=== PATIENT | female | born 2005 | race American Indian/Alaskan Native ===

== ENCOUNTER 2023-06-14 10:11 | Outpatient (OUT) | payer MEDICAID, SELFPAY ==
[2023-06-14 10:54] LABS: Basophils Absolute Auto 0.1 10^3/uL (0.0-0.1); Basophils Percent Auto 0.5 % (0.2-2.0); Eosinophils Absolute Auto 0.1 10^3/uL (0.0-0.7); Eosinophils Percent Auto 0.9 % (0.9-7.0); Hematocrit 36.4 % (36.0-48.0); Immature Granulocytes Abs Auto 0.06 10^3/uL (0.00-0.03); Immature Granulocytes Pct Auto 0.5 % (0.0-0.5); Lymphocytes Absolute Auto 1.8 10^3/uL (1.2-3.8); Lymphocytes Percent Auto 14.8 % (20.5-60.0); Mean Corpuscular Hemoglobin 29.5 pg (26.7-34.0); Mean Corpuscular Volume 89.4 fL (81.0-99.0); Mean Platelet Volume 9.8 fL (9.5-13.5); Monocytes Absolute Auto 0.8 10^3/uL (0.3-0.8); Monocytes Percent Auto 6.5 % (1.7-12.0); Neutrophils Absolute Auto 9.1 10^3/uL (1.4-6.5); Neutrophils Percent Auto 76.8 % (43.0-75.0); Platelet Count 265 10^3/uL (150-450); Red Blood Count 4.07 10^6/uL (4.20-5.40); Red Cell Distribution Width 13.2 % (11.0-15.0); White Blood Count 11.9 10^3/uL (4.0-11.0)
== END 2023-06-14 10:12 | disposition home or self-care (01) ==
PROVIDERS: PCP Family Medicine; Visit Provider Obstetrics & Gynecology
DX: Z13.1 Encounter for screening for diabetes mellitus (principal); Z31.430 Encounter of female for testing for genetic disease carrier status for procreative management; Z34.81 Encounter for supervision of other normal pregnancy, first trimester
CPT/HCPCS: 36415; 85025

== ENCOUNTER 2023-06-18 18:12 | Outpatient (OUT) | payer MEDICAID, SELFPAY ==
[2023-06-18 18:50] VITALS: BP 93/55; PULSE 73
[2023-06-18 19:13] LABS: Bilirubin Urine NEGATIVE (NEGATIVE); Blood Urine NEGATIVE (NEGATIVE); Clarity Urine CLEAR (CLEAR); Color Urine LT. YELLOW (YELLOW); Glucose Urine UA NEGATIVE (NEGATIVE); Ketones Urine TRACE mg/dL (NEGATIVE); Leukocyte Esterase Urine NEGATIVE (NEGATIVE); Nitrite Urine NEGATIVE (NEGATIVE); Protein Urine NEGATIVE (NEG/TRACE); Urobilinogen Urine 0.2 EU/dL (0.2-1.0)
[2023-06-18 19:14] LABS: Urine Microscopic Indicated NO
--- NOTE | 2023-06-18 19:53 | US_ITS ---
[address] [address] Patient Name: GIOVANY COURTNEY MRN: [facility]:[id number] date: 2005 Sex: F Assigned Patient Location: [facility] Current Patient Location: [facility] Accession/Order Number: [id number] Exam Date: 06/18/2023 19:58 Report Date: 06/18/2023 22:16 At the request of: SAY KWAN Procedure: US OB growth Ultrasound OB growth, OB placenta and OB cervical length HISTORY: Vaginal bleeding x2 days. COMPARISON: 04/20/2023, 02/21/2023 TECHNIQUE: Transabdominal obstetrical ultrasound was performed. INTERPRETATION: Number: There is a live single intrauterine fetus. Presentation: The fetus is in cephalic position. Heart Rate: 128 beats per minute with a normal rhythm. Amniotic Fluid: Normal. 16.3 cm anatomic survey: A anatomical survey was done previously. This was not repeated. Visualized anatomy appears normal. Gestational Age Assessment: Biparietal Diameter: 7.65 cm 30 w 5 d Head Circumference: 27.72 cm 30 w 2 d Abdominal Circumference: 22.91 cm 27 w 2 d Femur Length: 5.09 cm 27 w 2 d Average gestational age based on current ultrasound: 28 w 6 d corresponding to an DALTON of 09/04/2023. Estimated Weight: 1125 gm +/- 168 gm, 5.9 percentile based on clinical dating. HC/AC ratio is 1.21 and is upper limits of normal in size. FL/BPD is 66.59 and is below the lower limits of normal. FL/HC is 18.38 and is below the lower limits of normal. FL/AC is 22.24 and is within normal range. Findings ultrasound OB placental: Placenta: Normal posterior position with no placenta previa. The placenta is grade 0. Findings of the ultrasound OB cervical length: The cervical length is 4.7 cm and is within normal limits. The cervix is closed without funneling. US/US OB growth IMPRESSION: 1. Single live intrauterine gestation With spontaneous motion and cardiac activity. The gestational age based on today's exam is 28 weeks 6 days. 2. Estimated weight is 1125 g which is in the 5.9 percentile. Femur length is in the 3.3 percentile. 3. The placenta is posterior in location without placenta previa. 4. Cervical length is within normal limits measuring 4.7 cm. Electronically authenticated by: KERRI THOMAS Date: 06/18/2023 22:16
--- NOTE | 2023-06-18 19:53 | US_ITS ---
[address] [address] Patient Name: GIOVANY COURTNEY MRN: [facility]:[id number] date: 2005 Sex: F Assigned Patient Location: [facility] Current Patient Location: [facility] Accession/Order Number: [id number] Exam Date: 06/18/2023 19:58 Report Date: 06/18/2023 22:16 At the request of: SAY KWAN Procedure: US OB placenta Ultrasound OB growth, OB placenta and OB cervical length HISTORY: Vaginal bleeding x2 days. COMPARISON: 04/20/2023, 02/21/2023 TECHNIQUE: Transabdominal obstetrical ultrasound was performed. INTERPRETATION: Number: There is a live single intrauterine fetus. Presentation: The fetus is in cephalic position. Heart Rate: 128 beats per minute with a normal rhythm. Amniotic Fluid: Normal. 16.3 cm anatomic survey: A anatomical survey was done previously. This was not repeated. Visualized anatomy appears normal. Gestational Age Assessment: Biparietal Diameter: 7.65 cm 30 w 5 d Head Circumference: 27.72 cm 30 w 2 d Abdominal Circumference: 22.91 cm 27 w 2 d Femur Length: 5.09 cm 27 w 2 d Average gestational age based on current ultrasound: 28 w 6 d corresponding to an DALTON of 09/04/2023. Estimated Weight: 1125 gm +/- 168 gm, 5.9 percentile based on clinical dating. HC/AC ratio is 1.21 and is upper limits of normal in size. FL/BPD is 66.59 and is below the lower limits of normal. FL/HC is 18.38 and is below the lower limits of normal. FL/AC is 22.24 and is within normal range. Findings ultrasound OB placental: Placenta: Normal posterior position with no placenta previa. The placenta is grade 0. Findings of the ultrasound OB cervical length: The cervical length is 4.7 cm and is within normal limits. The cervix is closed without funneling. US/US OB placenta IMPRESSION: 1. Single live intrauterine gestation With spontaneous motion and cardiac activity. The gestational age based on today's exam is 28 weeks 6 days. 2. Estimated weight is 1125 g which is in the 5.9 percentile. Femur length is in the 3.3 percentile. 3. The placenta is posterior in location without placenta previa. 4. Cervical length is within normal limits measuring 4.7 cm. Electronically authenticated by: KERRI THOMAS Date: 06/18/2023 22:16
--- NOTE | 2023-06-18 19:53 | US_ITS ---
[address] [address] Patient Name: GIOVANY COURTNEY MRN: [facility]:[id number] date: 2005 Sex: F Assigned Patient Location: [facility] Current Patient Location: [facility] Accession/Order Number: [id number] Exam Date: 06/18/2023 19:58 Report Date: 06/18/2023 22:16 At the request of: SAY KWAN Procedure: US OB cervical length Ultrasound OB growth, OB placenta and OB cervical length HISTORY: Vaginal bleeding x2 days. COMPARISON: 04/20/2023, 02/21/2023 TECHNIQUE: Transabdominal obstetrical ultrasound was performed. INTERPRETATION: Number: There is a live single intrauterine fetus. Presentation: The fetus is in cephalic position. Heart Rate: 128 beats per minute with a normal rhythm. Amniotic Fluid: Normal. 16.3 cm anatomic survey: A anatomical survey was done previously. This was not repeated. Visualized anatomy appears normal. Gestational Age Assessment: Biparietal Diameter: 7.65 cm 30 w 5 d Head Circumference: 27.72 cm 30 w 2 d Abdominal Circumference: 22.91 cm 27 w 2 d Femur Length: 5.09 cm 27 w 2 d Average gestational age based on current ultrasound: 28 w 6 d corresponding to an DALTON of 09/04/2023. Estimated Weight: 1125 gm +/- 168 gm, 5.9 percentile based on clinical dating. HC/AC ratio is 1.21 and is upper limits of normal in size. FL/BPD is 66.59 and is below the lower limits of normal. FL/HC is 18.38 and is below the lower limits of normal. FL/AC is 22.24 and is within normal range. Findings ultrasound OB placental: Placenta: Normal posterior position with no placenta previa. The placenta is grade 0. Findings of the ultrasound OB cervical length: The cervical length is 4.7 cm and is within normal limits. The cervix is closed without funneling. US/US OB cervical length IMPRESSION: 1. Single live intrauterine gestation With spontaneous motion and cardiac activity. The gestational age based on today's exam is 28 weeks 6 days. 2. Estimated weight is 1125 g which is in the 5.9 percentile. Femur length is in the 3.3 percentile. 3. The placenta is posterior in location without placenta previa. 4. Cervical length is within normal limits measuring 4.7 cm. Electronically authenticated by: KERRI THOMAS Date: 06/18/2023 22:16
--- NOTE | 2023-06-18 20:01 | W.PC.ACHO ---
Registration Status: REG OUT Primary Language: Preferred Language:
== END 2023-06-18 22:10 | disposition home or self-care (01) ==
LOC: FBCO 18:13 → FBC 18:15
PROVIDERS: Midwife; PCP Family Medicine; Visit Provider Obstetrics & Gynecology
DX: O46.92 Antepartum hemorrhage, unspecified, second trimester (principal); Z3A.28 28 weeks gestation of pregnancy
CPT/HCPCS: 59025; 76815; 76816; 76817; 81003; 87086

== ENCOUNTER 2023-06-26 10:38 | Outpatient (OUT) | payer MEDICAID, SELFPAY ==
--- NOTE | 2023-06-26 10:44 | US_ITS ---
[address] [address] Patient Name: GIOVANY COURTNEY MRN: [id number] date: 2005 Sex: F Assigned Patient Location: US Current Patient Location: US Accession/Order Number: [id number] Exam Date: 06/26/2023 10:45 Report Date: 06/26/2023 11:37 At the request of: MARY JO CELAYA Procedure: US OB growth EXAMINATION: US OB growth HISTORY: SIZE INCONSISTENT WITH DATES COMPARISON: Ultrasound OB growth 06/18/2023 FINDINGS: Heart Rate: 130.0 bpm Number: 1.0 Position: CEPHALIC Amniotic Fluid Volume: 13.0 cm Maximum Vertical Pocket: 4.1 cm BIOMETRY: BPD: 7.4 cm cm; 29 weeks 6 days; 25% HC: 27.2 cmcm; 29 weeks 4 days; 6% AC: 24.1 cm cm; 28 weeks 3 days; 5% FL: 5.5 cm cm; 29 weeks 0 days; 9% EFW: 1291.1 grams; 6% FL/AC: 22.8 FL/BPD: 73.9 HC/AC: 1.1 GESTATIONAL AGE: Age by EDC: 30 weeks 2 days DALTON by EDC: 09/02/2023 Age by US: 29 weeks 2 days DALTON by US: 09/09/2023 US/US OB growth IMPRESSION: 1. Single live intrauterine with growth detailed above. 2. Estimated weight is at 6th percentile. Electronically authenticated by: TOYIN MCKEON Date: 06/26/2023 11:37
== END 2023-06-26 10:39 | disposition home or self-care (01) ==
LOC: US 10:38
PROVIDERS: PCP Family Medicine; Visit Provider Obstetrics & Gynecology
DX: O26.843 Uterine size-date discrepancy, third trimester (principal); Z3A.29 29 weeks gestation of pregnancy
CPT/HCPCS: 76816

== ENCOUNTER 2023-07-15 15:36 | Outpatient (OUT) | payer MEDICAID, SELFPAY ==
[2023-07-15 15:57] VITALS: BP 100/59; PULSE 69
--- NOTE | 2023-07-15 16:10 | US_ITS ---
[address] [address] Patient Name: GIOVANY COURTNEY MRN: [id number] date: 2005 Sex: F Assigned Patient Location: [facility] Current Patient Location: Accession/Order Number: [id number] Exam Date: 07/15/2023 16:11 Report Date: 07/15/2023 16:54 At the request of: MARY JO CELAYA Procedure: US OB BPP w non-stress EXAM: US OB BPP w non-stress HISTORY: IUGR COMPARISON: None. FINDINGS: There is evidence of an intrauterine in the vertex presentation with a heart rate of 128. Amniotic fluid index is 17.7 cm which is between the fifth and 95th percentile. movement 2, tone 2, breathing 2, and amniotic fluid volume 2 for a score of 8/8. US/US OB BPP w non-stress IMPRESSION: 1 intrauterine in the vertex presentation with heart rate 128. 2. Biophysical profile 8/8. Electronically authenticated by: ALEXIA HEWITT Date: 07/15/2023 16:54
== END 2023-07-15 16:45 | disposition home or self-care (01) ==
LOC: FBCO 15:38 → FBC 15:43
PROVIDERS: PCP Family Medicine; Visit Provider Obstetrics & Gynecology
DX: O26.843 Uterine size-date discrepancy, third trimester (principal); Z3A.00 Weeks of gestation of pregnancy not specified
CPT/HCPCS: 76818

== ENCOUNTER 2023-07-18 09:52 | Outpatient (OUT) | payer MEDICAID, SELFPAY ==
[2023-07-18 10:00] VITALS: BP 99/56; PULSE 75
== END 2023-07-18 10:33 | disposition home or self-care (01) ==
LOC: FBCO 09:52 → FBC 09:53
PROVIDERS: PCP Family Medicine; Visit Provider Obstetrics & Gynecology Gynecology
DX: O26.843 Uterine size-date discrepancy, third trimester (principal); Z3A.00 Weeks of gestation of pregnancy not specified
CPT/HCPCS: 59025

== ENCOUNTER 2023-07-22 10:00 | Outpatient (OUT) | payer MEDICAID, SELFPAY ==
--- NOTE | 2023-07-22 10:23 | US_ITS ---
[address] [address] Patient Name: GIOVANY COURTNEY MRN: [id number] date: 2005 Sex: F [place]igned [place] [facility] [place] [facility] [place]/Order Number: [id number] Exam Date: 07/22/2023 10:28 Report Date: 07/22/2023 17:02 At the request of: MARY JO CELAYA Procedure: US OB BPP w non-stress EXAMINATION: US OB BPP w non-stress HISTORY: size inconsistent with dates O26.849 COMPARISON: No relevant comparison available. TECHNIQUE: Ultrasound biophysical profile was performed in the radiology department. FINDINGS: BREATHING MOVEMENTS: 2.0 GROSS BODY MOVEMENTS: 2.0 TONE: 2.0 QUALITATIVE AMNIOTIC FLUID VOLUME: 2.0 PRESENTATION: CEPHALIC HEART RATE: 124.4 bpm H.B./min AMNIOTIC FLUID VOLUME: 12.1 cm cm GESTATIONAL AGE: 34 weeks 0 days 7.4 x 6.9 x 4.4 cm area of anechoic echogenicity in the left ovary CONCLUSION: Total biophysical profile score: 8.0 Electronically authenticated by: ALEXIA REEVES Date: 07/22/2023 17:02
== END 2023-07-22 10:48 | disposition home or self-care (01) ==
LOC: FBCO 10:21 → FBC 10:22
PROVIDERS: PCP Family Medicine; Visit Provider Obstetrics & Gynecology
DX: O26.843 Uterine size-date discrepancy, third trimester (principal); Z3A.34 34 weeks gestation of pregnancy
CPT/HCPCS: 76818

== ENCOUNTER 2023-07-24 11:09 | Outpatient (OUT) | payer MEDICAID, SELFPAY ==
--- NOTE | 2023-07-24 11:18 | US_ITS ---
[address] [address] Patient Name: GIOVANY COURTNEY MRN: [id number] date: 2005 Sex: F Assigned Patient Location: [facility] Current Patient Location: [facility] Accession/Order Number: [id number] Exam Date: 07/24/2023 11:20 Report Date: 07/24/2023 12:12 At the request of: MARY JO CELAYA Procedure: US OB BPP w non-stress EXAMINATION: US OB BPP w non-stress HISTORY: LGA COMPARISON: No relevant comparison available. TECHNIQUE: Ultrasound biophysical profile was performed in the radiology department. FINDINGS: BREATHING MOVEMENTS: 2.0 GROSS BODY MOVEMENTS: 2.0 TONE: 2.0 QUALITATIVE AMNIOTIC FLUID VOLUME: 2.0 PRESENTATION: CEPHALIC HEART RATE: 105.4 bpm H.B./min AMNIOTIC FLUID VOLUME: 17.4 cm cm GESTATIONAL AGE: 34 weeks 2 days CONCLUSION: Total biophysical profile score: 8.0 Electronically authenticated by: ALEXIA REEVES Date: 07/24/2023 12:12
--- NOTE | 2023-07-24 12:07 | PC.NURSE ---
monitor not connecting to [employer] and so tracing is being monitored on paper, fhr over first 10 minutes is tracing 100-120 with moderate variability and accels to 140s noted with movement, bpp done prior to nst and results 8 and hugo 17.4
--- NOTE | 2023-07-24 12:29 | PC.NURSE ---
dr chan in and assess patient and tracing
[2023-07-24 13:06] LABS: Alanine Aminotransferase 16 U/L (14-59); Albumin Globulin Ratio 0.7; Albumin Level 2.7 g/dL (3.4-5.0); Alkaline Phosphatase 84 U/L (46-116); Aspartate Amino Transferase 18 U/L (15-37); Bilirubin Direct <0.1 mg/dL (0.0-0.2); Bilirubin Total 0.2 mg/dL (0.2-1.0); Globulin 4.1 g/dL; Total Protein 6.8 g/dL (6.4-8.2)
--- NOTE | 2023-07-24 13:45 | PC.NURSE ---
1205 FHR 115 with mod variability. IT tech support working on getting [employer]ix and [employer] to respond for tracing. accels noted, no decels, see paper tracing
[2023-07-24] MEDS: BETAMETHASONE ACE/BETAMETHASONE SOD PHOS 30 MG/5 ML 12 MG IM (14:22)
[2023-07-25 17:09] LABS: Bile Acids 1.9 umol/L (0.0-10.0)
== END 2023-07-24 14:38 | disposition home or self-care (01) ==
LOC: US 11:10 → FBC 11:10
PROVIDERS: PCP Family Medicine; Visit Provider Obstetrics & Gynecology
DX: O26.843 Uterine size-date discrepancy, third trimester (principal); Z3A.34 34 weeks gestation of pregnancy; O36.63X0 Maternal care for excessive fetal growth, third trimester, not applicable or unspecified
CPT/HCPCS: 36415; 76818; 80076; 82239; 96372; J0702

== ENCOUNTER 2023-07-25 13:59 | Outpatient (OUT) | payer MEDICAID, SELFPAY ==
[2023-07-25] MEDS: BETAMETHASONE ACE/BETAMETHASONE SOD PHOS 30 MG/5 ML 12 MG IM (14:10)
== END 2023-07-25 14:48 ==
LOC: FBCO 13:59 → FBC 13:59
PROVIDERS: PCP Family Medicine; Visit Provider Obstetrics & Gynecology
DX: O26.849 Uterine size-date discrepancy, unspecified trimester (principal); Z3A.00 Weeks of gestation of pregnancy not specified
CPT/HCPCS: 59025; J0702

== ENCOUNTER 2023-07-30 09:55 | Outpatient (OUT) | payer MEDICAID, SELFPAY ==
--- NOTE | 2023-07-30 10:07 | US_ITS ---
[place] [id number] Patient Name: GIOVANY COURTNEY MRN: [id number] date: 2005 Sex: F Assigned Patient Location: [facility] Current Patient Location: Accession/Order Number: [id number] Exam Date: 07/30/2023 10:08 Report Date: 07/30/2023 17:34 At the request of: MARY JO CELAYA Procedure: US OB BPP w non-stress EXAMINATION: US OB BPP w non-stress HISTORY: Variable heart rate decelerations O36.8390 COMPARISON: No relevant comparison available. TECHNIQUE: Ultrasound biophysical profile was performed in the radiology department. FINDINGS: BREATHING MOVEMENTS: 2.0 GROSS BODY MOVEMENTS: 2.0 TONE: 2.0 QUALITATIVE AMNIOTIC FLUID VOLUME: 2.0 PRESENTATION: CEPHALIC HEART RATE: 125.0 bpm H.B./min AMNIOTIC FLUID VOLUME: 13.6 cm cm GESTATIONAL AGE: 39 weeks 3 days CONCLUSION: Total biophysical profile score: 8.0 Electronically authenticated by: ALEXIA REEVES Date: 07/30/2023 17:34
[2023-07-30 10:32] VITALS: BP 107/60; PULSE 83
== END 2023-07-30 11:11 | disposition home or self-care (01) ==
LOC: US 09:57 → FBC 09:58
PROVIDERS: PCP Family Medicine; Visit Provider Obstetrics & Gynecology
DX: O26.843 Uterine size-date discrepancy, third trimester (principal); Z3A.39 39 weeks gestation of pregnancy
CPT/HCPCS: 76818

== ENCOUNTER 2023-08-01 09:49 | Outpatient (OUT) | payer MEDICAID, SELFPAY ==
[2023-08-01 09:57] VITALS: BP 103/51; PULSE 67
== END 2023-08-01 10:45 | disposition home or self-care (01) ==
LOC: FBCO 09:50 → FBC 09:50
PROVIDERS: PCP Family Medicine; Visit Provider Obstetrics & Gynecology
DX: O36.8930 Maternal care for other specified fetal problems, third trimester, not applicable or unspecified (principal); O26.849 Uterine size-date discrepancy, unspecified trimester; Z3A.00 Weeks of gestation of pregnancy not specified
CPT/HCPCS: 59025

== ENCOUNTER 2023-08-05 09:55 | Outpatient (OUT) | payer MEDICAID, SELFPAY ==
--- NOTE | 2023-08-05 10:04 | US_ITS ---
[address] [address] Patient Name: GIOVANY COURTNEY MRN: [id number] date: 2005 Sex: F Assigned Patient Location: [facility] Current Patient Location: [facility] Accession/Order Number: [id number] Exam Date: 08/05/2023 10:50 Report Date: 08/05/2023 17:06 At the request of: MARY JO CELAYA Procedure: US OB BPP w non-stress EXAMINATION: US OB BPP w non-stress HISTORY: SIZE INCONSISTENT WITH DATES O26.649 COMPARISON: 07/30/2023 TECHNIQUE: Ultrasound biophysical profile was performed in the radiology department. non-reactive stress testing was performed by nursing staff in the birthing center. FINDINGS: BREATHING MOVEMENTS: 2.0 GROSS BODY MOVEMENTS: 2.0 TONE: 2.0 QUALITATIVE AMNIOTIC FLUID VOLUME: 2.0 PRESENTATION: CEPHALIC HEART RATE: 119.5 bpm H.B./min AMNIOTIC FLUID VOLUME: 11.8 cm GESTATIONAL AGE: 36 weeks 0 days CONCLUSION: Total biophysical profile score: 8.0 Electronically authenticated by: ALEXIA REEVES Date: 08/05/2023 17:06
[2023-08-05 10:06] VITALS: BP 109/57; PULSE 67
== END 2023-08-05 11:15 | disposition home or self-care (01) ==
LOC: US 10:02 → FBC 10:03
PROVIDERS: PCP Family Medicine; Visit Provider Obstetrics & Gynecology
DX: O26.843 Uterine size-date discrepancy, third trimester (principal); Z3A.36 36 weeks gestation of pregnancy; O36.8330 Maternal care for abnormalities of the fetal heart rate or rhythm, third trimester, not applicable or unspecified
CPT/HCPCS: 76818

== ENCOUNTER 2023-08-07 20:34 | Outpatient (REF) | payer MEDICAID, SELFPAY | END 2023-08-07 20:35 | disposition home or self-care (01) | LOC: LAB 20:34 | PROVIDERS: PCP Family Medicine; Visit Provider Obstetrics & Gynecology | DX: Z34.93 Encounter for supervision of normal pregnancy, unspecified, third trimester (principal) | CPT/HCPCS: 87081 ==

== ENCOUNTER 2023-08-08 10:00 | Outpatient (OUT) | payer MEDICAID, SELFPAY ==
[2023-08-08 10:17] VITALS: BP 102/60; PULSE 76
== END 2023-08-08 10:45 | disposition home or self-care (01) ==
LOC: FBCO 10:01 → FBC 10:01
PROVIDERS: PCP Family Medicine; Visit Provider Obstetrics & Gynecology
DX: O36.8390 Maternal care for abnormalities of the fetal heart rate or rhythm, unspecified trimester, not applicable or unspecified (principal); O26.849 Uterine size-date discrepancy, unspecified trimester; Z3A.00 Weeks of gestation of pregnancy not specified
CPT/HCPCS: 59025

== ENCOUNTER 2023-08-12 07:30 | Outpatient (OUT) | payer MEDICAID, SELFPAY ==
--- NOTE | 2023-08-12 09:47 | US_ITS ---
[address] [address] Patient Name: GIOVANY COURTNEY MRN: [id number] date: 2005 Sex: F Assigned Patient Location: US Current Patient Location: US Accession/Order Number: [id number] Exam Date: 08/12/2023 09:59 Report Date: 08/12/2023 16:56 At the request of: MARY JO CELAYA Procedure: US OB BPP w non-stress EXAMINATION: US OB BPP w non-stress HISTORY: SIZE INCONSISTENT WITH DATES O26.649 COMPARISON: No relevant comparison available. TECHNIQUE: Ultrasound biophysical profile was performed in the radiology department. FINDINGS: BREATHING MOVEMENTS: 2.0 GROSS BODY MOVEMENTS: 2.0 TONE: 2.0 QUALITATIVE AMNIOTIC FLUID VOLUME: 2.0 PRESENTATION: CEPHALIC HEART RATE: 134.3 bpm H.B./min AMNIOTIC FLUID VOLUME: 17.7 cm cm GESTATIONAL AGE: 37 weeks 0 days CONCLUSION: Total biophysical profile score: 8.0 Electronically authenticated by: ALEXIA REEVES Date: 08/12/2023 16:56
[2023-08-12 10:22] VITALS: BP 99/56; PULSE 100
== END 2023-08-12 10:46 | disposition home or self-care (01) ==
LOC: US 07:33 → FBC 10:04
PROVIDERS: PCP Family Medicine; Visit Provider Obstetrics & Gynecology
DX: O26.843 Uterine size-date discrepancy, third trimester (principal); Z3A.37 37 weeks gestation of pregnancy
CPT/HCPCS: 76818

== ENCOUNTER 2023-08-15 07:26 | Outpatient (OUT) | payer MEDICAID, SELFPAY ==
[2023-08-15 10:10] VITALS: BP 111/59; PULSE 80
== END 2023-08-15 10:55 | disposition home or self-care (01) ==
LOC: FBCO 07:27 → FBC 10:03
PROVIDERS: PCP Family Medicine; Visit Provider Obstetrics & Gynecology
DX: O36.8390 Maternal care for abnormalities of the fetal heart rate or rhythm, unspecified trimester, not applicable or unspecified (principal); O26.849 Uterine size-date discrepancy, unspecified trimester; Z3A.00 Weeks of gestation of pregnancy not specified
CPT/HCPCS: 59025

== ENCOUNTER 2023-08-19 07:08 | Outpatient (OUT) | payer MEDICAID, SELFPAY ==
--- NOTE | 2023-08-19 09:57 | US_ITS ---
[place] [id number] Patient Name: GIOVANY COURTNEY MRN: [id number] date: 2005 Sex: F Assigned Patient Location: [facility] Current Patient Location: Accession/Order Number: [id number] Exam Date: 08/19/2023 10:00 Report Date: 08/19/2023 15:32 At the request of: MARY JO CELAYA Procedure: US OB BPP w non-stress EXAMINATION: US OB BPP w non-stress HISTORY: size inconsistent with dates O26.649 COMPARISON: Ultrasound OB biophysical 08/12/2023 TECHNIQUE: Ultrasound biophysical profile was performed in the radiology department. BREATHING MOVEMENTS: 2.0 GROSS BODY MOVEMENTS: 2.0 TONE: 2.0 QUALITATIVE AMNIOTIC FLUID VOLUME: 2.0 PRESENTATION: CEPHALIC HEART RATE: 135.7 bpm bpm. AMNIOTIC FLUID VOLUME: 13.7 cm GESTATIONAL AGE: 38 weeks 0 days CONCLUSION: Total biophysical profile score 8.0. Electronically authenticated by: TOYIN MCKEON Date: 08/19/2023 15:32
[2023-08-19 10:24] VITALS: BP 111/76; PULSE 74
== END 2023-08-19 11:00 | disposition home or self-care (01) ==
LOC: US 07:14 → FBC 09:55
PROVIDERS: PCP Family Medicine; Visit Provider Obstetrics & Gynecology
DX: O26.843 Uterine size-date discrepancy, third trimester (principal); Z3A.38 38 weeks gestation of pregnancy
CPT/HCPCS: 76818

== ENCOUNTER 2023-08-22 08:24 | Outpatient (OUT) | payer MEDICAID, SELFPAY ==
[2023-08-22 10:04] VITALS: BP 113/51; PULSE 73
== END 2023-08-22 10:48 | disposition home or self-care (01) ==
LOC: FBCO 08:25 → FBC 09:58
PROVIDERS: PCP Family Medicine; Visit Provider Obstetrics & Gynecology
DX: O36.8390 Maternal care for abnormalities of the fetal heart rate or rhythm, unspecified trimester, not applicable or unspecified (principal); O26.849 Uterine size-date discrepancy, unspecified trimester; Z3A.00 Weeks of gestation of pregnancy not specified
CPT/HCPCS: 59025

== ENCOUNTER 2023-08-26 04:57 | Inpatient (IN) | payer MEDICAID, SELFPAY ==
[2023-08-26] VITALS (43 sets, daily range): BP systolic 82–135; BP diastolic 48–87; PULSE 50–93; RESP 16–18; TEMP 36.4–37.1
[2023-08-26] MEDS: 0.9 % SODIUM CHLORIDE 1,000 ML 125 ML IV ×2 (05:25→12:10)
[2023-08-26 05:36] LABS: Hematocrit 32.9 % (36.0-48.0); Hemoglobin 10.9 g/dL (12.0-16.0); Mean Corpuscular HGB Conc 33.1 g/dL (29.9-35.2); Mean Corpuscular Hemoglobin 28.3 pg (26.7-34.0); Mean Corpuscular Volume 85.5 fL (81.0-99.0); Mean Platelet Volume 10.2 fL (9.5-13.5); Platelet Count 286 10^3/uL (150-450); Red Blood Count 3.85 10^6/uL (4.20-5.40); Red Cell Distribution Width 13.2 % (11.0-15.0); White Blood Count 10.2 10^3/uL (4.0-11.0)
[2023-08-26 06:04] LABS: Amphetamine Screen Urine NEGATIVE (NEGATIVE); Barbiturates Screen Urine NEGATIVE (NEGATIVE); Benzodiazepines Screen Urine NEGATIVE (NEGATIVE); Buprenorphine Screen Urine NEGATIVE (NEGATIVE); Cannabinoid Screen Urine POSITIVE (NEGATIVE); Cocaine Screen Urine NEGATIVE (NEGATIVE); Methadone Screen Urine NEGATIVE (NEGATIVE); Methamphetamines Screen Urine NEGATIVE (NEGATIVE); Opiate Screen Urine NEGATIVE (NEGATIVE); Oxycodone Screen Urine NEGATIVE (NEGATIVE); Phencyclidine Screen Urine NEGATIVE (NEGATIVE); Tricyclic Antidepressant Urine NEGATIVE (NEGATIVE)
[2023-08-26] MEDS: OXYTOCIN/0.9 % SODIUM CHLORIDE 10 UNITS/500 ML PLAST..BAG 6 UNIT IV (07:14)
--- NOTE | 2023-08-26 07:27 | W.PC.ACHO ---
Registration Status: ADM IN Primary Language: Maldivian Preferred Language: Maldivian Active Medications Generic Name Dose Route Start Last Admin Trade Name Freq PRN Reason Stop Dose Admin Carboprost Tromethamine 250 mcg 08/26/23 04:59 Carboprost Tromethamine 250 Mcg/Ml 1 Ml Vial IM 08/28/23 04:59 Q15M PRN Bleeding Diphenhydramine HCl 25 mg 08/26/23 05:46 Diphenhydramine Hcl 50 Mg/Ml (1ml) Vial IV 08/27/23 05:47 Q6H PRN Itching Ephedrine Sulfate 5 mg 08/26/23 05:46 Ephedrine Sulfate 50 Mg/Ml Vial IV 08/27/23 05:47 Q5M PRN Blood Pressure - Low Fentanyl Citrate 100 mcg 08/26/23 05:46 Fentanyl Citrate/Pf 100 Mcg/2 Ml Vial EPIDURAL 08/27/23 05:46 Q4H PRN Pain Sodium Chloride 1,000 mls @ 125 mls/hr 08/26/23 05:00 08/26/23 05:25 Sodium Chloride 0.9% 1,000 Ml IV 125 mls/hr .Q8H BLUE Administration Oxytocin/Sodium Chloride 10 units in 500 mls @ 6 mls/hr 08/26/23 05:00 08/26/23 07:14 Pitocin 10 Unit/500 Ml-Ns IV 2 milliunit/min CONT BLUE 6 mls/hr Administration Protocol 2 MILLIUNIT/MIN Oxytocin/Sodium Chloride 20 units in 1,000 mls @ 125 mls/hr 08/26/23 05:00 Pitocin 20 Unit/1,000 Ml-Ns IV 08/26/23 12:59 Q8H PRN Delivery Sodium Chloride 1,000 mls @ 1,000 mls/hr 08/26/23 05:46 Sodium Chloride 0.9% 1,000 Ml IV .Q1H PRN Epidural Ropivacaine/Sodium Chloride 400 mg in 200 mls @ 6 mls/hr 08/26/23 06:00 Naropin 0.2% 400 Mg/200 Ml Bag EPIDURAL 08/27/23 05:46 Q24H BLUE Lidocaine 5 ml 08/26/23 04:59 Lidocaine Viscous 2% 15 Ml Solution TOPICAL ONCE PRN Pain Lidocaine 1 ml 08/26/23 04:59 Lidocaine Hcl 1% 200 Mg/20 Ml Mdv INJ ONCE PRN Pain Lidocaine 5 ml 08/26/23 05:46 Lidocaine Hcl 2% Pf 100 Mg/5 Ml Vial INJ 08/27/23 05:46 Q1H PRN Epidural Methylergonovine Maleate 0.2 mg 08/26/23 04:59 Methylergonovine Maleate 0.2 Mg/Ml Ampule IM 08/28/23 04:59 ONCE PRN Uterine Contractility/Contract Methylergonovine Maleate 0.2 mg 08/26/23 04:59 Methylergonovine Maleate 0.2 Mg Tablet PO 08/28/23 04:59 Q4H PRN Uterine Contractility/Contract Misoprostol 600 mcg 08/26/23 04:59 Misoprostol 100 Mcg Tablet PO 08/28/23 04:59 ONCE PRN Uterine Bleeding Misoprostol 800 mcg 08/26/23 04:59 Misoprostol 100 Mcg Tablet SL 08/28/23 04:59 ONCE PRN Uterine Bleeding Misoprostol 1,000 mcg 08/26/23 04:59 Misoprostol 100 Mcg Tablet MA 08/28/23 04:59 ONCE PRN Uterine Bleeding Naloxone HCl 0.4 mg 08/26/23 05:46 Naloxone Hcl 0.4 Mg/Ml Vial IV 08/27/23 05:47 ONCE PRN Epidural Ondansetron HCl 4 mg 08/26/23 04:59 Ondansetron Pf 4 Mg/2 Ml Vial IV Q6H PRN Nausea And Vomiting Ondansetron HCl 4 mg 08/26/23 04:59 Ondansetron 4 Mg Rapdis Tablet SL Q6H PRN Nausea And Vomiting Oxytocin 10 unit 08/26/23 04:59 Oxytocin 10 Unit/Ml Vial IM 08/28/23 04:59 ONCE PRN Hemorrhage Diet Category Date Time Status Regular Consistency Diet Diet 08/26/23 Breakfast Active Consults Category Date Time Status Consult to Horticultural Nursery Assistant Routine Cons 08/26/23 Ordered IV Insertion/Site Date of IV Line Insertion [20g 08/26/23 Forearm] IV Insertion Time [20g Forearm 05:15 ] Neurology Patient orientation (short person,place,time,situation list) Respiratory Oxygen Delivery Method Room Air
[2023-08-26] MEDS: 0.9 % SODIUM CHLORIDE 1,000 ML 1000 ML IV (09:00)
[2023-08-26] MEDS: ROPIVACAINE HCL/PF 400 MG/200 ML PREMIX 6 MG EPIDURAL (10:03)
[2023-08-26] MEDS: FENTANYL CITRATE/PF 100 MCG/2 ML VIAL EPIDURAL (10:03)
[2023-08-26] MEDS: ROPIVACAINE HCL 0.2% PF 40 MG/20 ML VIAL 20 MG EPIDURAL (10:05)
[2023-08-26] MEDS: OXYTOCIN/0.9 % SODIUM CHLORIDE 20 UNITS/1,000 ML PLAST..BAG 125 UNIT IV (14:06)
--- NOTE | 2023-08-26 14:10 | PM.OBPRCVD ---
Procedure Intrapartal events: None Induction method: per pitocin protocol Delivery augmentation: rupture of membranes and pitocin Delivery monitor: external FHT and external uterine Route of delivery: Laceration description: perineal - 1st degree Delivery repair: Vicryl Estimated blood loss (mL): 200 Anesthesia type: Epidural Disposition: floor Infant Delivery date: 08/26/23 Gender: female presentation: vertex Placental delivery description: Spontaneous cord description: 3 Vessels
[2023-08-26] MEDS: BENZOCAINE/MENTHOL 85 GRAM SPRAY BOTTLE 1 APPLIC TOPICAL (17:06)
--- NOTE | 2023-08-26 17:36 | PC.NURSE ---
1705 up to BR with assist, cristhian care reviewed and returns to bed independently
--- NOTE | 2023-08-26 19:25 | PC.NURSE ---
report given, up to shower
--- NOTE | 2023-08-26 21:11 | PC.NURSE ---
attempted to get pts inverted nipple to protrude with stimulation per pt prior to latching . No success noted. Attempted with 10 pumps of manual breast pump to get nipple to protrude with education on use of manual breast pump. pt verbalized understanding and used pump properly, minimal success noted. Attempted to latch after using hand breast pump and using hand expression. infant unable to sustain latch after multiple attempts and and over a half hour of trying infant becomes fussy and angry. Infant consoled and nipple shield used to latch . Successfully. positions and care of pump and nipple shield reviewed with pt and S.O. both verbalize understanding and deny any questions at this time.
[2023-08-27 06:36] LABS: Basophils Absolute Auto 0.1 10^3/uL (0.0-0.1); Basophils Percent Auto 0.4 % (0.2-2.0); Eosinophils Absolute Auto 0.2 10^3/uL (0.0-0.7); Eosinophils Percent Auto 1.3 % (0.9-7.0); Immature Granulocytes Pct Auto 0.7 % (0.0-0.5); Lymphocytes Absolute Auto 2.5 10^3/uL (1.2-3.8); Lymphocytes Percent Auto 17.8 % (20.5-60.0); Mean Corpuscular HGB Conc 32.3 g/dL (29.9-35.2); Mean Corpuscular Hemoglobin 27.8 pg (26.7-34.0); Mean Corpuscular Volume 86.1 fL (81.0-99.0); Mean Platelet Volume 10.3 fL (9.5-13.5); Monocytes Absolute Auto 1.3 10^3/uL (0.3-0.8); Monocytes Percent Auto 9.6 % (1.7-12.0); Neutrophils Absolute Auto 9.7 10^3/uL (1.4-6.5); Neutrophils Percent Auto 70.2 % (43.0-75.0); Platelet Count 227 10^3/uL (150-450); Red Cell Distribution Width 13.2 % (11.0-15.0); White Blood Count 13.8 10^3/uL (4.0-11.0)
[2023-08-27] MEDS: DOCUSATE SODIUM 100 MG CAPSULE PO ×2 (08:15→21:22)
[2023-08-27] MEDS: IBUPROFEN 600 MG TABLET PO (08:15)
[2023-08-27 08:16] VITALS: BP 118/55; PULSE 67
--- NOTE | 2023-08-27 08:57 | PC.NURSE ---
Carmelina open to discussion about . States started using nipple shield yesterday after delivery because baby couldn't go on Breast symmetrical in shape, and fullness. Areola enlarged and nipples intact, short in length but everted. Discussed using shield as a short term solution and encouraging offering breast without shield as baby matures should be able to latch without use of shield. Carmelina open to discussion and agrees. Handouts provided for support.
[2023-08-27 15:47] VITALS: BP 116/71; PULSE 69
[2023-08-28 00:37] VITALS: BP 118/79; PULSE 67; TEMP 36.6
--- NOTE | 2023-08-28 07:10 | W.PC.ACHO ---
Registration Status: ADM IN Primary Language: Monegasque Preferred Language: Monegasque Active Medications Generic Name Dose Route Start Last Admin Trade Name Freq PRN Reason Stop Dose Admin Acetaminophen 650 mg 08/26/23 14:08 Acetaminophen 325 Mg Tablet PO Q6H PRN Mild Pain Al Hydroxide/Mg Hydroxide 2,400 mg 08/26/23 14:08 Magnesium Hydroxide 2,400 Mg/10 Ml Oral.Susp PO Q6H PRN Dyspepsia Benzocaine/Menthol 1 applic 08/26/23 14:08 08/26/23 17:06 Benzocaine/Menthol 85 Gram [place]ell Bottle TOPICAL 1 applic Q2H PRN Administration Pain Diphtheria/Pertussis/Tetanus Vacc 0.5 ml 08/28/23 09:00 Adacel Diph,Pertuss(Acell),Tet Vac/Pf 0.5 Ml Adult Syringe IM 08/28/23 09:01 .ONCE ONE Docusate Sodium 100 mg 08/27/23 09:00 08/27/23 21:22 Docusate Sodium 100 Mg Capsule PO 100 mg BID BLUE Administration Sodium Chloride 1,000 mls @ 125 mls/hr 08/26/23 05:00 08/26/23 14:47 Sodium Chloride 0.9% 1,000 Ml IV Infused .Q8H BLUE Infusion Ibuprofen 600 mg 08/26/23 14:08 08/27/23 08:15 Ibuprofen 600 Mg Tablet PO 600 mg Q6H PRN Administration Moderate Pain Measles/Mumps/Rubella Vaccine Live 0.5 ml 08/28/23 09:00 Measles,Mumps,Rubella Vacc/Pf 0.5 Ml Vial SQ 08/28/23 09:01 .ONCE ONE Ondansetron HCl 4 mg 08/26/23 04:59 Ondansetron Pf 4 Mg/2 Ml Vial IV Q6H PRN Nausea And Vomiting Ondansetron HCl 4 mg 08/26/23 04:59 Ondansetron 4 Mg Rapdis Tablet SL Q6H PRN Nausea And Vomiting Senna 17.2 mg 08/26/23 20:00 Sennosides 8.6 Mg Tablet PO QHS PRN Constipation Simethicone 80 mg 08/26/23 14:08 Simethicone 80 Mg Tab.Chew PO QID PRN Abdominal Distention Temazepam 15 mg 08/26/23 20:00 Temazepam 15 Mg Capsule PO QHS PRN Sleep Witch Monica/Glycerin 1 pad 08/26/23 14:08 Glycerin/Witch Monica Pads TOPICAL Q2H PRN Pain
--- NOTE | 2023-08-28 07:33 | PM.OBPN ---
OB - PN: Subj Subjective Patient comments: no complaints and pain well controlled [place] status: doing well Exam Constitutional Vital Signs, click to edit/add: Last Vital Signs Temp 97.9 F 08/28/23 00:37 Pulse 67 08/28/23 00:37 Resp 16 08/26/23 23:17 BP 118/79 08/28/23 00:37 O2 Del Method Room Air 08/26/23 05:12 Documenting provider has reviewed patient's vital signs: yes Common normals: no apparent distress Respiratory Common normals: normal respiratory effort and clear to auscultation bilaterally Cardio Common normals: regular rate and regular rhythm GI Common normals: Normal to inspection, nondistended, normoactive bowel sounds present Extremity Common normals: no clubbing, cyanosis or edema and no calf tenderness OB - PN: A/P Plan - Vaginal Delivery day: 2 Plan: routine care, discharge home and follow up 6 weeks Time Spent with Patient Time: Total time spent is greater than 50% in coordination of care (as documented) at patient's floor/unit and/or counseling patient: Total time spent with greater than 50% in coordination of care (as documented) at patient's floor/unit and/or counseling patient: less than 15 minutes
[2023-08-28 08:45] VITALS: BP 112/69; PULSE 60; RESP 16; TEMP 36.9
[2023-08-28] MEDS: DOCUSATE SODIUM 100 MG CAPSULE PO (08:47)
--- NOTE | 2023-08-28 10:02 | SWNOTE1 ---
SW met with pt in room to discuss positive THC drug screen and previous mental health history. This is pt's first baby and everything went well for delivery. Father of baby is involved and they do live together. Father of baby is at job interview right now. Pt has good support between families and her mother in law is a big support for them. Pt has everything they need at home for baby. Pt is breast feeding and has a follow up scheduled with Faiza on Saturday. Pt does admit to THC use during . She was prescribed Zofran, but it did not help her. She voiced she only smoked marijuana as needed. She does not have a medical marijuana card. She does not plan on continuing use once home and only did it to help with nausea. SW and pt spoke about previous mental health history. Pt does admit she has anxiety and borderline personality disorder. She voiced she is in a good place right now. She had previously went to counseling and she is open to SW giving her a list of area counselors in case she feels she needs to get back in to counseling. SW provided to pt. 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 Pt voiced she has good support with her mother in law and she is able to go to significant other as well. SW did notify pt that SW has to report to CPS due to the marijuana use. She voiced understanding. JOSLYN called and made referral to [facility] CPS, HIPPA form filled out and sent to Aysha.
[2023-08-28] MEDS: IBUPROFEN 600 MG TABLET PO (11:08)
[2023-08-30 15:09] LABS: Cannabinoid Positive (.); Carboxy THC Conf, MS, UR >750 ng/mL (Cutoff=10)
== END 2023-08-28 10:20 | disposition home or self-care (01) | DRG 560 ==
PROVIDERS: Admitting Provider Obstetrics & Gynecology; PCP Family Medicine; Visit Provider Obstetrics & Gynecology
DX: O99.334 Smoking (tobacco) complicating childbirth (principal); O70.0 First degree perineal laceration during delivery; F17.210 Nicotine dependence, cigarettes, uncomplicated; Z3A.39 39 weeks gestation of pregnancy; Z37.0 Single live birth; Z82.49 Family history of ischemic heart disease and other diseases of the circulatory system
CPT/HCPCS: 36415; 59050; 59410; 80307; 80349; 85025; 85027; 86850; 86900; 86901; 96365; 96366; 96376

== ENCOUNTER 2023-08-30 08:25 | Outpatient (OUT) | payer MEDICAID, SELFPAY ==
--- NOTE | 2023-08-30 11:33 | PC.NURSE ---
Mom choses to pump and feed, states I didn't like trying to latch her and this way other people can feed her . States pumping every 3 hours using [employer] hand pump and obtains 6 oz. States has been giving baby Enfamil formula as well because I wasn't sure if she needed that as well as the breast milk LC encouraged a pumping schedule. Sample schedule given to pt and to feed baby pumped breast milk only, saving formula for when she may not have the breast milk. Parents verbalize understanding. Baby takes 1.5 oz of formula or breast milk every 3-4 hours. 4 wets in last 24 hours and 1 greenish seedy stool. Mom concerned not enough wets or stools. Reviewed expectations for first week of life. Baby has 2 voids and 1 large light green/yellow seedy stool with assessment. Parents doing well with adjustments of new baby. Asks appropriate questions and answers given. Verbalized understanding.
[2023-08-30 11:34] VITALS: BP 112/74; PULSE 54; RESP 16; TEMP 36.7; O2SAT 96
== END 2023-08-30 11:05 | disposition home or self-care (01) ==
LOC: FBCO 08:25
PROVIDERS: PCP Family Medicine; Visit Provider Obstetrics & Gynecology
DX: Z39.2 Encounter for routine postpartum follow-up (principal)

== ENCOUNTER 2023-09-02 08:50 | Outpatient (RCR) | payer MEDICAID, SELFPAY ==
--- NOTE | 2023-09-02 14:50 | PC.NURSE ---
Arrives for support and states made decision to stop /pumping for milk. Currently has green cabbage leaves in bra for relief. Given handout for drying up milk Verbalized understanding. Infant weight has not changed since follow up. Mom feeds every 4 hours 1.5-2 oz. Discussed importance of 8 feeds in 24 hours for first few months of life. Pt to feed baby every 3 hours 2 oz of Enfamil gentle ease formula as per her choice. Also discussed proper dressing of NB. She arrives with long sleeve onsie only and blanket. Mom and frien have sweatshirts and fleece pants on. Encouraged to dress baby for weather/like mom would dress herself. Given sweater set with hat and booties for baby. Baby in car seat, booties on, hat on and sweater placed on backwards to keep arms and trunk warmer. Mom verbalized understanding.
== END 2023-09-02 14:57 | disposition home or self-care (01) ==
LOC: FBCO 08:50
PROVIDERS: PCP Family Medicine; Visit Provider Obstetrics & Gynecology
DX: Z39.1 Encounter for care and examination of lactating mother (principal)

== ENCOUNTER 2024-05-14 13:54 | Outpatient (OUT) | payer MEDICAID, SELFPAY ==
--- NOTE | 2024-05-14 13:57 | US_ITS ---
[address] [address] Patient Name: GIOVANY COURTNEY MRN: [id number] date: 2005 Sex: F Assigned Patient Location: [facility] Current Patient Location: [facility] Accession/Order Number: [id number] Exam Date: 05/14/2024 13:57 Report Date: 05/14/2024 16:23 At the request of: MARY JO CELAYA Procedure: US OB >= 14 weeks Fetus EXAMINATION: US OB >= 14 weeks Fetus HISTORY: MISSED MENSES COMPARISON: No relevant comparison available. FINDINGS: Heart Rate: 143 bpm Amniotic Fluid Volume: Subjectively normal Number: 1 Position: Variable BIOMETRY: BPD: 5.50 cm 22 weeks 5 days HC: 20.63 cm 22 weeks 5 days AC: 17.47 cm 22 weeks 3 days FL: 3.87 cm 22 weeks 3 days EFW: 516.63 g FL/AC: 22.15 FL/BPD: 70.36 HC/AC: 1.18 GESTATIONAL AGE: Age by EDC: Unknown LMP DALTON by EDC: Age by US: 22 weeks 4 days DALTON by US: 2024-09-13 US/US OB >= 14 weeks Fetus IMPRESSION: 1. Single live intrauterine 22 weeks 4 days by today's ultrasound. 2. Anatomic evaluation was not performed. Electronically authenticated by: TOYIN MCKEON Date: 05/14/2024 16:23
== END 2024-05-14 13:55 | disposition home or self-care (01) ==
LOC: NOMS 13:54
PROVIDERS: PCP Family Medicine; Visit Provider Obstetrics & Gynecology
DX: Z34.92 Encounter for supervision of normal pregnancy, unspecified, second trimester (principal); Z3A.22 22 weeks gestation of pregnancy; N92.6 Irregular menstruation, unspecified
CPT/HCPCS: 76815

== ENCOUNTER 2024-05-26 09:59 | Outpatient (OUT) | payer MEDICAID, SELFPAY ==
--- NOTE | 2024-05-26 10:01 | US_ITS ---
[address] [address] Patient Name: GIOVANY COURTNEY MRN: [id number] date: 2005 Sex: F Assigned Patient Location: [facility] Current Patient Location: LAB Accession/Order Number: [id number] Exam Date: 05/26/2024 10:01 Report Date: 05/26/2024 11:56 At the request of: MARY JO CELAYA Procedure: US OB anatomy EXAMINATION: US OB anatomy, US OB cervical length HISTORY: ANATOMY COMPARISON: No relevant comparison available. TECHNIQUE: Transabdominal sonographic examination was performed for obstetrical and evaluation. FINDINGS: Number: One Heart Rate: 138 H.B. /min Amniotic Fluid Volume: Subjectively normal Placental Location: Posterior with lower margin 5.6 cm from os. Cervix Length: 2.9 cm in length; trace amount of fluid within cervical canal, 3.0 cm in diameter. ANATOMY: Normal Structures -cerebellum, choroid plexus, cisterna magna, lateral cerebral ventricles, orbits, midline falx, hard palate, four-chamber heart, RVOT, LVOT, stomach, kidneys, bladder, umbilical cord insertion into abdomen, three-vessel cord, cervical spine, thoracic spine, lumbar spine, sacral spine, right upper extremity, left upper extremity, right lower extremity, left lower extremity. SUBOPTIMALLY SEEN: None ABNORMALITIES: None BIOMETRY: BPD: 5.9 cm; 24 weeks 2 days; 40% HC: 22.2 cm; 24 weeks 2 days; 29% AC: 20.0 cm; 24 weeks 5 days; 53% FL: 4.3 cm; 24 weeks 0 days; 27% EFW:686 g; 43% FL/AC: 21.3 FL/BPD: 72.0 HC/AC: 1.1 GESTATIONAL AGE: Age by EDC: 24 weeks 2 days DALTON by EDC: 09/13/2024 Age by current US: 24 weeks 2 days DALTON by current US: 09/13/2024 US/US OB anatomy IMPRESSION: 1. Single live intrauterine with growth detailed above. 2. Short cervix 2.9 cm in length. Cervical canal is 3.0 cm in diameter. Electronically authenticated by: TOYIN MCKEON Date: 05/26/2024 11:56
--- NOTE | 2024-05-26 10:01 | US_ITS ---
[address] [address] Patient Name: GIOVANY COURTNEY MRN: [id number] date: 2005 Sex: F Assigned Patient Location: [facility] Current Patient Location: LAB Accession/Order Number: [id number] Exam Date: 05/26/2024 10:01 Report Date: 05/26/2024 11:56 At the request of: MARY JO CELAYA Procedure: US OB cervical length EXAMINATION: US OB anatomy, US OB cervical length HISTORY: ANATOMY COMPARISON: No relevant comparison available. TECHNIQUE: Transabdominal sonographic examination was performed for obstetrical and evaluation. FINDINGS: Number: One Heart Rate: 138 H.B. /min Amniotic Fluid Volume: Subjectively normal Placental Location: Posterior with lower margin 5.6 cm from os. Cervix Length: 2.9 cm in length; trace amount of fluid within cervical canal, 3.0 cm in diameter. ANATOMY: Normal Structures -cerebellum, choroid plexus, cisterna magna, lateral cerebral ventricles, orbits, midline falx, hard palate, four-chamber heart, RVOT, LVOT, stomach, kidneys, bladder, umbilical cord insertion into abdomen, three-vessel cord, cervical spine, thoracic spine, lumbar spine, sacral spine, right upper extremity, left upper extremity, right lower extremity, left lower extremity. SUBOPTIMALLY SEEN: None ABNORMALITIES: None BIOMETRY: BPD: 5.9 cm; 24 weeks 2 days; 40% HC: 22.2 cm; 24 weeks 2 days; 29% AC: 20.0 cm; 24 weeks 5 days; 53% FL: 4.3 cm; 24 weeks 0 days; 27% EFW:686 g; 43% FL/AC: 21.3 FL/BPD: 72.0 HC/AC: 1.1 GESTATIONAL AGE: Age by EDC: 24 weeks 2 days DALTON by EDC: 09/13/2024 Age by current US: 24 weeks 2 days DALTON by current US: 09/13/2024 US/US OB cervical length IMPRESSION: 1. Single live intrauterine with growth detailed above. 2. Short cervix 2.9 cm in length. Cervical canal is 3.0 cm in diameter. Electronically authenticated by: TOIYN MCKEON Date: 05/26/2024 11:56
--- OUTSIDE RECORDS SUMMARY | 2024-05-26 10:12 | XMS_ITS ---
Patient Summarization (C-CDA 2.1 CCD) Created on: May 26, 2024 CARMELINA COURTNEY~SHERWIN ADAIR : 2005 Sex: Female Author Organization Sample organization Care Team Providers Care Operations Management Trainee Name Role Phone Gina Stallworth Unavailable Lynn Bonilla Unavailable Francisco, Jose Elias Primary Care Unavailable Gina Stallworth Attending Unavailable Gina Stallworth Admitting Unavailable Bonilla, Lynn L Admitting Unavailable Bonilla, Lynn L Attending Unavailable Naderer, Jose Elias Primary Care Unavailable Bonilla, Lynn L Attending Unavailable Bonilla, Lynn L Admitting Unavailable Naderer, Jose Elias Primary Care Unavailable Wil, Bernardino Attending Unavailable Wil, Bernardino Admitting Unavailable Naderer, Jose Elias Primary Care Unavailable BELIA ., DR CAMARGO Admitting Unavailable LALA, DR ALEXIA Boyce Consulting Unavailable BELIA ., DR CAMARGO Attending Unavailable NADERER, DR JOSE ELIAS Hassan Primary Care Unavailable BELIA ., DR CAMARGO Consulting Unavailable BELIA ., DR CAMARGO Admitting Unavailable BELIA ., DR CAMARGO Attending Unavailable BELIA ., DR CAMARGO Consulting Unavailable NADERER, DR JOSE ELIAS Hassan Primary Care Unavailable BELIA ., DR CAMARGO Admitting Unavailable BELIA ., DR CAMARGO Attending Unavailable BELIA ., DR CAMARGO Consulting Unavailable NADERER, DR JOSE ELIAS Hassan Primary Care Unavailable BELIA ., DR CAMARGO Attending Unavailable BELIA ., DR CAMARGO Admitting Unavailable LALA, DR ALEXIA Boyce Consulting Unavailable NADJON, DR JOSE ELIAS Hassan Primary Care Unavailable BELIA ., DR CAMARGO Consulting Unavailable NADERER, DR JOSE ELIAS Hassan Primary Care Unavailable LETA ., KRISTI Admitting Unavailable LETA ., KRISTI Attending Unavailable BELIA ., DR CAMARGO Admitting Unavailable NADERER, DR JOSE ELIAS Hassan Primary Care Unavailable BELIA ., DR CAMARGO Attending Unavailable BELIA ., DR CAMARGO Consulting Unavailable Sujey Silverio Primary Care Provider DERRICK, SUJEY L Attending Unavailable DERRICK, SUJEY L Referring Unavailable DERRICK, SUJEY L Primary Care Unavailable DERRICK, SUJEY L Attending Unavailable DERRICK, SUJEY L Referring Unavailable DERRICK, SUJEY L Primary Care Unavailable DERRICK, SUJEY L Referring Unavailable DERRICK, SUJEY L Primary Care Unavailable DERRICK, SUJEY L Referring Unavailable DERRICK, SUJEY L Primary Care Unavailable MARISA HARVEY Attending Unavailable Encounters Encounter Date Encounter Type Care Provider Facility Start: 05-14-2024 End: 05-14-2024 ambulatory MARISA HARVEY Not Available Start: 12-15-2023 Orders Only Sujey Meza RETIREMENT CONSULTANT-CONTINUING EDUCATION INSTRUCTOR Work Phone: [facility] Start: 12-13-2023 End: 12-13-2023 ambulatory [facility] Start: 12-12-2023 End: 12-12-2023 ambulatory [facility] Start: 12-12-2023 End: 12-12-2023 Office outpatient visit 15 minutes Sujey Meza RETIREMENT CONSULTANT-CONTINUING EDUCATION INSTRUCTOR Work Phone: [facility] Comment on above: Anxiety (Primary Dx) ; Moderate episode of recurrent major depressive disorder ([facility]); Vaginal discharge Start: 11-29-2023 Orders Only Sujey Meza RETIREMENT CONSULTANT-CONTINUING EDUCATION INSTRUCTOR [facility] Start: 11-29-2023 End: 11-29-2023 ambulatory [facility] Start: 11-28-2023 End: 11-28-2023 ambulatory [facility] Start: 11-28-2023 End: 11-28-2023 Office outpatient visit 15 minutes Sujey Meza RETIREMENT CONSULTANT-CONTINUING EDUCATION INSTRUCTOR [facility] Comment on above: Vaginal discharge (P rimary Dx); High risk heterosexual behavior; Anxiety Start: 10-15-2023 End: 10-15-2023 ambulatory MARISA HARVEY Not Available Start: 04-20-2023 End: 04-21-[address] MARY JO CELAYA . Facility:[facility] Start: 04-16-2023 End: 04-16-[address] MARY JO CELAYA . Facility:[facility] Start: 04-06-2023 End: 04-07-[address] MARY JO CELAYA . Facility:[facility] Start: 03-15-2023 End: 03-16-[address] MARY JO CELAYA . Facility:[facility] Start: 02-21-2023 End: 02-22-[address] MARY JO CELAYA . Facility:[facility] Start: 07-17-2022 ambulatory [place] Start: 05-18-2022 Office outpatient vi sit 15 minutes Gina Stallworth [facility] Start: 05-18-2022 End: 05-18-2022 ambulatory Jose Elias [facility] Other Start: 02-27-2022 End: 02-27-2022 ambulatory Lynn Bonilla Other [facility] Other Start: 02-27-2022 Telephone encounter Lynn Bonilla [facility] [address] Start: 02-26-2022 End: 02-26-2022 ambulatory Lynn Bonilla Other [facility] Other Start: 02-26-2022 Telephone encounter Lynn Bonilla [facility] [address] Start: 02-22-2022 End: 02-22-2022 ambulatory Lynn Bonilla Facility:[facility] Start: 01-01-2022 End: 01-08-2022 Evaluation and management of inpatient Bernardino Wil Facility:[facility] Medications Current Medications Medication Drug Class(es) Dates Sig (Normalized) Sig (Original) azithromycin 500 mg oral tablet (3 sources) Macrolide Antimicrobial Start: 02-22-2022 take 2 tablets by mouth once Azithromycin 500 MG 2 tablet Orally once for 1 day Feb, Active busPIRone hydrochloride 10 mg oral tablet (5 sources) Start: 12-12-2023 take 1 tablet by mouth three times daily busPIRone (BUSPAR) 10 mg tablet Take 1 tablet (10 mg total) by mouth 3 (three) times a day. 90 tablet 1 12/12/2023 Active Start: 11-28-2023 End: 12-12-2023 take 1 tablet by mouth three times daily busPIRone (BUSPAR) 5 mg tablet Take 1 tablet (5 mg total) by mouth 3 (three) times a day. 90 tablet 1 11/28/2023 12/12/2023 Discontinued (Therapy completed) Ethinyl Estradiol / norgestimate (4 sources) Progestin, Estrogen Start: 11-28-2023 take 1 tablet by mouth once in the morning norgestimate-ethinyl estradioL (ORTHO TRI-CYCLEN,TRINESSA) 0.18/0.215/0.25 mg-35 mcg (28) per tablet Take 1 tablet by mouth in the morning. 28 tablet 11 11/28/2023 Active metroNIDAZOLE 0.0075 mg/mg vaginal gel (3 sources) Nitroimidazole Antimicrobial Start: 12-15-2023 End: 12-20-2023 metroNIDAZOLE (METROGEL) 0.75 % (37.5mg/5 gram) vaginal gel Insert 1 applicator into the vagina nightly for 5 days. 70 g 1 12/15/2023 12/20/2023 Active Start: 11-29-2023 End: 12-06-2023 take 1 tablet by mouth in the morning, then take 1 tablet by mouth at bedtime metroNIDAZOLE (FlagyL) 500 mg tablet Take 1 tablet (500 mg total) by mouth in the morning and 1 tablet (500 mg total) before bedtime. Do all this for 7 days. 14 tablet 0 11/29/2023 12/06/2023 Active Start: 02-27-2022 take 1 tablet by delmy th every twelve hours metroNIDAZOLE 500 MG 1 tablet Orally Twice a day for 7 day(s) Feb, Active nitrofurantoin, macrocrystals 25 mg / nitrofurantoin, monohydrate 75 mg oral capsule (2 sources) Nitrofuran Antibacterial Start: 02-26-2022 take 1 capsule by mouth every twelve hours Macrobid 100 MG 1 capsule with food Orally every 12 hrs for 5 days Feb, Active vortioxetine 5 mg oral tablet (2 sources) Start: 12-12-2023 take 1 tablet by mouth in the morning vortioxetine (TRINTELLIX) 5 mg tablet Take 1 tablet (5 mg total) by mouth in the morning. 30 tablet 1 12/12/2023 Active Completed/Discontinued Medications Medication Drug Class(es) Dates Sig (Normalized) Sig (Original) alpha-tocopherol acetate 30 unt / ascorbic acid 100 mg / beta carotene 1000 unt / calcium carbonate 200 mg / calcium pantothenate 7 mg / cholecalciferol 400 unt / docusate sodium 25 mg / ferrous fumarate 29 mg / folic acid 1 mg / niacinamide 15 mg / pyridoxine hydrochloride 20 mg / riboflavin 3 mg / thiamine 3 mg / vitamin b12 0.012 mg / zinc oxide 20 mg oral tablet (1 source) Vitamin B12, Vitamin D, Vitamin C End: 11-28-2023 take 1 tablet by mouth in the morning PNV 119-iron fum-folic acid 29 mg iron- 1 mg tablet Take 1 tablet by mouth in the morning. 0 11/28/2023 Discontinued (Therapy completed) Payers Date Payer Category Payer Medicaid [place] MED[place] [id number] 2022-Present [address] [place] [address] [id number] 2022 Unknown 2022 Unknown [id number] 2022 Self-pay 2003 Unknown [id number] 2003 Unknown [id number] [id number] 2003 Unknown [id number] [id number] 2003 Unknown [id number] 2.16.840.1.373125.3.579.2.593 2003 Unknown [id number] 2.16.840.1.269262.3.579.2.593 2003 Unknown [id number] 2.16.840.1.016899.3.579.2.593 2003 Unknown [id number] 2.16.840.1.661916.3.579.2.1286 2003 Unknown [id number] 2.16.840.1.677459.3.579.2.1286 2003 Unknown [id number] 2.16.840.1.910373.3.579.2.1286 2003 Unknown [id number] 2.16.840.1.591794.3.579.2.1286 2003 Unknown [id number] 2.16.840.1.801746.3.579.2.1259 2003 Unknown [id number] 2.16.840.1.491794.3.579.2.1259 1959 Unknown [id number] Unknown [id number] 2.16.840.1.099053.3.579.2.531 Unknown [id number] 2.16.840.1.691804.3.579.2.531 Unknown [id number] 2.16.840.1.933721.3.579.2.531 Unknown [id number] [id number] Plan of Treatment Date Care Activity Detail Author Start: 12-12-2024 Adult BMI Screening Adult BMI Screen ing [facility] Start: 12-12-2024 Depression Screening Depression Scre ening [facility] Start: 12-12-2024 Tobacco Screening Tobacco Screening [facility] Start: 11-28-2024 Adult BMI Screening Adult BMI Screen ing [facility] Start: 11-28-2024 Depression Screening Depression Scre ening [facility] Start: 11-28-2024 Screening for Chlamy katt trachomatis Chlamydia Screening [facility] Start: 11-28-2024 Tobacco Screening Tobacco Screening [facility] Start: 12-12-2023 End: 12-12-2023 Patient encounter procedure 12/12/2023 4:30 PM EST [facility] [address] [place] [id number] Sujey Meza, RETIREMENT CONSULTANT-CONTINUING EDUCATION INSTRUCTOR [address] [place] [address] [facility] Start: 07-26-2023 Influenza vaccination Influenza Vacc ine [facility] Start: 2022 DTaP,Tdap and Td Vaccines (1 - Tdap) DTaP,Tdap and Td Vaccines (1 - Tdap) [facility] Start: 2005 Screening for Chlamy katt trachomatis Chlamydia Screening [facility] End: 11-27-2024 Chlamydia/GC by PCR urine Chlamydia/GC by PCR urine Microbiology Routine Vaginal discharge 1 Occurrences starting 11/28/2023 until 11/27/2024 [facility] Comment on above: 1 Occurrences starti ng 11/28/2023 until 11/27/2024 Chlamydia/GC by PCR urine Chlamydia/GC by PCR urine Microbiology Routine Vaginal discharge 11/28/2023 10:11 PM EST [facility] End: 11-28-2024 Vaginitis Panel PCR Vaginitis Panel PCR Microbiology Routine Vaginal discharge 1 Occurrences starting 11/28/2023 until 11/28/2024 [facility] Work Phone: Comment on above: 1 Occurrences starti ng 11/28/2023 until 11/28/2024 Vaginitis Panel PCR Vaginitis Pa jerry PCR Microbiology Routine Vaginal discharge 11/28/2023 10:12 PM [facility] Problems Active Problems Problem Classification Problem Date Documented Date Episodic/Chronic Anxiety disorders (5 sources) Anxiety; Translations: [Anxiety disorder, unspecified] Onset: 11-28-2023 11-28-2023 Chronic Attention-deficit, conduct, and disruptive behavior disorders (1 source) Attention-deficit hyperactivity disorder, predominantly inattentive type; Translations: [F90.0 - Attention-deficit hyperactivity disorder, predominantly inattentive type] Onset: 01-01-2022 Chronic Menstrual disorders (4 sources) Irregular menstruation, unspecified; Translations: [IRREGULAR MENSTRUATION UNSPECIFIED] Onset: 03-15-2023 Chronic Mood disorders (4 sources) Major depressive disorder, recurrent severe without psychotic features; Translations: [Major depressive disorder, recurrent, moderate] Onset: 01-01-2022 12-12-2023 Chronic Other complications of (4 sources) Vomiting of , unspecified; Translations: [VOMITING OF UNSPECIFIED] Onset: 04-16-2023 Episodic Other female genital disorders (2 sources) Vaginal discharge; Translations: [Other specified noninflammatory disorders of vagina] 11-28-2023 Episodic Other female genital disorders (2 sources) Other specified noninflammatory disorders of vagina; Translations: [Other specified noninflammatory disorders of vagina] Onset: 11-28-2023 Episodic Other and delivery including normal (6 sources) Encounter for supervision of normal , unspecified, second trimester; Translations: [Encounter for supervision of other normal , first trimester] Onset: 03-01-2023 Episodic Residual codes; unclassified (1 source) 20 weeks gestation of ; Translations: [20 WEEKS GESTATION OF ] Onset: 04-24-2023 Episodic Residual codes; unclassified (1 source) Weeks of gestation of not specified; Translations: [WEEKS GESTATION NOT SPEC] Onset: 04-18-2023 Episodic Residual codes; unclassified (4 sources) Procedure and treatment not carried out for other reasons; Translations: [PROC AND TX NOT CARRIED OUT OTH REASONS] Onset: 04-16-2023 Episodic Residual codes; unclassified (1 source) High risk heterosexual behavior; Translations: [High risk heterosexual behavior] 11-28-2023 Episodic Residual codes; unclassified (1 source) High risk heterosexual behavior; Translations: [High risk heterosexual behavior] Onset: 11-28-2023 Episodic Unclassified (1 source) Z20.2 - Contact with and (suspected) exposure to infections with a predominantly sexual mode of transmission; Translations: [Z20.2 - Contact with and (suspected) exposure to infections with a predominantly sexual mode of transmission] Onset: 05-18-2022 Unclassified (1 source) Z72.51 - High risk heterosexual behavior; Translations: [Z72.51 - High risk heterosexual behavior] Onset: 02-22-2022 Unclassified (1 source) F43.10 - Post-traumatic stress disorder, unspecified; Translations: [F43.10 - Post-traumatic stress disorder, unspecified] Onset: 01-01-2022 Past or Other Problems Problem Classification Problem Date Documented Date Episodic/Chronic Immunizations and screening for infectious disease (2 sources) Contact with and (suspected) exposure to infections with a predominantly sexual mode of transmission Onset: 05-18-2022 Resolved: 05-18-2022 Episodic Mood disorders (4 sources) Mood disorders Onset: 11-28-2023 Resolved: 12-12-2023 11-28-2023 Other complications of (4 sources) Cyst of ovary in ; Translations: [Maternal care for other abnormalities of pelvic organs, third trimester] Onset: 08-14-2023 08-14-2023 Episodic Other screening for suspected conditions (not mental disorders or infectious disease) (7 sources) Encounter for observation for other suspected diseases and conditions ruled out; Translations: [Encounter for other screening for genetic and chromosomal anomalies] Onset: 07-17-2022 Episodic Procedures Date Procedure Procedure Detail Performing Clinician Start: 12-12-2023 Adult depression screening [facility] Work Phone: Start: 11-28-2023 Urine test visual color cmprsn meths Sujey Nicole [facility] Work Phone: Start: 11-28-2023 Adult depression screening assessment [facility] Work Phone: Results Test Name Value Interpretation Reference Range Facility Vaginitis Panel PCRon 2023 Bacterial vaginosis DNA panel JORDON+probe (Vag fld) Detected Abnormal Not Detected^Not Detected [facility] Comment on above: Qualitative results are reported based on detection and quantitation of targeted organism markers which include: Lactobacillus spp. (L. crispatus and L. jensenii), Gardnerella vaginalis, Atopobium vaginae, Bacterial Vaginosis Associated Bacteria-2 (BVAB-2) and Megasphaera-1 C. glabrata DNA JORDON+probe Ql (Vag fld) Not detected Not Detected^Not Detected [facility] Comment on above: No Mervat glabrata detected C. krusei DNA JORDON+probe Ql (Vag fld) Not detected Not Detected^Not Detected [facility] Comment on above: No Mervat krusei de tected Mervat sp 6 panel JORDON+probe (Vag fld) Not detected Not Detected^Not Detected [facility] Comment on above: Mervat species not detected include: C. albicans, C. tropicalis, C. parapsilosis or C. dubliniensis Interpretation and review of laboratory results Abnormal [facility] T. vaginalis DNA JORDON+probe Ql (Vag fld) Not detected Not Detected^Not Detected [facility] Comment on above: No Trichomonas vagin rosemary detected NOTE BD MAX Vaginal Panel has not been evaluated for patients under 18 years old. Results for these patients should be reviewed and assessed in accordance with clinical presentation to determine patient diagnosis. [facility] VAGINITIS PANEL PCRon 2023 VAGINITIS PANEL PCR BACT. VAGINOSIS DNA Detected (qualifier value) Qualitative results are reported based on detection and quantitation of targeted organism markers which include: Lactobacillus spp. (L. crispatus and L. jensenii), Gardnerella vaginalis, Atopobium vaginae, Bacterial Vaginosis Associated Bacteria-2 (BVAB-2) and Megasphaera-1 MERVAT SPECIES DNA Not detected (qualifier value) Mervat species not detected include: C. albicans, C. tropicalis, C. parapsilosis or C. dubliniensis MERVAT KRUSEI DNA Not detected (qualifier value) No Mervat krusei detected MERVAT GLABRATA DNA Not detected (qualifier value) No Mervat glabrata detected TRICHOMONAS VAG DNA Not detected (qualifier value) No Trichomonas vaginalis detected NOTE BD MAX Vaginal Panel has not been evaluated for patients under 18 years old. Results for these patients should be reviewed and assessed in accordance with clinical presentation to determine patient diagnosis. [facility] Comment on above: Performed By: #### V PPCR #### [facility] ([id number]) [address] [place] [address], [address] [place] [address] CHLAMYDIA/GC PCR, Uon 2023 CHLAMYDIA/GC PCR, U SPECIMEN SOURCE CLEAN CATCH MIDSTREAM URINE CHLAMYDIA DNA(PCR) Negative (qualifier value) Chlamydia trachomatis not detected by nucleic acid amplification. This does not exclude the possibility of infection because results are dependent on adequate specimen collection. GONORRHOEAE DNA(PCR) Negative (qualifier value) Neisseria gonorrhoeae not detected by nucleic acid amplification. This does not exclude the possibility of infection because results are dependent on adequate specimen collection. [facility] Comment on above: Performed By: #### C #### [facility] ([id number]) [facility], [address] [place] [address] POCT , urineon Beta HCG ( test) Ql (U) Negative [facility] VAGINITIS PANEL PCRon 2023 VAGINITIS PANEL PCR BACT. VAGINOSIS DNA Detected (qualifier value) Qualitative results are reported based on detection and quantitation of targeted organism markers which include: Lactobacillus spp. (L. crispatus and L. jensenii), Gardnerella vaginalis, Atopobium vaginae, Bacterial Vaginosis Associated Bacteria-2 (BVAB-2) and Megasphaera-1 MERVAT SPECIES DNA Not detected (qualifier value) Mervat species not detected include: C. albicans, C. tropicalis, C. parapsilosis or C. dubliniensis MERVAT KRUSEI DNA Not detected (qualifier value) No Mervat krusei detected MERVAT GLABRATA DNA Not detected (qualifier value) No Mervat glabrata detected TRICHOMONAS VAG DNA Not detected (qualifier value) No Trichomonas vaginalis detected NOTE BD MAX Vaginal Panel has not been evaluated for patients under 18 years old. Results for these patients should be reviewed and assessed in accordance with clinical presentation to determine patient diagnosis. [facility] Comment on above: Performed By: #### V PPCR #### [facility] ([id number]) [facility], [address] [place] [id number] US PREG CERVICAL LENGTHon US PREG CERVICAL LENGTH EXAMINATION: US PREG ANATOMY SINGLE, US PREG CERVICAL LENGTH HISTORY: Routine care COMPARISON: No relevant comparison available. TECHNIQUE: Transabdominal sonographic examination was performed for obstetrical and evaluation. FINDINGS: Number: 1 Heart Rate: 138.5 bpm H.B. /min Amniotic Fluid Volume: Subjectively normal position: Breech presentation, variable lie Placental Location: Posterior, grade 0. Placental edge 3 cm from the cervical os Cervix Length: 6.5 cm, closed Normal anatomy: Lateral ventricles, cerebellum, posterior fossa, nose, lips, orbits, four-chamber heart, RVOT, LVOT, diaphragm, stomach, kidneys, abdominal cord insertion, bladder, umbilical cord, three-vessel cord, spine, extremities BIOMETRY: BPD: 4.6 cm 19 weeks 6 days , 17% HC: 17.2 cm 19 weeks 5 days, 9% AC: 14.4 cm 19 weeks 5 days, 16% FL: 3.3 cm 20 weeks 1 days, 25% EFW:323.5 grams; 11 ounces, 13% FL/AC: 22.7 FL/BPD: 71.5 HC/AC: 1.2 GESTATIONAL AGE: Age by EDC: 20 weeks 5 days DALTON by EDC: 09/02/2023 Age by current US: 19 weeks 6 days DALTON by current US: 09/08/2020. IMPRESSION: Normal anatomy scan *Reference: [facility] Practice Guideline for the performance of Obstetric Ultrasound Examinations, August 25, 2007. Electronically authenticated by: ALEXIA REEVES Date: 2023-04-23 06:59 Normal [facility] INFLUENZA A AND B AGon 04-16 INFLUENZA A AG Negative Normal NEGATIVE SEE COMMENT [facility] Comment on above: Performed By: #### I NFLUAB #### [facility] [address] [place] [address] Dr. Ryan Martinez INFLUENZA B AG Negative Normal NEGATIVE SEE COMMENT [facility] Comment on above: Performed By: #### I NFLUAB #### [facility] [address] [place] [address] Dr. Ryan Martinez UA (CLEAN/CATCH) ACCREDITED LEGAL SECRETARY/MICRO I F IND.on 04-16-2023 Bilirubin Ql (U) Negative Normal NEGATIVE [facility] Comment on above: Performed By: #### U ACSIND #### [facility] [address] [place] [address] Dr. Ryan Martinez Clarity (U) CLEAR Normal CLEAR [facility] Comment on above: Performed By: #### U ACSIND #### [facility] [address] [place] [address] Dr. Ryan Martinez Color (U) LT. YELLOW Normal YELLOW [facility] Comment on above: Performed By: #### U ACSIND #### [facility] [address] [place] [address] Dr. Ryan Martinez Glucose Ql (U) Negative Normal NEGATIVE [facility] Comment on above: Performed By: #### U ACSIND #### [facility] [address] [address] [address] Ryan Martinez Hemoglobin Ql (U) Negative Normal NEGATIVE [facility] Comment on above: Performed By: #### U ACSIND #### [facility] [address] [address] [address] yRan Martinez Ketones Ql (U) >=80 Abnormal NEGATIVE [facility] Comment on above: Performed By: #### U ACSIND #### [facility] [address] [address] [address] Ryan Martinez LEUKOCYTES Negative Normal NEGATIVE [facility] Comment on above: Performed By: #### U ACSIND #### [facility] [address] [place] [address] Dr. Ryan Martinez Nitrite Ql (U) Negative Normal NEGATIVE [facility] Comment on above: Performed By: #### U ACSIND #### [facility] [address] [address] [address] Ryan Martinez pH (U) 6.5 [pH] Normal 5-[address] [facility] Comment on above: Performed By: #### U ACSIND #### [facility] [address] [place] [address] Dr. Ryan Martinez SPEC GRAVITY 1.010 Normal 1.005-<=1.[address] [facility] Comment on above: Performed By: #### U ACSIND #### [facility] [address] [address] [address] Ryan Martinez UA PROTEIN Negative Normal NEGATIVE/ TRACE [facility] Comment on above: Performed By: #### U ACSIND #### [facility] [address] [address] [address] Ryan Martinez UR MICRO IND NOT INDICATED Normal [facility] Comment on above: Performed By: #### U ACSIND #### [facility] [address] [address] [address] Ryan Martinez Urobilinogen Qn (U) 0.2 {Han'U}/dL Normal 0.2 - 1. [address] [facility] Comment on above: Performed By: #### U ACSIND #### [facility] [address] [place] [address] Dr. Ryan Martinez HEP B SURFACE ANTIGEN SCREEN on 03-16-2023 HBsAg Screen Negative Normal Negative [facility] Comment on above: Performed By: #### H BSANS #### [facility] [address] [place] [address] Dr. Ryan Martinez HEPATITIS C VIRUS AB W/ REFL EX QUANTon 03-16-2023 HCV AB Non-Reactive Normal Non Reactive [facility] Comment on above: Performed By: #### C BC #### [facility] [address] [place] [address] Dr. Ryan Martinez Interpretation: Comment Normal [facility] Comment on above: Result Comment: Not infected with HCV unless early or acute infection is suspected (which may be delayed in an immunocompromised individual), or other evidence exists to indicate HCV infection. Performed By: #### C BC #### [facility] [address] [place] [address] Dr. Ryan Martinez HIV 1 AND 2 WITH REFLEXon HIV Screen 4th Generation wRfx Non-Reactive Normal Non Reactive [facility] Comment on above: Result Comment: HIV Negative HIV-1/HIV-2 antibodies and HIV-1 p24 antigen were NOT detected. There is no laboratory evidence of HIV infection. Performed By: #### H IV12 #### [facility] [address] [place] [address] Dr. Ryan Martinez RPR QUANTon 03-16-2023 Rapid Plasma Reagin, Quant Non-Reactive Normal NonRea<1:[address] [facility] Comment on above: Result Comment: Plea se Note: This test does not meet current guidelines for screening and diagnosis of syphilis. This test is intended for following treatment response in patients being treated for syphilis infection. To screen for syphilis infection, a reflex cascade that includes both RPR and a treponema-specific assay should be utilized, such as Treponema pallidum (Syphilis) Screening Wilkinson (346574) or Rapid Plasma Reagin (RPR) Test With Reflex to Quantitative RPR and Confirmatory Treponema pallidum Antibodies (855210). Performed By: #### R PRQ #### [facility] [address] [place] [address] Dr. Ryan Martinez RUBELLA AB IGGon 03-16-2023 Rubella Antibodies, IgG 4.40 index Normal Immune >0.[address] [facility] Comment on above: Result Comment: Non- immune <0.90 Equivocal 0.90 - 0.99 Immune >0.99 Performed By: #### R UBIGG #### [facility] [address] [place] [address] Dr. Ryan Martinez BOX TEST SENT OUTon 03-15-20 23 SENT TO REF LAB 03/15/2023 Normal [facility] Comment on above: Performed By: #### C BC #### [facility] [address] [place] [address] Dr. Ryan Martinez CBC AUTO DIFFon 03-15-2023 BASO # 0.1 103/ul Normal 0.0-0.[address] [facility] Comment on above: Performed By: #### C BC #### [facility] [address] [place] [address] Dr. Ryan Martinez Basophils/100 WBC (Bld) 0.5 % Normal 0.2-2.[address] [facility] Comment on above: Performed By: #### C BC #### [facility] [address] [place] [address] Dr. Ryan Martinez EO # 0.2 103/ul Normal 0.0-0.7 [facility] Comment on above: Performed By: #### C BC #### [facility] [address] [place] [address] Dr. Ryan Martinez Eosinophils/100 WBC (Bld) 1.9 % Normal 0.9-7.[address] [facility] Comment on above: Performed By: #### C BC #### [facility] [address] [place] [address] Dr. Ryan Martinez Erythrocyte distribution width (RBC) [Ratio] 13.2 % Normal 11.0-15.[address] [facility] Comment on above: Performed By: #### C BC #### [facility] [address] [address] [address] Ryan Martinez Hematocrit (Bld) [Volume fraction] 35.7 % Critically low 36.0-48.[address] [facility] Comment on above: Performed By: #### C BC #### [facility] [address] [place] [address] Dr. Ryan Martinez Hemoglobin (Bld) [Mass/Vol] 12.2 g/dL Normal 12.0-16.[address] [facility] Comment on above: Performed By: #### C BC #### [facility] [address] [place] [address] Dr. Ryan Martinez IG # 0.05 10e3/ul Critically high 0.00-0.03 [facility] Comment on above: Performed By: #### C BC #### [facility] [address] [place] [address] Dr. Ryan Martinez IG % 0.5 % Normal 0.0-0.[address] [facility] Comment on above: Performed By: #### C BC #### [facility] [address] [place] [address] Dr. Ryan Martinez LYMPH # 1.9 103/ul Normal 1.2-3.[address] [facility] Comment on above: Performed By: #### C BC #### [facility] [address] [place] [address] Dr. Ryan Martinez Lymphocytes/100 WBC (Bld) 20.1 % Critically low 20.5-60.[address] [facility] Comment on above: Performed By: #### C BC #### [facility] [address] [place] [address] Dr. Ryan Martinez MANUAL DIFF REQ NO Normal [facility] Comment on above: Performed By: #### C BC #### [facility] [address] [place] [address] Dr. Ryan Martinez MCH (RBC) [Entitic mass] 30.9 pg Normal 26.7-34.[address] [facility] Comment on above: Performed By: #### C BC #### [facility] [address] [address] [address] Ryan Martinez MCHC (RBC) [Mass/Vol] 34.2 g/dL Normal 29.9-35.[address] [facility] Comment on above: Performed By: #### C BC #### [facility] [address] [address] [address] Ryan Martinez MCV (RBC) [Entitic vol] 90.4 fL Normal 81.0-99.[address] [facility] Comment on above: Performed By: #### C BC #### [facility] [address] [address] [address] Ryan Martinez MONO # 0.8 103/ul Normal 0.3-0.[address] [facility] Comment on above: Performed By: #### C BC #### [facility] [address] [place] [address] Dr. Ryan Martinez Monocytes/100 WBC (Bld) 8.0 % Normal 1.7-12.[address] [facility] Comment on above: Performed By: #### C BC #### [facility] [address] [place] [address] Dr. Ryan Martinez NEUT # 6.5 103/ul Normal 1.4-6.[address] [facility] Comment on above: Performed By: #### C BC #### [facility] [address] [place] [address] Dr. Ryan Martinez Neutrophils/100 WBC (Bld) 69.0 % Normal 43.0-75.0 [facility] Comment on above: Performed By: #### C BC #### [facility] [address] [address] [address] Ryan Martinez Platelet mean volume (Bld) [Entitic vol] 9.4 fL Critically low 9.5-13.5 [facility] Comment on above: Performed By: #### C BC #### [facility] [address] [address] [address] Ryan Martinez PLT 238 103/ul Normal 150-450 [facility] Comment on above: Performed By: #### C BC #### [facility] [address] [address] [address] Ryan Martinez RBC 3.95 106/ul Critically low 4.20-5.40 [facility] Comment on above: Performed By: #### C BC #### [facility] [address] [address] [address] Ryan Martinez WBC 9.5 103/ul Normal 4.0-11.[address] [facility] Comment on above: Performed By: #### C BC #### [facility] [address] [address] [address] Ryan Martinez CULTURE URINEon 03-15-2023 CULTURE URINE Culture Observations : NO GROWTH. Normal [facility] Comment on above: Performed By: #### C BC #### [facility] [address] [address] [address] Ryan Martinez GLYCOHEMOGLOBIN A1Con 2022 ADA RECOMMENDATION SEE BELOW Normal [facility] Comment on above: Result Comment: ADA RECOMMENDED LIMIT 4.0 - 6.0 ADA THERAPEUTIC TARGET < 7.0 ACTION SUGGESTED > 7.0 Performed By: #### A 1C #### [facility] [address] [address] [address] Ryan Martinez Glucose [Mass/Vol] 88 mg/dL Normal [facility] Comment on above: Performed By: #### A 1C #### [facility] [address] [address] [address] Ryan Martinez HbA1c (Bld) [Mass fraction] 4.7 % Normal 4.5-6.2 [facility] Comment on above: Performed By: #### A 1C #### [facility] [address] [address] [address] Ryan Martinez URon 03-15-2023 , QUAL Positive Abnormal NEGATIVE [facility] Comment on above: Performed By: #### C BC #### [facility] [address] [address] [address] Ryan Martinez TSHon 03-15-2023 TSH 1.649 uIU/mL Normal 0.516-4.130 [facility] Comment on above: Performed By: #### T SH #### [facility] [address] [place] [address] Dr. Ryan Martinez TYPE AND SCREENon 03-15-2023 TYPE AND SCREEN Negative Normal [facility] Comment on above: Performed By: #### C BC #### [facility] [address] [place] [address] Dr. Ryan Martinez UA RANDOMon 03-15-2023 Bilirubin Ql (U) Negative Normal NEGATIVE [facility] Comment on above: Performed By: #### U A, PREGU #### [facility] [address] [place] [address] Dr. Ryan Martinez Clarity (U) CLEAR Normal CLEAR [facility] Comment on above: Performed By: #### U A, PREGU #### [facility] [address] [place] [address] Dr. Ryan Martinez Color (U) LT. YELLOW Normal YELLOW [facility] Comment on above: Performed By: #### U A, PREGU #### [facility] [address] [place] [address] Dr. Ryan Martinez Glucose Ql (U) Negative Normal NEGATIVE [facility] Comment on above: Performed By: #### U A, PREGU #### [facility] [address] [place] [address] Dr. Ryan Martinez Hemoglobin Ql (U) Negative Normal NEGATIVE [facility] Comment on above: Performed By: #### U A, PREGU #### [facility] [address] [place] [address] Dr. Ryan Martinez Ketones Ql (U) Negative Normal NEGATIVE [facility] Comment on above: Performed By: #### U A, PREGU #### [facility] [address] [place] [address] Dr. Ryan Martinez LEUKOCYTES Negative Normal NEGATIVE [facility] Comment on above: Performed By: #### U A, PREGU #### [facility] [address] [place] [address] Dr. Ryan Martinez Nitrite Ql (U) Negative Normal NEGATIVE [facility] Comment on above: Performed By: #### U A, PREGU #### [facility] [address] [address] [address] Ryan Martinez pH (U) 7.0 [pH] Normal 5-9 [facility] Comment on above: Performed By: #### U A, PREGU #### [facility] [address] [address] [address] Ryan Martinez SPEC GRAVITY 1.010 Normal 1.005-<=1.[address] [facility] Comment on above: Performed By: #### U A, PREGU #### [facility] [address] [address] [address] Ryan Martinez UA PROTEIN Negative Normal NEGATIVE/ TRACE [facility] Comment on above: Performed By: #### U A, PREGU #### [facility] [address] [place] [address] Dr. Ryan Martinez Urobilinogen Qn (U) 0.2 {Han'U}/dL Normal 0.2 - 1. [address] [facility] Comment on above: Performed By: #### U A, PREGU #### [facility] [address] [place] [address] Dr. Ryan Martinez US PREG TVon 02-21-2023 US PREG TV EXAMINATION: US PREG TV HISTORY: Missed period COMPARISON: No relevant comparison available. FINDINGS: Transvaginal images [place] intrauterine gestation Gestational sac: 7.0 cm CRL: 5.97 cm, 12 weeks 3 days Yolk sac: 4.8 mm Heart rate: 155 bpm The uterus is normal. Anteverted, anteflexed The ovaries are not visualized Cervix: Closed, 3.6 cm Clinical age: 12 weeks 3 days Clinical DALTON: 09/02/2023 Ultrasound age: 12 weeks 3 days Ultrasound DALTON: 09/02/2023 IMPRESSION: Viable holland intrauterine gestation measuring 12 weeks 3 days Electronically authenticated by: ALEXIA REEVES Date: 2023-02-21 15:[address] [facility] Chlamydia/GC/Trich NAAon Chlamydia Trachomotis, JORDON Negative Normal Negative [facility] Comment on above: Order Comment: Reaso n for Exam Sexually transmitted disease exposure Performed By: #### G CCHLAMTRI #### [facility] , Neisseria Gonorrhoeae, JORDON Positive Critically abnormal Negative [facility] Comment on above: Order Comment: Reaso n for Exam Sexually transmitted disease exposure Performed By: #### G JGLAMTRI #### [facility] , Trichomonas JORDON Negative Normal Negative [facility] Comment on above: Order Comment: Reaso n for Exam Sexually transmitted disease exposure Result Comment: Perf ormed at: =G - [facility] [address] [id number] Contracts Specialist: Norma Manuel MD, Phone: [phone] PERFORMED BY: [facility] [address] [place] [address] PATHOLOGIST PLATEMAKER STEPHANE MILES M.D. Performed By: #### G DAMON #### [facility] , Chlamydia/GC/Trich JORDON Negative Negative [facility] Other Chlamydia/GC/Trich JORDON Positive Critically abnormal Negative [facility] Other Urine Cultureon 02-22-2022 Bacteria identified Cx Nom (U) ORGANISM: Escherichia coli (O:ESCCOL) [place] Count >100,000 Aerobic STEVEN Charge (NUC86) ---- SUSCEPTIBILITY --- ORGANISM: O:ESCCOL ANTIBIOTIC INTERPRETATION STEVEN Amikacin S <16 Ampicillin R >16 Ampicillin/Sulbactam R >16/8 Aztreonam S <4 Cefazolin S 8 Cefepime S <2 Ceftazidime S <1 Ceftazidime/Avibactam S <8 Ceftriaxone S <1 Ciprofloxacin S <1 Ertapenem S <0.5 Gentamicin S <4 Levofloxacin S <2 Meropenem S <1 Nitrofurantoin S <32 Piperacillin/Tazobact am S <16 Tetracycline S <4 Tigecycline S <2 Tobramycin S <4 Trimethoprim/Sulfamet hoxazole S <2/38 S = SUSCEPTIBLE I = INTERMEDIATE R = RESISTANT BLANK = DATA NOT AVAILABLE, OR DRUG NOT ADVISABLE OR TESTED R* = RESISTANCE DUE TO EXTENDED SPECTRUM BETA-LACTAMASES ESBL = EXTENDED SPECTRUM BETA-LACTAMASE TFG = THYMIDINE-DEPENDENT STRAIN FRAN = BETA-LACTAMASE POSITIVE IB = INDUCIBLE BETA-LACTAMASE. APPEARS IN PLACE OF 'S' WITH SPECIES KNOWN TO POSSESS INDUCIBLE BETA-LACTAMASES. POTENTIALLY THEY MAY BECOME RESISTANT TO ALL B-LACTAM DRUGS. PERFORMED BY: [place] [address] PATHOLOGIST PLATEMAKER STEPHANE MILES M.D. Normal [facility] Comment on above: Performed By: #### C UU #### [place] [address] [place] Vaginitis Plus (VG+)on 02-22 Atopobium Vaginae Moderate - 1 Normal . [facility] Comment on above: Performed By: #### V AGINITIS+ #### [facility] , BVAB2 High - 2 Critically abnormal . [facility] Comment on above: Performed By: #### V AGINITIS+ #### [facility] , Mervat Albicans, JORDON Negative Normal Negative [facility] Comment on above: Result Comment: This test was developed and its performance characteristics determined by [employer]. It has not been cleared or approved by the Food and Drug Administration. Performed By: #### V AGINITIS+ #### [facility] , Mervat Glabrata, JORDON Negative Normal Negative [facility] Comment on above: Result Comment: This test was developed and its performance characteristics determined by [facility]. It has not been cleared or approved by the Food and Drug Administration. PERFORMED BY: [place] [address] PATHOLOGIST PLATEMAKER STEPHANE MILES M.D. Performed By: #### V AGINITIS+ #### [facility] , Chlamydia Trachomotis, JORDON Positive Critically abnormal Negative [facility] Comment on above: Performed By: #### V AGINITIS+ #### [facility] , Megasphaera High - 2 Critically abnormal . [facility] Comment on above: Result Comment: Calc ulate total score by adding the 3 individual bacterial vaginosis (BV) marker scores together. Total score is interpreted as follows: Total score 0-1: Indicates the absence of BV. Total score 2: Indeterminate for BV. Additional clinical data should be evaluated to establish a diagnosis. Total score 3-6: Indicates the presence of BV. This test was developed and its performance characteristics determined by [facility]. It has not been cleared or approved by the Food and Drug Administration. Performed By: #### V AGINITIS+ #### [facility] , Neisseria Gonorrhoeae, JORDON Negative Normal Negative [facility] Comment on above: Result Comment: Perf ormed at: =G - [facility] [address] [id number] Contracts Specialist: Norma Manuel MD, Phone: [phone] Performed By: #### V AGINITIS+ #### [facility] , Tric Vag JORDON Negative Normal Negative [facility] Comment on above: Performed By: #### V AGINITIS+ #### [facility] , ECG 12 lead ECGon 01-02-2022 ECG 12 lead ECG [facility] [address] Electrocardiograph Report Signed Patient: Carmelina Courtney LM MR#: [id number] 15 : 2005 Acct:[id number] Age/Sex: 16 / F ADM Date: 01/01/22 Loc: Room: [address] [place] [address] Type: DIS IN Attending Dr: Bernardino De La Torre MD Ordering Provider: Bernardino De La Torre MD Date of Service: 01/02/2207/16/500 ECG/ECG 12 lead ECG: routine Copies to: Test Reason : Blood Pressure : / mmHG Vent. Rate : 058 BPM Atrial Rate : 058 BPM P-R Int : 142 ms QRS Dur : 086 ms QT Int : 410 ms P-R-T Axes : 044 073 061 degrees QTc Int : 402 ms Sinus bradycardia with marked sinus arrhythmia Otherwise normal ECG No previous ECGs available Confirmed by ROSEANN SOUSA [facility], CELIO ([id number]) on 01/02/2022 12:21:02 PM Referred By: Electronically Signed By:CELIO CIFUENTES MD [facility] Transcribed By: MUS Signed By Celio Cifuentes MD, [facility] 01/02/[address] [facility] Lipid Panelon 01-02-2022 Cholesterol [Mass/Vol] 138 mg/dL Low 140-[address] [facility] Comment on above: Result Comment: Chol less than 200 mg/dl low risk Chol 201-239 mg/dl borderline risk Chol 240 mg/dl and greater high risk Performed By: #### L IPID, TSH3 wRFLX, [id number] #### [facility] [address] Cholesterol in HDL [Mass/Vol] 45 mg/dL Normal 35-[address] [facility] Comment on above: Result Comment: HDL CHOL ATP-III CLASSIFICATION Cardiovascular Risk HDL > or equal to 60 mg/dL LOW HDL < 40 mg/dL HIGH Performed By: #### L IPID, TSH3 wRFLX, [id number] #### [facility] [address] [place] [address] [place] Cholesterol.total/C holesterol in HDL [Mass ratio] 3.1 {ratio} Normal <5.[address] [facility] Comment on above: Performed By: #### L IPID, TSH3 wRFLX, [id number] #### [facility] [address] [place] [address] [place] LDL Cholesterol,Calcula jade 82 mg/dL Normal 0-[address] [facility] Comment on above: Result Comment: LDL ATP III CLASSIFICATION LDL less than 100 mg/dL Optimal LDL 100-129 mg/dL Near or above optimal LDL 130-159 mg/dL Borderline high LDL 160-189 mg/dL High LDL greater than 189 mg/dL Very high Performed By: #### L IPID, TSH3 wRFLX, [id number] #### [facility] [address] [place] [address] [place] Triglyceride w/Reflex 54 mg/dL Normal 35-[address] [facility] Comment on above: Result Comment: TRIG ATP III CLASSIFICATION TRIG less than 150 mg/dL Normal TRIG 150-199 mg/dL Borderline high TRIG 200-500 mg/dL High TRIG greater than 500 mg/dL Very high Standard traceable to the Center for Disease Conrtrol and Prevention (CDC) test method. Performed By: #### L IPID, TSH3 wRFLX, [id number] #### [facility] [address] [place] [address] VLDL CHOLESTEROL 10 mg/dL Normal [facility] Comment on above: Performed By: #### L IPID, TSH3 wRFLX, [id number] #### [facility] [address] [place] [address] Thyroid Stim Hormone w/Rflxo n 01-02-2022 Thyroid Stim Hormone w/Rflx 1.38 u[iU]/mL Normal 0.45-5.[address] [facility] Comment on above: Performed By: #### L IPID, TSH3 wRFLX, [id number] #### [address] Vitamin D 25 Hydroxy Totalon 01-02-2022 Vitamin D 25 Hydroxy Total 27.6 ng/mL Low 30-[address] [facility] Comment on above: Result Comment: JENN MIN D STATUS 25(OH)VITAMIN D RANGE (ng/mL) Deficient <20 Insufficient 20 to <30 Sufficient 30 to 100 Reference: Hector MF,Marques NC, Brittny VILLALTA, et al. Evaluation,treatment, and prevention of vitamin D deficiency; an Endocrine Society clinical practice guideline. JCEM. 2010; 96(7):1911-30. PERFORMED BY: [place] [address] PATHOLOGIST PLATEMAKER STEPHANE MILES M.D. Performed By: #### L IPID, TSH3 wRFLX, [id number] #### [place] [id number] [facility] Social History Date Type Detail Facility Start: 11-28-2023 End: 12-12-2023 Sex Assigned At [facility] [employer] Other Start: 11-28-2023 End: 12-12-2023 [facility] Start: 11-28-2023 End: 12-12-2023 [facility] Start: 08-14-2023 Tobacco smoking stat [facility] Start: 08-14-2023 Tobacco use and exposure Smokeless tobacco non-user [facility] Start: 2005 Sex Assigned At Not on file P [employer] [facility] History of tobacco use Current smoker [facility] History of tobacco use Cigarette Smoker P [employer] [facility] Adolescent depressio n screening assessment 1 [facility] Vital Signs Date Time Vital Sign Value Performing Clinician Facility 12-12-2023 16:29-0500 Body height 162.6 cm Sujeyedward Meza APRNPenana Work Phone: [facility] 12-12-2023 16:29-0500 Body mass index (BMI) [Ratio] 22.76 kg/m2 Sujey Meza APRNPenana Work Phone: [facility] 12-12-2023 16:29-0500 Body temperature 99 [degF] [employer] Work Phone: [facility] 12-12-2023 16:29-0500 Body weight 60.15 kg Sujey Derrick [employer] [facility] 12-12-2023 16:29-0500 Diastolic blood pressure 60 mm[Hg] Sujey Meza [employer] Work Phone: [facility] 12-12-2023 16:29-0500 Heart rate 76 /min Sujey Derrick [employer] Work Phone: [facility] 12-12-2023 16:29-0500 SaO2% (BldA) [Mass fraction] 96 % Sujey Derrick [employer] CONS[employer] Work Phone: [facility] 12-12-2023 16:29-0500 Systolic blood pressure 98 mm[Hg] Sujey Meza APRNPenana Work Phone: [employer] 11-28-2023 15:17-0500 Body mass index (BMI) [Ratio] 23.1 kg/m2 Sujey Meza APRN-CONTINUING EDUCATION INSTRUCTOR Work Phone: [employer] 11-28-2023 15:17-0500 Body temperature 99.39 [degF] Sujey Meza RETIREMENT CONSULTANT-CONTINUING EDUCATION INSTRUCTOR Work Phone: [employer] 11-28-2023 15:17-0500 Body weight 61.05 kg Sujey Meza RETIREMENT CONSULTANT-CONTINUING EDUCATION INSTRUCTOR Work Phone: [employer] 11-28-2023 15:17-0500 Diastolic blood pressure 50 mm[Hg] Sujey Meza APRN-CONTINUING EDUCATION INSTRUCTOR Work Phone: [employer] 11-28-2023 15:17-0500 Heart rate 61 /min Sujey Meza APRN-CONTINUING EDUCATION INSTRUCTOR Work Phone: [employer] 11-28-2023 15:17-0500 SaO2% (BldA) [Mass fraction] 92 % Sujey Meza APRN-CONTINUING EDUCATION INSTRUCTOR Work Phone: [employer] 11-28-2023 15:17-0500 Systolic blood pressure 90 mm[Hg] Sujey Meza APRN-CONTINUING EDUCATION INSTRUCTOR Work Phone: [employer] 05-18-2022 11:50-0400 Body height 161.29 cm Gina Stallworth Other [facility] Other 05-18-2022 11:50-0400 Body mass index (BMI) [Ratio] 27.55 kg/m2 Gina Stallworth Other [employer] Other 05-18-2022 11:50-0400 Body temperature 97.8 [degF] Gina Stallworth Other [facility] Other 05-18-2022 11:50-0400 Body weight 71.67 kg Gina Stallworth Other [facility] Other 05-18-2022 11:50-0400 Diastolic blood pressure 67 mm[Hg] Gina Stallworth Other [facility] Other 05-18-2022 11:50-0400 Respiratory rate 16 /min Gina Stallworth Other [facility] Other 05-18-2022 11:50-0400 SaO2% (BldA) [Mass fraction] 100 % Gina Stallworth Other [facility] Other 05-18-2022 11:50-0400 Systolic blood pressure 113 mm[Hg] Gina Stallworth Other [facility] Other Clinical Notes 12-26-2021 to 12-12-2023 Sujey Meza APRN-CONTINUING EDUCATION INSTRUCTOR - 12/12/2023 4:30 PM ESTSujey Meza APRN-MOIRA - 11/28/2023 3:00 PM ESTAddendum Note - Sujey Meza APRN-MOIRA - 11/28/2023 3:00 PM EST Note Date & Type Note Facility 12-12-2023 History of Presen t illness Narrative [address] [facility] [id number] Patient: Carmelina Courtney Date of : 2005 Encounter Date: 12/12/2023 History of Present Illness: The patient is a 18 y.o. female, an established patient, and is here for Chief Complaint Patient presents with Anxiety . HPI Patient feels anxiety is better and moods have improved. She has noticed about 60% improvement in her symptoms since starting the BuSpar. She has increase the medication to 10 mg 3 times a day and feels this is working better for. She has no adverse side effects to the medication and she notices her moods are worse when she forgets a dose. She does still have some breakthrough times where she is agitated or angry with family members around her. Patient finish the Flagyl for her bacterial vaginosis a couple days ago and she is still experiencing some white discharge. She would like to self collect another vaginal sample of the discharge for vaginitis panel. Problem List Items Addressed This Visit None Visit Diagnoses Anxiety - Primary Moderate episode of recurrent major depressive disorder ([facility]) Relevant Medications busPIRone (BUSPAR) 10 mg tablet vortioxetine (TRINTELLIX) 5 mg tablet Vaginal discharge Relevant Orders Vaginitis Panel PCR Past Medical, Family, and Social History Update: The following portions of the patient's history were reviewed and updated as appropriate: allergies, current medications, past family history, past medical history, past social history, past surgical history and problem list. Past Medical History: Diagnosis Date Anxiety History reviewed. No pertinent surgical history. Current Outpatient Medications Medication Sig Dispense Refill norgestimate-ethinyl estradioL (ORTHO TRI-CYCLEN,TRINESSA) 0.18/0.215/0.25 mg-35 mcg (28) per tablet Take 1 tablet by mouth in the morning. 28 tablet 11 busPIRone (BUSPAR) 10 mg tablet Take 1 tablet (10 mg total) by mouth 3 (three) times a day. 90 tablet 1 vortioxetine (TRINTELLIX) 5 mg tablet Take 1 tablet (5 mg total) by mouth in the morning. 30 tablet 1 No current facility-administered medications for this visit. (All medications reviewed and updated by provider since last office visit or hospitalization) Allergies: Patient has no known allergies. Tobacco History: Social History Tobacco Use Smoking Status Former Types: Cigarettes Smokeless Tobacco Never (If patient a smoker, smoking cessation counseling offered) Social History: Social History Substance and Sexual Activity Alcohol Use Not Currently Review of Systems: Review of Systems Respiratory: Negative. Cardiovascular: Negative. Genitourinary: Positive for vaginal discharge (stil ongoing after a few days of finishing flagyl). Negative for dyspareunia, frequency, menstrual problem, pelvic pain and urgency. Psychiatric/Behavioral: Positive for agitation, dysphoric mood and sleep disturbance. Negative for decreased concentration, self-injury and suicidal ideas. The patient is nervous/anxious. Physical Exam: BP 98/60 (BP Site: Left Arm, BP Postition: Sitting) Pulse 76 Temp 37.2 C (99 F) (Tympanic) Ht 162.6 cm (5' 4 ) Wt 60.1 kg (132 lb 9.6 oz) SpO2 96% BMI 22.76 kg/m Physical Exam Vitals reviewed. Dust Puller present: Patient declined pelvic exam. Constitutional: Appearance: Normal appearance. HENT: Head: Normocephalic and atraumatic. Neurological: General: No focal deficit present. Mental Status: She is alert and oriented to person, place, and time. Psychiatric: Mood and Affect: Mood is anxious. Behavior: Behavior normal. Thought Content: Thought content normal. Judgment: Judgment normal. Assessment and Plan: Carmelina was seen today for anxiety. Diagnoses and all orders for this visit: Anxiety Moderate episode of recurrent major depressive disorder (CMS-HCC) Vaginal discharge - Vaginitis Panel PCR; Future Other orders - busPIRone (BUSPAR) 10 mg tablet; Take 1 tablet (10 mg total) by mouth 3 (three) times a day. - vortioxetine (TRINTELLIX) 5 mg tablet; Take 1 tablet (5 mg total) by mouth in the morning. Follow-up: Continue BuSpar and increase to 10 mg 3 times a day. Patient would like something added today to help with her breakthrough symptoms, discussed Trintellix use and mechanism of action and side effects. Will start at the lowest dose as patient is worried about the nausea side effect. Patient has been on more than 5 different antidepressant medications in the past, see last note. Insurance would approve this as she has failed on at least 2. Will complete prior authorization. Unfortunately no samples were available in the office today. Recent vaginitis panel for continued discharge. Patient states she finished all of her Flagyl. Recheck symptoms in the office in 1 month after starting the Trintellix. SHASHI VU APRN-CNP 12/15/232120 documented in this encounter [facility] 11-28-2023 History of Presen t illness Narrative [address] [place] [address] Patient: Carmelina Courtney Date of : 2005 Encounter Date: 11/28/2023 History of Present Illness: The patient is a 18 y.o. female, an established patient, and is here for Chief Complaint Patient presents with Anxiety . HPI Patient has been having more anxiety, agitation, sleep problems and guilt lately. She had these problems before having her child 3 months ago but they have gotten much worse in the 3 months . She is sleeping more and isolating herself from friends and family. She feels overwhelmed because she has to run her mother and little sister places because they can not drive and she is working from 4:00 a.m. to 2:00 p.m. so she feels this is also affecting her sleep. She has been hospitalized for anxiety before and has tried citalopram, Prozac, Zoloft, Lexapro, Strattera, trazodone, Cymbalta, gabapentin, Abilify. The Strattera was too expensive and the other medications either had adverse side effects or she tried them for a few days and they did not work. Patient denies any thoughts of suicide. She has not spoken with her OBGYN about these symptoms. Last menstrual period was 1 week ago and her last sexual activity was 2 days ago and unprotected. She does not want another but is not protecting against at this time. She has new vaginal discharge that is thin and white and non odorous. She feels like she had similar symptoms when she was diagnosed with BV in the past. She has not taken a recent test. One sexual partner in the last 12 months she feels she is in a monogamous relationship. Problem List Items Addressed This Visit None Visit Diagnoses Vaginal discharge - Primary Relevant Orders Vaginitis Panel PCR Chlamydia/GC by PCR urine High risk heterosexual behavior Relevant Orders POCT , urine (Completed) Past Medical, Family, and Social History Update: The following portions of the patient's history were reviewed and updated as appropriate: allergies, current medications, past family history, past medical history, past social history, past surgical history and problem list. History reviewed. No pertinent past medical history. No past surgical history on file. Current Outpatient Medications Medication Sig Dispense Refill busPIRone (BUSPAR) 5 mg tablet Take 1 tablet (5 mg total) by mouth 3 (three) times a day. 90 tablet 1 No current facility-administered medications for this visit. (All medications reviewed and updated by provider since last office visit or hospitalization) Allergies: Patient has no known allergies. Tobacco History: Social History Tobacco Use Smoking Status Former Types: Cigarettes Smokeless Tobacco Never (If patient a smoker, smoking cessation counseling offered) Social History: Social History Substance and Sexual Activity Alcohol Use Not Currently Review of Systems: Review of Systems Respiratory: Negative. Cardiovascular: Negative. Genitourinary: Positive for vaginal discharge. Negative for dyspareunia, frequency, menstrual problem, pelvic pain and urgency. Psychiatric/Behavioral: Positive for agitation, decreased concentration, dysphoric mood and sleep disturbance. Negative for self-injury and suicidal ideas. The patient is nervous/anxious. Physical Exam: BP 90/50 (BP Site: Left Arm, BP Postition: Sitting) Pulse 61 Temp 37.4 C (99.4 F) (Tympanic) Wt 61.1 kg (134 lb 9.6 oz) SpO2 92% BMI 23.10 kg/m Physical Exam Dust Puller present: Patient declined pelvic exam. Psychiatric: Mood and Affect: Mood is anxious. Behavior: Behavior normal. Thought Content: Thought content normal. Judgment: Judgment normal. Assessment and Plan: Carmelina was seen today for anxiety. Diagnoses and all orders for this visit: Vaginal discharge - Vaginitis Panel PCR; Future - Chlamydia/GC by PCR urine; Future High risk heterosexual behavior - POCT , urine Other orders - busPIRone (BUSPAR) 5 mg tablet; Take 1 tablet (5 mg total) by mouth 3 (three) times a day. Follow-up: Will check gonorrhea and chlamydia and vaginitis panel as above. Patient self collected the vaginitis sample. Check urine but it was recommended that patient start plan B [id number] as she does not wish to have a . It was discussed how plan B works and that it will not abort a fertilized egg. She should start plan be within the 1st 72 hours after unprotected sex. Discussed several control options and patient opts for control pills. She understands mechanism of action and side effects. She understands that she needs to take these once a day in order for them to be effective and she may start the pill on her 1st day of bleeding on her next menstrual. And should abstain from sexual activity until that time. She should use backup method for the 1st pill pack such as condoms. Start BuSpar 3 times a day for her anxiety symptoms. She was offered genetic testing as she has been on many different antidepressant drugs in the past but she does not want her blood drawn. Side effects and mechanism of action of BuSpar discussed and patient education sheet printed. If this does not work consider Vraylar. Since she has tried and failed on many different antidepressants will also get a psychiatric consult and start counseling today. Patient will call her past counselor to set this up. Return to office in 2-3 weeks to check her anxiety symptoms. SHASHI VU APRN-CNP 11/28/23 174 documented in this encounter [facility] 11-28-2023 Miscellaneous Notes Addended by: SUJEY MEZA on: 11/28/2023 05:46 PM Modules accepted: Orders documented in this encounter [facility] 11-28-2023 Note Addended by: SUJEY MEZA on: 11/28/2023 05:46 PM Modules accepted: Orders [facility] 05-18-2022 Evaluation note Encounter Date Diagnosis Assessment Notes Apr, Sexually transmitted disease exposure (ICD-10 - Z20.2) Drink plenty fluids, get plenty of rest. No intercourse until you receive your results of your STD testing. If the of the tests are positive, you must be treated and you will be contacted by this clinic for treatment. If you are treated you must refrain from having intercourse for 2 weeks. Otherwise if your tests are negative, you may resume sexual activities however always use a condom unless you want to become . Follow-up with your family physician for any further concerns [facility] Other 02-01-2022 History general Narrative - Reported* Type Description Date Medical History anxiety Hospitalization History mental health 12/2021 [facility] Other [facility]* Diagnosis Vaginal discharge- Primary Leukorrhea, not specified as infective High risk heterosexual behavior Anxiety Anxiety state, unspecified documented [facility]* Diagnosis Anxiety- Primary Anxiety state, unspecified Moderate episode of recurrent major depressive disorder ([facility]) Vaginal discharge Leukorrhea, not specified as infective documented [facility]* Attachments The following attachments cannot be sent through Care Everywhere. * Buspirone, ADULT (Citizen Of [place]) documented in [facility] SystemInstructionsNot on file documented in [facility] encounterC[facility] SystemInstructionsNot on file documented in [facility] encounterC[facility] SystemInstructions* Attachments The following attachments cannot be sent through Care Everywhere. * Vortioxetine, ADULT (Citizen Of [place]) documented in [facility] SystemReason for referral (narrative)* Consultation (Routine) - Pending Review Specialty Diagnoses / Procedures Referred By Dorothea felix Referred To Contact Psychiatry Diagnoses Anxiety Sujey Meza APRN-CONTINUING EDUCATION INSTRUCTOR [address] [place] [address] Aparna Arias MD [address] [place] [address] Referral ID Status Reason Start Date Expiration Date Visits Requested Visits Authorized [id number] Pending Review Specialty Services Required 11/28/2023 11/27/2024 1 1 [facility] Summary Purpose Family History No Family History Records FoundNo Family History Records FoundNo Family History Records FoundNo Family History Records FoundNo Family History Records FoundNo Family History Records Found Advance Directives No Advanced Directives Records FoundNo Advanced Directives Records FoundNo Advanced Directives Records FoundNo Advanced Directives Records FoundNo Advanced Directives Records FoundNo Advanced Directives Records Found Reason for Referral Specialty Diagnoses / Procedures Referred By Dorothea felix Referred To Contact Sujey Meza APRN-CONTINUING EDUCATION INSTRUCTOR [address] [place] [address] Referral ID Status Reason Start Date Expiration Date V isits Requested Visits Authorized [id number] Pending Review 1 1 Additional Source Comments REASON FOR VISIT (unrecogniz ed section and content) Reason Comments Anxiety INFORMATION SOURCE (unrecogn ized section and content) DATE CREATED AUTHOR 08/28/2022 [place] DATE CREATED AUTHOR AUTHOR'S ORGANIZ ATION 12/29/2022 [facility] DATE CREATED AUTHOR AUTHOR'S ORGANIZ ATION 05/03/2023 [facility] DATE CREATED AUTHOR AUTHOR'S ORGANIZ ATION [facility] DATE CREATED AUTHOR AUTHOR'S ORGANIZ ATION 12/15/2023 [facility] DATE CREATED AUTHOR AUTHOR'S ORGANIZ ATION 05/16/2024 [facility] EPIC Care Teams (unrecognized sec tion and content) Operations Management Trainee Relationship Specialty Start Date End Date Sujey Meza APRN-CNP [address] [place] [address] PCP - General Internal Medicine 05/17/23 Operations Management Trainee Relationship Specialty Start Date End Date Sujey Meza APRN-CNP [address] [place] [address] PCP - General Internal Medicine 05/17/23 Operations Management Trainee Relationship Specialty Start Date End Date Sujey Meza APRN-CNP [address] [place] [address] PCP - General Internal Medicine 05/17/23 FOR RECORDS PERTAINING TO PATIENTS WHO ARE OR HAVE BEEN ENROLLED IN A CHEMICAL DEPENDENCY/SUBSTANCEABUSE PROGRAM, SOME INFORMATION MAY BE OMITTED. This clinical summary was aggregated from multiple sources. Caution should be exercised in using it in the provision of clinical care. This summary normalizes information from multiple sources, and as a consequence, information in this document may materially change the coding, format and clinical context of patient data. In addition, data may be omitted in some cases. CLINICAL DECISIONS SHOULD BE BASED ON THE PRIMARY CLINICAL RECORDS. [facility]. provides no warranty or guarantee of the accuracy or completeness of information in this document.
== END 2024-05-26 10:00 | disposition home or self-care (01) ==
LOC: NOMS 09:59
PROVIDERS: PCP Family Medicine; Visit Provider Obstetrics & Gynecology
DX: Z36.89 Encounter for other specified antenatal screening (principal); O26.873 Cervical shortening, third trimester; Z3A.24 24 weeks gestation of pregnancy
CPT/HCPCS: 76805; 76817

== ENCOUNTER 2024-05-26 11:49 | Outpatient (OUT) | payer MEDICAID, SELFPAY ==
--- OUTSIDE RECORDS SUMMARY | 2024-05-26 12:00 | XMS_ITS | CCD ---
Author Organization [facility] Care Team Providers Care Claims Director Name Role Phone Gina Stallworth Unavailable Lynn Bonilla Unavailable Jose Elias Singh Primary Care Unavailable Gina Stallworth Attending Unavailable Gina Stallworth Admitting Unavailable Bonilla, Lynn L Admitting Unavailable Bonilla, Lynn L Attending Unavailable Jose Elias Singh Primary Care Unavailable Chad Lynn L Attending Unavailable Chad, Lynn L Admitting Unavailable NadolivarJose Elias Primary Care Unavailable Wil, Bernardino Attending Unavailable WilKinjalBernardino Admitting Unavailable NadJose Elias sharma Primary Care Unavailable BELIA ., DR CAMARGO [...] Unavailable BELIA ., DR CAMARGO Consulting Unavailable Derrickaaliyah T[employer]ER, Sujey Nicole Primary Care Provider DERRICK SUJEY L Attending Unavailable DERRICK, SUJEY L Referring Unavailable DERRICK, SUJEY L Primary Care Unavailable DERRICK, SUJEY L Attending Unavailable DERRICK, SUJEY L Referring Unavailable DERRICK, SUJEY L Primary Care Unavailable DERRICK, SUJEY L Referring Unavailable DERRICK, SUJEY L Primary Care Unavailable DERRICK, SUJEY L Referring Unavailable DERRICK, SUJEY L Primary Care Unavailable MARISA HARVEY Attending Unavailable Medications Current Medications Medication Drug Class(es) Dates [...] the morning. 0 11/28/2023 Discontinued (Therapy completed) Problems Active Problems Problem Classification Problem Date [...] genetic and chromosomal anomalies] Onset: 07-17-2022 Episodic Results Test Name Value Interpretation Reference Range Facility Vaginitis Panel PCRon 2023 Bacterial vaginosis DNA panel JORDON+probe (Vag fld) Detected Abnormal Not Detected^Not Detected [facility] Comment on above: Qualitative results are reported based on detection and quantitation of targeted organism markers which include: Lactobacillus spp. (L. crispatus and L. jensenii), Gardnerella vaginalis, Atopobium vaginae, Bacterial Vaginosis Associated Bacteria-2 (BVAB-2) and Megasphaera-1 C. glabrata DNA JORDON+probe Ql (Vag fld) Not detected Not Detected^Not Detected [facility] Comment on above: No Mervat glabrata detected C. krusei DNA JORDON+probe Ql (Vag fld) Not detected Not Detected^Not Detected [facility] Comment on above: No Mervat krusei de tected Mervat sp 6 panel JORDON+probe (Vag fld) Not detected Not Detected^Not Detected [facility] Comment on above: Mervat species not detected include: C. albicans, C. tropicalis, C. parapsilosis or C. dubliniensis Interpretation and review of laboratory results Abnormal [facility] T. vaginalis DNA JORDON+probe Ql (Vag fld) Not detected Not Detected^Not Detected [facility] Comment on above: No Trichomonas vagin rosemary detected NOTE BD MAX Vaginal Panel has not been evaluated for patients under 18 years old. Results for these patients should be reviewed and assessed in accordance with clinical presentation to determine patient diagnosis. [facility] VAGINITIS PANEL PCRon 2023 VAGINITIS PANEL [...] clinical presentation to determine patient diagnosis. Normal [facility] Comment on above: Performed By: #### V PPCR #### [facility] ([id number]) [facility], [address] [place] [address] CHLAMYDIA/GC PCR, Uon 2023 CHLAMYDIA/GC PCR, U [...] are dependent on adequate specimen collection. Normal [facility] Comment on above: Performed By: #### C #### [facility] ([id number]) [address] [place] [address], [address] [place] [address] POCT , urineon Beta HCG ( test) Ql (U) Negative [facility] VAGINITIS PANEL PCRon 2023 VAGINITIS PANEL PCR [...] C. tropicalis, C. parapsilosis or C. dubliniensis MREVAT KRUSEI DNA Not detected (qualifier value) No [...] clinical presentation to determine patient diagnosis. Normal [facility] Comment on above: Performed By: #### V PPCR #### [facility] ([id number]) [address] [place] [address], [address] [place] [address] US PREG CERVICAL LENGTHon US PREG CERVICAL [...] ALEXIA REEVES Date: 2023-04-23 06:59 Normal [facility] INFLUENZA A AND B AGon 04-16 INFLUENZA A AG Negative Normal NEGATIVE SEE COMMENT [facility] Comment on above: Performed By: #### I NFLUAB #### [facility] [address] [place] [address] Dr. Ryan Martinez INFLUENZA B AG Negative Normal NEGATIVE SEE COMMENT [facility] Comment on above: Performed By: #### I NFLUAB #### [facility] [address] [place] [address] Dr. Ryan Martinez UA (CLEAN/CATCH) MAIL ROOM CLERK/MICRO I F IND.on 04-16-2023 Bilirubin Ql (U) Negative Normal NEGATIVE [facility] Comment on above: Performed By: #### U ACSIND #### [facility] [address] [place] [address] Dr. Ryan Martinez Clarity (U) CLEAR Normal CLEAR [facility] Comment on above: Performed By: #### U ACSIND #### [facility] [address] [place] [address] Dr. Ryan Martinez Color (U) LT. YELLOW Normal YELLOW [facility] Comment on above: Performed By: #### U ACSIND #### [facility] [address] [place] [address] Dr. Ryan Martinez Glucose Ql (U) Negative Normal NEGATIVE [facility] Comment on above: Performed By: #### U ACSIND #### [facility] [address] [address] [address] Ryan Martinez Hemoglobin Ql (U) Negative Normal NEGATIVE [facility] Comment on above: Performed By: #### U ACSIND #### [facility] [address] [address] [address] Ryan Martinez Ketones Ql (U) >=80 Abnormal NEGATIVE [facility] Comment on above: Performed By: #### U ACSIND #### [facility] [address] [address] [address] Ryan Martinez LEUKOCYTES Negative Normal NEGATIVE [facility] Comment on above: Performed By: #### U ACSIND #### [facility] [address] [address] [address] Ryan Martinez Nitrite Ql (U) Negative Normal NEGATIVE [facility] Comment on above: Performed By: #### U ACSIND #### [facility] [address] [place] [address] Dr. Ryan Martinez pH (U) 6.5 [pH] Normal 5-9 [facility] Comment on above: Performed By: #### U ACSIND #### [facility] [address] [place] [address] Dr. Ryan Martinez SPEC GRAVITY 1.010 Normal 1.005-<=1.02 5 [facility] Comment on above: Performed By: #### U ACSIND #### [facility] [address] [place] [address] Dr. Ryan Martinez UA PROTEIN Negative Normal NEGATIVE/ TRACE [facility] Comment on above: Performed By: #### U ACSIND #### [facility] [address] [place] [address] Dr. Ryan Martinez UR MICRO IND NOT INDICATED Normal [facility] Comment on above: Performed By: #### U ACSIND #### [facility] [address] [place] [address] Dr. Ryan Martinez Urobilinogen Qn (U) 0.2 {Han'U}/dL Normal 0.2 - 1. 0 [facility] Comment on above: Performed By: #### U ACSIND #### [facility] [address] [place] [address] Dr. Ryan Martinez HEP B SURFACE ANTIGEN SCREEN on 03-16-2023 HBsAg Screen Negative Normal Negative [facility] Comment on above: Performed By: #### H BSANS #### [facility] [address] [place] [address] Dr. Ryan Martinez HEPATITIS C VIRUS AB W/ REFL EX QUANTon 03-16-2023 HCV AB Non-Reactive Normal Non Reactive [facility] Comment on above: Performed By: #### C BC #### [facility] [address] [place] [address] Dr. Ryan Martinez Interpretation: Comment Normal [facility] Comment on above: Result Comment: Not infected with HCV unless early or acute infection is suspected (which may be delayed in an immunocompromised individual), or other evidence exists to indicate HCV infection. Performed By: #### C BC #### [facility] [address] [place] [address] Dr. Ryan Martinez HIV 1 AND 2 WITH REFLEXon HIV Screen 4th Generation wRfx Non-Reactive Normal Non Reactive [facility] Comment on above: Result Comment: HIV Negative HIV-1/HIV-2 antibodies and HIV-1 p24 antigen were NOT detected. There is no laboratory evidence of HIV infection. Performed By: #### H IV12 #### [facility] [address] [place] [address] Dr. Ryan Martinez RPR QUANTon 03-16-2023 Rapid Plasma Reagin, Quant Non-Reactive Normal NonRea<1:1 [facility] Comment on above: Result Comment: Plea se Note: This test does not meet current guidelines for screening and diagnosis of syphilis. This test is intended for following treatment response in patients being treated for syphilis infection. To screen for syphilis infection, a reflex cascade that includes both RPR and a treponema-specific assay should be utilized, such as Treponema pallidum (Syphilis) Screening [place] (421560) or Rapid Plasma Reagin (RPR) Test With Reflex to Quantitative RPR and Confirmatory Treponema pallidum Antibodies (807517). Performed By: #### R PRQ #### [facility] [address] [place] [address] Dr. Ryan Martinez RUBELLA AB IGGon 03-16-2023 Rubella Antibodies, IgG 4.40 index Normal Immune >0.99 [facility] Comment on above: Result Comment: Non- immune <0.90 Equivocal 0.90 - 0.99 Immune >0.99 Performed By: #### R UBIGG #### [facility] [address] [place] [address] Dr. Ryan Martinez BOX TEST SENT OUTon 03-15-20 23 SENT TO REF LAB 03/15/2023 Normal [facility] Comment on above: Performed By: #### C BC #### [facility] [address] [place] [address] Dr. Ryan Martinez CBC AUTO DIFFon 03-15-2023 BASO # 0.1 103/ul Normal 0.0-0.1 [facility] Comment on above: Performed By: #### C BC #### [facility] [address] [place] [address] Dr. Ryan Martinez Basophils/100 WBC (Bld) 0.5 % Normal 0.2-2.0 [facility] Comment on above: Performed By: #### C BC #### [facility] [address] [place] [address] Dr. Ryan Martinez EO # 0.2 103/ul Normal 0.0-0.7 [facility] Comment on above: Performed By: #### C BC #### [facility] [address] [place] [address] Dr. Ryan Martinez Eosinophils/100 WBC (Bld) 1.9 % Normal 0.9-7.0 [facility] Comment on above: Performed By: #### C BC #### [facility] [address] [place] [address] Dr. Ryan Martinez Erythrocyte distribution width (RBC) [Ratio] 13.2 % Normal 11.0-15.0 [facility] Comment on above: Performed By: #### C BC #### [facility] [address] [place] [address] Dr. Ryan Martinez Hematocrit (Bld) [Volume fraction] 35.7 % Critically low 36.0-48.0 [facility] Comment on above: Performed By: #### C BC #### [facility] [address] [place] [address] Dr. Ryan Martinez Hemoglobin (Bld) [Mass/Vol] 12.2 g/dL Normal 12.0-16.0 [facility] Comment on above: Performed By: #### C BC #### [facility] [address] [place] [address] Dr. Ryan Martinez IG # 0.05 10e3/ul Critically high 0.00-0.03 [facility] Comment on above: Performed By: #### C BC #### [facility] [address] [place] [address] Dr. Ryan Martinez IG % 0.5 % Normal 0.0-0.5 [facility] Comment on above: Performed By: #### C BC #### [facility] [address] [place] [address] Dr. Ryan Martinez LYMPH # 1.9 103/ul Normal 1.2-3.8 [facility] Comment on above: Performed By: #### C BC #### [facility] [address] [place] [address] Dr. Ryan Martinez Lymphocytes/100 WBC (Bld) 20.1 % Critically low 20.5-60.0 [facility] Comment on above: Performed By: #### C BC #### [facility] [address] [place] [address] Dr. Ryan Martinez MANUAL DIFF REQ NO Normal [facility] Comment on above: Performed By: #### C BC #### [facility] [address] [place] [address] Dr. Ryan Martinez MCH (RBC) [Entitic mass] 30.9 pg Normal 26.7-34.0 [facility] Comment on above: Performed By: #### C BC #### [facility] [address] [place] [address] Dr. Ryan Martinez MCHC (RBC) [Mass/Vol] 34.2 g/dL Normal 29.9-35.2 [facility] Comment on above: Performed By: #### C BC #### [facility] [id number] Ryan Martinez MCV (RBC) [Entitic vol] 90.4 fL Normal 81.0-99.0 [facility] Comment on above: Performed By: #### C BC #### [facility] [address] [address] [address] Ryan Martinez MONO # 0.8 103/ul Normal 0.3-0.8 [facility] Comment on above: Performed By: #### C BC #### [facility] [address] [address] [address] Ryan Martinez Monocytes/100 WBC (Bld) 8.0 % Normal 1.7-12.0 [facility] Comment on above: Performed By: #### C BC #### [facility] [address] [address] [address] Ryan Martinez NEUT # 6.5 103/ul Normal 1.4-6.5 [facility] Comment on above: Performed By: #### C BC #### [facility] [id number] Ryan Martinez Neutrophils/100 WBC (Bld) 69.0 % Normal 43.0-75.0 [facility] Comment on above: Performed By: #### C BC #### [facility] [address] [address] [address] Ryan Martinez Platelet mean volume (Bld) [Entitic vol] 9.4 fL Critically low 9.5-13.5 [facility] Comment on above: Performed By: #### C BC #### [facility] [id number] Ryan Martinez PLT 238 103/ul Normal 150-450 [facility] Comment on above: Performed By: #### C BC #### [facility] [address] [place], [place] [address] Dr. Ryan Martinez RBC 3.95 106/ul Critically low 4.20-5.40 [facility] Comment on above: Performed By: #### C BC #### [facility] [address] [address] [address] Ryan Martinez WBC 9.5 103/ul Normal 4.0-11.0 [facility] Comment on above: Performed By: #### C BC #### [facility] [address] [address] [address] Ryan Martinez CULTURE URINEon 03-15-2023 CULTURE URINE Culture Observations : NO GROWTH. Normal [facility] Comment on above: Performed By: #### C BC #### [facility] [address] [address] [address] Ryan Martinez GLYCOHEMOGLOBIN A1Con 2022 ADA RECOMMENDATION SEE BELOW Normal [facility] Comment on above: Result Comment: ADA RECOMMENDED LIMIT 4.0 - 6.0 ADA THERAPEUTIC TARGET < 7.0 ACTION SUGGESTED > 7.0 Performed By: #### A 1C #### [facility] [address] [place] [address] Dr. Ryan Martinez Glucose [Mass/Vol] 88 mg/dL Normal [facility] Comment on above: Performed By: #### A 1C #### [facility] [address] [address] [address] Ryan Martinez HbA1c (Bld) [Mass fraction] 4.7 % Normal 4.5-6.2 [facility] Comment on above: Performed By: #### A 1C #### [facility] [address] [place] [address] Dr. Ryan Martinez URon 03-15-2023 , QUAL Positive Abnormal NEGATIVE [facility] Comment on above: Performed By: #### C BC #### [facility] [address] [place] [address] Dr. Ryan Martinez TSHon 03-15-2023 TSH 1.649 uIU/mL Normal 0.516-4.130 [facility] Comment on above: Performed By: #### T SH #### [facility] [address] [place] [address] Dr. Ryan Martinez TYPE AND SCREENon 03-15-2023 TYPE AND SCREEN Negative Normal [facility] Comment on above: Performed By: #### C BC #### [facility] [address] [address] [address] Ryan Martinez UA RANDOMon 03-15-2023 Bilirubin Ql (U) Negative Normal NEGATIVE [facility] Comment on above: Performed By: #### U A, PREGU #### [facility] [address] [address] [address] Ryan Martinez Clarity (U) CLEAR Normal CLEAR [facility] Comment on above: Performed By: #### U A, PREGU #### [facility] [address] [address] [address] Ryan Martinez Color (U) LT. YELLOW Normal YELLOW [facility] Comment on above: Performed By: #### U A, PREGU #### [facility] [address] [place] [address] Dr. Ryan Martinez Glucose Ql (U) Negative Normal NEGATIVE [facility] Comment on above: Performed By: #### U A, PREGU #### [facility] [address] [address] [address] Ryan Martinez Hemoglobin Ql (U) Negative Normal NEGATIVE [facility] Comment on above: Performed By: #### U A, PREGU #### [facility] [address] [address] [address] Ryan Martinez Ketones Ql (U) Negative Normal NEGATIVE [facility] Comment on above: Performed By: #### U A, PREGU #### [facility] [address] [address] [address] Ryan Martinez LEUKOCYTES Negative Normal NEGATIVE [facility] Comment on above: Performed By: #### U A, PREGU #### [facility] [address] [address] [address] Ryan Martinez Nitrite Ql (U) Negative Normal NEGATIVE [facility] Comment on above: Performed By: #### U A, PREGU #### [facility] [address] [address] [address] Ryan Martinez pH (U) 7.0 [pH] Normal 5-9 [facility] Comment on above: Performed By: #### U A, PREGU #### [facility] [address] [address] [address] Ryan Martinez SPEC GRAVITY 1.010 Normal 1.005-<=1.02 5 [facility] Comment on above: Performed By: #### U A, PREGU #### [facility] [address] [address] [address] Ryan Martinez UA PROTEIN Negative Normal NEGATIVE/ TRACE [facility] Comment on above: Performed By: #### U A, PREGU #### [facility] [address] [address] [address] Ryan Martinez Urobilinogen Qn (U) 0.2 {Han'U}/dL Normal 0.2 - 1. 0 [facility] Comment on above: Performed By: #### U A, PREGU #### [facility] [address] [address] [address] Ryan Martinez US PREG TVon 02-21-2023 [...] by: ALEXIA REEVES Date: 2023-02-21 15:09 Normal [facility] Chlamydia/GC/Trich NAAon Chlamydia/GC/Trich JORDON Negative Negative [employer] Other Chlamydia/GC/Trich JORDON Positive Critically abnormal Negative [employer] Other Chlamydia Trachomotis, JORDON Negative Normal Negative [facility] Comment on above: Order Comment: Reaso n for Exam Sexually transmitted disease exposure Performed By: #### G CCHLAMTRI #### [facility] , Neisseria Gonorrhoeae, JORDON Positive Critically abnormal Negative [facility] Comment on above: Order Comment: Reaso n for Exam Sexually transmitted disease exposure Performed By: #### G GJLAMTRI #### [facility] , Trichomonas JORDON Negative Normal Negative [facility] Comment on above: Order Comment: Reaso n for Exam Sexually transmitted disease exposure Result Comment: Perf ormed at: =G - [facility] [address] [id number] Plant Sprayer: Norma Manuel MD, Phone: [phone] PERFORMED BY: [facility] [address] [place] [address] PATHOLOGIST BEEF GRADER STEPHANE MILES M.D. Performed By: #### G DAMON #### [facility] , Urine Cultureon 02-22-2022 Bacteria identified Cx Nom (U) ORGANISM: Escherichia coli (O:ESCCOL) Billings Count >100,000 Aerobic STEVEN Charge (NUC86) ---- [...] RESISTANT TO ALL B-LACTAM DRUGS. PERFORMED BY: [place] [address] PATHOLOGIST BEEF GRADER STEPHANE MILES M.D. Normal [facility] Comment on above: Performed By: #### C UU #### [place] [address] [place] Vaginitis Plus (VG+)on 02-22 Atopobium Vaginae Moderate - 1 Normal . [facility] Comment on above: Performed By: #### V AGINITIS+ #### [facility] , BVAB2 High - 2 Critically abnormal . [facility] Comment on above: Performed By: #### V AGINITIS+ #### [facility] , Mervat Albicans, JORDON Negative Normal Negative [facility] Comment on above: Result Comment: This test was developed and its performance characteristics determined by [facility]. It has not been cleared or approved by the Food and Drug Administration. Performed By: #### V AGINITIS+ #### [facility] , Mervat Glabrata, JORDON Negative Normal Negative [facility] Comment on above: Result Comment: This test was developed and its performance characteristics determined by [facility]. It has not been cleared or approved by the Food and Drug Administration. PERFORMED BY: [place] [address] PATHOLOGIST BEEF GRADER STEPHANE MILES M.D. Performed By: #### V AGINITIS+ #### [facility] , Chlamydia Trachomotis, JORDON Positive Critically abnormal Negative [facility] Comment on above: Performed By: #### V AGINITIS+ #### [facility] , Megasphaera High - 2 Critically abnormal . [facility] Comment on above: Result Comment: Calc ulate [...] Gonorrhoeae, JORDON Negative Normal Negative [facility] Comment on above: Result Comment: Perf ormed at: =G - [facility] [address] [id number] Plant Sprayer: Norma Manuel MD, Phone: [phone] Performed By: #### V AGINITIS+ #### [facility] , Tric Vag JORDON Negative Normal Negative [facility] Comment on above: Performed By: #### V AGINITIS+ #### [facility] , ECG 12 lead ECGon 01-02-2022 ECG 12 lead ECG [facility] [place] [address] Electrocardiograph Report Signed Patient: Carmelina Courtney LM MR#: [id number] 15 : 2005 Acct:[id number] Age/Sex: 16 / F ADM Date: 01/01/22 Loc: Room: [address] [place] [address] Type: DIS IN Attending Dr: Bernardino De [...] ECG No previous ECGs available Confirmed by CELIO CIFUENTES MD, FACC ([id number]) on 01/02/2022 12:21:02 PM Referred By: Electronically Signed By:CELIO CIFUENTES MD, FACC Transcribed By: MUS Signed By Celio Cifuentes MD, [facility] 01/02/22 1221 Normal [facility] Lipid Panelon 01-02-2022 Cholesterol [Mass/Vol] 138 mg/dL Low 140-200 [facility] Comment on above: Result Comment: Chol less than 200 mg/dl low risk Chol 201-239 mg/dl borderline risk Chol 240 mg/dl and greater high risk Performed By: #### L IPID, TSH3 wRFLX, [id number] #### [facility] [address] [id number] [facility] Cholesterol in HDL [Mass/Vol] 45 mg/dL Normal 35-85 [facility] Comment on above: Result Comment: HDL CHOL ATP-III CLASSIFICATION Cardiovascular Risk HDL > or equal to 60 mg/dL LOW HDL < 40 mg/dL HIGH Performed By: #### L IPID, TSH3 wRFLX, [id number] #### [facility] [address] [place] [address] [place] Cholesterol.total/C holesterol in HDL [Mass ratio] 3.1 {ratio} Normal <5.0 [facility] Comment on above: Performed By: #### L IPID, TSH3 wRFLX, [id number] #### [facility] [address] [id number] [facility] LDL Cholesterol,Calcula jade 82 mg/dL Normal 0-100 [facility] Comment on above: Result Comment: LDL ATP III CLASSIFICATION LDL less than 100 mg/dL Optimal LDL 100-129 mg/dL Near or above optimal LDL 130-159 mg/dL Borderline high LDL 160-189 mg/dL High LDL greater than 189 mg/dL Very high Performed By: #### L IPID, TSH3 wRFLX, [id number] #### [facility] [address] [place] [address] [place] Triglyceride w/Reflex 54 mg/dL Normal 35-149 [facility] Comment on above: Result Comment: TRIG ATP III CLASSIFICATION TRIG less than 150 mg/dL Normal TRIG 150-199 mg/dL Borderline high TRIG 200-500 mg/dL High TRIG greater than 500 mg/dL Very high Standard traceable to the Center for Disease Conrtrol and Prevention (CDC) test method. Performed By: #### L IPID, TSH3 wRFLX, [id number] #### [facility] [address] [place] [address] VLDL CHOLESTEROL 10 mg/dL Normal [facility] Comment on above: Performed By: #### L IPID, TSH3 wRFLX, [id number] #### [facility] [address] Thyroid Stim Hormone w/Rflxo n 01-02-2022 Thyroid Stim Hormone w/Rflx 1.38 u[iU]/mL Normal 0.45-5.33 [facility] Comment on above: Performed By: #### L IPID, TSH3 wRFLX, [id number] #### [address] Vitamin D 25 Hydroxy Totalon 01-02-2022 Vitamin D 25 Hydroxy Total 27.6 ng/mL Low 30-100 [facility] Comment on above: Result Comment: JENN MIN D STATUS 25(OH)VITAMIN D RANGE (ng/mL) Deficient <20 Insufficient 20 to <30 Sufficient 30 to 100 Reference: Hector MF,Marques NC, Brittny VILLALTA, et al. Evaluation,treatment, and prevention of vitamin D deficiency; an Endocrine Society clinical practice guideline. JCEM. 2010; 96(7):1911-30. PERFORMED BY: [place] [address] PATHOLOGIST BEEF GRADER STEPHANE MILES M.D. Performed By: #### L IPID, TSH3 wRFLX, [id number] #### [place] [id number] [facility] Vital Signs Date Time Vital Sign Value Performing Clinician Facility 12-12-2023 16:29-0500 Body height 162.6 cm Sujey DANIELLE Work Phone: [facility] 12-12-2023 16:29-0500 Body mass index (BMI) [Ratio] 22.76 kg/m2 Sujey DANIELLE Work Phone: [facility] 12-12-2023 16:29-0500 Body temperature 99 [degF] Sujey Meza TOUR CONSULTANT-TURPENTINE DISTILLER Work Phone: [facility] 12-12-2023 16:29-0500 Body weight 60.15 kg Sujeyedward Meza TOUR CONSULTANT-TURPENTINE DISTILLER Work Phone: [facility] [place] [employer] [facility] 12-12-2023 16:29-0500 Diastolic blood pressure 60 mm[Hg] Sujeyedward Meza TOUR CONSULTANT-TURPENTINE DISTILLER Work Phone: [facility] 12-12-2023 16:29-0500 Heart rate 76 /min Sujeyedward Meza TOUR CONSULTANT-TURPENTINE DISTILLER Work Phone: [facility] 12-12-2023 16:29-0500 SaO2% (BldA) [Mass fraction] 96 % Sujey Meza TOUR CONSULTANT-TURPENTINE DISTILLER Work Phone: [facility] 12-12-2023 16:29-0500 Systolic blood pressure 98 mm[Hg] Sujey Meza TOUR CONSULTANT-TURPENTINE DISTILLER Work Phone: [facility] 11-28-2023 15:17-0500 Body mass index (BMI) [Ratio] 23.1 kg/m2 Sujey Meza TOUR CONSULTANT-TURPENTINE DISTILLER Work Phone: [facility] [place] [employer] [facility] 11-28-2023 15:17-0500 Body temperature 99.39 [degF] Sujey Meza TOUR CONSULTANT-TURPENTINE DISTILLER Work Phone: [facility] 11-28-2023 15:17-0500 Body weight 61.05 kg Sujeyedward Meza TOUR CONSULTANT-TURPENTINE DISTILLER Work Phone: [facility] 11-28-2023 15:17-0500 Diastolic blood pressure 50 mm[Hg] Sujey Derrick TOUR CONSULTANT-TURPENTINE DISTILLER Work Phone: [facility] 11-28-2023 15:17-0500 Heart rate 61 /min Sujeyedward Meza TOUR CONSULTANT-TURPENTINE DISTILLER Work Phone: [facility] 11-28-2023 15:17-0500 SaO2% (BldA) [Mass fraction] 92 % Sujey Meza APRNA [employer] [facility] 11-28-2023 15:17-0500 Systolic blood pressure 90 mm[Hg] Sujey Meza APRNA [employer] [facility] 05-18-2022 11:50-0400 Body height 161.29 cm Gina Federica Other [employer] Other 05-18-2022 11:50-0400 Body mass index (BMI) [Ratio] 27.55 kg/m2 Gina Federica Other [employer] Other 05-18-2022 11:50-0400 Body temperature 97.8 [degF] Gina Federica Other [employer] Other 05-18-2022 11:50-0400 Body weight 71.67 kg Gina Federica Other [employer] Other 05-18-2022 11:50-0400 Diastolic blood pressure 67 mm[Hg] Gina Federica Other [employer] Other 05-18-2022 11:50-0400 Respiratory rate 16 /min Gina Federica Other [employer] Other 05-18-2022 11:50-0400 SaO2% (BldA) [Mass fraction] 100 % Gina Stallworth Other [employer] Other 05-18-2022 11:50-0400 Systolic blood pressure 113 mm[Hg] Gina Stallworth Other [employer] Other Encounters Encounter Date Encounter Type Care Provider Facility Start: 05-14-2024 End: 05-14-2024 ambulatory MARISA HARVEY Not Available Start: 12-15-2023 Orders Only Sujey Meza TOUR CONSULTANT-TURPENTINE DISTILLER Work Phone: [facility] - [facility] Start: 12-13-2023 End: 12-13-2023 ambulatory [facility] Start: 12-12-2023 End: 12-12-2023 ambulatory [facility] Start: 12-12-2023 End: 12-12-2023 Office outpatient visit 15 minutes Sujey Nicole Meza TOUR CONSULTANT-TURPENTINE DISTILLER Work Phone: [facility] - [facility] Comment on above: Anxiety (Primary Dx) ; Moderate episode of recurrent major depressive disorder (CMS-HCC); Vaginal discharge Start: 11-29-2023 Orders Only Sujey Meza TOUR CONSULTANT-TURPENTINE DISTILLER Work Phone: [facility] - Family [facility] Start: 11-29-2023 End: 11-29-2023 ambulatory [facility] Start: 11-28-2023 End: 11-28-2023 ambulatory [facility] Start: 11-28-2023 End: 11-28-2023 Office outpatient visit 15 minutes Sujey Nicole Meza TOUR CONSULTANT-TURPENTINE DISTILLER Work Phone: [facility] Internal [facility] - Family Medicine Comment [...] 02-22-[address] MARY JO CELAYA . Facility: Start: 07-17-2022 ambulatory Tresa Start: 05-18-2022 Office outpatient vi sit 15 minutes Gina Federica [facility] Start: 05-18-2022 End: 05-18-2022 ambulatory Jose Elias Singh [employer] Other Start: 02-27-2022 End: 02-27-2022 ambulatory Lnyn Bonilla Other [employer] Other Start: 02-27-2022 Telephone encounter Lynn Bonilla [facility] [address] Start: 02-26-2022 End: 02-26-2022 ambulatory Lynn Bonilla Other [employer] Other Start: 02-26-2022 Telephone encounter Lynn Bonilla [facility] [address] Start: 02-22-2022 End: 02-22-2022 ambulatory Lynn Nicole Bonilla Facility:[facility] Start: 01-01-2022 End: 01-08-2022 Evaluation and management of inpatient Bernardino Wil Facility:[facility] Procedures Date Procedure Procedure Detail Performing Clinician Start: 12-12-2023 Adult depression screening assessment Sujey Meza TOUR CONSULTANT-TURPENTINE DISTILLER Work Phone: Start: 11-28-2023 Urine test visual color cmprsn meths Sujey Meza TOUR CONSULTANT-TURPENTINE DISTILLER Work Phone: Start: 11-28-2023 Adult depression screening assessment Sujey Meza TOUR CONSULTANT-TURPENTINE DISTILLER Work Phone: Plan of Treatment Date Care Activity Detail Author Start: 12-12-2024 Adult BMI Screening Adult BMI Screen ing [facility] Start: 12-12-2024 [facility]: 12-12-2024 Tobacco Screening Tobacco Screening [facility] Start: 11-28-2024 Adult BMI Screening Adult BMI Screen ing [facility] Start: 11-28-2024 Depression Screening Depression Scre ening [facility] Start: 11-28-2024 Screening for Chlamy katt trachomatis Chlamydia Screening [facility] Start: 11-28-2024 Tobacco Screening Tobacco Screening [facility] Start: 12-12-2023 End: 12-12-2023 Patient encounter procedure 12/12/2023 4:30 PM EST Office Visit [facility] - [facility] [address] [place] [address] Sujey Meza, TOUR CONSULTANT-TURPENTINE DISTILLER [address] [place] [address] [facility] Start: 07-26-2023 Influenza vaccination Influenza Vacc ine [facility] Start: 2022 DTaP,Tdap and Td Vaccines (1 - Tdap) DTaP,Tdap and Td Vaccines (1 - Tdap) [facility] Start: 2005 Screening for Chlamy katt trachomatis Chlamydia Screening [facility] End: 11-27-2024 Chlamydia/GC by PCR urine Chlamydia/GC by PCR urine Microbiology Routine Vaginal discharge 1 Occurrences starting 11/28/2023 until 11/27/2024 [facility] Comment on above: 1 Occurrences starti ng 11/28/2023 until 11/27/2024 Chlamydia/GC by PCR urine Chlamydia/GC by PCR urine Microbiology Routine Vaginal discharge 11/28/2023 10:11 PM EST [facility] End: 11-28-2024 Vaginitis Panel PCR Vaginitis Panel PCR Microbiology Routine Vaginal discharge 1 Occurrences starting 11/28/2023 until 11/28/2024 [facility] Work Phone: Comment on above: 1 Occurrences starti ng 11/28/2023 until 11/28/2024 Vaginitis Panel PCR Vaginitis Pa jerry PCR Microbiology Routine Vaginal discharge 11/28/2023 10:12 PM EST [facility] Payers Date Payer Category Payer Medicaid [employer] MED[employer] [facility] MEDICAID [id number] 2022-Present [address] [place] [address] [id number] 2022 Unknown 2022 Unknown [id number] [id number] 2022 Self-pay 2003 Unknown [id number] 2.16.840.1.639831.3.579.2.593 2003 Unknown [id number] 2.16.840.1.546478.3.579.2.593 2003 Unknown [id number] 2.16.840.1.069664.3.579.2.593 2003 Unknown [id number] 2.16.840.1.218572.3.579.2.593 2003 Unknown [id number] 2.16.840.1.664368.3.579.2.593 2003 Unknown [id number] 2.16.840.1.408242.3.579.2.593 2003 Unknown [id number] 2.16.840.1.305309.3.579.2.1286 2003 Unknown [id number] 2.16.840.1.176860.3.579.2.1286 2003 Unknown [id number] 2.16.840.1.876808.3.579.2.1286 2003 Unknown [id number] 2.16.840.1.078884.3.579.2.1286 2003 Unknown [id number] 2.16.840.1.125223.3.579.2.1259 2003 Unknown [id number] 2.16.840.1.708041.3.579.2.1259 1959 Unknown [id number] Unknown [id number] 2.16.840.1.956700.3.579.2.531 Unknown [id number] 2.16.840.1.759225.3.579.2.531 Unknown [id number] 2.16.840.1.860322.3.579.2.531 Unknown [id number] 2.16.840.1.502428.3.579.2.531 Social History Date Type Detail Facility Start: 11-28-2023 End: 12-12-2023 Sex Assigned At [facility] [employer] Other Start: 08-14-2023 [facility] History of tobacco use Current smoker [facility] History of tobacco use Cigarette Smoker [facility] Start: 08-14-2023 Tobacco use and exposure Smokeless tobacco non-user [facility] Start: 11-28-2023 End: 12-12-2023 Alcohol intake Ex-drinker (finding) [facility] Start: 11-28-2023 End: 12-12-2023 History of Social function [facility] Adolescent depressio n screening assessment 1 [facility] Start: 2005 Sex Assigned At Not on file [facility] Clinical Notes 12-26-2021 to 12-12-2023 Sujey Meza APRN-[facility] - 12/12/2023 4:30 PM ESTSujey Meza [facility] 11/28/2023 3:00 PM ESTAddendum Note - [facility] 11/28/2023 3:00 PM EST Note Date & Type Note Facility 12-12-2023 History of Presen t illness Narrative [address] [place] [address] Patient: Carmelina Courtney Date of : 2005 [...] Moderate episode of recurrent major depressive disorder ([facility]) Relevant Medications busPIRone (BUSPAR) 10 mg tablet [...] BMI 22.76 kg/m Physical Exam Vitals reviewed. Instructional Designer present: Patient declined pelvic exam. Constitutional: Appearance: [...] VU APRN-CNP 12/15/232120 [facility]23 History of Presen t illness Narrative [address] [place] [address] Patient: Carmelina Courtney Date of : 2005 [...] SpO2 92% BMI 23.10 kg/m Physical Exam Instructional Designer present: Patient declined pelvic exam. Psychiatric: Mood [...] was recommended that patient start plan B [id number] as she does not wish to have [...] APRN-CNP 11/28/23 174 documented in this encounter [facility] 11-28-2023 Miscellaneous Notes Addended by: SUJEY MEZA on: 11/28/2023 05:46 PM Modules accepted: Orders documented in this encounter [facility] 11-28-2023 Note Addended by: SUJEY MEZA on: 11/28/2023 05:46 PM Modules accepted: Orders [facility] 05-18-2022 Evaluation note Encounter Date Diagnosis [...] your family physician for any further concerns [employer] Other 02-01-2022 History general Narrative - Reported* Type Description Date Medical History anxiety Hospitalization History mental health 12/2021 [facility] [employer] Other Evaluation [facility]No [facility] [employer] Other Evaluation note* Diagnosis Vaginal discharge- Primary Leukorrhea, not specified as infective High risk heterosexual behavior Anxiety Anxiety state, unspecified documented in [facility] encounter [facility]* Diagnosis Anxiety- Primary Anxiety state, unspecified Moderate episode of recurrent major depressive disorder ([facility]) Vaginal discharge Leukorrhea, not specified as infective documented [facility]* Attachments The following attachments cannot be sent through Care Everywhere. * Buspirone, ADULT (Algerian) documented in [facility] SystemInstructionsNot on file documented in this encounterUniversity [facility]als [facility] SystemInstructionsNot on file documented in this encounterWhite HospitalInstructions* Attachments The following attachments cannot be sent through Care Everywhere. * Vortioxetine, ADULT (Algerian) documented in this encounterUniversity [facility]als [facility] SystemReason for referral (narrative)* Consultation (Routine) - Pending Review Specialty Diagnoses / Procedures Referred By Dorothea felix Referred To Contact Psychiatry Diagnoses Anxiety Sujey Meza APRN-CNP [address] [place] [address] Aparna Arias MD [address] [place] [address] Referral ID Status Reason Start Date Expiration Date Visits Requested Visits Authorized [id number] Pending Review Specialty Services Required 11/28/2023 11/27/2024 1 1 [facility] Summary Purpose Family History No Family History [...] Referral Specialty Diagnoses / Procedures Referred By Contcoy felix Referred To Contact Sujey Meza APRN-TURPENTINE DISTILLER [address] [place] [address] Referral ID Status Reason Start Date Expiration Date V isits Requested Visits Authorized [id number] Pending Review 1 1 Additional Source Comments REASON FOR VISIT (unrecogniz ed section and content) Reason Comments Anxiety INFORMATION SOURCE (unrecogn ized section and content) DATE CREATED AUTHOR 08/28/2022 [place] [facility] DATE CREATED AUTHOR AUTHOR'S ORGANIZ ATION 12/29/2022 [facility] DATE CREATED AUTHOR AUTHOR'S ORGANIZ ATION 05/03/2023 [facility] DATE CREATED AUTHOR AUTHOR'S ORGANIZ ATION 12/15/2023 [facility] DATE CREATED AUTHOR AUTHOR'S ORGANIZ ATION 12/15/2023 [facility] DATE CREATED AUTHOR AUTHOR'S ORGANIZ ATION 05/16/2024 [facility] [employer] Care Teams (unrecognized sec tion and content) Claims Director Relationship Specialty Start Date End Date Sujey Meza APRN-TURPENTINE DISTILLER [address] [place] [address] PCP - General Internal Medicine 05/17/23 Claims Director Relationship Specialty Start Date End Date Sujey Meza APRN-TURPENTINE DISTILLER [address] [place] [address] PCP - General Internal Medicine 05/17/23 Claims Director Relationship Specialty Start Date End Date Sujey Meza APRN-TURPENTINE DISTILLER [address] [place] [address] PCP - General Internal Medicine 05/17/23 FOR [...] BE BASED ON THE PRIMARY CLINICAL RECORDS. [facility]. provides no warranty or guarantee of the accuracy or completeness of information in this document.
[2024-05-26 12:33] LABS: Basophils Absolute Auto 0.1 10^3/uL (0.0-0.1); Basophils Percent Auto 0.6 % (0.2-2.0); Eosinophils Absolute Auto 0.1 10^3/uL (0.0-0.7); Eosinophils Percent Auto 1.3 % (0.9-7.0); Lymphocytes Absolute Auto 2.1 10^3/uL (1.2-3.8); Lymphocytes Percent Auto 20.4 % (20.5-60.0); Mean Corpuscular HGB Conc 31.4 g/dL (29.9-35.2); Mean Corpuscular Volume 85.8 fL (81.0-99.0); Mean Platelet Volume 9.9 fL (9.5-13.5); Monocytes Absolute Auto 0.7 10^3/uL (0.3-0.8); Monocytes Percent Auto 6.2 % (1.7-12.0); Neutrophils Absolute Auto 7.4 10^3/uL (1.4-6.5); Neutrophils Percent Auto 70.5 % (43.0-75.0); Platelet Count 343 10^3/uL (150-450); Red Blood Count 4.08 10^6/uL (4.20-5.40); Red Cell Distribution Width 14.2 % (11.0-15.0); White Blood Count 10.5 10^3/uL (4.0-11.0)
[2024-05-26 13:15] LABS: Estimated Average Glucose 94 mg/dL; Glycohemoglobin A1C 4.9 % (4.5-6.2)
[2024-05-27 06:11] LABS: HBsAg Screen Negative (Negative)
[2024-05-27 12:09] LABS: HCV Ab Non Reactive (Non Reactive); HIV Ab/p24 Ag Screen Non Reactive (Non Reactive); Rubella Antibodies, IgG 3.95 index (Immune >0.99)
[2024-05-27 13:08] LABS: Rapid Plasma Reagin, Quant Non Reactive titer (NonRea<1:1)
== END 2024-05-26 11:50 | disposition home or self-care (01) ==
LOC: LAB 11:50
PROVIDERS: PCP Family Medicine; Visit Provider Obstetrics & Gynecology
DX: Z36.89 Encounter for other specified antenatal screening (principal); O26.873 Cervical shortening, third trimester; Z3A.24 24 weeks gestation of pregnancy
CPT/HCPCS: 36415; 76805; 76817; 83036; 85025; 86592; 86762; 86803; 86850; 86900; 86901; 87086; 87340; 87389

== ENCOUNTER 2024-06-09 11:29 | Outpatient (OUT) | payer MEDICAID, SELFPAY ==
--- NOTE | 2024-06-09 11:31 | US_ITS ---
[address] [address] Patient Name: GIOVANY COURTNEY MRN: [id number] date: 2005 Sex: F Assigned Patient Location: [facility] Current Patient Location: [facility] Accession/Order Number: [id number] Exam Date: 06/09/2024 11:34 Report Date: 06/09/2024 14:30 At the request of: MARY JO CELAYA Procedure: US OB cervical length EXAMINATION: US OB cervical length HISTORY: SHORT CERVIX COMPARISON: No relevant comparison available. FINDINGS: The cervix is closed measuring 3.4 cm in length US/US OB cervical length IMPRESSION: Closed cervix measuring 3.4 cm in length Electronically authenticated by: ALEXIA REEVES Date: 06/09/2024 14:30
--- OUTSIDE RECORDS SUMMARY | 2024-06-09 11:39 | XMS_ITS | CCD ---
Author Organization [facility] Care Team Providers Care It Administrative Assistant Name Role Phone Gina Stallworth Unavailable Lynn [...] Unavailable LALA, DR ALEXIA Boyce Consulting Unavailable BEILA ., DR CAMARGO Attending Unavailable NADERER, DR [...] BELIA ., DR CAMARGO Consulting Unavailable Derrickaaliyah TOLENTINON-DOCUMENT CONTROL CLERK, Sujey Nicole Primary Care Provider SUJEY MEZA L Attending Unavailable DERRICK, SUJEY L Referring Unavailable DERRICK, SUJEY L Primary Care Unavailable DERRICK, SUJEY L Attending Unavailable DERRICK, SUJEY L Referring Unavailable DERRICK, SUJEY L Primary Care Unavailable DERRICK, SUJEY L Referring Unavailable DERRICK, SUJEY L Primary Care Unavailable DERRICK, SUJEY L Referring Unavailable DERRICK, SUJEY L Primary Care Unavailable MARISA HARVEY Attending Unavailable MARY JO CELAYA Attending Unavailable Medications Current Medications Medication Drug [...] (Vag fld) Detected Abnormal Not Detected^Not Detected [facility] Comment on above: Qualitative results are reported based on detection and quantitation of targeted organism markers which include: Lactobacillus spp. (L. crispatus and L. jensenii), Gardnerella vaginalis, Atopobium vaginae, Bacterial Vaginosis Associated Bacteria-2 (BVAB-2) and Megasphaera-1 C. glabrata DNA JORDON+probe Ql (Vag fld) Not detected Not Detected^Not Detected [facility] Comment on above: No Mervat glabrata detected C. krusei DNA JORDON+probe Ql (Vag fld) Not detected Not Detected^Not Detected [facility] Comment on above: No Mervat krusei de tected Mervat sp 6 panel JORDON+probe (Vag fld) Not detected Not Detected^Not Detected [facility] Comment on above: Mervat species not detected include: C. albicans, C. tropicalis, C. parapsilosis or C. dubliniensis Interpretation and review of laboratory results Abnormal [facility] T. vaginalis DNA JORDON+probe Ql (Vag fld) Not detected Not Detected^Not Detected [facility] Comment on above: No Trichomonas vagin rosemary detected NOTE BD MAX Vaginal Panel has not been evaluated for patients under 18 years old. Results for these patients should be reviewed and assessed in accordance with clinical presentation to determine patient diagnosis. [facility] VAGINITIS PANEL PCRon 2023 VAGINITIS PANEL PCR [...] clinical presentation to determine patient diagnosis. Normal [facility] Comment on above: Performed By: #### V PPCR #### [facility] ([id number]) [address] [place] [address] CHLAMYDIA/GC PCR, Uon 2023 CHLAMYDIA/GC PCR, U [...] are dependent on adequate specimen collection. Normal [facility] Comment on above: Performed By: #### C #### [facility] ([id number]) [address] [place] [address], [address] [place] [address] POCT , urineon Beta HCG ( test) Ql (U) Negative [facility] VAGINITIS PANEL PCRon 2023 VAGINITIS PANEL PCR [...] clinical presentation to determine patient diagnosis. Normal [facility] Comment on above: Performed By: #### V PPCR #### [facility] ([id number]) [address] [place] [address], [address] [place] [address] US PREG CERVICAL LENGTHon US PREG CERVICAL [...] ALEXIA REEVES Date: 2023-04-23 06:59 Normal [facility] INFLUENZA A AND B AGon 04-16 INFLUENZA A AG Negative Normal NEGATIVE SEE COMMENT [facility] Comment on above: Performed By: #### I NFLUAB #### [facility] [address] [place] [address] Dr. Ryan Martinez INFLUENZA B AG Negative Normal NEGATIVE SEE COMMENT [facility] Comment on above: Performed By: #### I NFLUAB #### [facility] [address] [place] [address] Dr. Ryan Martinez UA (CLEAN/CATCH) STULL HEWER/MICRO I F IND.on 04-16-2023 Bilirubin Ql (U) Negative Normal NEGATIVE [facility] Comment on above: Performed By: #### U ACSIND #### [facility] [address] [place] [address] Dr. Ryan Martinez Clarity (U) CLEAR Normal CLEAR [facility] Comment on above: Performed By: #### U ACSIND #### [facility] [address] [place] [address] Dr. Ryan Martinez Color (U) LT. YELLOW Normal YELLOW [facility] Comment on above: Performed By: #### U ACSIND #### [facility] [address] [place] [address] Dr. Ryan Martinez Glucose Ql (U) Negative Normal NEGATIVE [facility] Comment on above: Performed By: #### U ACSIND #### [facility] [address] [address] [address] Ryan Martinez Hemoglobin Ql (U) Negative Normal NEGATIVE [facility] Comment on above: Performed By: #### U ACSIND #### [facility] [address] [address] [address] Ryan Martinez Ketones Ql (U) >=80 Abnormal NEGATIVE [facility] Comment on above: Performed By: #### U ACSIND #### [facility] [address] [address] [address] Ryan Martinez LEUKOCYTES Negative Normal NEGATIVE [facility] Comment on above: Performed By: #### U ACSIND #### [facility] [address] [address] [address] Ryan Martinez Nitrite Ql (U) Negative Normal NEGATIVE [facility] Comment on above: Performed By: #### U ACSIND #### [facility] [address] [place] [address] Dr. Ryan Martinez pH (U) 6.5 [pH] Normal 5-9 [facility] Comment on above: Performed By: #### U ACSIND #### [facility] [address] [address] [address] Ryan Martinez SPEC GRAVITY 1.010 Normal 1.005-<=1.02 5 [facility] Comment on above: Performed By: #### U ACSIND #### [facility] [address] [address] [address] Ryan Martinez UA PROTEIN Negative Normal NEGATIVE/ TRACE [facility] Comment on above: Performed By: #### U ACSIND #### [facility] [address] [address] [address] Ryan Martinez UR MICRO IND NOT INDICATED Normal [facility] Comment on above: Performed By: #### U ACSIND #### [facility] [address] [address] [address] Ryan Martinez Urobilinogen Qn (U) 0.2 {Han'U}/dL Normal 0.2 - 1. 0 [facility] Comment on above: Performed By: #### U ACSIND #### [facility] [address] [address] [address] Ryan Martinez HEP B SURFACE ANTIGEN SCREEN on 03-16-2023 HBsAg Screen Negative Normal Negative [facility] Comment on above: Performed By: #### H BSANS #### [facility] [address] [address] [address] Ryan Martinez HEPATITIS C VIRUS AB W/ REFL EX QUANTon 03-16-2023 HCV AB Non-Reactive Normal Non Reactive [facility] Comment on above: Performed By: #### C BC #### [facility] [address] [place] [address] Dr. Ryan Martinez Interpretation: Comment Normal [facility] Comment on above: Result Comment: Not infected with HCV unless early or acute infection is suspected (which may be delayed in an immunocompromised individual), or other evidence exists to indicate HCV infection. Performed By: #### C BC #### [facility] [address] [place] [address] Dr. Ryan Martinez HIV 1 AND 2 WITH REFLEXon HIV Screen 4th Generation wRfx Non-Reactive Normal Non Reactive [facility] Comment on above: Result Comment: HIV Negative HIV-1/HIV-2 antibodies and HIV-1 p24 antigen were NOT detected. There is no laboratory evidence of HIV infection. Performed By: #### H IV12 #### [facility] [address] [place] [address] Dr. Ryan Martinez RPR QUANTon 03-16-2023 Rapid Plasma Reagin, Quant Non-Reactive Normal NonRea<1:1 [facility] Comment on above: Result Comment: Plea se Note: This test does not meet current guidelines for screening and diagnosis of syphilis. This test is intended for following treatment response in patients being treated for syphilis infection. To screen for syphilis infection, a reflex cascade that includes both RPR and a treponema-specific assay should be utilized, such as Treponema pallidum (Syphilis) Screening [facility] (424377) or Rapid Plasma Reagin (RPR) Test With Reflex to Quantitative RPR and Confirmatory Treponema pallidum Antibodies (747562). Performed By: #### R PRQ #### [facility] [address] [place] [address] Dr. Ryan Martinez RUBELLA AB IGGon 03-16-2023 Rubella Antibodies, IgG 4.40 index Normal Immune >0.99 [facility] Comment on above: Result Comment: Non- immune <0.90 Equivocal 0.90 - 0.99 Immune >0.99 Performed By: #### R UBIGG #### [facility] [address] [place] [address] Dr. Ryan Martinez BOX TEST SENT OUTon 03-15-20 23 SENT TO REF LAB 03/15/2023 Normal [facility] Comment on above: Performed By: #### C BC #### [facility] [address] [place] [address] Dr. Ryan Martinez CBC AUTO DIFFon 03-15-2023 BASO # 0.1 103/ul Normal 0.0-0.1 [facility] Comment on above: Performed By: #### C BC #### [facility] [address] [place] [address] Dr. Ryan Martinez Basophils/100 WBC (Bld) 0.5 % Normal 0.2-2.0 [facility] Comment on above: Performed By: #### C BC #### [facility] [address] [place] [address] Dr. Ryan Martinez EO # 0.2 103/ul Normal 0.0-0.7 [facility] Comment on above: Performed By: #### C BC #### [facility] [address] [place] [address] Dr. Ryan Martinez Eosinophils/100 WBC (Bld) 1.9 % Normal 0.9-7.0 [facility] Comment on above: Performed By: #### C BC #### [facility] [address] [place] [address] Dr. Ryan Martinez Erythrocyte distribution width (RBC) [Ratio] 13.2 % Normal 11.0-15.0 [facility] Comment on above: Performed By: #### C BC #### [facility] [address] [place] [address] Dr. Ryna Martinez Hematocrit (Bld) [Volume fraction] 35.7 % Critically low 36.0-48.0 [facility] Comment on above: Performed By: #### C BC #### [facility] [address] [place] [address] Dr. Ryan Martinez Hemoglobin (Bld) [Mass/Vol] 12.2 g/dL Normal 12.0-16.0 [facility] Comment on above: Performed By: #### C BC #### [facility] [address] [place] [address] Dr. Ryan Martinez IG # 0.05 10e3/ul Critically high 0.00-0.03 [facility] Comment on above: Performed By: #### C BC #### [facility] [address] [place] [address] Dr. Ryan Martinez IG % 0.5 % Normal 0.0-0.5 [facility] Comment on above: Performed By: #### C BC #### [facility] [address] [place] [address] Dr. Ryan Martinez LYMPH # 1.9 103/ul Normal 1.2-3.8 [facility] Comment on above: Performed By: #### C BC #### [facility] [address] [place] [address] Dr. Ryan Martinez Lymphocytes/100 WBC (Bld) 20.1 % Critically low 20.5-60.0 [facility] Comment on above: Performed By: #### C BC #### [facility] [address] [place] [address] Dr. Ryan Martinez MANUAL DIFF REQ NO Normal [facility] Comment on above: Performed By: #### C BC #### [facility] [address] [place] [address] Dr. Ryan Martinez MCH (RBC) [Entitic mass] 30.9 pg Normal 26.7-34.0 [facility] Comment on above: Performed By: #### C BC #### [facility] [address] [place] [address] Dr. Ryan Martinez MCHC (RBC) [Mass/Vol] 34.2 g/dL Normal 29.9-35.2 [facility] Comment on above: Performed By: #### C BC #### [facility] [address] [address] [address] Ryan Martinez MCV (RBC) [Entitic vol] 90.4 fL Normal 81.0-99.0 [facility] Comment on above: Performed By: #### C BC #### [facility] [address] [address] [address] Ryan Martinez MONO # 0.8 103/ul Normal 0.3-0.8 [facility] Comment on above: Performed By: #### C BC #### [facility] [address] [address] [address] Ryan Martinez Monocytes/100 WBC (Bld) 8.0 % Normal 1.7-12.0 [facility] Comment on above: Performed By: #### C BC #### [facility] [address] [place] [address] Dr. Ryan Martinez NEUT # 6.5 103/ul Normal 1.4-6.5 [facility] Comment on above: Performed By: #### C BC #### [facility] [address] [place] [address] Dr. Ryan Martinez Neutrophils/100 WBC (Bld) 69.0 % Normal 43.0-75.0 [facility] Comment on above: Performed By: #### C BC #### [facility] [address] [address] [address] Ryan Martinez Platelet mean volume (Bld) [Entitic vol] 9.4 fL Critically low 9.5-13.5 [facility] Comment on above: Performed By: #### C BC #### [facility] [address] [address] [address] Ryan Martinez PLT 238 103/ul Normal 150-450 [facility] Comment on above: Performed By: #### C BC #### [facility] [address] [place] [address] Dr. Ryan Martinez RBC 3.95 106/ul Critically low 4.20-5.40 [facility] Comment on above: Performed By: #### C BC #### [facility] [address] [address] [address] Ryan Martinez WBC 9.5 103/ul Normal 4.0-11.0 [facility] Comment on above: Performed By: #### C BC #### [facility] [address] [address] [address] Ryan Martinez CULTURE URINEon 03-15-2023 CULTURE URINE Culture Observations : NO GROWTH. Normal [facility] Comment on above: Performed By: #### C BC #### [facility] [address] [place] [address] Dr. Ryan Martinez GLYCOHEMOGLOBIN A1Con 2022 ADA RECOMMENDATION SEE BELOW Normal [facility] Comment on above: Result Comment: ADA RECOMMENDED LIMIT 4.0 - 6.0 ADA THERAPEUTIC TARGET < 7.0 ACTION SUGGESTED > 7.0 Performed By: #### A 1C #### [facility] [address] [place] [address] Dr. Ryan Martinez Glucose [Mass/Vol] 88 mg/dL Normal [facility] Comment on above: Performed By: #### A 1C #### [facility] [address] [place] [address] Dr. Ryan Martinez HbA1c (Bld) [Mass fraction] 4.7 % Normal 4.5-6.2 [facility] Comment on above: Performed By: #### A 1C #### [facility] [address] [place] [address] Dr. Ryan Martinez URon 03-15-2023 , QUAL Positive Abnormal NEGATIVE [facility] Comment on above: Performed By: #### C BC #### [facility] [address] [place] [address] Dr. Ryan Martinez TSHon 03-15-2023 TSH 1.649 uIU/mL Normal 0.516-4.130 [facility] Comment on above: Performed By: #### T SH #### [facility] [address] [place] [address] Dr. Ryan Martinez TYPE AND SCREENon 03-15-2023 TYPE AND SCREEN Negative Normal [facility] Comment on above: Performed By: #### C BC #### [facility] [address] [address] [address] Ryan Martinez UA RANDOMon 03-15-2023 Bilirubin Ql (U) Negative Normal NEGATIVE [facility] Comment on above: Performed By: #### U A, PREGU #### [facility] [address] [address] [address] Ryan Martinez Clarity (U) CLEAR Normal CLEAR [facility] Comment on above: Performed By: #### U A, PREGU #### [facility] [address] [address] [address] Ryan Martinez Color (U) LT. YELLOW Normal YELLOW [facility] Comment on above: Performed By: #### U A, PREGU #### [facility] [address] [place] [address] Dr. Ryan Martinez Glucose Ql (U) Negative Normal NEGATIVE [facility] Comment on above: Performed By: #### U A, PREGU #### [facility] [address] [place] [address] Dr. Ryan Martinez Hemoglobin Ql (U) Negative Normal NEGATIVE [facility] Comment on above: Performed By: #### U A, PREGU #### [facility] [address] [place] [address] Dr. Ryan Martinze Ketones Ql (U) Negative Normal NEGATIVE [facility] Comment on above: Performed By: #### U A, PREGU #### [facility] [address] [address] [address] Ryan Martinez LEUKOCYTES Negative Normal NEGATIVE [facility] Comment on above: Performed By: #### U A, PREGU #### [facility] [address] [place] [address] Dr. Ryan Martinez Nitrite Ql (U) Negative Normal NEGATIVE [facility] Comment on above: Performed By: #### U A, PREGU #### [facility] [address] [place] [address] Dr. Ryan Martinez pH (U) 7.0 [pH] Normal 5-9 [facility] Comment on above: Performed By: #### U A, PREGU #### [facility] [address] [place] [address] Dr. Ryan Martinez SPEC GRAVITY 1.010 Normal 1.005-<=1.02 5 [facility] Comment on above: Performed By: #### U A, PREGU #### [facility] [address] [place] [address] Dr. Ryan Martinez UA PROTEIN Negative Normal NEGATIVE/ TRACE [facility] Comment on above: Performed By: #### U A, PREGU #### [facility] [address] [place] [address] Dr. Ryan Martinez Urobilinogen Qn (U) 0.2 {Han'U}/dL Normal 0.2 - 1. 0 [facility] Comment on above: Performed By: #### U A, PREGU #### [facility] [address] [place] [address] Dr. Ryan Martinez US PREG TVon 02-21-2023 [...] by: ALEXIA REEVES Date: 2023-02-21 15:09 Normal [facility] Chlamydia/GC/Trich NAAon Chlamydia/GC/Trich JORDON Negative Negative [employer] Other Chlamydia/GC/Trich JORDON Positive Critically abnormal Negative [employer] Other Chlamydia Trachomotis, JORDON Negative Normal Negative [facility] Comment on above: Order Comment: Reaso n for Exam Sexually transmitted disease exposure Performed By: #### G CCHLAMTRI #### [facility] , Neisseria Gonorrhoeae, JORDON Positive Critically abnormal Negative [facility] Comment on above: Order Comment: Reaso n for Exam Sexually transmitted disease exposure Performed By: #### G CCHLAMTRI #### [facility] , Trichomonas JORDON Negative Normal Negative [facility] Comment on above: Order Comment: Reaso n for Exam Sexually transmitted disease exposure Result Comment: Perf ormed at: =G - [facility] [address] [id number] Wire Preparation Worker: Norma Manuel MD, Phone: [phone] PERFORMED BY: [facility] [address] [place] [address] PATHOLOGIST SENIOR PROPERTY ACCOUNTANT STEPHANE MILES M.D. Performed By: #### G CCHLAMTRI #### [facility] , Urine Cultureon 02-22-2022 Bacteria identified Cx Nom (U) ORGANISM: Escherichia coli (O:ESCCOL) [place] Count >100,000 Aerobic STEVEN Charge (NUC86) ---- [...] RESISTANT TO ALL B-LACTAM DRUGS. PERFORMED BY: [place] [address] PATHOLOGIST SENIOR PROPERTY ACCOUNTANT STEPHANE MILES M.D. Normal [facility] Comment on above: Performed By: #### C UU #### [place] [address] [place] Vaginitis Plus (VG+)on 02-22 Atopobium Vaginae Moderate - 1 Normal . [facility] Comment on above: Performed By: #### V AGINITIS+ #### [facility] , BVAB2 High - 2 Critically abnormal . [facility] Comment on above: Performed By: #### V AGINITIS+ #### [facility] , Mervat Albicans, JORDON Negative Normal Negative [facility] Comment on above: Result Comment: This test was developed and its performance characteristics determined by [facility]. It has not been cleared or approved by the Food and Drug Administration. Performed By: #### V AGINITIS+ #### [facility] , Mervat Glabrata, JORDON Negative Normal Negative [facility] Comment on above: Result Comment: This test was developed and its performance characteristics determined by [facility]. It has not been cleared or approved by the Food and Drug Administration. PERFORMED BY: [place] [id number] PATHOLOGIST SENIOR PROPERTY ACCOUNTANT STEPHANE MILES M.D. Performed By: #### V AGINITIS+ #### [facility] , Chlamydia Trachomotis, JORDON Positive Critically abnormal Negative [facility] Comment on above: Performed By: #### V AGINITIS+ #### [facility] , Megasphaera High - 2 Critically abnormal . [facility] Comment on above: Result Comment: Calc [...] , Neisseria Gonorrhoeae, JORDON Negative Normal Negative [facility] Comment on above: Result Comment: Perf ormed at: =G - [facility] [address] [id number] Wire Preparation Worker: Norma Manuel MD, Phone: [phone] Performed By: #### V AGINITIS+ #### [facility] , Tric Vag JORDON Negative Normal Negative [facility] Comment on above: Performed By: #### V AGINITIS+ #### [facility] , ECG 12 lead ECGon 01-02-2022 ECG 12 lead ECG GRANT [place] [address] Electrocardiograph Report Signed Patient: Carmelina Courtney LM MR#: [id number] 15 : 2005 Acct:[id number] Age/Sex: 16 / F ADM Date: 01/01/22 Loc: Room: [address] [place] [address] Type: DIS IN Attending Dr: Bernardino De [...] previous ECGs available Confirmed by ROSEANN [facility]OUSA [facility] ([id number][facility] on 01/02/2022 12:21:02 PM Referred By: Electronically Signed By:CELIO CIFUENTES MD [facility] Transcribed By: MUS Signed By Celio Cifuentes MD, [facility] 01/02/22 1221 Normal [facility] Lipid Panelon 01-02-2022 Cholesterol [Mass/Vol] 138 mg/dL Low 140-200 [facility] Comment on above: Result Comment: Chol less than 200 mg/dl low risk Chol 201-239 mg/dl borderline risk Chol 240 mg/dl and greater high risk Performed By: #### L IPID, TSH3 wRFLX, [id number] #### [facility] [address] Cholesterol in HDL [Mass/Vol] 45 mg/dL Normal 35-85 [facility] Comment on above: Result Comment: HDL CHOL ATP-III CLASSIFICATION Cardiovascular Risk HDL > or equal to 60 mg/dL LOW HDL < 40 mg/dL HIGH Performed By: #### L IPID, TSH3 wRFLX, [id number] #### [facility] [address] [place] [id number] [place] Cholesterol.total/C holesterol in HDL [Mass ratio] 3.1 {ratio} Normal <5.0 [facility] Comment on above: Performed By: #### L IPID, TSH3 wRFLX, [id number] #### [facility] [address] [place] [id number] [facility] LDL Cholesterol,Calcula jade 82 mg/dL Normal 0-100 [facility] Comment on above: Result Comment: LDL ATP III CLASSIFICATION LDL less than 100 mg/dL Optimal LDL 100-129 mg/dL Near or above optimal LDL 130-159 mg/dL Borderline high LDL 160-189 mg/dL High LDL greater than 189 mg/dL Very high Performed By: #### L IPID, TSH3 wRFLX, [id number] #### [facility] [address] [place] [address] [place] Triglyceride w/Reflex 54 mg/dL Normal 35-149 [facility] Comment on above: Result Comment: TRIG ATP III CLASSIFICATION TRIG less than 150 mg/dL Normal TRIG 150-199 mg/dL Borderline high TRIG 200-500 mg/dL High TRIG greater than 500 mg/dL Very high Standard traceable to the Center for Disease Conrtrol and Prevention (CDC) test method. Performed By: #### L IPID, TSH3 wRFLX, [id number] #### [address] VLDL CHOLESTEROL 10 mg/dL Normal [facility] Comment on above: Performed By: #### L IPID, TSH3 wRFLX, [id number] #### [address] Thyroid Stim Hormone w/Rflxo n 01-02-2022 Thyroid Stim Hormone w/Rflx 1.38 u[iU]/mL Normal 0.45-5.33 [facility] Comment on above: Performed By: #### L IPID, TSH3 wRFLX, [id number] #### [address] Vitamin D 25 Hydroxy Totalon 01-02-2022 Vitamin D 25 Hydroxy Total 27.6 ng/mL Low 30-100 [facility] Comment on above: Result Comment: JENN MIN D STATUS 25(OH)VITAMIN D RANGE (ng/mL) Deficient <20 Insufficient 20 to <30 Sufficient 30 to 100 Reference: Hector MF,Marques NC, Brittny VILLALTA, et al. Evaluation,treatment, and prevention of vitamin D deficiency; an Endocrine Society clinical practice guideline. JCEM. 2010; 96(7):1911-30. PERFORMED BY: [place] [address] PATHOLOGIST SENIOR PROPERTY ACCOUNTANT STEPHANE MILES M.D. Performed By: #### L IPID, TSH3 wRFLX, [id number] #### [place] [id number] [facility] Vital Signs Date Time Vital Sign Value Performing Clinician Facility 12-12-2023 16:29-0500 Body height 162.6 cm Sujey Meza APRNZhejiang Xianju PharmaceuticalMOIRA Work Phone: [facility] 12-12-2023 16:29-0500 Body mass index (BMI) [Ratio] 22.76 kg/m2 Sujey Meza APRN-DOCUMENT CONTROL CLERK Work Phone: [facility] [employer] [facility] 12-12-2023 16:29-0500 Body temperature 99 [degF] Sujeyedward Meza ASH KIER BOILER-DOCUMENT CONTROL CLERK Work Phone: [facility] [employer] [facility] 12-12-2023 16:29-0500 Body weight 60.15 kg Sujeyedward Meza ASH KIER BOILER-DOCUMENT CONTROL CLERK Work Phone: [facility] [employer] [facility] 12-12-2023 16:29-0500 Diastolic blood pressure 60 mm[Hg] Sujey Derrick ASH KIER BOILER-DOCUMENT CONTROL CLERK Work Phone: [facility] [employer] [facility] 12-12-2023 16:29-0500 Heart rate 76 /min Sujeyedward Meza ASH KIER BOILER-DOCUMENT CONTROL CLERK Work Phone: [facility] 12-12-2023 16:29-0500 SaO2% (BldA) [Mass fraction] 96 % Sujeyedward Meza ASH KIER BOILER-DOCUMENT CONTROL CLERK Work Phone: [facility] 12-12-2023 16:29-0500 Systolic blood pressure 98 mm[Hg] Sujeyedward Meza ASH KIER BOILER-DOCUMENT CONTROL CLERK Work Phone: [facility] [employer] [facility] 11-28-2023 15:17-0500 Body mass index (BMI) [Ratio] 23.1 kg/m2 Sujeyedward Meza ASH KIER BOILER-DOCUMENT CONTROL CLERK Work Phone: [facility] [employer] [facility] 11-28-2023 15:17-0500 Body temperature 99.39 [degF] Sujey Meza ASH KIER BOILER-DOCUMENT CONTROL CLERK Work Phone: [facility] 11-28-2023 15:17-0500 Body weight 61.05 kg Sujey Derrick ASH KIER BOILER-DOCUMENT CONTROL CLERK Work Phone: [facility] [employer] [facility] 11-28-2023 15:17-0500 Diastolic blood pressure 50 mm[Hg] Sujey Derrick ASH KIER BOILER-DOCUMENT CONTROL CLERK Work Phone: [facility] [employer] [facility] 11-28-2023 15:17-0500 Heart rate 61 /min Sujey Derrick ASH KIER BOILER-DOCUMENT CONTROL CLERK Work Phone: [facility] 11-28-2023 15:17-0500 SaO2% (BldA) [Mass fraction] 92 % Sujey Meza APRNZhejiang Xianju PharmaceuticalDOCUMENT CONTROL CLERK Work Phone: [facility] 11-28-2023 15:17-0500 Systolic blood pressure 90 mm[Hg] Sujey Meza APRNZhejiang Xianju PharmaceuticalDOCUMENT CONTROL CLERK Work Phone: [facility] 05-18-2022 11:50-0400 Body height 161.29 cm Gina Landismond Other [employer] Other 05-18-2022 11:50-0400 Body mass index (BMI) [Ratio] 27.55 kg/m2 Gina Federica Other [employer] Other 05-18-2022 11:50-0400 Body temperature 97.8 [degF] Gina Federica Other [employer] Other 05-18-2022 11:50-0400 Body weight 71.67 kg Gina Federica Other [employer] Other 05-18-2022 11:50-0400 Diastolic blood pressure 67 mm[Hg] Gina Federica Other [employer] Other 05-18-2022 11:50-0400 Respiratory rate 16 /min Gina Federica Other [employer] Other 05-18-2022 11:50-0400 SaO2% (BldA) [Mass fraction] 100 % Gina Federica Other [employer] Other 05-18-2022 11:50-0400 Systolic blood pressure 113 mm[Hg] Gina Federica Other [employer] Other Encounters Encounter Date Encounter Type Care Provider Facility Start: 05-26-2024 End: 05-26-2024 ambulatory MARY JO CELAYA Not Available Start: 05-14-2024 End: 05-14-2024 ambulatory MARISA HARVEY Not Available Start: 12-15-2023 Orders Only Sujey Nicole Meza ASH KIER BOILER-DOCUMENT CONTROL CLERK Work Phone: [facility] Start: 12-13-2023 End: 12-13-2023 ambulatory [facility] Start: 12-12-2023 End: 12-12-[address] [facility] Start: 12-12-2023 End: 12-12-2023 Office outpatient visit 15 minutes Sujey L Derrick ASH KIER BOILER-DOCUMENT CONTROL CLERK Work Phone: [facility] Comment on above: Anxiety (Primary Dx) ; Moderate episode of recurrent major depressive disorder ([facility]); Vaginal discharge Start: 11-29-2023 Orders Only Sujey L Derrick ASH KIER BOILER-DOCUMENT CONTROL CLERK Work Phone: [facility] Start: 11-29-2023 End: 11-29-2023 ambulatory [facility] Start: 11-28-2023 End: 11-28-[address] [facility] Start: 11-28-2023 End: 11-28-2023 Office outpatient visit 15 minutes Sujey L Derrick ASH KIER BOILER-DOCUMENT CONTROL CLERK Work Phone: [facility] Comment [...] JO CELAYA . Facility:[facility] Start: 07-17-2022 ambulatory Tresa Start: 05-18-2022 Office outpatient vi sit 15 minutes Gina Stallworth [facility] [place] Start: 05-18-2022 End: 05-18-2022 ambulatory Jose Elias Francisco [employer] Other Start: 02-27-2022 End: 02-27-2022 ambulatory Lynn Bonilla Other [employer] Other Start: 02-27-2022 Telephone encounter Lynn Bonilla [facility] [address] Start: 02-26-2022 End: 02-26-2022 ambulatory Lynn Bonilla Other [employer] Other Start: 02-26-2022 Telephone encounter Lynn Bonilla [facility] [address] Start: 02-22-2022 End: 02-22-2022 ambulatory Lynn Bonilla Facility:[facility] Start: 01-01-2022 End: 01-08-2022 Evaluation and management of inpatient Bernardino Wil Facility:[facility] Procedures Date Procedure Procedure Detail Performing Clinician Start: 12-12-2023 Adult depression screening assessment Sujey Meza ASH KIER BOILER-DOCUMENT CONTROL CLERK Work Phone: Start: 11-28-2023 Urine test visual color cmprsn meths Sujey Meza ASH KIER BOILER-DOCUMENT CONTROL CLERK Work Phone: Start: 11-28-2023 Adult depression screening assessment Sujey Meza ASH KIER BOILER-DOCUMENT CONTROL CLERK Work Phone: Plan of Treatment Date Care Activity Detail Author Start: 12-12-2024 Adult BMI Screening Adult BMI Screen ing [facility] Start: 12-12-2024 Depression Screening Depression Scre ening [facility] Start: 12-12-2024 Tobacco Screening Tobacco Screening [facility] Start: 11-28-2024 Adult BMI Screening Adult BMI Screen ing [facility] Start: 11-28-2024 Depression Screening Depression Scre ening [facility] Start: 11-28-2024 Screening for Chlamy katt trachomatis Chlamydia Screening [facility] Start: 11-28-2024 Tobacco Screening Tobacco Screening [facility] Start: 12-12-2023 End: 12-12-2023 Patient encounter procedure 12/12/2023 4:30 PM EST Office Visit [facility] [address] [place] [address] Sujey Meza, ASH KIER BOILER-DOCUMENT CONTROL CLERK [address] [place] [address] [facility] Start: 07-26-2023 Influenza vaccination Influenza Vacc ine [facility] Start: 2022 DTaP,Tdap and Td Vaccines (1 - Tdap) DTaP,Tdap and Td Vaccines (1 - Tdap) [facility] Start: 2005 Screening for Chlamy katt trachomatis Chlamydia Screening [facility] End: 11-27-2024 Chlamydia/GC by PCR urine Chlamydia/GC by PCR urine Microbiology Routine Vaginal discharge 1 Occurrences starting 11/28/2023 until 11/27/2024 [facility] Comment on above: 1 Occurrences starti ng 11/28/2023 until 11/27/2024 Chlamydia/GC by PCR urine Chlamydia/GC by PCR urine Microbiology Routine Vaginal discharge 11/28/2023 10:11 PM EST [facility] End: 11-28-2024 Vaginitis Panel PCR Vaginitis Panel PCR Microbiology Routine Vaginal discharge 1 Occurrences starting 11/28/2023 until 11/28/2024 [facility] Work Phone: Comment on above: 1 Occurrences starti ng 11/28/2023 until 11/28/2024 Vaginitis Panel PCR Vaginitis Pa jerry PCR Microbiology Routine Vaginal discharge 11/28/2023 10:12 PM EST [facility] Payers Date Payer Category Payer Medicaid [employer] MEDICA[employer] [facility] MEDICAID [id number] 2022-Present [address] [place] [address] [id number] 2022 Unknown 2022 Unknown [id number] [id number] 2022 Self-pay 2003 Unknown [id number] 2.16.840.1.824666.3.579.2.593 2003 Unknown [id number] 2.16.840.1.755304.3.579.2.593 2003 Unknown [id number] 2.16.840.1.587851.3.579.2.593 2003 Unknown [id number] 2.16.840.1.325160.3.579.2.593 2003 Unknown [id number] 2.16.840.1.073150.3.579.2.593 2003 Unknown [id number] 2.16.840.1.376418.3.579.2.593 2003 Unknown [id number] 2.16.840.1.000444.3.579.2.1286 2003 Unknown [id number] 2.16.840.1.077861.3.579.2.1286 2003 Unknown [id number] 2.16.840.1.080246.3.579.2.1286 2003 Unknown [id number] 2.16.840.1.456035.3.579.2.1286 2003 Unknown [id number] 2.16.840.1.161912.3.579.2.1259 2003 Unknown [id number] 2.16.840.1.271475.3.579.2.1259 2003 Unknown [id number] 2.16.840.1.186118.3.579.2.1259 1959 Unknown [id number] Unknown [id number] 2.16.840.1.939557.3.579.2.531 Unknown [id number] 2.16.840.1.831809.3.579.2.531 Unknown [id number] 2.16.840.1.917472.3.579.2.531 Unknown [id number] 2.16.840.1.219112.3.579.2.531 Social History Date Type Detail Facility Start: 11-28-2023 End: 12-12-2023 Sex Assigned At [facility] [employer] Other Start: 08-14-2023 Tobacco smoking stat [facility] Ex-smoker [facility] History of tobacco use Current smoker [facility] History of tobacco use Cigarette Smoker P [facility] Start: 08-14-2023 Tobacco use and exposure Smokeless tobacco non-user [facility] Start: 11-28-2023 End: 12-12-2023 Alcohol intake Ex-drinker (finding) [facility] Start: 11-28-2023 End: 12-12-2023 History of Social function [facility] Adolescent depressio n screening assessment 1 [facility] Start: 2005 Sex Assigned At Not on file P [facility] Clinical Notes 12-26-2021 to 12-12-2023 [facility] 4[facility]30 PM [facility] 11/28/2023 3:00 PM ESTAddendum Note - [facility] 11/28/2023 3:00 PM EST Note Date & Type Note Facility 12-12-2023 History of Presen t illness [facility]ative [facility] [address] Patient: Carmelina Courtney Date of : 2005 [...] episode of recurrent major depressive disorder ([facility]) Relevant Medications busPIRone (BUSPAR) 10 mg tablet [...] BMI 22.76 kg/m Physical Exam Vitals reviewed. [employer] Press Operator present: Patient declined pelvic exam. Constitutional: Appearance: [...] in 1 month after starting the [employer]. SUJEY MEZA APRN-SHASHI Mark 12/15/238 documented in this encounter [facility] 11-28-2023 History of Presen t illness Narrative [address] [place] [address] Patient: Carmelina Courtney Date of : 2005 [...] SpO2 92% BMI 23.10 kg/m Physical Exam Blanker Press Operator present: Patient declined pelvic exam. Psychiatric: Mood [...] was recommended that patient start plan B [id number] as she does not wish to have [...] printed. If this does not work consider Britneyaylar. Since she has tried and failed on many different antidepressants will also get a psychiatric consult and start counseling today. Patient will call her past counselor to set this up. Return to office in 2-3 weeks to check her anxiety symptoms. SHASHI VU APRN-CNP 11/28/23 1743 documented in this encounter [facility] 11-28-2023 Miscellaneous Notes Addended by: SUJEY MEZA on: 11/28/2023 05:46 PM Modules accepted: Orders documented in this encounter [facility] 11-28-2023 Note Addended by: SUJEY MEZA on: 11/28/2023 05:46 PM Modules accepted: Orders [facility] 05-18-2022 Evaluation note Encounter Date Diagnosis Assessment [...] your family physician for any further concerns [employer] Other 02-01-2022 History general Narrative - Reported* Type Description Date Medical History anxiety Hospitalization History mental health 12/2021 [employer] Other Evaluation noteNo InformationNort Kuli Kuli Other Evaluation note* Diagnosis Vaginal discharge- Primary Leukorrhea, not specified as infective High risk heterosexual behavior Anxiety Anxiety state, unspecified documented [facility] this encounter [facility] TechnologyEvaluation note* Diagnosis Anxiety- Primary Anxiety state, unspecified Moderate episode of recurrent major depressive disorder ([facility]) Vaginal discharge Leukorrhea, not specified as infective documented in this encounter [facility] CenterRevolt TechnologyInstructions* Attachments The following attachments cannot be sent through Care Everywhere. * Buspirone, ADULT (Zimbabwean) documented in this encounterAs[facility] CenterNOMAD GOODS [facility] HospitalInstructionsNot on file documented in this encounterMayo Memorial HospitalLander Automotive [facility] HospitalInstructionsNot on file documented in this encounterAshtabula County Medical CenterNOMAD GOODS [facility] HospitalInstructions* Attachments The following attachments cannot be sent through Care Everywhere. * Vortioxetine, ADULT (Zimbabwean) documented in this encounterMayo Memorial HospitalSecure Mentem [facility] HospitalReason for referral (narrative)* Consultation (Routine) - Pending Review Specialty Diagnoses / Procedures Referred By Dorothea felix Referred To Contact Psychiatry Diagnoses Anxiety Sujey Meza APRN-CNP [address] [place] [address] Aparna Arias MD [address] [place] [address] Referral ID Status Reason Start Date Expiration Date Visits Requested Visits Authorized [id number] Pending Review Specialty Services Required 11/28/2023 11/27/20[address] [facility] Summary Purpose Family History No Family History [...] Dorothea felix Referred To Contact Sujey Meza APRN-CNP [address] [place] [address] Referral ID Status Reason Start Date Expiration Date V isits Requested Visits Authorized [id number] Pending Review 1 1 Additional Source Comments REASON FOR VISIT (unrecogniz ed section and content) Reason Comments Anxiety INFORMATION SOURCE (unrecogn ized section and content) DATE CREATED AUTHOR 08/28/2022 [facility] DATE CREATED AUTHOR AUTHOR'S ORGANIZ ATION 12/29/2022 [facility] DATE CREATED AUTHOR AUTHOR'S ORGANIZ ATION 05/03/2023 [facility] DATE CREATED AUTHOR AUTHOR'S ORGANIZ ATION 12/15/2023 [facility] DATE CREATED AUTHOR AUTHOR'S ORGANIZ ATION 12/15/2023 [facility] DATE CREATED AUTHOR AUTHOR'S ORGANIZ ATION 05/27/2024 [facility] dical Specialists EPIC Care Teams (unrecognized sec tion and content) It Administrative Assistant Relationship Specialty Start Date End Date Sujey Meza APRN-CNP [address] [place] [address] PCP - General Internal Medicine 05/17/23 It Administrative Assistant Relationship Specialty Start Date End Date Sujey Meza APRN-CNP [address] [place] [address] PCP - General Internal Medicine 05/17/23 It Administrative Assistant Relationship Specialty Start Date End Date Sujey Meza APRN-CNP [address] [place] [address] PCP - General Internal Medicine 05/17/23 FOR [...] BE BASED ON THE PRIMARY CLINICAL RECORDS. [facility]. provides no warranty or guarantee of the accuracy or completeness of information in this document.
--- NOTE | 2024-06-09 12:16 | US_ITS ---
[address] [address] Patient Name: GIOVANY COURTNEY MRN: [id number] date: 2005 Sex: F Assigned Patient Location: [facility] Current Patient Location: [facility] Accession/Order Number: [id number] Exam Date: 06/09/2024 11:40 Report Date: 06/09/2024 12:29 At the request of: MARY JO CELAYA Procedure: US OB amniotic fluid vol EXAMINATION: US OB amniotic fluid vol HISTORY: POSSIBLE LEAKING OF AMNIOTIC FLUID COMPARISON: No relevant comparison available. FINDINGS: Closed cervix measuring 3.4 cm in length position: Cephalic presentation, longitudinal lie Amniotic fluid volume: 17.4 cm, largest fluid pocket 5.8 cm Heart rate: 159 beats minute Clinical age: 26 weeks 2 days Clinical DALTON: 09/13/2024 US/US OB amniotic fluid vol IMPRESSION: Closed cervix measuring 3.4 cm in length Normal amniotic fluid volume Electronically authenticated by: ALEXIA REEVES Date: 06/09/2024 12:29
== END 2024-06-09 11:30 | disposition home or self-care (01) ==
LOC: NOMS 11:29
PROVIDERS: PCP Family Medicine; Visit Provider Obstetrics & Gynecology
DX: O42.90 Premature rupture of membranes, unspecified as to length of time between rupture and onset of labor, unspecified weeks of gestation (principal); Z36.86 Encounter for antenatal screening for cervical length; Z3A.26 26 weeks gestation of pregnancy
CPT/HCPCS: 76815; 76817

== ENCOUNTER 2024-07-22 10:24 | Outpatient (OUT) | payer MEDICAID, SELFPAY ==
--- NOTE | 2024-07-22 10:26 | US_ITS ---
[address] [address] Patient Name: GIOVANY COURTNEY MRN: [id number] date: 2005 Sex: F Assigned Patient Location: [facility] Current Patient Location: [facility] Accession/Order Number: [id number] Exam Date: 07/22/2024 10:27 Report Date: 07/22/2024 10:54 At the request of: MARY JO CELAYA Procedure: US OB growth EXAMINATION: US OB growth HISTORY: size inconsistent with dates O26.849 COMPARISON: No relevant comparison available. FINDINGS: Heart Rate: 148 bpm Amniotic Fluid Volume: 14.1 cm; normal range Number: 1 Position: CEPHALIC BIOMETRY: BPD: 8.27 cm; 33 weeks 2 days; 67.30 % HC: 30.88 cm; 34 weeks 3 days 67.80 % AC: 27.53 cm; 31 weeks 4 days; 25.40 % FL: 5.69 cm; 29 weeks 6 days; 3 % EFW: 1711.89 g; 15.10 % FL/AC: 20.67 FL/BPD: 68.80 HC/AC: 1.12 GESTATIONAL AGE: Age by EDC: 32 weeks 3 days DALTON by EDC: 2024-09-13 Age by US: 32 weeks 2 days DALTON by US: 2024-09-14 US/US OB growth IMPRESSION: 1. Single live intrauterine with growth detailed above. 2. Femur length is < 3rd percentile. Electronically authenticated by: TOYIN MCKEON Date: 07/22/2024 10:54
--- OUTSIDE RECORDS SUMMARY | 2024-07-22 10:45 | XMS_ITS | CCD ---
Author Organization [facility] Care Team Providers Care Convertible Top Installer Name Role Phone Gina Stallworth Unavailable Lynn [...] BELIA ., DR CAMARGO Consulting Unavailable Derrickaaliyah TOLENTINON-TEMPLER HEAD, Sujey Nicole Primary Care Provider DERRICK, SUJEY L Referring Unavailable DERRICK, SUJEY L Primary Care Unavailable DERRICK, SUJEY L Referring Unavailable DERRICK, SUJEY L Primary Care Unavailable DERRICK, SUJEY L Attending Unavailable DERRICK, SUJEY L Referring Unavailable DERRICK, SUJEY L Primary Care Unavailable MIRIAM YUAN Attending Unavailable DERRICK, SUJEY L Referring Unavailable DERRICK, SUJEY L Primary Care Unavailable DERRICK, SUJEY L Attending Unavailable DERRICK, SUJEY L Referring Unavailable DERRICK, SUJEY L Primary Care Unavailable MARISA HARVEY Attending Unavailable MARY JO CELAYA Attending Unavailable MARISA HARVEY Attending Unavailable MARY JO CELYAA Attending Unavailable Medications Current Medications Medication Drug [...] disorder, recurrent severe without psychotic features; Translations: [Recurrent major depressive episodes, moderate ] Onset: 01-01-2022 12-12-2023 Chronic Other complications of (4 sources) Vomiting of , unspecified; Translations: [VOMITING OF UNSPECIFIED] Onset: 04-16-2023 Episodic Other female genital disorders (2 sources) Vaginal discharge; Translations: [Other specified noninflammatory disorders of vagina] 11-28-2023 Episodic Other and delivery including normal (6 sources) Encounter for supervision of normal , unspecified, second trimester; Translations: [Encounter for supervision of other normal , first trimester] Onset: 03-01-2023 Episodic Otitis media and related conditions (1 source) Unspecified Eustachian tube disorder, bilateral; Translations: [Unspecified eustachian tube disorder, bilateral] Onset: 06-16-2024 Episodic Residual codes; unclassified (1 source) 20 [...] Translations: [High risk heterosexual behavior] 11-28-2023 Episodic Unclassified (1 source) Z20.2 - [...] - Post-traumatic stress disorder, unspecified] Onset: 01-01-2022 Unclassified (1 source) ear flush Onset: 06-16-2024 Past or Other Problems Problem Classification Problem [...] third trimester] Onset: 08-14-2023 08-14-2023 Episodic Other female genital disorders (2 sources) Other specified noninflammatory disorders of vagina; Translations: [Other specified noninflammatory disorders of vagina] Onset: 11-28-2023 Episodic Other screening for suspected conditions (not mental disorders or infectious disease) (7 sources) Encounter for observation for other suspected diseases and conditions ruled out; Translations: [Encounter for other screening for genetic and chromosomal anomalies] Onset: 07-17-2022 Episodic Residual codes; unclassified (1 source) High risk heterosexual behavior; Translations: [High risk heterosexual behavior] Onset: 11-28-2023 Episodic Results Test Name Value Interpretation Reference Range Facility Vaginitis Panel PCRon 2023 Bacterial vaginosis DNA panel JORDON+probe (Vag fld) Detected Abnormal Not Detected^Not Detected [facility] Comment on above: Qualitative results are reported based on detection and quantitation of targeted organism markers which include: Lactobacillus spp. (L. crispatus and L. jensenii), Gardnerella vaginalis, Atopobium vaginae, Bacterial Vaginosis Associated Bacteria-2 (BVAB-2) and Megasphaera-1 C. glabrata DNA JORDON+probe Ql (Vag fld) Not detected Not Detected^Not Detected [facility] Comment on above: No Mervat glabrata detected C. krusei DNA JORDON+probe Ql (Vag fld) Not detected Not Detected^Not Detected [facility] Comment on above: No Mervat krusei de tected Mervat sp 6 panel JORDON+probe (Vag fld) Not detected Not Detected^Not Detected [facility] Comment on above: Mervat species not detected include: C. albicans, C. tropicalis, C. parapsilosis or C. dubliniensis Interpretation and review of laboratory results Abnormal [facility] T. vaginalis DNA JORDON+probe Ql (Vag fld) Not detected Not Detected^Not Detected [facility] Comment on above: No Trichomonas vagin rosemary detected NOTE BD MAX Vaginal Panel has not been evaluated for patients under 18 years old. Results for these patients should be reviewed and assessed in accordance with clinical presentation to determine patient diagnosis. [facility] VAGINITIS PANEL PCRon 2023 VAGINITIS [...] clinical presentation to determine patient diagnosis. Normal [facility] Comment on above: Performed By: #### V PPCR #### [facility] ([id number]) [address] [place] [address], [address] [place] [address] CHLAMYDIA/GC PCR, Uon 2023 CHLAMYDIA/GC PCR, U [...] are dependent on adequate specimen collection. Normal [facility] Comment on above: Performed By: #### C #### [facility] ([id number]) [address], [address] [place] [address] POCT , urineon Beta HCG ( test) Ql (U) Negative [facility] VAGINITIS PANEL PCRon 2023 VAGINITIS PANEL [...] clinical presentation to determine patient diagnosis. Normal [facility] Comment on above: Performed By: #### V PPCR #### [facility] ([id number]) [address], [address] [place] [address] US PREG CERVICAL LENGTHon US PREG CERVICAL [...] ALEXIA REEVES Date: 2023-04-23 06:59 Normal [facility] INFLUENZA A AND B AGon 04-16 INFLUENZA A AG Negative Normal NEGATIVE SEE COMMENT [facility] Comment on above: Performed By: #### I NFLUAB #### [facility] [address] [place] [address] Dr. Ryan Martinez INFLUENZA B AG Negative Normal NEGATIVE SEE COMMENT [facility] Comment on above: Performed By: #### I NFLUAB #### [facility] [address] [place] [address] Dr. Ryan Martinez UA (CLEAN/CATCH) PROCESS MECHANIC/MICRO I F IND.on 04-16-2023 Bilirubin Ql (U) Negative Normal NEGATIVE [facility] Comment on above: Performed By: #### U ACSIND #### [facility] [address] [place] [address] Dr. Ryan Martinez Clarity (U) CLEAR Normal CLEAR [facility] Comment on above: Performed By: #### U ACSIND #### [facility] [address] [address] [address] Ryan Martinez Color (U) LT. YELLOW Normal YELLOW [facility] Comment on above: Performed By: #### U ACSIND #### [facility] [address] [place] [address] Dr. Ryan Martinez Glucose Ql (U) Negative Normal NEGATIVE [facility] Comment on above: Performed By: #### U ACSIND #### [facility] [address] [place] [address] Dr. Ryan Martinez Hemoglobin Ql (U) Negative Normal NEGATIVE [facility] Comment on above: Performed By: #### U ACSIND #### [facility] [address] [place] [address] Dr. Ryan Martinez Ketones Ql (U) >=80 Abnormal NEGATIVE [facility] Comment on above: Performed By: #### U ACSIND #### [facility] [address] [place] [address] Dr. Ryan Martinez LEUKOCYTES Negative Normal NEGATIVE [facility] Comment on above: Performed By: #### U ACSIND #### [facility] [address] [place] [address] Dr. Ryan Martinez Nitrite Ql (U) Negative Normal NEGATIVE [facility] Comment on above: Performed By: #### U ACSIND #### [facility] [address] [place] [address] Dr. Ryan Martinez pH (U) 6.5 [pH] Normal 5-9 [facility] Comment on above: Performed By: #### U ACSIND #### [facility] [address] [place] [address] Dr. Ryan Martinez SPEC GRAVITY 1.010 Normal 1.005-<=1.02 5 [facility] Comment on above: Performed By: #### U ACSIND #### [facility] [address] [place] [address] Dr. Ryan Martinez UA PROTEIN Negative Normal NEGATIVE/ TRACE [facility] Comment on above: Performed By: #### U ACSIND #### [facility] [address] [place] [address] Dr. Ryan Martinez UR MICRO IND NOT INDICATED Normal [facility] Comment on above: Performed By: #### U ACSIND #### [facility] [address] [place] [address] Dr. Ryan Martinez Urobilinogen Qn (U) 0.2 {Han'U}/dL Normal 0.2 - 1. 0 [facility] Comment on above: Performed By: #### U ACSIND #### [facility] [address] [place] [address] Dr. Ryan Martinez HEP B SURFACE ANTIGEN SCREEN on 03-16-2023 HBsAg Screen Negative Normal Negative [facility] Comment on above: Performed By: #### H BSANS #### [facility] [address] [place] [address] Dr. Ryan Martinez HEPATITIS C VIRUS AB W/ REFL EX QUANTon 03-16-2023 HCV AB Non-Reactive Normal Non Reactive [facility] Comment on above: Performed By: #### C BC #### [facility] [address] [place] [address] Dr. Ryan Martinez Interpretation: Comment Normal [facility] Comment on above: Result Comment: Not infected with HCV unless early or acute infection is suspected (which may be delayed in an immunocompromised individual), or other evidence exists to indicate HCV infection. Performed By: #### C BC #### [facility] [address] [place] [address] Dr. Ryan Martinez HIV 1 AND 2 WITH REFLEXon HIV Screen 4th Generation wRfx Non-Reactive Normal Non Reactive [facility] Comment on above: Result Comment: HIV Negative HIV-1/HIV-2 antibodies and HIV-1 p24 antigen were NOT detected. There is no laboratory evidence of HIV infection. Performed By: #### H IV12 #### [facility] [address] [place] [address] Dr. Ryan Martinez RPR QUANTon 03-16-2023 Rapid Plasma Reagin, Quant Non-Reactive Normal NonRea<1:1 [facility] Comment on above: Result Comment: Plea se Note: This test does not meet current guidelines for screening and diagnosis of syphilis. This test is intended for following treatment response in patients being treated for syphilis infection. To screen for syphilis infection, a reflex cascade that includes both RPR and a treponema-specific assay should be utilized, such as Treponema pallidum (Syphilis) Screening [place] (144711) or Rapid Plasma Reagin (RPR) Test With Reflex to Quantitative RPR and Confirmatory Treponema pallidum Antibodies (310269). Performed By: #### R PRQ #### [facility] [address] [place] [address] Dr. Ryan Martinez RUBELLA AB IGGon 03-16-2023 Rubella Antibodies, IgG 4.40 index Normal Immune >0.99 [facility] Comment on above: Result Comment: Non- immune <0.90 Equivocal 0.90 - 0.99 Immune >0.99 Performed By: #### R UBIGG #### [facility] [address] [place] [address] Dr. Ryan Martinez BOX TEST SENT OUTon 03-15-20 23 SENT TO REF LAB 03/15/2023 Normal [facility] Comment on above: Performed By: #### C BC #### [facility] [address] [place] [address] Dr. Ryan Martinez CBC AUTO DIFFon 03-15-2023 BASO # 0.1 103/ul Normal 0.0-0.1 [facility] Comment on above: Performed By: #### C BC #### [facility] [address] [place] [address] Dr. Ryan Martinez Basophils/100 WBC (Bld) 0.5 % Normal 0.2-2.0 [facility] Comment on above: Performed By: #### C BC #### [facility] [address] [place] [address] Dr. Ryan Martinez EO # 0.2 103/ul Normal 0.0-0.7 [facility] Comment on above: Performed By: #### C BC #### [facility] [address] [place] [address] Dr. Ryan Martinez Eosinophils/100 WBC (Bld) 1.9 % Normal 0.9-7.0 [facility] Comment on above: Performed By: #### C BC #### [facility] [address] [place] [address] Dr. Ryan Martinez Erythrocyte distribution width (RBC) [Ratio] 13.2 % Normal 11.0-15.0 [facility] Comment on above: Performed By: #### C BC #### [facility] [address] [place] [address] Dr. Ryan Martinez Hematocrit (Bld) [Volume fraction] 35.7 % Critically low 36.0-48.0 [facility] Comment on above: Performed By: #### C BC #### [facility] [address] [place] [address] Dr. Ryan Martinez Hemoglobin (Bld) [Mass/Vol] 12.2 g/dL Normal 12.0-16.0 [facility] Comment on above: Performed By: #### C BC #### [facility] [address] [place] [address] Dr. Ryan Martinez IG # 0.05 10e3/ul Critically high 0.00-0.03 [facility] Comment on above: Performed By: #### C BC #### [facility] [address] [place] [address] Dr. Ryan Martinez IG % 0.5 % Normal 0.0-0.5 [facility] Comment on above: Performed By: #### C BC #### [facility] [address] [place] [address] Dr. Ryan Martinez LYMPH # 1.9 103/ul Normal 1.2-3.8 [facility] Comment on above: Performed By: #### C BC #### [facility] [address] [place] [address] Dr. Ryan Martinez Lymphocytes/100 WBC (Bld) 20.1 % Critically low 20.5-60.0 [facility] Comment on above: Performed By: #### C BC #### [facility] [address] [place] [address] Dr. Ryan Martinez MANUAL DIFF REQ NO Normal [facility] Comment on above: Performed By: #### C BC #### [facility] [address] [address] [address] Ryan Martinez MCH (RBC) [Entitic mass] 30.9 pg Normal 26.7-34.0 [facility] Comment on above: Performed By: #### C BC #### [facility] [address] [place] [address] Dr. Ryan Martinez MCHC (RBC) [Mass/Vol] 34.2 g/dL Normal 29.9-35.2 [facility] Comment on above: Performed By: #### C BC #### [facility] [address] [place] [address] Dr. Ryan Martinez MCV (RBC) [Entitic vol] 90.4 fL Normal 81.0-99.0 [facility] Comment on above: Performed By: #### C BC #### [facility] [address] [place] [address] Dr. Ryan Martinez MONO # 0.8 103/ul Normal 0.3-0.8 [facility] Comment on above: Performed By: #### C BC #### [facility] [address] [place] [address] Dr. Ryan Martinez Monocytes/100 WBC (Bld) 8.0 % Normal 1.7-12.0 [facility] Comment on above: Performed By: #### C BC #### [facility] [address] [place] [address] Dr. Ryan Martinez NEUT # 6.5 103/ul Normal 1.4-6.5 [facility] Comment on above: Performed By: #### C BC #### [facility] [address] [place] [address] Dr. Ryan Martinez Neutrophils/100 WBC (Bld) 69.0 % Normal 43.0-75.0 [facility] Comment on above: Performed By: #### C BC #### [facility] [address] [place] [address] Dr. Ryan Martinez Platelet mean volume (Bld) [Entitic vol] 9.4 fL Critically low 9.5-13.5 [facility] Comment on above: Performed By: #### C BC #### [facility] [address] [address] [address] Ryan Martinez PLT 238 103/ul Normal 150-450 [facility] Comment on above: Performed By: #### C BC #### [facility] [address] [place] [address] Dr. Ryan Martinez RBC 3.95 106/ul Critically low 4.20-5.40 [facility] Comment on above: Performed By: #### C BC #### [facility] [address] [address] [address] Ryan Martinez WBC 9.5 103/ul Normal 4.0-11.0 [facility] Comment on above: Performed By: #### C BC #### [facility] [address] [place] [address] Dr. Ryan Martinez CULTURE URINEon 03-15-2023 CULTURE URINE Culture Observations : NO GROWTH. Normal [facility] Comment on above: Performed By: #### C BC #### [facility] [address] [place] [address] Dr. Ryan Martinez GLYCOHEMOGLOBIN A1Con 2022 ADA RECOMMENDATION SEE BELOW Normal [facility] Comment on above: Result Comment: ADA RECOMMENDED LIMIT 4.0 - 6.0 ADA THERAPEUTIC TARGET < 7.0 ACTION SUGGESTED > 7.0 Performed By: #### A 1C #### [facility] [address] [place] [address] Dr. Ryan Martinez Glucose [Mass/Vol] 88 mg/dL Normal [facility] Comment on above: Performed By: #### A 1C #### [facility] [address] [place] [address] Dr. Ryan Martinez HbA1c (Bld) [Mass fraction] 4.7 % Normal 4.5-6.2 [facility] Comment on above: Performed By: #### A 1C #### [facility] [address] [place] [address] Dr. Ryan Martinez URon 03-15-2023 , QUAL Positive Abnormal NEGATIVE [facility] Comment on above: Performed By: #### C BC #### [facility] [address] [place] [address] Dr. Ryan Martinez TSHon 03-15-2023 TSH 1.649 uIU/mL Normal 0.516-4.[address] [facility] Comment on above: Performed By: #### T SH #### [facility] [address] [place] [address] Dr. Ryan Martinez TYPE AND SCREENon 03-15-2023 TYPE AND SCREEN Negative Normal [facility] Comment on above: Performed By: #### C BC #### [facility] [address] [place] [address] Dr. Ryan Martinez UA RANDOMon 03-15-2023 Bilirubin Ql (U) Negative Normal NEGATIVE [facility] Comment on above: Performed By: #### U A, PREGU #### [facility] [address] [place] [address] Dr. Ryan Martinez Clarity (U) CLEAR Normal CLEAR [facility] Comment on above: Performed By: #### U A, PREGU #### [facility] [address] [place] [address] Dr. Ryan Martinez Color (U) LT. YELLOW Normal YELLOW [facility] Comment on above: Performed By: #### U A, PREGU #### [facility] [address] [place] [address] Dr. Ryan Martinez Glucose Ql (U) Negative Normal NEGATIVE [facility] Comment on above: Performed By: #### U A, PREGU #### [facility] [address] [place] [address] Dr. Ryan Martinez Hemoglobin Ql (U) Negative Normal NEGATIVE [facility] Comment on above: Performed By: #### U A, PREGU #### [facility] [address] [place] [address] Dr. Ryan Martinez Ketones Ql (U) Negative Normal NEGATIVE [facility] Comment on above: Performed By: #### U A, PREGU #### [facility] [address] [place] [address] Dr. Ryan Martinez LEUKOCYTES Negative Normal NEGATIVE [facility] Comment on above: Performed By: #### U A, PREGU #### [facility] [address] [place] [address] Dr. Ryan Martienz Nitrite Ql (U) Negative Normal NEGATIVE [facility] Comment on above: Performed By: #### U A, PREGU #### [facility] [address] [place] [address] Dr. Ryan Martinez pH (U) 7.0 [pH] Normal 5-9 [facility] Comment on above: Performed By: #### U A, PREGU #### [facility] [address] [place] [address] Dr. Ryan Martinez SPEC GRAVITY 1.010 Normal 1.005-<=1.02 5 [facility] Comment on above: Performed By: #### U A, PREGU #### [facility] [address] [place] [address] Dr. Ryan Martinez UA PROTEIN Negative Normal NEGATIVE/ TRACE [facility] Comment on above: Performed By: #### U A, PREGU #### [facility] [address] [place] [address] Dr. Ryan Martinez Urobilinogen Qn (U) 0.2 {Han'U}/dL Normal 0.2 - 1. 0 [facility] Comment on above: Performed By: #### U A, PREGU #### [facility] [address] [place] [address] Dr. Ryan Martinez US PREG TVon 02-21-2023 [...] by: ALEXIA REEVES Date: 2023-02-21 15:09 Normal [facility] Chlamydia/GC/Trich NAAon Chlamydia/GC/Trich JORDON Negative Negative [employer] Other Chlamydia/GC/Trich JORDON Positive Critically abnormal Negative [facility] [employer] Other Chlamydia Trachomotis, JORDON Negative Normal Negative [facility] Comment on above: Order Comment: Reaso n for Exam Sexually transmitted disease exposure Performed By: #### G CCHLAMTRI #### [facility] , Neisseria Gonorrhoeae, JORDON Positive Critically abnormal Negative [facility] Comment on above: Order Comment: Reaso n for Exam Sexually transmitted disease exposure Performed By: #### G CCHLAMTRI #### [facility] , Trichomonas JORDON Negative Normal Negative [facility] Comment on above: Order Comment: Reaso n for Exam Sexually transmitted disease exposure Result Comment: Perf ormed at: =G - [facility] [address] [id number] Medical Affairs Manager: Norma Manuel MD, Phone: [phone] PERFORMED BY: [facility] [address] [place], [place] [id number] PATHOLOGIST EMT DISPATCHER STEPHANE MILES M.D. Performed By: #### G CCHLAMTRI #### [facility] , Urine Cultureon 02-22-2022 Bacteria identified Cx Nom (U) ORGANISM: Escherichia coli (O:ESCCOL) [place] Count >100,000 Aerobic STEVEN Charge (NUC86) ---- [...] <2 Tobramycin S <4 Trimethoprim/Sulfamet hoxazole S < S = SUSCEPTIBLE I = INTERMEDIATE R [...] RESISTANT TO ALL B-LACTAM DRUGS. PERFORMED BY: [place] [address] PATHOLOGIST EMT DISPATCHER STEPHANE MILES M.D. Normal [facility] Comment on above: Performed By: #### C UU #### [place] [address] [place] Vaginitis Plus (VG+)on 02-22 Atopobium Vaginae Moderate - 1 Normal . [facility] Comment on above: Performed By: #### V AGINITIS+ #### [facility] , BVAB2 High - 2 Critically abnormal . [facility] Comment on above: Performed By: #### V AGINITIS+ #### [facility] , Mervat Albicans, JORDON Negative Normal Negative [facility] Comment on above: Result Comment: This test was developed and its performance characteristics determined by [facility]. It has not been cleared or approved by the Food and Drug Administration. Performed By: #### V AGINITIS+ #### [facility] , Mervat Glabrata, JORDON Negative Normal Negative [facility] Comment on above: Result Comment: This test was developed and its performance characteristics determined by [facility]. It has not been cleared or approved by the Food and Drug Administration. PERFORMED BY: [place] [address] PATHOLOGIST EMT DISPATCHER STEPHANE MILES M.D. Performed By: #### V AGINITIS+ #### [facility] , Chlamydia Trachomotis, JORDON Positive Critically abnormal Negative [facility] Comment on above: Performed By: #### V AGINITIS+ #### [facility] , Megasphaera High - 2 Critically abnormal . [facility] Comment on above: Result Comment: Calc [...] developed and its performance characteristics determined by [employer]. It has not been cleared or approved by the Food and Drug Administration. Performed By: #### V AGINITIS+ #### [facility] , Neisseria Gonorrhoeae, JORDON Negative Normal Negative [facility] Comment on above: Result Comment: Perf ormed at: =G - [facility] [address] [id number] Medical Affairs Manager: Norma Manuel MD, Phone: [phone] Performed By: #### V AGINITIS+ #### [facility] , Tric Vag JORDON Negative Normal Negative [facility] Comment on above: Performed By: #### V AGINITIS+ #### [facility] , ECG 12 lead ECGon 01-02-2022 ECG 12 lead ECG [facility] [place] [address] Electrocardiograph Report Signed Patient: Carmelina Courtney LM MR#: [id number] 15 : 2005 Acct:[id number] Age/Sex: 16 / F ADM Date: 01/01/22 Loc: Room: [address] [place] [address] Type: DIS IN Attending Dr: Bernardino De [...] previous ECGs available Confirmed by ROSEANN SOUSA [facility], CELIO ([id number]) on 01/02/2022 12:21:02 PM Referred By: Electronically Signed By:CELIO CIFUENTES MD [facility] Transcribed By: MUS Signed By Celio Cifunetes MD, [facility] 01/02/22 1221 Normal [facility] Lipid Panelon 01-02-2022 Cholesterol [Mass/Vol] 138 mg/dL Low 140-200 [facility] Comment on above: Result Comment: Chol less than 200 mg/dl low risk Chol 201-239 mg/dl borderline risk Chol 240 mg/dl and greater high risk Performed By: #### L IPID, TSH3 wRFLX, [id number] #### [facility] [address] [id number] [place] Cholesterol in HDL [Mass/Vol] 45 mg/dL Normal 35-85 [facility] Comment on above: Result Comment: HDL CHOL ATP-III CLASSIFICATION Cardiovascular Risk HDL > or equal to 60 mg/dL LOW HDL < 40 mg/dL HIGH Performed By: #### L IPID, TSH3 wRFLX, [id number] #### [facility] [address] [place] [address] [place] Cholesterol.total/C holesterol in HDL [Mass ratio] 3.1 {ratio} Normal <5.0 [facility] Comment on above: Performed By: #### L IPID, TSH3 wRFLX, [id number] #### [facility] [address] [place] [address] [place] LDL Cholesterol,Calcula jade 82 mg/dL Normal 0-100 [facility] Comment on above: Result Comment: LDL ATP III CLASSIFICATION LDL less than 100 mg/dL Optimal LDL 100-129 mg/dL Near or above optimal LDL 130-159 mg/dL Borderline high LDL 160-189 mg/dL High LDL greater than 189 mg/dL Very high Performed By: #### L IPID, TSH3 wRFLX, [id number] #### [address] Triglyceride w/Reflex 54 mg/dL Normal 35-149 [facility] Comment on above: Result Comment: TRIG ATP III CLASSIFICATION TRIG less than 150 mg/dL Normal TRIG 150-199 mg/dL Borderline high TRIG 200-500 mg/dL High TRIG greater than 500 mg/dL Very high Standard traceable to the Center for Disease Conrtrol and Prevention (CDC) test method. Performed By: #### L IPID, TSH3 wRFLX, [id number] #### [address] VLDL CHOLESTEROL 10 mg/dL Normal [facility] Comment on above: Performed By: #### L IPID, TSH3 wRFLX, [id number] #### [address] Thyroid Stim Hormone w/Rflxo n 01-02-2022 Thyroid Stim Hormone w/Rflx 1.38 u[iU]/mL Normal 0.45-5.33 [facility] Comment on above: Performed By: #### L IPID, TSH3 wRFLX, [id number] #### [address] Vitamin D 25 Hydroxy Totalon 01-02-2022 Vitamin D 25 Hydroxy Total 27.6 ng/mL Low 30-100 [facility] Comment on above: Result Comment: JENN MIN D STATUS 25(OH)VITAMIN D RANGE (ng/mL) Deficient <20 Insufficient 20 to <30 Sufficient 30 to 100 Reference: Hector MF,Marques NC, Brittny VILLALTA, et al. Evaluation,treatment, and prevention of vitamin D deficiency; an Endocrine Society clinical practice guideline. JCEM. 2010; 96(7):1911-30. PERFORMED BY: [place] [address] PATHOLOGIST EMT DISPATCHER STEPHANE MILES M.D. Performed By: #### L IPID, TSH3 wRFLX, [id number] #### [address] [address] [facility] Vital Signs Date Time Vital Sign Value Performing Clinician Facility 12-12-2023 16:29-0500 Body height 162.6 cm Sujey Meza CARD ROOM MANAGER-TEMPLER HEAD Work Phone: [facility] 12-12-2023 16:29-0500 Body mass index (BMI) [Ratio] 22.76 kg/m2 Sujeyedward Meza CARD ROOM MANAGER-TEMPLER HEAD Work Phone: [facility] 12-12-2023 16:29-0500 Body temperature 99 [degF] Sujey Derrick CARD ROOM MANAGER-TEMPLER HEAD Work Phone: [facility] 12-12-2023 16:29-0500 Body weight 60.15 kg Sujey Meza CARD ROOM MANAGER-TEMPLER HEAD Work Phone: [facility] 12-12-2023 16:29-0500 Diastolic blood pressure 60 mm[Hg] Sujey Meza CARD ROOM MANAGER-TEMPLER HEAD Work Phone: [facility] 12-12-2023 16:29-0500 Heart rate 76 /min Sujey Meza CARD ROOM MANAGER-TEMPLER HEAD Work Phone: [facility] 12-12-2023 16:29-0500 SaO2% (BldA) [Mass fraction] 96 % Sujey Meza CARD ROOM MANAGER-TEMPLER HEAD Work Phone: [facility] 12-12-2023 16:29-0500 Systolic blood pressure 98 mm[Hg] Sujey Meza CARD ROOM MANAGER-TEMPLER HEAD Work Phone: [facility] 11-28-2023 15:17-0500 Body mass index (BMI) [Ratio] 23.1 kg/m2 Sujeyedward Meza CARD ROOM MANAGER-TEMPLER HEAD Work Phone: [facility] 11-28-2023 15:17-0500 Body temperature 99.39 [degF] Sujey Derrick CARD ROOM MANAGER-TEMPLER HEAD Work Phone: [facility] 11-28-2023 15:17-0500 Body weight 61.05 kg Sujey Meza APRN-TEMPLER HEAD Work Phone: [facility] 11-28-2023 15:17-0500 Diastolic blood pressure 50 mm[Hg] Sujey Meza CARD ROOM MANAGER-TEMPLER HEAD Work Phone: [facility] 11-28-2023 15:17-0500 Heart rate 61 /min Sujey Meza APRN-TEMPLER HEAD Work Phone: [facility] 11-28-2023 15:17-0500 SaO2% (BldA) [Mass fraction] 92 % Sujey Meza APRN-TEMPLER HEAD Work Phone: [facility] 11-28-2023 15:17-0500 Systolic blood pressure 90 mm[Hg] Sujey Meza CARD ROOM MANAGER-TEMPLER HEAD Work Phone: [facility] 05-18-2022 11:50-0400 Body height 161.29 cm Gina Federica Other [facility] Other 05-18-2022 11:50-0400 Body mass index (BMI) [Ratio] 27.55 kg/m2 Gina Federica Other [facility] Other 05-18-2022 11:50-0400 Body temperature 97.8 [degF] Gina Federica Other [facility] Other 05-18-2022 11:50-0400 Body weight 71.67 kg Gina Federica Other [facility] Other 05-18-2022 11:50-0400 Diastolic blood pressure 67 mm[Hg] Gina Federica Other [facility] Other 05-18-2022 11:50-0400 Respiratory rate 16 /min Ginagisela Stallworth Other [facility] Other 05-18-2022 11:50-0400 SaO2% (BldA) [Mass fraction] 100 % Gina Stallworth Other [facility] Other 05-18-2022 11:50-0400 Systolic blood pressure 113 mm[Hg] Gina Stallworth Other [facility] Other Encounters Encounter Date Encounter Type Care Provider Facility Start: 07-08-2024 End: 07-08-2024 ambulatory MARY JO BELIA Not Available Start: 06-23-2024 End: 06-23-2024 ambulatory MARISA CAMARILLOEY Not Available Start: 06-16-2024 End: 06-16-2024 ambulatory [facility] Start: 05-26-2024 End: 05-26-2024 ambulatory MARY JO BELIA Not Available Start: 05-14-2024 End: 05-14-2024 ambulatory MARISA HARVEY Not Available Start: 12-15-2023 Orders Only Sujey L Derrick CARD ROOM MANAGER-TEMPLER HEAD Work Phone: [facility] Start: 12-13-2023 End: 12-13-2023 ambulatory [facility] Start: 12-12-2023 End: 12-12-2023 Office outpatient visit 15 minutes Sujey L Derrick CARD ROOM MANAGER-TEMPLER HEAD Work Phone: [facility] Comment on above: Anxiety (Primary Dx) ; Moderate episode of recurrent major depressive disorder ([facility]); Vaginal discharge Start: 12-12-2023 End: 12-12-2023 ambulatory [facility] Start: 11-29-2023 Orders Only Sujey L Derrick CARD ROOM MANAGER-TEMPLER HEAD Work Phone: [facility] Start: 11-29-2023 End: 11-29-2023 ambulatory [facility] Start: 11-28-2023 End: 11-28-2023 Office outpatient visit 15 minutes Sujey Nicole [facility] CARD ROOM MANAGER-TEMPLER HEAD Work Phone: [facility] Comment on above: Vaginal discharge (P rimary Dx); High risk heterosexual behavior; Anxiety Start: 11-28-2023 End: 11-28-2023 ambulatory SUJEY Nicole DERRICK [facility] Start: 10-15-2023 End: 10-15-2023 ambulatory MARISA HARVEY [...] JO CELAYA . Facility:[facility] Start: 07-17-2022 ambulatory Malcolm Start: 05-18-2022 Office outpatient vi sit 15 minutes Gina Stallworth [facility] Start: 05-18-2022 End: 05-18-2022 ambulatory Jose Elias Singh [facility] Other Start: 02-27-2022 End: 02-27-2022 ambulatory Lynn Bonilla Other [facility] Other Start: 02-27-2022 Telephone encounter Lynn Bonilla [facility] [address] Start: 02-26-2022 End: 02-26-2022 ambulatory Lynn Bonilla Other [facility] Other Start: 02-26-2022 Telephone encounter Lynn Bonilla [facility] [address] Start: 02-22-2022 End: 02-22-2022 ambulatory Lynn Bonilla Facility:[facility] Start: 01-01-2022 End: 01-08-2022 Evaluation and management of inpatient Bernardino Wil Facility:[facility] Procedures Date Procedure Procedure Detail Performing Clinician Start: 12-12-2023 Adult depression screening assessment Sujey Meza CARD ROOM MANAGER-TEMPLER HEAD Work Phone: Start: 11-28-2023 Urine test visual color cmprsn meths Sujey Meza CARD ROOM MANAGER-TEMPLER HEAD Work Phone: Start: 11-28-2023 Adult depression screening assessment Sujey Meza CARD ROOM MANAGER-TEMPLER HEAD Work Phone: Plan of Treatment Date Care Activity Detail Author Start: 12-12-2024 Adult BMI Screening Adult BMI Screen ing [facility] Start: 12-12-2024 Depression Screening Depression Scre ening [facility] Start: 12-12-2024 Tobacco Screening Tobacco Screening [facility] Start: 11-28-2024 Adult BMI Screening Adult BMI Screen ing [facility] Start: 11-28-2024 Depression Screening Depression Scre ening [facility] Start: 11-28-2024 Screening for Chlamy katt trachomatis Chlamydia Screening [facility] Start: 11-28-2024 Tobacco Screening Tobacco Screening [facility] Start: 12-12-2023 End: 12-12-2023 Patient encounter procedure 12/12/2023 4:30 PM EST [facility] [address] [place] [address] Sujey Meza, CARD ROOM MANAGER-[facility] [address] [place] [address] [facility] Start: 07-26-2023 Influenza vaccination Influenza Vacc ine [facility] Start: 2022 DTaP,Tdap and Td Vaccines (1 - Tdap) DTaP,Tdap and Td Vaccines (1 - Tdap) [facility] Start: 2003 Screening for Chlamy katt trachomatis Chlamydia Screening [facility] End: 11-27-2024 Chlamydia/GC by PCR urine Chlamydia/GC by PCR urine Microbiology Routine Vaginal discharge 1 Occurrences starting 11/28/2023 until 11/27/2024 [facility] Comment on above: 1 Occurrences starti ng 11/28/2023 until 11/27/2024 Chlamydia/GC by PCR urine Chlamydia/GC by PCR urine Microbiology Routine Vaginal discharge 11/28/2023 10:11 PM EST [facility] End: 11-28-2024 Vaginitis Panel PCR Vaginitis Panel PCR Microbiology Routine Vaginal discharge 1 Occurrences starting 11/28/2023 until 11/28/2024 [facility] Work Phone: Comment on above: 1 Occurrences starti ng 11/28/2023 until 11/28/2024 Vaginitis Panel PCR Vaginitis Pa jerry PCR Microbiology Routine Vaginal discharge 11/28/2023 10:12 PM EST [employer] [facility] Payers Date Payer Category Payer Medicaid [facility] MEDICAID [facility] MEDICAID [id number] 2022-Present [address] [place] [address] [id number] 2022 Unknown 2022 Unknown [id number] [id number] 2022 Self-pay 2003 Unknown [id number] 2.16840.1.652895.3.579.2.593 2003 Unknown [id number] 2.840.1.393721.3.579.2.593 2003 Unknown [id number] 2.840.1.983884.3.579.2.593 2003 Unknown [id number] 2.16.840.1.960461.3.579.2.593 2003 Unknown [id number] 2.16.840.1.732588.3.579.2.593 2003 Unknown [id number] 2.16840.1.317282.3.579.2.593 2003 Unknown [id number] 2.16.840.1.355568.3.579.2.1286 2003 Unknown [id number] 2.16.840.1.172990.3.579.2.1286 2003 Unknown [id number] 2.16.840.1.815741.3.579.2.1286 2003 Unknown [id number] 2.16.840.1.287946.3.579.2.1286 2003 Unknown [id number] 2.16.840.1.223019.3.579.2.1286 2003 Unknown [id number] 2.16.840.1.767770.3.579.2.1259 2003 Unknown [id number] 2.16.840.1.449078.3.579.2.9 2003 Unknown [id number] 2.16.840.1.748099.3.579.2.9 2003 Unknown [id number] 2.16.840.1.963684.3.579.2.9 2003 Unknown [id number] 2.16.840.1.808316.3.579.2.1259 1959 Unknown [id number] Unknown [id number] 2.16.840.1.568414.3.579.2.531 Unknown [id number] 2.16.840.1.311971.3.579.2.531 Unknown [id number] 2.16.840.1.921540.3.579.2.531 Unknown [id number] 2.16840.1.083245.3.579.2.531 Social History Date Type Detail Facility Start: 11-28-2023 End: 12-12-2023 Sex Assigned At [facility] Other Start: 08-14-2023 Tobacco smoking stat [facility] Ex-smoker [facility] History of tobacco use Current smoker [facility] History of tobacco use Cigarette Smoker [facility] Start: 08-14-2023 Tobacco use and exposure Smokeless tobacco non-user [facility] Start: 11-28-2023 End: 12-12-2023 Alcohol intake Ex-drinker (finding) [facility] Start: 11-28-2023 End: 12-12-2023 History of Social function [facility] Adolescent depressio n screening assessment 1 [facility] Start: 2005 Sex Assigned At Not on file P [facility] Clinical Notes 12-26-2021 to 12-12-2023 Sujey Meza [facility] - 12/12/2023 4:30 PM ESTSujey Meza, [facility] - 11/28/2023 3:00 PM ESTAddendum Note - Sujey Meza, [facility] - 11/28/2023 3:00 PM EST Note Date & Type Note Facility 12-12-2023 History of Presen t illness Narrative [address] [facility] [address] Patient: Carmelina Courtney Date of : 2005 [...] Moderate episode of recurrent major depressive disorder ([facility]) Relevant Medications busPIRone (BUSPAR) 10 mg tablet [...] BMI 22.76 kg/m Physical Exam Vitals reviewed. Shirt Folder present: Patient declined pelvic exam. Constitutional: Appearance: [...] VU APRN-CNP 12/15/232120 documented in this encounter [facility] 11-28-2023 History of Presen t illness Narrative [address] [facility] [address] Patient: Carmelina Courtney Date of : 2005 [...] SpO2 92% BMI 23.10 kg/m Physical Exam Shirt Folder present: Patient declined pelvic exam. Psychiatric: Mood [...] was recommended that patient start plan B [id number] as she does not wish to have [...] printed. If this does not work consider Vishnu. Since she has tried and failed on many different antidepressants will also get a psychiatric consult and start counseling today. Patient will call her past counselor to set this up. Return to office in 2-3 weeks to check her anxiety symptoms. SUJEY MEZA APRN-SHASHI Mark 11/28/23 2523 documented in this encounter [facility] 11-28-2023 Miscellaneous Notes Addended by: SUJEY MEZA on: 11/28/2023 05:46 PM Modules accepted: Orders documented in this encounter [facility] 11-28-2023 Note Addended by: SUJEY MEZA on: 11/28/2023 05:46 PM Modules accepted: Orders [facility] 05-18-2022 Evaluation note Encounter Date [...] your family physician for any further concerns [facility] Other 02-01-2022 History general Narrative - Reported* Type Description Date Medical History anxiety Hospitalization History mental health 12/2021 [facility] Other Evaluation noteNo InformationNort [employer] Other Evaluation note* Diagnosis Vaginal discharge- Primary Leukorrhea, not specified as infective High risk heterosexual behavior Anxiety Anxiety state, unspecified [facility] Diagnosis Anxiety- Primary Anxiety state, unspecified Moderate episode of recurrent major depressive disorder ([facility]) Vaginal discharge Leukorrhea, not specified as infective documented in this encounter [facility]* Attachments The following attachments cannot be sent through Care Everywhere. * Buspirone, ADULT (Frisian) documented in [facility] encounter[facility] SystemInstructionsNot on file documented in this encounterProGenesis HospitalInstructionsNot on file documented in this encounterProGenesis HospitalInstructions* Attachments The following attachments cannot be sent through Care Everywhere. * Vortioxetine, ADULT (Frisian) [facility] for [facility] (narrative)* Consultation (Routine) - Pending Review Specialty Diagnoses / Procedures Referred By Dorothea t Referred To Contact Psychiatry Diagnoses Anxiety Sujey Meza APRN-CNP [address] [facility] [place] [address] Aparna Arias MD [address] [place] [id number] Referral ID Status Reason Start Date Expiration Date Visits Requested Visits Authorized [id number] Pending Review Specialty Services Required 11/28/2023 11/27/2024 1 1 [facility] Summary Purpose Family History No Family History [...] Specialty Diagnoses / Procedures Referred By Contcoy t Referred To Contact Sujey Meza APRN-CNP [address] [place] [address] Referral ID Status Reason Start Date Expiration Date V isits Requested Visits Authorized [id number] Pending Review 1 1 Additional Source Comments REASON FOR VISIT (unrecogniz ed section and content) Reason Comments Anxiety INFORMATION SOURCE (unrecogn ized section and content) DATE CREATED AUTHOR 08/28/2022 Malcolm DATE CREATED AUTHOR AUTHOR'S ORGANIZ ATION 12/29/2022 [facility] DATE CREATED AUTHOR AUTHOR'S ORGANIZ ATION 05/03/2023 [facility] DATE CREATED AUTHOR AUTHOR'S ORGANIZ ATION 12/15/2023 [facility] DATE CREATED AUTHOR AUTHOR'S ORGANIZ ATION 06/19/2024 [facility] DATE CREATED AUTHOR AUTHOR'S ORGANIZ ATION 07/10/2024 [facility] Care Teams (unrecognized sec tion and content) Convertible Top Installer Relationship Specialty Start Date End Date Blaze Mezaedward Rivera CARD ROOM MANAGER-TEMPLER HEAD [address] [place] [address] PCP - General Internal Medicine 05/17/23 Convertible Top Installer Relationship Specialty Start Date End Date Derrick Sujey Rivera, CARD ROOM MANAGER-TEMPLER HEAD [address] [place] [address] PCP - General Internal Medicine 05/17/23 Convertible Top Installer Relationship Specialty Start Date End Date Derrick Sujey Rivera CARD ROOM MANAGER-TEMPLER HEAD [address] [place] [address] PCP - General Internal Medicine 05/17/23 FOR [...] BE BASED ON THE PRIMARY CLINICAL RECORDS. [facility]. provides no warranty or guarantee of the accuracy or completeness of information in this document.
== END 2024-07-22 10:25 | disposition home or self-care (01) ==
LOC: NOMS 10:24
PROVIDERS: PCP Family Medicine; Visit Provider Obstetrics & Gynecology
DX: O26.849 Uterine size-date discrepancy, unspecified trimester (principal); Z3A.32 32 weeks gestation of pregnancy
CPT/HCPCS: 76816

== ENCOUNTER 2024-08-20 14:54 | Outpatient (OUT) | payer MEDICAID, SELFPAY ==
--- NOTE | 2024-08-20 14:55 | US_ITS ---
[address] [address] Patient Name: GIOVANY COURTNEY MRN: [id number] date: 2005 Sex: F Assigned Patient Location: US Current Patient Location: Accession/Order Number: [id number] Exam Date: 08/20/2024 14:56 Report Date: 08/21/2024 04:25 At the request of: MARY JO CELAYA Procedure: US OB growth EXAMINATION: US OB growth HISTORY: SIZE INCONSISTENT WITH DATES COMPARISON: Ultrasound OB growth 07/22/2024 FINDINGS: Heart Rate: 145 bpm Amniotic Fluid Volume: 17.6 cm; normal range. Number: 1 Position: CEPHALIC BIOMETRY: BPD: 9.33 cm; 38 weeks 0 days; 90.80 % HC: 33.49 cm; 38 weeks 2 days; 64.90 % AC: 33.08 cm; 37 weeks 0 days; 73.70 % FL: 6.97 cm; 35 weeks 5 days; 26.50 % EFW: 3196.01 g; 64.30 % FL/AC: 21.07 FL/BPD: 74.71 HC/AC: 1.01 GESTATIONAL AGE: Age by EDC: 36 weeks 4 days DALTON by EDC: 2024-09-13 Age by US: 37 weeks 2 days DALTON by US: 2024-09-08 US/US OB growth IMPRESSION: 1. Single live intrauterine with growth detailed above. Electronically authenticated by: TOYIN MCKEON Date: 08/21/2024 04:25
--- OUTSIDE RECORDS SUMMARY | 2024-08-20 15:04 | XMS_ITS | CCD ---
Author Organization [facility] Care Team Providers Care Corporate Sales Manager Name Role Phone Gina Stallworth Unavailable Lynn [...] Boyce Consulting Unavailable NADJON, DR JOSE ELIAS Hassna Primary Care Unavailable BELIA ., DR CAMARGO Consulting Unavailable NADERER, DR JOSE ELIAS Hassan Primary Care Unavailable LETA ., KRISTI Admitting Unavailable LETA ., KRISTI Attending Unavailable BELIA ., DR CAMARGO Admitting Unavailable NADERER, DR JOSE ELIAS Hassan Primary Care Unavailable BELIA ., DR CAMARGO Attending Unavailable BELIA ., DR CAMARGO Consulting Unavailable Derrickaaliyah T[employer] CRANE OPERATOR, Sujey Nicole Primary Care Provider DERRICK, SUJEY L Referring Unavailable DERRICK, SUJEY L Primary Care Unavailable DERRICK, SUJEY L Referring Unavailable DERRICK, SUJEY L Primary Care Unavailable DERRICK, SUJEY L Attending Unavailable DERRICK, SUJEY L Referring Unavailable DERRICK, SUJEY L Primary Care Unavailable EMILYSAMMIMIRIAM TAYLOR Attending Unavailable DERRICK, SUJEY L Referring Unavailable DERRICK, SUJEY L Primary Care Unavailable DERRICK, SUJEY L Attending Unavailable DERRICK, SUJEY L Referring Unavailable DERRICK, SUJEY L Primary Care Unavailable CANDICE, MARISA Attending Unavailable BELIA, MARY JO Attending Unavailable CANDICE, MARISA Attending Unavailable BELIA, MARY JO Attending Unavailable CANDICE, MARISA Attending Unavailable BELIA, MARY JO Attending Unavailable Medications Current Medications Medication Drug [...] (Vag fld) Detected Abnormal Not Detected^Not Detected [facility] Comment on above: Qualitative results are reported based on detection and quantitation of targeted organism markers which include: Lactobacillus spp. (L. crispatus and L. jensenii), Gardnerella vaginalis, Atopobium vaginae, Bacterial Vaginosis Associated Bacteria-2 (BVAB-2) and Megasphaera-1 C. glabrata DNA JORDON+probe Ql (Vag fld) Not detected Not Detected^Not Detected [facility] Comment on above: No Mervat glabrata detected C. krusei DNA JORDON+probe Ql (Vag fld) Not detected Not Detected^Not Detected [facility] Comment on above: No Mervat krusei de tected Mervat sp 6 panel JORDON+probe (Vag fld) Not detected Not Detected^Not Detected [facility] Comment on above: Mervat species not detected include: C. albicans, C. tropicalis, C. parapsilosis or C. dubliniensis Interpretation and review of laboratory results Abnormal [facility] T. vaginalis DNA JORDON+probe Ql (Vag fld) Not detected Not Detected^Not Detected [facility] Comment on above: No Trichomonas vagin rosemary detected NOTE BD MAX Vaginal Panel has not been evaluated for patients under 18 years old. Results for these patients should be reviewed and assessed in accordance with clinical presentation to determine patient diagnosis. [facility] VAGINITIS PANEL PCRon 2023 VAGINITIS [...] clinical presentation to determine patient diagnosis. Normal [facility] Comment on above: Performed By: #### V PPCR #### [facility] ([id number]) [address] [place] [address], [address] [place] [address] CHLAMYDIA/GC PCR, Uon 2023 CHLAMYDIA/GC PCR, U [...] are dependent on adequate specimen collection. Normal [facility] Comment on above: Performed By: #### C #### [facility] ([id number]) [facility], [address] [place] [address] POCT , urineon Beta HCG ( test) [...] clinical presentation to determine patient diagnosis. Normal [facility] Comment on above: Performed By: #### V PPCR #### [facility] ([id number]) [facility], [address] [place] [address] US PREG CERVICAL LENGTHon US PREG CERVICAL [...] ALEXIA REEVES Date: 2023-04-23 06:59 Normal [facility] INFLUENZA A AND B AGon 04-16 INFLUENZA A AG Negative Normal NEGATIVE SEE COMMENT [facility] Comment on above: Performed By: #### I NFLUAB #### [facility] [address] [place] [address] Dr. Ryan Martinez INFLUENZA B AG Negative Normal NEGATIVE SEE COMMENT [facility] Comment on above: Performed By: #### I NFLUAB #### [facility] [address] [address] [address] Ryan Martinez UA (CLEAN/CATCH) PAINTER INTERIOR FINISH/MICRO I F IND.on 04-16-2023 Bilirubin Ql (U) Negative Normal NEGATIVE [facility] Comment on above: Performed By: #### U ACSIND #### [facility] [address] [place] [address] Dr. Ryan Martinez Clarity (U) CLEAR Normal CLEAR [facility] Comment on above: Performed By: #### U ACSIND #### [facility] [address] [address] [address] Ryan Martinez Color (U) LT. YELLOW Normal YELLOW [facility] Comment on above: Performed By: #### U ACSIND #### [facility] [address] [address] [address] Ryan Martinez Glucose Ql (U) Negative Normal NEGATIVE [facility] Comment on above: Performed By: #### U ACSIND #### [facility] [address] [address] [address] Ryan Martinez Hemoglobin Ql (U) Negative Normal NEGATIVE [facility] Comment on above: Performed By: #### U ACSIND #### [facility] [address] [address] [address] Ryan Martinez Ketones Ql (U) >=80 Abnormal NEGATIVE [facility] Comment on above: Performed By: #### U ACSIND #### [facility] [address] [address] [address] Ryan Martinez LEUKOCYTES Negative Normal NEGATIVE [facility] Comment on above: Performed By: #### U ACSIND #### [facility] [address] [address] [address] Ryan Martinez Nitrite Ql (U) Negative Normal NEGATIVE [facility] Comment on above: Performed By: #### U ACSIND #### [facility] [address] [place] [address] Dr. Ryan Martinez pH (U) 6.5 [pH] Normal 5-9 [facility] Comment on above: Performed By: #### U ACSIND #### [facility] [address] [address] [address] Ryan Martinez SPEC GRAVITY 1.010 Normal 1.005-<=1.02 5 [facility] Comment on above: Performed By: #### U ACSIND #### [facility] [address] [address] [address] Ryan Martinez UA PROTEIN Negative Normal NEGATIVE/ TRACE [facility] Comment on above: Performed By: #### U ACSIND #### [facility] [address] [address] [address] Ryan Martinez UR MICRO IND NOT INDICATED Normal [facility] Comment on above: Performed By: #### U ACSIND #### [facility] [address] [place] [address] Dr. Ryan Martinez Urobilinogen Qn (U) 0.2 {Han'U}/dL Normal 0.2 - 1. 0 [facility] Comment on above: Performed By: #### U ACSIND #### [facility] [address] [place] [address] Dr. Ryan Martinez HEP B SURFACE ANTIGEN SCREEN on 03-16-2023 HBsAg Screen Negative Normal Negative [facility] Comment on above: Performed By: #### H BSANS #### [facility] [address] [place] [address] Dr. Ryan Martinez HEPATITIS C VIRUS AB W/ REFL EX QUANTon 03-16-2023 HCV AB Non-Reactive Normal Non Reactive [facility] Comment on above: Performed By: #### C BC #### [facility] [address] [place] [address] Dr. Ryan Martinez Interpretation: Comment Normal [facility] Comment on above: Result Comment: Not infected with HCV unless early or acute infection is suspected (which may be delayed in an immunocompromised individual), or other evidence exists to indicate HCV infection. Performed By: #### C BC #### [facility] [address] [place] [address] Dr. Ryan Martinez HIV 1 AND 2 WITH REFLEXon HIV Screen 4th Generation wRfx Non-Reactive Normal Non Reactive [facility] Comment on above: Result Comment: HIV Negative HIV-1/HIV-2 antibodies and HIV-1 p24 antigen were NOT detected. There is no laboratory evidence of HIV infection. Performed By: #### H IV12 #### [facility] [address] [place] [address] Dr. Ryan Martinez RPR QUANTon 03-16-2023 Rapid Plasma Reagin, Quant Non-Reactive Normal NonRea<1:1 [facility] Comment on above: Result Comment: Plea se Note: This test does not meet current guidelines for screening and diagnosis of syphilis. This test is intended for following treatment response in patients being treated for syphilis infection. To screen for syphilis infection, a reflex cascade that includes both RPR and a treponema-specific assay should be utilized, such as Treponema pallidum (Syphilis) Screening Talihina (696413) or Rapid Plasma Reagin (RPR) Test With Reflex to Quantitative RPR and Confirmatory Treponema pallidum Antibodies (318224). Performed By: #### R PRQ #### [facility] [address] [place] [address] Dr. Ryan Martinez RUBELLA AB IGGon 03-16-2023 Rubella Antibodies, IgG 4.40 index Normal Immune >0.99 [facility] Comment on above: Result Comment: Non- immune <0.90 Equivocal 0.90 - 0.99 Immune >0.99 Performed By: #### R UBIGG #### [facility] [address] [place] [address] Dr. Ryan Martinez BOX TEST SENT OUTon 03-15-20 23 SENT TO REF LAB 03/15/2023 Normal [facility] Comment on above: Performed By: #### C BC #### [facility] [address] [place] [address] Dr. Ryan Martinez CBC AUTO DIFFon 03-15-2023 BASO # 0.1 103/ul Normal 0.0-0.1 [facility] Comment on above: Performed By: #### C BC #### [facility] [address] [place] [address] Dr. Ryan Martinez Basophils/100 WBC (Bld) 0.5 % Normal 0.2-2.0 [facility] Comment on above: Performed By: #### C BC #### [facility] [address] [place] [address] Dr. Ryan Martinez EO # 0.2 103/ul Normal 0.0-0.7 [facility] Comment on above: Performed By: #### C BC #### [facility] [address] [place] [address] Dr. Ryan Martinez Eosinophils/100 WBC (Bld) 1.9 % Normal 0.9-7.0 [facility] Comment on above: Performed By: #### C BC #### [facility] [address] [place] [address] Dr. Ryan Martinez Erythrocyte distribution width (RBC) [Ratio] 13.2 % Normal 11.0-15.0 [facility] Comment on above: Performed By: #### C BC #### [facility] [address] [place] [address] Dr. Ryan Martinez Hematocrit (Bld) [Volume fraction] 35.7 % Critically low 36.0-48.0 [facility] Comment on above: Performed By: #### C BC #### [facility] [address] [place] [address] Dr. Ryan Martinez Hemoglobin (Bld) [Mass/Vol] 12.2 g/dL Normal 12.0-16.0 [facility] Comment on above: Performed By: #### C BC #### [facility] [address] [place] [address] Dr. Ryan Martinez IG # 0.05 10e3/ul Critically high 0.00-0.03 [facility] Comment on above: Performed By: #### C BC #### [facility] [address] [place] [address] Dr. Ryan Martinez IG % 0.5 % Normal 0.0-0.5 [facility] Comment on above: Performed By: #### C BC #### [facility] [address] [place] [address] Dr. Ryan Martinez LYMPH # 1.9 103/ul Normal 1.2-3.8 [facility] Comment on above: Performed By: #### C BC #### [facility] [address] [place] [address] Dr. Ryan Martinez Lymphocytes/100 WBC (Bld) 20.1 % Critically low 20.5-60.0 [facility] Comment on above: Performed By: #### C BC #### [facility] [address] [place] [address] Dr. Ryan Martinez MANUAL DIFF REQ NO Normal [facility] Comment on above: Performed By: #### C BC #### [facility] [address] [address] [address] Ryan Martinez MCH (RBC) [Entitic mass] 30.9 pg Normal 26.7-34.0 [facility] Comment on above: Performed By: #### C BC #### [facility] [address] [place] [address] Dr. Ryan Martinez MCHC (RBC) [Mass/Vol] 34.2 g/dL Normal 29.9-35.2 [facility] Comment on above: Performed By: #### C BC #### [facility] [address] [place] [address] Dr. Ryan Martinez MCV (RBC) [Entitic vol] 90.4 fL Normal 81.0-99.0 [facility] Comment on above: Performed By: #### C BC #### [facility] [address] [place] [address] Dr. Ryan Martinez MONO # 0.8 103/ul Normal 0.3-0.8 [facility] Comment on above: Performed By: #### C BC #### [facility] [address] [place] [address] Dr. Ryan Martinez Monocytes/100 WBC (Bld) 8.0 % Normal 1.7-12.0 [facility] Comment on above: Performed By: #### C BC #### [facility] [address] [place] [address] Dr. Ryan Martinez NEUT # 6.5 103/ul Normal 1.4-6.5 [facility] Comment on above: Performed By: #### C BC #### [facility] [address] [place] [address] Dr. Ryan Martinez Neutrophils/100 WBC (Bld) 69.0 % Normal 43.0-75.0 [facility] Comment on above: Performed By: #### C BC #### [facility] [address] [place] [address] Dr. Ryan Martinez Platelet mean volume (Bld) [Entitic vol] 9.4 fL Critically low 9.5-13.5 [facility] Comment on above: Performed By: #### C BC #### [facility] [address] [address] [address] Ryan Martinez PLT 238 103/ul Normal 150-450 [facility] Comment on above: Performed By: #### C BC #### [facility] [address] [address] [address] Ryan Martinez RBC 3.95 106/ul Critically low 4.20-5.40 [facility] Comment on above: Performed By: #### C BC #### [facility] [address] [address] [address] Ryan Martinez WBC 9.5 103/ul Normal 4.0-11.0 [facility] Comment on above: Performed By: #### C BC #### [facility] [address] [place] [address] Dr. Ryan Martinez CULTURE URINEon 03-15-2023 CULTURE URINE Culture Observations : NO GROWTH. Normal [facility] Comment on above: Performed By: #### C BC #### [facility] [address] [place] [address] Dr. Ryan Martinez GLYCOHEMOGLOBIN A1Con 2022 ADA RECOMMENDATION SEE BELOW Normal [facility] Comment on above: Result Comment: ADA RECOMMENDED LIMIT 4.0 - 6.0 ADA THERAPEUTIC TARGET < 7.0 ACTION SUGGESTED > 7.0 Performed By: #### A 1C #### [facility] [address] [place] [address] Dr. Ryan Martinez Glucose [Mass/Vol] 88 mg/dL Normal [facility] Comment on above: Performed By: #### A 1C #### [facility] [address] [place] [address] Dr. Ryan Martinez HbA1c (Bld) [Mass fraction] 4.7 % Normal 4.5-6.2 [facility] Comment on above: Performed By: #### A 1C #### [facility] [address] [place] [address] Dr. Ryan Martinez URon 03-15-2023 , QUAL Positive Abnormal NEGATIVE [facility] Comment on above: Performed By: #### C BC #### [facility] [address] [place] [address] Dr. Ryan Martinez TSHon 03-15-2023 TSH 1.649 uIU/mL Normal 0.516-4.130 [facility] Comment on above: Performed By: #### T SH #### [facility] [address] [place] [address] Dr. Ryan Martinez TYPE AND SCREENon 03-15-2023 TYPE AND SCREEN Negative Normal [facility] Comment on above: Performed By: #### C BC #### [facility] [address] [place] [address] Dr. Ryan Martinez UA RANDOMon 03-15-2023 Bilirubin Ql (U) Negative Normal NEGATIVE [facility] Comment on above: Performed By: #### U A, PREGU #### [facility] [address] [place] [address] Dr. Ryan Martinez Clarity (U) CLEAR Normal CLEAR [facility] Comment on above: Performed By: #### U A, PREGU #### [facility] [address] [place] [address] Dr. Ryan Martinez Color (U) LT. YELLOW Normal YELLOW [facility] Comment on above: Performed By: #### U A, PREGU #### [facility] [address] [place] [address] Dr. Ryan Martinez Glucose Ql (U) Negative Normal NEGATIVE [facility] Comment on above: Performed By: #### U A, PREGU #### [facility] [address] [place] [address] Dr. Ryan Martinez Hemoglobin Ql (U) Negative Normal NEGATIVE [facility] Comment on above: Performed By: #### U A, PREGU #### [facility] [address] [place] [address] Dr. Ryan Martinez Ketones Ql (U) Negative Normal NEGATIVE [facility] Comment on above: Performed By: #### U A, PREGU #### [facility] [address] [place] [address] Dr. Ryan Martinez LEUKOCYTES Negative Normal NEGATIVE [facility] Comment on above: Performed By: #### U A, PREGU #### [facility] [address] [address] [address] Ryan Martinez Nitrite Ql (U) Negative Normal NEGATIVE [facility] Comment on above: Performed By: #### U A, PREGU #### [facility] [address] [address] [address] Ryan Martinez pH (U) 7.0 [pH] Normal 5-9 [facility] Comment on above: Performed By: #### U A, PREGU #### [facility] [address] [place] [address] Dr. Ryan Martinez SPEC GRAVITY 1.010 Normal 1.005-<=1.02 5 [facility] Comment on above: Performed By: #### U A, PREGU #### [facility] [address] [place] [address] Dr. Ryan Martinez UA PROTEIN Negative Normal NEGATIVE/ TRACE [facility] Comment on above: Performed By: #### U A, PREGU #### [facility] [address] [place] [address] Dr. Ryan Martinez Urobilinogen Qn (U) 0.2 {Han'U}/dL Normal 0.2 - 1. 0 [facility] Comment on above: Performed By: #### U A, PREGU #### [facility] [address] [place] [address] Dr. Ryan Martinez US PREG TVon 02-21-2023 [...] by: ALEXIA REEVES Date: 2023-02-21 15:09 Normal [facility] Chlamydia/GC/Trich NAAon Chlamydia/GC/Trich JORDON Negative Negative [employer] Other Chlamydia/GC/Trich JORDON Positive Critically abnormal Negative [employer] [facility] [employer] On[employer]ine Other Chlamydia Trachomotis, JORDON Negative Normal Negative [facility] Comment on above: Order Comment: Reaso n for Exam Sexually transmitted disease exposure Performed By: #### G CCHLAMTRI #### [facility] , Neisseria Gonorrhoeae, JORDON Positive Critically abnormal Negative [facility] Comment on above: Order Comment: Reaso n for Exam Sexually transmitted disease exposure Performed By: #### G CCHLAMTRI #### [facility] , Trichomonas JORDON Negative Normal Negative [facility] Comment on above: Order Comment: Reaso n for Exam Sexually transmitted disease exposure Result Comment: Perf ormed at: =G - [facility] [address] [id number] Creative Guru: Norma Manuel MD, Phone: [phone] PERFORMED BY: [address] [place] [address] PATHOLOGIST HEALTHCARE ACCOUNT MANAGER STEPHANE MILES M.D. Performed By: #### G CCHLAMTRI #### [facility] , Urine Cultureon 02-22-2022 Bacteria identified Cx Nom (U) ORGANISM: Escherichia coli (O:ESCCOL) [place] Count >100,000 Aerobic STEVEN Charge (NUC86) ---- [...] RESISTANT TO ALL B-LACTAM DRUGS. PERFORMED BY: [place] [address] PATHOLOGIST HEALTHCARE ACCOUNT MANAGER STEPHANE MILES M.D. Normal [facility] Comment on above: Performed By: #### C UU #### [place] [address] [place] Vaginitis Plus (VG+)on 02-22 Atopobium Vaginae Moderate - [address] Normal . [facility] Comment on above: Performed By: #### V AGINITIS+ #### [facility] , BVAB2 High - [address] [facility] Comment on above: Performed By: #### V AGINITIS+ #### [facility] , Mervat Albicans, JORDON Negative Normal Negative [facility] Comment on above: Result Comment: This test was developed and its performance characteristics determined by [employer]. It has not been cleared or approved by the Food and Drug Administration. Performed By: #### V AGINITIS+ #### [facility] , Mervat Glabrata, JORDON Negative Normal Negative [facility] Comment on above: Result Comment: This test was developed and its performance characteristics determined by [employer]. It has not been cleared or approved by the Food and Drug Administration. PERFORMED BY: [place] [address] PATHOLOGIST HEALTHCARE ACCOUNT MANAGER STEPHANE MILES M.D. Performed By: #### V AGINITIS+ #### [facility] , Chlamydia Trachomotis, JORDON Positive Critically abnormal Negative [facility] Comment on above: Performed By: #### V AGINITIS+ #### [facility] , Megasphaera High - [address] [facility] Comment on above: Result Comment: Calc [...] developed and its performance characteristics determined by [facility]. It has not been cleared or approved by the Food and Drug Administration. Performed By: #### V AGINITIS+ #### [facility] , Neisseria Gonorrhoeae, JORDON Negative Normal Negative [facility] Comment on above: Result Comment: Perf ormed at: =G - [facility] [address] [id number] Creative Guru: Norma Manuel MD, Phone: [phone] Performed By: #### V AGINITIS+ #### [facility] , Tric Vag JORDON Negative Normal Negative [facility] Comment on above: Performed By: #### V AGINITIS+ #### [facility] , ECG 12 lead ECGon 01-02-2022 ECG 12 lead ECG [facility] [place] [address] Electrocardiograph Report Signed Patient: Carmelina Courtney LM MR#: [id number] 15 : 2005 Acct:[id number] Age/Sex: 16 / F ADM Date: 01/01/22 Loc: Room: [address] [place] [address] Type: DIS IN Attending Dr: Bernardino De [...] ECGs available Confirmed by ROSEANN SOUSA [facility], CELIO ([id number]) on 01/02/2022 12:21:02 PM Referred By: Electronically Signed By:CELIO CIFUENTES MD [facility] Transcribed By: MUS Signed By Celio Cifuentes MD, [facility] 01/02/[address] [facility] Lipid Panelon 01-02-2022 Cholesterol [Mass/Vol] 138 mg/dL Low 140-200 [facility] Comment on above: Result Comment: Chol less than 200 mg/dl low risk Chol 201-239 mg/dl borderline risk Chol 240 mg/dl and greater high risk Performed By: #### L IPID, TSH3 wRFLX, [id number] #### [facility] [address] [id number] [place] Cholesterol in HDL [Mass/Vol] 45 mg/dL Normal 35-85 [facility] Comment on above: Result Comment: HDL CHOL ATP-III CLASSIFICATION Cardiovascular Risk HDL > or equal to 60 mg/dL LOW HDL < 40 mg/dL HIGH Performed By: #### L IPID, TSH3 wRFLX, [id number] #### [facility] [address] [place] [address] [place] Cholesterol.total/C holesterol in HDL [Mass ratio] 3.1 {ratio} Normal <5.0 [facility] Comment on above: Performed By: #### L IPID, TSH3 wRFLX, [id number] #### [facility] [address] [place] [address] [place] LDL Cholesterol,Calcula jade 82 mg/dL Normal 0-100 [facility] Comment on above: Result Comment: LDL ATP III CLASSIFICATION LDL less than 100 mg/dL Optimal LDL 100-129 mg/dL Near or above optimal LDL 130-159 mg/dL Borderline high LDL 160-189 mg/dL High LDL greater than 189 mg/dL Very high Performed By: #### L IPID, TSH3 wRFLX, [id number] #### [facility] [address] Triglyceride w/Reflex 54 mg/dL Normal 35-149 [facility] Comment on above: Result Comment: TRIG ATP III CLASSIFICATION TRIG less than 150 mg/dL Normal TRIG 150-199 mg/dL Borderline high TRIG 200-500 mg/dL High TRIG greater than 500 mg/dL Very high Standard traceable to the Center for Disease Conrtrol and Prevention (CDC) test method. Performed By: #### L IPID, TSH3 wRFLX, [id number] #### [facility] [address] VLDL CHOLESTEROL 10 mg/dL Normal [facility] Comment on above: Performed By: #### L IPID, TSH3 wRFLX, [id number] #### [facility] [address] [place] [address] Thyroid Stim Hormone w/Rflxo n 01-02-2022 Thyroid Stim Hormone w/Rflx 1.38 u[iU]/mL Normal 0.45-5.33 [facility] Comment on above: Performed By: #### L IPID, TSH3 wRFLX, [id number] #### [facility] [address] [place] [address] Vitamin D 25 Hydroxy Totalon 01-02-2022 Vitamin D 25 Hydroxy Total 27.6 ng/mL Low 30-100 [facility] Comment on above: Result Comment: JENN MIN D STATUS 25(OH)VITAMIN D RANGE (ng/mL) Deficient <20 Insufficient 20 to <30 Sufficient 30 to 100 Reference: Hector MF,Marques NC, Alpa-Hemant VILLALTA, et al. Evaluation,treatment, and prevention of vitamin D deficiency; an Endocrine Society clinical practice guideline. JCEM. 2010; 96(7):1911-30. PERFORMED BY: [place] [address] PATHOLOGIST HEALTHCARE ACCOUNT MANAGER STEPHANE MILES M.D. Performed By: #### L IPID, TSH3 wRFLX, [id number] #### [address] Vital Signs Date Time Vital Sign Value Performing Clinician Facility 12-12-2023 16:29-0500 Body height 162.6 cm Sujey Meza APRN-WALL CRANE OPERATOR Work Phone: [facility] 12-12-2023 16:29-0500 Body mass index (BMI) [Ratio] 22.76 kg/m2 Sujey Meza DIRECTOR OF MARKETING COMMUNICATIONS-WALL CRANE OPERATOR Work Phone: [facility] 12-12-2023 16:29-0500 Body temperature 99 [degF] Sujey Meza DIRECTOR OF MARKETING COMMUNICATIONS-WALL CRANE OPERATOR Work Phone: [facility] 12-12-2023 16:29-0500 Body weight 60.15 kg Sujey Meza DIRECTOR OF MARKETING COMMUNICATIONS-WALL CRANE OPERATOR Work Phone: [facility] 12-12-2023 16:29-0500 Diastolic blood pressure 60 mm[Hg] Sujey Meza DIRECTOR OF MARKETING COMMUNICATIONS-WALL CRANE OPERATOR Work Phone: [facility] 12-12-2023 16:29-0500 Heart rate 76 /min Sujey Meza DIRECTOR OF MARKETING COMMUNICATIONS-WALL CRANE OPERATOR Work Phone: [facility] 12-12-2023 16:29-0500 SaO2% (BldA) [Mass fraction] 96 % Sujey Meza DIRECTOR OF MARKETING COMMUNICATIONS-WALL CRANE OPERATOR Work Phone: [facility] 12-12-2023 16:29-0500 Systolic blood pressure 98 mm[Hg] Sujey Meza DIRECTOR OF MARKETING COMMUNICATIONS-WALL CRANE OPERATOR Work Phone: [facility] 11-28-2023 15:17-0500 Body mass index (BMI) [Ratio] 23.1 kg/m2 Sujey Meza DIRECTOR OF MARKETING COMMUNICATIONS-WALL CRANE OPERATOR Work Phone: [facility] 11-28-2023 15:17-0500 Body temperature 99.39 [degF] Sujey Meza DIRECTOR OF MARKETING COMMUNICATIONS-WALL CRANE OPERATOR Work Phone: [facility] 11-28-2023 15:17-0500 Body weight 61.05 kg Sujey Meza DIRECTOR OF MARKETING COMMUNICATIONS-WALL CRANE OPERATOR Work Phone: [employer] 11-28-2023 15:17-0500 Diastolic blood pressure 50 mm[Hg] Sujey Meza DIRECTOR OF MARKETING COMMUNICATIONS-WALL CRANE OPERATOR Work Phone: [employer] 11-28-2023 15:17-0500 Heart rate 61 /min Sujey Meza APRN-WALL CRANE OPERATOR Work Phone: [employer] 11-28-2023 15:17-0500 SaO2% (BldA) [Mass fraction] 92 % Sujey Meza DIRECTOR OF MARKETING COMMUNICATIONS-WALL CRANE OPERATOR Work Phone: [employer] 11-28-2023 15:17-0500 Systolic blood pressure 90 mm[Hg] Sujey Meza DIRECTOR OF MARKETING COMMUNICATIONS-WALL CRANE OPERATOR Work Phone: [employer] 05-18-2022 11:50-0400 Body height 161.29 cm Gina Federica Other [facility] Other 05-18-2022 11:50-0400 Body mass index (BMI) [Ratio] 27.55 kg/m2 Gina Federica Other [facility] Other 05-18-2022 11:50-0400 Body temperature 97.8 [degF] Gina Stallworth Other [facility] Other 05-18-2022 11:50-0400 Body weight 71.67 kg Gina Federica Other [facility] Other 05-18-2022 11:50-0400 Diastolic blood pressure 67 mm[Hg] Gina Stallworth Other [facility] Other 05-18-2022 11:50-0400 Respiratory rate 16 /min Gina Stallworth Other [facility] Other 05-18-2022 11:50-0400 SaO2% (BldA) [Mass fraction] 100 % Gina Stallworth Other [facility] Other 05-18-2022 11:50-0400 Systolic blood pressure 113 mm[Hg] Gina Landismond Other [facility] Other Encounters Encounter Date Encounter Type Care Provider Facility Start: 08-05-2024 End: 08-05-2024 ambulatory MARY JO BELIA Not Available Start: 07-22-2024 End: 07-22-2024 ambulatory MARISA CANDICE Not Available Start: 07-08-2024 End: 07-08-2024 ambulatory MARY JO BELIA Not Available Start: 06-23-2024 End: 06-23-2024 ambulatory MARISA CANDICE Not Available Start: 06-16-2024 End: 06-16-2024 ambulatory [facility] Start: 05-26-2024 End: 05-26-2024 ambulatory MARY JO BELIA Not Available Start: 05-14-2024 End: 05-14-2024 ambulatory MARISA CANDICE Not Available Start: 12-15-2023 Orders Only Sujey Nicole Derrick DIRECTOR OF MARKETING COMMUNICATIONS-WALL CRANE OPERATOR Work Phone: [facility] Start: 12-13-2023 End: 12-13-2023 ambulatory [facility] Start: 12-12-2023 End: 12-12-2023 Office outpatient visit 15 minutes Sujey L Derrick DIRECTOR OF MARKETING COMMUNICATIONS-WALL CRANE OPERATOR Work Phone: [facility] Comment on above: Anxiety (Primary Dx) ; Moderate episode of recurrent major depressive disorder (CMS-HCC); Vaginal discharge Start: 12-12-2023 End: 12-12-2023 ambulatory [facility] Start: 11-29-2023 Orders Only Sujey L Derrick DIRECTOR OF MARKETING COMMUNICATIONS-WALL CRANE OPERATOR Work Phone: [facility] Start: 11-29-2023 End: 11-29-2023 ambulatory [facility] Start: 11-28-2023 End: 11-28-2023 Office outpatient visit 15 minutes Sujey Meza DIRECTOR OF MARKETING COMMUNICATIONS-WALL CRANE OPERATOR Work Phone: [facility] Comment on above: Vaginal discharge (P rimary Dx); High risk heterosexual behavior; Anxiety Start: 11-28-2023 End: 11-28-2023 ambulatory [facility] Start: 10-15-2023 End: 10-15-2023 ambulatory [...] JO CELAYA . Facility:[facility] Start: 07-17-2022 ambulatory [place] Start: 05-18-2022 Office outpatient vi sit 15 minutes Gina Stallworth [facility] [place] Start: 05-18-2022 End: 05-18-2022 ambulatory Jose Elias Singh [facility] Other Start: 02-27-2022 End: 02-27-2022 ambulatory Lynn Bonilla Other [facility] Other Start: 02-27-2022 Telephone encounter Lynn Bonilla [facility] Start: 02-26-2022 End: 02-26-2022 ambulatory Lynn Bonilla Other [facility] Other Start: 02-26-2022 Telephone encounter Lynn Bonilla [facility] [address] Start: 02-22-2022 End: 02-22-2022 ambulatory Lynn Bonilla Facility:[facility] Start: 01-01-2022 End: 01-08-2022 Evaluation and management of inpatient Bernardino Wil Facility:[facility] Procedures Date Procedure Procedure Detail Performing Clinician Start: 12-12-2023 Adult depression screening assessment Sujey Meza DIRECTOR OF MARKETING COMMUNICATIONS-WALL CRANE OPERATOR Work Phone: Start: 11-28-2023 Urine test visual color cmprsn meths Sujey Meza DIRECTOR OF MARKETING COMMUNICATIONS-WALL CRANE OPERATOR Work Phone: Start: 11-28-2023 Adult depression screening assessment Sujey Meza DIRECTOR OF MARKETING COMMUNICATIONS-WALL CRANE OPERATOR Work Phone: Plan of Treatment Date Care Activity Detail Author Start: 12-12-2024 Adult BMI Screening Adult BMI Screen ing [facility] Start: 12-12-2024 Depression Screening Depression Scre ening [facility] Start: 12-12-2024 Tobacco Screening Tobacco Screening [facility] Start: 11-28-2024 Adult BMI Screening Adult BMI Screen ing [facility] Start: 11-28-2024 Depression Screening Depression Scre ening [facility] Start: 11-28-2024 Screening for Chlamy katt trachomatis Chlamydia Screening [facility] Start: 11-28-2024 Tobacco Screening Tobacco Screening [facility] Start: 12-12-2023 End: 12-12-2023 Patient encounter procedure 12/12/2023 4:30 PM EST [facility] [address] [place] [address] Sujey Meza, DIRECTOR OF MARKETING COMMUNICATIONS-WALL CRANE OPERATOR [address] [place] [address] [facility] Start: 07-26-2023 Influenza vaccination Influenza Vacc ine [facility] Start: 2022 DTaP,Tdap and Td Vaccines (1 - Tdap) DTaP,Tdap and Td Vaccines (1 - Tdap) [facility] Start: 2003 Screening for Chlamy katt trachomatis Chlamydia Screening [facility] End: 11-27-2024 Chlamydia/GC by PCR urine Chlamydia/GC by PCR urine Microbiology Routine Vaginal discharge 1 Occurrences starting 11/28/2023 until 11/27/2024 [facility] Comment on above: 1 Occurrences starti ng 11/28/2023 until 11/27/2024 Chlamydia/GC by PCR urine Chlamydia/GC by PCR urine Microbiology Routine Vaginal discharge 11/28/2023 10:11 PM EST [facility] End: 11-28-2024 Vaginitis Panel PCR Vaginitis Panel PCR Microbiology Routine Vaginal discharge 1 Occurrences starting 11/28/2023 until 11/28/2024 [facility] Work Phone: Comment on above: 1 Occurrences starti ng 11/28/2023 until 11/28/2024 Vaginitis Panel PCR Vaginitis Pa jerry PCR Microbiology Routine Vaginal discharge 11/28/2023 10:12 PM EST [facility] Payers Date Payer Category Payer Medicaid [place] [id number] 2022-Present [address] [place] [address] [id number] 2022 Unknown 2022 Unknown [id number] 2022 Self-pay 2003 Unknown [id number] 2003 Unknown [id number] 2.840.1.722627.3.579.2.593 2003 Unknown [id number] 2.16840.1.145308.3.579.2.593 2003 Unknown [id number] 2.840.1.153213.3.579.2.593 2003 Unknown [id number] 2.840.1.111098.3.579.2.593 2003 Unknown [id number] 2.16.840.1.097461.3.579.2.593 2003 Unknown [id number] 2.16.840.1.501832.3.579.2.1286 2003 Unknown [id number] 2.16.840.1.292001.3.579.2.1286 2003 Unknown [id number] 2.16.840.1.742565.3.579.2.128 2003 Unknown [id number] 2.16.840.1.828170.3.579.2.128 2003 Unknown [id number] 2.16.840.1.523662.3.579.2.128 2003 Unknown [id number] 2.16.840.1.629565.3.579.2.9 2003 Unknown [id number] 2.16840.1.710643.3.579.2.1258 2003 Unknown [id number] 2.16.840.1.771097.3.579.2.1258 2003 Unknown [id number] 2.16.840.1.874825.3.579.2.1258 2003 Unknown [id number] 2.16.840.1.627301.3.579.2.1258 2003 Unknown [id number] 2.16840.1.448237.3.579.2.1258 2003 Unknown [id number] 2.16.840.1.659476.3.579.2.1259 1959 Unknown [id number] Unknown [id number] 2.16.840.1.218015.3.579.2.531 Unknown [id number] 2.16.840.1.224205.3.579.2.531 Unknown [id number] 2.16.840.1.017484.3.579.2.531 Unknown [id number] 2.16.840.1.400752.3.579.2.531 Social History Date Type Detail Facility Start: 11-28-2023 End: 12-12-[address] [facility] [employer] Other Start: 08-14-2023 [facility] History of tobacco use Current smoker [facility] History of tobacco use Cigarette Smoker P [facility] Start: 08-14-2023 Tobacco use and exposure Smokeless tobacco non-user [facility] Start: 11-28-2023 End: 12-12-2023 Alcohol intake Ex-drinker (finding) [facility] Start: 11-28-2023 End: 12-12-2023 History of Social function [facility] Adolescent depressio n screening assessment 1 [facility] Start: 2003 Sex Assigned At Not on file P [facility] Clinical Notes 12-26-2021 to 12-12-2023 [facility] 12/12/[facility]23 4:30 PM ESTSujey Meza DIRECTOR OF MARKETING [facility] - 11/28/2023 3:00 PM ESTAddendum Note - Sujey Meza DIRECTOR OF MARKETING [facility] - 11/28/2023 3:00 PM EST Note Date & Type Note Facility 12-12-2023 History of Presen t illness Narrative [address] [facility] [address] Patient: Carmelina Courtney Date of : 2005 [...] Moderate episode of recurrent major depressive disorder ([facility]) Relevant Medications busPIRone (BUSPAR) 10 [...] BMI 22.76 kg/m Physical Exam Vitals reviewed. Neurophysiological Technician present: Patient declined pelvic exam. Constitutional: Appearance: [...] VU APRN-CNP 12/15/232120 documented [facility] 11-28-2023 History of Presen t illness Narrative [address] [place] [address] Patient: Carmelina Courtney Date of : 2005 [...] SpO2 92% BMI 23.10 kg/m Physical Exam Neurophysiological Technician present: Patient declined pelvic exam. Psychiatric: Mood [...] was recommended that patient start plan B [id number] as she does not wish to have [...] APRN-CNP 11/28/23 174 documented in this encounter [facility] 11-28-2023 Miscellaneous Notes Addended by: SUJEY MEZA on: 11/28/2023 05:46 PM Modules accepted: Orders documented in this encounter [facility] 11-28-2023 Note Addended by: SUJEY MEZA on: 11/28/2023 05:46 PM Modules accepted: Orders [facility] 05-18-2022 Evaluation note Encounter Date [...] your family physician for any further concerns [facility] Other 02-01-2022 History general Narrative - Reported* Type Description Date Medical History anxiety Hospitalization History mental health 12/2021 [facility] Other Evaluation noteNo InformationNort [employer] Other Evaluation note* Diagnosis Vaginal discharge- Primary Leukorrhea, not specified as infective High risk heterosexual behavior Anxiety Anxiety state, unspecified [facility] Diagnosis Anxiety- Primary Anxiety state, unspecified Moderate episode of recurrent major depressive disorder ([facility]) Vaginal discharge Leukorrhea, not specified as infective [facility]* Attachments The following attachments cannot be sent through Care Everywhere. * Buspirone, ADULT (Danish) documented in [facility] encounter[facility] CenterInstructionsNot on file documented in this encounterMain Campus Medical CenterInstructionsNot on file documented in this encounterMain [facility] CenterInstructions* Attachments The following attachments cannot be sent through Care Everywhere. * Vortioxetine, ADULT (Danish) documented in [facility] encounterMain [facility] CenterReason for referral (narrative)* Consultation (Routine) - Pending Review Specialty Diagnoses / Procedures Referred By Dorothea felix Referred To Contact Psychiatry Diagnoses Anxiety Sujey Meza APRN-CNP [address] [facility] [address] [facility] [address] [place] [address] Aparna Arias MD [address] [place] [id number] Referral ID Status Reason Start Date Expiration Date Visits Requested Visits Authorized [id number] Pending Review Specialty Services Required 11/28/2023 11/27/2024 1 1 [facility] Summary Purpose Family History No Family [...] Contcoy felix Referred To Contact Sujey Meza APRN-CNP [address] [place] [address] Referral ID Status Reason Start Date Expiration Date V isits Requested Visits Authorized [id number] Pending Review 1 1 Additional Source Comments REASON FOR VISIT (unrecogniz ed section and content) Reason Comments Anxiety INFORMATION SOURCE (unrecogn ized section and content) DATE CREATED AUTHOR 08/28/2022 [place] DATE CREATED AUTHOR AUTHOR'S ORGANIZ ATION 12/29/2022 [facility] DATE CREATED AUTHOR AUTHOR'S ORGANIZ ATION 05/03/2023 [facility] DATE CREATED AUTHOR AUTHOR'S ORGANIZ ATION 12/15/2023 [facility] DATE CREATED AUTHOR AUTHOR'S ORGANIZ ATION 06/19/2024 [facility] DATE CREATED AUTHOR AUTHOR'S ORGANIZ ATION 08/07/2024 [facility] EPIC Care Teams (unrecognized sec tion and content) Corporate Sales Manager Relationship Specialty Start Date End Date [facility] [address] [place] [address] PCP - General Internal Medicine 05/17/23 Corporate Sales Manager Relationship Specialty Start Date End Date Sujey Meza DIRECTOR OF MARKETING COMM[facility]ICATION[facility] [address] [place] [address] PCP - General Internal Medicine 05/17/23 Corporate Sales Manager Relationship Specialty Start Date End Date [facility]jey [facility] [address] [place] [address] PCP - General Internal Medicine 05/17/23 FOR [...] BE BASED ON THE PRIMARY CLINICAL RECORDS. [facility] [employer] [facility]. provides no warranty or guarantee of the accuracy or completeness of information in this document.
== END 2024-08-20 14:55 | disposition home or self-care (01) ==
LOC: US 14:54
PROVIDERS: PCP Family Medicine; Visit Provider Obstetrics & Gynecology
DX: O26.849 Uterine size-date discrepancy, unspecified trimester (principal); Z3A.36 36 weeks gestation of pregnancy
CPT/HCPCS: 76816; 87081; 87150

== ENCOUNTER 2024-08-20 19:29 | Outpatient (REF) | payer MEDICAID, SELFPAY ==
--- OUTSIDE RECORDS SUMMARY | 2024-08-20 19:32 | XMS_ITS | CCD ---
Author Organization [facility] Care Team Providers Care Deep Well Contractor Name Role Phone Gina Stallworth Unavailable Lynn Bonilla Unavailable Jose Elias Singh Primary Care Unavailable Gina Satllworth Attending Unavailable Gina Stallworth Admitting Unavailable Bonilla, [...] BELIA ., DR [place] Consulting Unavailable Derrickaaliyah [employer] KILN OPERATOR, Sujey Nicole Primary Care Provider DERRICK, [...] (Vag fld) Detected Abnormal Not Detected^Not Detected [facility] Comment on above: Qualitative results are reported based on detection and quantitation of targeted organism markers which include: Lactobacillus spp. (L. crispatus and L. jensenii), Gardnerella vaginalis, Atopobium vaginae, Bacterial Vaginosis Associated Bacteria-2 (BVAB-2) and Megasphaera-1 C. glabrata DNA JORDON+probe Ql (Vag fld) Not detected Not Detected^Not Detected [facility] Comment on above: No Mervat glabrata detected C. krusei DNA JORDON+probe Ql (Vag fld) Not detected Not Detected^Not Detected [facility] Comment on above: No Mervat krusei de tected Mervat sp 6 panel JORDON+probe (Vag fld) Not detected Not Detected^Not Detected [facility] Comment on above: Mervat species not detected include: C. albicans, C. tropicalis, C. parapsilosis or C. dubliniensis Interpretation and review of laboratory results Abnormal [facility] T. vaginalis DNA JORDON+probe Ql (Vag fld) Not detected Not Detected^Not Detected [facility] Comment on above: No Trichomonas vagin rosemary detected NOTE BD MAX Vaginal Panel has not been evaluated for patients under 18 years old. Results for these patients should be reviewed and assessed in accordance with clinical presentation to determine patient diagnosis. [facility] VAGINITIS PANEL PCRon 2023 VAGINITIS PANEL PCR [...] clinical presentation to determine patient diagnosis. Normal [facility] Comment on above: Performed By: #### V PPCR #### [facility] ([id number]) [address] [place] [address], [address] [place] [address] CHLAMYDIA/GC PCR, Uon 2023 CHLAMYDIA/GC PCR, U [...] are dependent on adequate specimen collection. Normal [facility] Comment on above: Performed By: #### C #### [facility] ([id number]) [facility], [address] [place] [address] POCT , urineon Beta HCG ( test) Ql (U) Negative [facility] VAGINITIS PANEL PCRon 2023 VAGINITIS PANEL [...] clinical presentation to determine patient diagnosis. Normal [facility] Comment on above: Performed By: #### V PPCR #### [facility] ([id number]) [facility], [address] [place] [address] US PREG CERVICAL LENGTHon US PREG CERVICAL [...] ALEXIA REEVES Date: 2023-04-23 06:59 Normal [facility] INFLUENZA A AND B AGon 04-16 INFLUENZA A AG Negative Normal NEGATIVE SEE COMMENT [facility] Comment on above: Performed By: #### I NFLUAB #### [facility] [address] [place] [address] Dr. Ryan Martinez INFLUENZA B AG Negative Normal NEGATIVE SEE COMMENT [facility] Comment on above: Performed By: #### I NFLUAB #### [facility] [address] [address] [address] Ryan Martinez UA (CLEAN/CATCH) COOKY MACHINE OPERATOR/MICRO I F IND.on 04-16-2023 Bilirubin Ql (U) Negative Normal NEGATIVE [facility] Comment on above: Performed By: #### U ACSIND #### [facility] [address] [place] [address] Dr. Ryan Martinez Clarity (U) CLEAR Normal CLEAR [facility] Comment on above: Performed By: #### U ACSIND #### [facility] [address] [address] [address] Ryan Martinez Color (U) LT. YELLOW Normal YELLOW [facility] Comment on above: Performed By: #### U ACSIND #### [facility] [address] [address] [address] Ryan Martinez Glucose Ql (U) Negative Normal NEGATIVE [facility] Comment on above: Performed By: #### U ACSIND #### [facility] [address] [address] [address] Ryna Martinez Hemoglobin Ql (U) Negative Normal NEGATIVE [facility] Comment on above: Performed By: #### U ACSIND #### [facility] [address] [address] [address] Ryan Martinez Ketones Ql (U) >=80 Abnormal NEGATIVE [facility] Comment on above: Performed By: #### U ACSIND #### [facility] [address] [address] [address] Ryan Martinez LEUKOCYTES Negative Normal NEGATIVE [facility] Comment on above: Performed By: #### U ACSIND #### [facility] [address] [address] [address] Ryan Martinez Nitrite Ql (U) Negative Normal NEGATIVE [facility] Comment on above: Performed By: #### U ACSIND #### [facility] [address] [place] [address] Dr. Ryan Martinez pH (U) 6.5 [pH] Normal 5-9 [facility] Comment on above: Performed By: #### U ACSIND #### [facility] [address] [address] [address] Ryan Martinez SPEC GRAVITY 1.010 Normal 1.005-<=1.02 5 [facility] Comment on above: Performed By: #### U ACSIND #### [facility] [address] [address] [address] Ryan Martinez UA PROTEIN Negative Normal NEGATIVE/ TRACE [facility] Comment on above: Performed By: #### U ACSIND #### [facility] [address] [address] [address] Ryan Martinez UR MICRO IND NOT INDICATED Normal [facility] Comment on above: Performed By: #### U ACSIND #### [facility] [address] [place] [address] Dr. Ryan Martinez Urobilinogen Qn (U) 0.2 {Han'U}/dL Normal 0.2 - 1. 0 [facility] Comment on above: Performed By: #### U ACSIND #### [facility] [address] [place] [address] Dr. Ryan Martinez HEP B SURFACE ANTIGEN SCREEN on 03-16-2023 HBsAg Screen Negative Normal Negative [facility] Comment on above: Performed By: #### H BSANS #### [facility] [address] [place] [address] Dr. Ryan Martinez HEPATITIS C VIRUS AB W/ REFL EX QUANTon 03-16-2023 HCV AB Non-Reactive Normal Non Reactive [facility] Comment on above: Performed By: #### C BC #### [facility] [address] [place] [address] Dr. Ryan Martinez Interpretation: Comment Normal [facility] Comment on above: Result Comment: Not infected with HCV unless early or acute infection is suspected (which may be delayed in an immunocompromised individual), or other evidence exists to indicate HCV infection. Performed By: #### C BC #### [facility] [address] [place] [address] Dr. Ryan Martinez HIV 1 AND 2 WITH REFLEXon HIV Screen 4th Generation wRfx Non-Reactive Normal Non Reactive [facility] Comment on above: Result Comment: HIV Negative HIV-1/HIV-2 antibodies and HIV-1 p24 antigen were NOT detected. There is no laboratory evidence of HIV infection. Performed By: #### H IV12 #### [facility] [address] [place] [address] Dr. Ryan Martinez RPR QUANTon 03-16-2023 Rapid Plasma Reagin, Quant Non-Reactive Normal NonRea<1:1 [facility] Comment on above: Result Comment: Plea se Note: This test does not meet current guidelines for screening and diagnosis of syphilis. This test is intended for following treatment response in patients being treated for syphilis infection. To screen for syphilis infection, a reflex cascade that includes both RPR and a treponema-specific assay should be utilized, such as Treponema pallidum (Syphilis) Screening Peralta (006421) or Rapid Plasma Reagin (RPR) Test With Reflex to Quantitative RPR and Confirmatory Treponema pallidum Antibodies (081297). Performed By: #### R PRQ #### [facility] [address] [place] [address] Dr. Ryan Martinez RUBELLA AB IGGon 03-16-2023 Rubella Antibodies, IgG 4.40 index Normal Immune >0.99 [facility] Comment on above: Result Comment: Non- immune <0.90 Equivocal 0.90 - 0.99 Immune >0.99 Performed By: #### R UBIGG #### [facility] [address] [place] [address] Dr. Ryan Martinez BOX TEST SENT OUTon 03-15-20 23 SENT TO REF LAB 03/15/2023 Normal [facility] Comment on above: Performed By: #### C BC #### [facility] [address] [place] [address] Dr. Ryan Martinez CBC AUTO DIFFon 03-15-2023 BASO # 0.1 103/ul Normal 0.0-0.1 [facility] Comment on above: Performed By: #### C BC #### [facility] [address] [place] [address] Dr. Ryan Martinez Basophils/100 WBC (Bld) 0.5 % Normal 0.2-2.0 [facility] Comment on above: Performed By: #### C BC #### [facility] [address] [place] [address] Dr. Ryan Martinez EO # 0.2 103/ul Normal 0.0-0.7 [facility] Comment on above: Performed By: #### C BC #### [facility] [address] [place] [address] Dr. Ryan Martinez Eosinophils/100 WBC (Bld) 1.9 % Normal 0.9-7.0 [facility] Comment on above: Performed By: #### C BC #### [facility] [address] [place] [address] Dr. Ryan Martinez Erythrocyte distribution width (RBC) [Ratio] 13.2 % Normal 11.0-15.0 [facility] Comment on above: Performed By: #### C BC #### [facility] [address] [place] [address] Dr. Ryan Martinez Hematocrit (Bld) [Volume fraction] 35.7 % Critically low 36.0-48.0 [facility] Comment on above: Performed By: #### C BC #### [facility] [address] [place] [address] Dr. Ryan Martinez Hemoglobin (Bld) [Mass/Vol] 12.2 g/dL Normal 12.0-16.0 [facility] Comment on above: Performed By: #### C BC #### [facility] [address] [place] [address] Dr. Ryan Martinez IG # 0.05 10e3/ul Critically high 0.00-0.03 [facility] Comment on above: Performed By: #### C BC #### [facility] [address] [place] [address] Dr. Ryan Martinez IG % 0.5 % Normal 0.0-0.5 [facility] Comment on above: Performed By: #### C BC #### [facility] [address] [place] [address] Dr. Ryan Martinez LYMPH # 1.9 103/ul Normal 1.2-3.8 [facility] Comment on above: Performed By: #### C BC #### [facility] [address] [place] [address] Dr. Ryan Martinez Lymphocytes/100 WBC (Bld) 20.1 % Critically low 20.5-60.0 [facility] Comment on above: Performed By: #### C BC #### [facility] [address] [place] [address] Dr. Ryan Martinez MANUAL DIFF REQ NO Normal [facility] Comment on above: Performed By: #### C BC #### [facility] [address] [address] [address] Ryan Martinez MCH (RBC) [Entitic mass] 30.9 pg Normal 26.7-34.0 [facility] Comment on above: Performed By: #### C BC #### [facility] [address] [place] [address] Dr. Ryan Martinez MCHC (RBC) [Mass/Vol] 34.2 g/dL Normal 29.9-35.2 [facility] Comment on above: Performed By: #### C BC #### [facility] [address] [place] [address] Dr. Ryan Martinez MCV (RBC) [Entitic vol] 90.4 fL Normal 81.0-99.0 [facility] Comment on above: Performed By: #### C BC #### [facility] [address] [place] [address] Dr. Ryan Martinez MONO # 0.8 103/ul Normal 0.3-0.8 [facility] Comment on above: Performed By: #### C BC #### [facility] [address] [place] [address] Dr. Ryan Martinez Monocytes/100 WBC (Bld) 8.0 % Normal 1.7-12.0 [facility] Comment on above: Performed By: #### C BC #### [facility] [address] [place] [address] Dr. Ryan Martinez NEUT # 6.5 103/ul Normal 1.4-6.5 [facility] Comment on above: Performed By: #### C BC #### [facility] [address] [place] [address] Dr. Ryan Martinez Neutrophils/100 WBC (Bld) 69.0 % Normal 43.0-75.0 [facility] Comment on above: Performed By: #### C BC #### [facility] [address] [place] [address] Dr. Ryan Martinez Platelet mean volume (Bld) [Entitic vol] 9.4 fL Critically low 9.5-13.5 [facility] Comment on above: Performed By: #### C BC #### [facility] [address] [address] [address] Ryan Martinez PLT 238 103/ul Normal 150-450 [facility] Comment on above: Performed By: #### C BC #### [facility] [address] [address] [address] Ryan Martinez RBC 3.95 106/ul Critically low 4.20-5.40 [facility] Comment on above: Performed By: #### C BC #### [facility] [address] [address] [address] Ryan Martinez WBC 9.5 103/ul Normal 4.0-11.0 [facility] Comment on above: Performed By: #### C BC #### [facility] [address] [place] [address] Dr. Ryan Martinez CULTURE URINEon 03-15-2023 CULTURE URINE Culture Observations : NO GROWTH. Normal [facility] Comment on above: Performed By: #### C BC #### [facility] [address] [place] [address] Dr. Ryan Martinez GLYCOHEMOGLOBIN A1Con 2022 ADA RECOMMENDATION SEE BELOW Normal [facility] Comment on above: Result Comment: ADA RECOMMENDED LIMIT 4.0 - 6.0 ADA THERAPEUTIC TARGET < 7.0 ACTION SUGGESTED > 7.0 Performed By: #### A 1C #### [facility] [address] [place] [address] Dr. Ryan Martinez Glucose [Mass/Vol] 88 mg/dL Normal [facility] Comment on above: Performed By: #### A 1C #### [facility] [address] [place] [address] Dr. Ryan Martinez HbA1c (Bld) [Mass fraction] 4.7 % Normal 4.5-6.2 [facility] Comment on above: Performed By: #### A 1C #### [facility] [address] [place] [address] Dr. Ryan Martinez URon 03-15-2023 , QUAL Positive Abnormal NEGATIVE [facility] Comment on above: Performed By: #### C BC #### [facility] [address] [place] [address] Dr. Ryan Martinez TSHon 03-15-2023 TSH 1.649 uIU/mL Normal 0.516-4.130 [facility] Comment on above: Performed By: #### T SH #### [facility] [address] [place] [address] Dr. Ryan Martinez TYPE AND SCREENon 03-15-2023 TYPE AND SCREEN Negative Normal [facility] Comment on above: Performed By: #### C BC #### [facility] [address] [place] [address] Dr. Ryan Martinez UA RANDOMon 03-15-2023 Bilirubin Ql (U) Negative Normal NEGATIVE [facility] Comment on above: Performed By: #### U A, PREGU #### [facility] [address] [place] [address] Dr. Ryan Martinez Clarity (U) CLEAR Normal CLEAR [facility] Comment on above: Performed By: #### U A, PREGU #### [facility] [address] [place] [address] Dr. Ryan Martinez Color (U) LT. YELLOW Normal YELLOW [facility] Comment on above: Performed By: #### U A, PREGU #### [facility] [address] [place] [address] Dr. Ryan Martinez Glucose Ql (U) Negative Normal NEGATIVE [facility] Comment on above: Performed By: #### U A, PREGU #### [facility] [address] [place] [address] Dr. Ryan Martinez Hemoglobin Ql (U) Negative Normal NEGATIVE [facility] Comment on above: Performed By: #### U A, PREGU #### [facility] [address] [place] [address] Dr. Ryan Martinez Ketones Ql (U) Negative Normal NEGATIVE [facility] Comment on above: Performed By: #### U A, PREGU #### [facility] [address] [place] [address] Dr. Ryan Martinez LEUKOCYTES Negative Normal NEGATIVE [facility] Comment on above: Performed By: #### U A, PREGU #### [facility] [address] [address] [address] Ryan Martinez Nitrite Ql (U) Negative Normal NEGATIVE [facility] Comment on above: Performed By: #### U A, PREGU #### [facility] [address] [address] [address] Ryan Martinez pH (U) 7.0 [pH] Normal 5-9 [facility] Comment on above: Performed By: #### U A, PREGU #### [facility] [address] [place] [address] Dr. Ryan Martinez SPEC GRAVITY 1.010 Normal 1.005-<=1.02 5 [facility] Comment on above: Performed By: #### U A, PREGU #### [facility] [address] [place] [address] Dr. Ryan Martinez UA PROTEIN Negative Normal NEGATIVE/ TRACE [facility] Comment on above: Performed By: #### U A, PREGU #### [facility] [address] [place] [address] Dr. Ryan Martinez Urobilinogen Qn (U) 0.2 {Han'U}/dL Normal 0.2 - 1. 0 [facility] Comment on above: Performed By: #### U A, PREGU #### [facility] [address] [place] [address] Dr. Ryan Martinez US PREG TVon 02-21-2023 [...] by: ALEXIA REEVES Date: 2023-02-21 15:09 Normal [facility] Chlamydia/GC/Trich NAAon Chlamydia/GC/Trich JORDON Negative Negative [employer] Other Chlamydia/GC/Trich JORDON Positive Critically abnormal Negative [employer] [facility] [employer] Other Chlamydia Trachomotis, JORDON Negative Normal Negative [facility] Comment on above: Order Comment: Reaso n for Exam Sexually transmitted disease exposure Performed By: #### G CCHLAMTRI #### [facility] , Neisseria Gonorrhoeae, JORDON Positive Critically abnormal Negative [facility] Comment on above: Order Comment: Reaso n for Exam Sexually transmitted disease exposure Performed By: #### G CCHLAMTRI #### [facility] , Trichomonas JORDON Negative Normal Negative [facility] Comment on above: Order Comment: Reaso n for Exam Sexually transmitted disease exposure Result Comment: Perf ormed at: =G - [facility] [address] [id number] In Flight Technician: Norma Manuel MD, Phone: [phone] PERFORMED BY: [address] [place] [address] PATHOLOGIST NEWS ASSIGNMENT EDITOR STEPHANE MILES M.D. Performed By: #### G CCHLAMTRI #### [facility] , Urine Cultureon 02-22-2022 Bacteria identified Cx Nom (U) ORGANISM: Escherichia coli (O:ESCCOL) Boyle Count >100,000 Aerobic STEVEN Charge (NUC86) ---- [...] RESISTANT TO ALL B-LACTAM DRUGS. PERFORMED BY: [place] [address] PATHOLOGIST NEWS ASSIGNMENT EDITOR STEPHANE MILES M.D. Normal [facility] Comment on above: Performed By: #### C UU #### [place] [address] [place] Vaginitis Plus (VG+)on 02-22 Atopobium Vaginae Moderate - 1 Normal . [facility] Comment on above: Performed By: #### V AGINITIS+ #### [facility] , BVAB2 High - 2 Critically abnormal . [facility] Comment on above: Performed By: #### V AGINITIS+ #### [facility] , Mervat Albicans, JORDON Negative Normal Negative [facility] Comment on above: Result Comment: This test was developed and its performance characteristics determined by [employer]. It has not been cleared or approved by the Food and Drug Administration. Performed By: #### V AGINITIS+ #### [facility] , Mervat Glabrata, JORDON Negative Normal Negative [facility] Comment on above: Result Comment: This test was developed and its performance characteristics determined by [employer]. It has not been cleared or approved by the Food and Drug Administration. PERFORMED BY: [place] [address] PATHOLOGIST NEWS ASSIGNMENT EDITOR STEPHANE MILES M.D. Performed By: #### V AGINITIS+ #### [facility] , Chlamydia Trachomotis, JORDON Positive Critically abnormal Negative [facility] Comment on above: Performed By: #### V AGINITIS+ #### [facility] , Megasphaera High - 2 Critically abnormal . [facility] Comment on above: Result Comment: Calc ulate [...] developed and its performance characteristics determined by [employer]. It has not been cleared or approved by the Food and Drug Administration. Performed By: #### V AGINITIS+ #### [facility] , Neisseria Gonorrhoeae, JORDON Negative Normal Negative [facility] Comment on above: Result Comment: Perf ormed at: =G - [facility] [address] [id number] In Flight Technician: Norma Manuel MD, Phone: [phone] Performed By: #### V AGINITIS+ #### [facility] , Tric Vag JORDON Negative Normal Negative [facility] Comment on above: Performed By: #### V AGINITIS+ #### [facility] , ECG 12 lead ECGon 01-02-2022 ECG 12 lead ECG [facility] [place] [address] Electrocardiograph Report Signed Patient: Carmelina Courtney LM MR#: [id number] 15 : 2005 Acct:[id number] Age/Sex: 16 / F ADM Date: 01/01/22 Loc: Room: [address] [place] [address] Type: DIS IN Attending Dr: Bernardino De [...] available Confirmed by ROSEANN SOUSA [facility], CELIO ([id number]) on 01/02/2022 12:21:02 PM Referred By: Electronically Signed By:CELIO CIFUENTES MD [facility] Transcribed By: MUS Signed By Celio Cifuentes MD, [facility] 01/02/22 1221 Normal [facility] Lipid Panelon 01-02-2022 Cholesterol [Mass/Vol] 138 mg/dL Low 140-200 [facility] Comment on above: Result Comment: Chol less than 200 mg/dl low risk Chol 201-239 mg/dl borderline risk Chol 240 mg/dl and greater high risk Performed By: #### L IPID, TSH3 wRFLX, [id number] #### [facility] [address] [id number] [place] Cholesterol in HDL [Mass/Vol] 45 mg/dL Normal 35-85 [facility] Comment on above: Result Comment: HDL CHOL ATP-III CLASSIFICATION Cardiovascular Risk HDL > or equal to 60 mg/dL LOW HDL < 40 mg/dL HIGH Performed By: #### L IPID, TSH3 wRFLX, [id number] #### [facility] [address] [place] [address] [place] Cholesterol.total/C holesterol in HDL [Mass ratio] 3.1 {ratio} Normal <5.0 [facility] Comment on above: Performed By: #### L IPID, TSH3 wRFLX, [id number] #### [facility] [address] [place] [address] [place] LDL Cholesterol,Calcula jade 82 mg/dL Normal 0-100 [facility] Comment on above: Result Comment: LDL ATP III CLASSIFICATION LDL less than 100 mg/dL Optimal LDL 100-129 mg/dL Near or above optimal LDL 130-159 mg/dL Borderline high LDL 160-189 mg/dL High LDL greater than 189 mg/dL Very high Performed By: #### L IPID, TSH3 wRFLX, [id number] #### [facility] [address] Triglyceride w/Reflex 54 mg/dL Normal 35-149 [facility] Comment on above: Result Comment: TRIG ATP III CLASSIFICATION TRIG less than 150 mg/dL Normal TRIG 150-199 mg/dL Borderline high TRIG 200-500 mg/dL High TRIG greater than 500 mg/dL Very high Standard traceable to the Center for Disease Conrtrol and Prevention (CDC) test method. Performed By: #### L IPID, TSH3 wRFLX, [id number] #### [facility] [address] VLDL CHOLESTEROL 10 mg/dL Normal [facility] Comment on above: Performed By: #### L IPID, TSH3 wRFLX, [id number] #### [facility] [address] [place] [address] Thyroid Stim Hormone w/Rflxo n 01-02-2022 Thyroid Stim Hormone w/Rflx 1.38 u[iU]/mL Normal 0.45-5.33 [facility] Comment on above: Performed By: #### L IPID, TSH3 wRFLX, [id number] #### [facility] [address] [place] [address] Vitamin D 25 Hydroxy Totalon 01-02-2022 Vitamin D 25 Hydroxy Total 27.6 ng/mL Low 30-100 [facility] Comment on above: Result Comment: JENN MIN D STATUS 25(OH)VITAMIN D RANGE (ng/mL) Deficient <20 Insufficient 20 to <30 Sufficient 30 to 100 Reference: Hector MF,Marques NC, Alpa-Hemant VILLALTA, et al. Evaluation,treatment, and prevention of vitamin D deficiency; an Endocrine Society clinical practice guideline. JCEM. 2010; 96(7):1911-30. PERFORMED BY: [place] [address] PATHOLOGIST NEWS ASSIGNMENT EDITOR STEPHANE MILES M.D. Performed By: #### L IPID, TSH3 wRFLX, [id number] #### [address] Vital Signs Date Time Vital Sign Value Performing Clinician Facility 12-12-2023 16:29-0500 Body height 162.6 cm Sujey Meza APRN-M[employer]SE KILN OPERATOR Work Phone: [facility] [employer] [facility] 12-12-2023 16:29-0500 Body mass index (BMI) [Ratio] 22.76 kg/m2 Sujey eMza SKEINER-[employer] KIL[employer] OPERATOR Work Phone: [facility] [employer] [facility] 12-12-2023 16:29-0500 Body temperature 99 [degF] Sujey Meza SKEINER-[employer] OPERATOR Work Phone: [facility] [employer] [facility] 12-12-2023 16:29-0500 Body weight 60.15 kg Sujey Meza SKEINER-[employer] OPERATOR Work Phone: [facility] [employer] [facility] 12-12-2023 16:29-0500 Diastolic blood pressure 60 mm[Hg] Sujey Meza SKEINER-[employer] OPERATOR Work Phone: [facility] [employer] [facility] 12-12-2023 16:29-0500 Heart rate 76 /min Sujey Meza SKEINER-[employer] OPERATOR Work Phone: [facility] [employer] [facility] 12-12-2023 16:29-0500 SaO2% (BldA) [Mass fraction] 96 % Sujey Meza SKEINER-[employer] OPERATOR Work Phone: [facility] [employer] [facility] 12-12-2023 16:29-0500 Systolic blood pressure 98 mm[Hg] Sujey Meza SKEINER-[employer] OPERATOR Work Phone: [facility] [employer] [facility] 11-28-2023 15:17-0500 Body mass index (BMI) [Ratio] 23.1 kg/m2 Sujey Meza SKEINER-[employer] OPERATOR Work Phone: [facility] [employer] [facility] 11-28-2023 15:17-0500 Body temperature 99.39 [degF] Sujey Meza SKEINER-[employer] OPERATOR Work Phone: [facility] [employer] [facility] 11-28-2023 15:17-0500 Body weight 61.05 kg Sujey Meza SKEINER-[employer] OPERATOR Work Phone: [email or web address] 11-28-2023 15:17-0500 Diastolic blood pressure 50 mm[Hg] Sujey Meza SKEINER-[employer] OPERATOR Work Phone: [email or web address] 11-28-2023 15:17-0500 Heart rate 61 /min Sujey Meza APRN-[employer] K[employer] OPERATOR Work Phone: [email or web address] 11-28-2023 15:17-0500 SaO2% (BldA) [Mass fraction] 92 % Sujey Meza SKEINER-[employer] OPERATOR Work Phone: [email or web address] 11-28-2023 15:17-0500 Systolic blood pressure 90 mm[Hg] Sujey Meza SKEINER-[employer] KIL[employer] OPERATOR Work Phone: [email or web address] 05-18-2022 11:50-0400 Body height 161.29 cm Gina Federica Other [employer] Other 05-18-2022 11:50-0400 Body mass index (BMI) [Ratio] 27.55 kg/m2 Gina Federica Other [employer] Other 05-18-2022 11:50-0400 Body temperature 97.8 [degF] Gina Stallworth Other [facility] [facility] Other 05-18-2022 11:50-0400 Body weight 71.67 kg Gina Federica Other [facility] Other 05-18-2022 11:50-0400 Diastolic blood pressure 67 mm[Hg] Gina Stallworth Other [employer] [facility] Other 05-18-2022 11:50-0400 Respiratory rate 16 /min Gina Stallworth Other [employer] Other 05-18-2022 11:50-0400 SaO2% (BldA) [Mass fraction] 100 % Gina Stallworth Other [facility] [facility] Other 05-18-2022 11:50-0400 Systolic blood pressure 113 mm[Hg] Gina Landismond Other [employer] Other Encounters Encounter Date Encounter Type Care Provider Facility Start: 08-05-2024 End: 08-05-2024 ambulatory MARY JO BELIA Not Available Start: 07-22-2024 End: 07-22-2024 ambulatory MARISA CANDICE Not Available Start: 07-08-2024 End: 07-08-2024 ambulatory MARY JO BELIA Not Available Start: 06-23-2024 End: 06-23-2024 ambulatory MARISA CANDICE Not Available Start: 06-16-2024 End: 06-16-2024 ambulatory [facility] Start: 05-26-2024 End: 05-26-2024 ambulatory MARY JO BELIA Not Available Start: 05-14-2024 End: 05-14-2024 ambulatory MARISA CANDICE Not Available Start: 12-15-2023 Orders Only Sujey Nciole Derrick SKEINER-[employer] K[employer] OPERATOR Work Phone: [facility] Start: 12-13-2023 End: 12-13-2023 ambulatory [facility] Start: 12-12-2023 End: 12-12-2023 Office outpatient visit 15 minutes Sujey L Derrick SKEINER-[employer] K[employer] OPERATOR Work Phone: [facility] Comment on above: Anxiety (Primary Dx) ; Moderate episode of recurrent major depressive disorder (CMS-HCC); Vaginal discharge Start: 12-12-2023 End: 12-12-2023 ambulatory [facility] Start: 11-29-2023 Orders Only Sujey L Derrick SKEINER-[employer] OPERATOR Work Phone: [facility] Start: 11-29-2023 End: 11-29-2023 ambulatory [facility] Start: 11-28-2023 End: 11-28-2023 Office outpatient visit 15 minutes Sujey Meza SKEINER-[employer] OPERATOR Work Phone: [facility] Comment on above: Vaginal discharge (P rimary Dx); High risk heterosexual behavior; Anxiety Start: 11-28-2023 End: 11-28-2023 ambulatory [facility] Start: 10-15-2023 End: 10-15-2023 ambulatory [...] JO CELAYA . Facility:[facility] Start: 07-17-2022 ambulatory [facility] Start: 05-18-2022 Office outpatient vi sit 15 minutes Gina Stallworth [facility] [place] Start: 05-18-2022 End: 05-18-2022 ambulatory Jose Elias Singh [employer] Other Start: 02-27-2022 End: 02-27-2022 ambulatory Lynn Bonilla Other [employer] Other Start: 02-27-2022 Telephone encounter Lynn Bonilla [facility] Start: 02-26-2022 End: 02-26-2022 ambulatory Lynn Bonilla Other [employer] Other Start: 02-26-2022 Telephone encounter Lynn Bonilla [facility] [address] Start: 02-22-2022 End: 02-22-2022 ambulatory Lynn Bonilla Facility:[facility] Start: 01-01-2022 End: 01-08-2022 Evaluation and management of inpatient Bernardino Wil Facility:[facility] Procedures Date Procedure Procedure Detail Performing Clinician Start: 12-12-2023 Adult depression screening assessment Sujey Meza SKEINER-[employer] OPERATOR Work Phone: Start: 11-28-2023 Urine test visual color cmprsn meths Sujey Meza SKEINER-[employer] OPERATOR Work Phone: Start: 11-28-2023 Adult depression screening assessment Sujey Meza SKEINER-[employer] OPERATOR Work Phone: Plan of Treatment Date Care Activity Detail Author Start: 12-12-2024 Adult BMI Screening Adult BMI Screen ing [facility] Start: 12-12-2024 Depression Screening Depression Scre ening [facility] Start: 12-12-2024 Tobacco Screening Tobacco Screening [facility] Start: 11-28-2024 Adult BMI Screening Adult BMI Screen ing [facility] Start: 11-28-2024 Depression Screening Depression Scre ening [facility] Start: 11-28-2024 Screening for Chlamy katt trachomatis Chlamydia Screening [facility] Start: 11-28-2024 Tobacco Screening Tobacco Screening [facility] Start: 12-12-2023 End: 12-12-2023 Patient encounter procedure 12/12/2023 4:30 PM EST [facility] [address] [place] [address] Sujey Meza, SKEINER-[employer] OPERATOR [address] [place] [address] [facility] Start: 07-26-2023 Influenza vaccination Influenza Vacc ine [facility] Start: 2022 DTaP,Tdap and Td Vaccines (1 - Tdap) DTaP,Tdap and Td Vaccines (1 - Tdap) [facility] Start: 2003 Screening for Chlamy katt trachomatis Chlamydia Screening [facility] End: 11-27-2024 Chlamydia/GC by PCR urine Chlamydia/GC by PCR urine Microbiology Routine Vaginal discharge 1 Occurrences starting 11/28/2023 until 11/27/2024 [facility] Comment on above: 1 Occurrences starti ng 11/28/2023 until 11/27/2024 Chlamydia/GC by PCR urine Chlamydia/GC by PCR urine Microbiology Routine Vaginal discharge 11/28/2023 10:11 PM EST [facility] End: 11-28-2024 Vaginitis Panel PCR Vaginitis Panel PCR Microbiology Routine Vaginal discharge 1 Occurrences starting 11/28/2023 until 11/28/2024 [facility] Work Phone: Comment on above: 1 Occurrences starti ng 11/28/2023 until 11/28/2024 Vaginitis Panel PCR Vaginitis Pa jerry PCR Microbiology Routine Vaginal discharge 11/28/2023 10:12 PM EST [facility] [employer] [facility] Payers Date Payer Category Payer Medicaid [place] [id number] 2022-Present [address] [place] [address] [id number] 2022 Unknown 2022 Unknown [id number] 2022 Self-pay 2003 Unknown [id number] 2003 Unknown [id number] 2.840.1.829000.3.579.2.593 2003 Unknown [id number] 2.16840.1.416242.3.579.2.593 2003 Unknown [id number] 2.840.1.428867.3.579.2.593 2003 Unknown [id number] 2.840.1.953298.3.579.2.593 2003 Unknown [id number] 2.16.840.1.249066.3.579.2.593 2003 Unknown [id number] 2.16.840.1.536121.3.579.2.1286 2003 Unknown [id number] 2.16.840.1.982512.3.579.2.1286 2003 Unknown [id number] 2.16.840.1.458704.3.579.2.128 2003 Unknown [id number] 2.16.840.1.506992.3.579.2.128 2003 Unknown [id number] 2.16.840.1.966217.3.579.2.128 2003 Unknown [id number] 2.16.840.1.224661.3.579.2.9 2003 Unknown [id number] 2.16840.1.112325.3.579.2.1258 2003 Unknown [id number] 2.16.840.1.304909.3.579.2.1258 2003 Unknown [id number] 2.16.840.1.800629.3.579.2.1258 2003 Unknown [id number] 2.16.840.1.114615.3.579.2.1258 2003 Unknown [id number] 2.16840.1.012026.3.579.2.1258 2003 Unknown [id number] 2.16.840.1.550055.3.579.2.1259 1959 Unknown [id number] Unknown [id number] 2.16.840.1.597981.3.579.2.531 Unknown [id number] 2.16.840.1.352951.3.579.2.531 Unknown [id number] 2.16.840.1.184414.3.579.2.531 Unknown [id number] 2.16.840.1.291476.3.579.2.531 Social History Date Type Detail Facility Start: 11-28-2023 End: 12-12-2023 Sex Assigned At [facility] [email or web address] Other Start: 08-14-2023 [facility] History of tobacco use Current smoker [facility] [place] History of tobacco use Cigarette Smoker [facility] Start: 08-14-2023 Tobacco use and exposure Smokeless tobacco non-user [facility] Start: 11-28-2023 End: 12-12-2023 Alcohol intake Ex-drinker (finding) [facility] Start: 11-28-2023 End: 12-12-2023 History of Social function [facility] Adolescent depressio n screening assessment 1 [facility] Start: 2003 Sex Assigned At Not on file [facility] Clinical Notes 12-26-2021 to 12-12-2023 [facility] - 12/12/2023 4:30 PM ESTSujey Meza [facility] - 11/28/2023 3:00 PM ESTAddendum Note - [facility] - 11/28/2023 3:00 PM EST Note Date & Type Note Facility 12-12-2023 History of Presen t illness Narrative [address] [facility] [address] Patient: Carmelina Courtney Date of : 2005 [...] Moderate episode of recurrent major depressive disorder ([facility]) Relevant Medications busPIRone (BUSPAR) 10 mg tablet [...] BMI 22.76 kg/m Physical Exam Vitals reviewed. Insecticide Sprayer present: Patient declined pelvic exam. Constitutional: Appearance: [...] VU APRN-CNP 12/15/232120 documented in this encounter [facility] 11-28-2023 History of Presen t illness Narrative [address] [place] [address] Patient: Carmelina Courtney Date of : 2005 [...] SpO2 92% BMI 23.10 kg/m Physical Exam Insecticide Sprayer present: Patient declined pelvic exam. Psychiatric: Mood [...] was recommended that patient start plan B [id number] as she does not wish to have [...] APRN-CNP 11/28/23 174 documented in this encounter [facility] 11-28-2023 Miscellaneous Notes Addended by: SUJEY MEZA on: 11/28/2023 05:46 PM Modules accepted: Orders documented in this encounter [facility] 11-28-2023 Note Addended by: SUJEY MEZA on: 11/28/2023 05:46 PM Modules accepted: Orders [facility] 05-18-2022 Evaluation note Encounter Date Diagnosis Assessment [...] your family physician for any further concerns [facility] Other 02-01-2022 History general Narrative - Reported* Type Description Date Medical History anxiety Hospitalization History mental health 12/2021 [facility] Other Evaluation noteNo InformationNort [employer] Other Evaluation note* Diagnosis Vaginal discharge- Primary Leukorrhea, not specified as infective High risk heterosexual behavior Anxiety Anxiety state, unspecified [facility] Diagnosis Anxiety- Primary Anxiety state, unspecified Moderate episode of recurrent major depressive disorder ([facility]) Vaginal discharge Leukorrhea, not specified as infective [facility]* Attachments The following attachments cannot be sent through Care Everywhere. * Buspirone, ADULT (French) [facility]ructionsNot on file documented in [facility]InstructionsNot on file documented in [facility]ructions* Attachments The following attachments cannot be sent through Care Everywhere. * Vortioxetine, ADULT (French) [facility]Reason for referral (narrative)* Consultation (Routine) - Pending Review Specialty Diagnoses / Procedures Referred By Dorothea felix Referred To Contact Psychiatry Diagnoses Anxiety Sujey Meza APRN-CNP [address] [facility] [place] [place] [address] Aparna Arias MD [address] [place] [id number] Referral ID Status Reason Start Date Expiration Date Visits Requested Visits Authorized [id number] Pending Review Specialty Services Required 11/28/2023 11/27/2024 1 1 [facility] Summary Purpose Family History No [...] felix Referred To Contact Sujey Meza APRN-CNP [address] [place] [address] Referral ID Status Reason Start Date Expiration Date V isits Requested Visits Authorized [id number] Pending Review 1 1 Additional Source Comments REASON FOR VISIT (unrecogniz ed section and content) Reason Comments Anxiety INFORMATION SOURCE (unrecogn ized section and content) DATE CREATED AUTHOR 08/28/2022 [facility] DATE CREATED AUTHOR AUTHOR'S ORGANIZ ATION 12/29/2022 [facility] DATE CREATED AUTHOR AUTHOR'S ORGANIZ ATION 05/03/2023 [facility] DATE CREATED AUTHOR AUTHOR'S ORGANIZ ATION 12/15/[address] [facility] DATE CREATED AUTHOR AUTHOR'S ORGANIZ ATION 06/19/2024 [facility] DATE CREATED AUTHOR AUTHOR'S ORGANIZ ATION 08/07/2024 [facility] EPIC Care Teams (unrecognized sec tion and content) Deep Well Contractor Relationship Specialty Start Date End Date [facility] [address] [place] [address] PCP - General Internal Medicine 05/17/23 [employer] Contractor Relationship Specialty Start Date End Date [facility] [address] [place] [address] PCP - General Internal Medicine 05/17/23 Deep Well Contractor Relationship Specialty Start Date End Date Su[facility] [address] [place] [address] PCP - General Internal Medicine 05/17/23 FOR [...] BE BASED ON THE PRIMARY CLINICAL RECORDS. [facility] [employer] [facility]. provides no warranty or guarantee of the accuracy or completeness of information in this document.
== END 2024-08-20 19:30 | disposition home or self-care (01) ==
LOC: LAB 19:29
PROVIDERS: PCP Family Medicine; Visit Provider Physician Assistant
DX: Z34.93 Encounter for supervision of normal pregnancy, unspecified, third trimester (principal)
CPT/HCPCS: 87081; 87150

== ENCOUNTER 2024-09-08 05:02 | Inpatient (IN) | payer MEDICAID, SELFPAY ==
[2024-09-08] VITALS (38 sets, daily range): BP systolic 97–140; BP diastolic 53–83; PULSE 54–108; TEMP 36.6–36.7
--- OUTSIDE RECORDS SUMMARY | 2024-09-08 05:07 | XMS_ITS | CCD ---
Author Organization [facility] Care Team Providers Care Rn Discharge Name Role Phone Gina Stallworth Unavailable Chad Lynn Unavailable Dinesh, Jose Elias Primary Care Unavailable Gina Stallworth Attending Unavailable Gina Stallworth Admitting Unavailable Bonilla, Lynn L Admitting Unavailable Chad, Lynn L Attending Unavailable Jose Elias Singh Primary Care Unavailable Chad Lynn L Attending Unavailable Chad Lynn L Admitting Unavailable Naderer, Jose Elias Primary Care Unavailable WilKinjalBernardino Attending Unavailable WilKinjalBernardino Admitting Unavailable Nadzachary, Jose Elias Primary Care Unavailable BEATRICE ., DR CAMARGO Admitting Unavailable LALA, DR ALEXIA Boyce Consulting Unavailable BEATRICE ., DR CAMARGO Attending Unavailable NADERER, DR JOSE ELIAS Hassan Primary Care Unavailable BEATRICE ., DR CAMARGO Consulting Unavailable BEATRICE ., DR CAMARGO Admitting Unavailable BEATRICE ., DR CAMARGO Attending Unavailable BEATRICE ., DR CAMARGO Consulting Unavailable NADERER, DR JOSE ELIAS Hassan Primary Care Unavailable BEATRICE ., DR CAMARGO Admitting Unavailable BEATRICE ., DR CAMARGO Attending Unavailable BEATRICE ., DR CAMARGO Consulting Unavailable NADERER, DR JOSE ELIAS Hassan Primary Care Unavailable BEATRICE ., DR CAMARGO Attending Unavailable BEATIRCE ., DR CAMARGO Admitting Unavailable LALA, DR ALEIXA Boyce Consulting Unavailable DINESH, DR JOSE ELIAS Hassan Primary Care Unavailable BEATRICE ., DR CAMARGO Consulting Unavailable NADERER, DR JOSE ELIAS Hassan Primary Care Unavailable LETA ., KRISTI Admitting Unavailable LETA .KRISTI Attending Unavailable BEATRICE ., DR CAMARGO Admitting Unavailable NADERER, DR JOSE ELIAS Hassan Primary Care Unavailable BEATRICE ., DR CAMARGO Attending Unavailable BEATRICE ., DR CAMARGO Consulting Unavailable Derrick MERCHANDISE PLANNING MANAGER-MINIATURE SET DESIGNER, Kerrie L Primary Care Provider DERRICK, KERRIE L Referring Unavailable DERRICK, KERRIE L Primary Care Unavailable DERRICK, KERRIE L Referring Unavailable DERRICK, KERRIE L Primary Care Unavailable DERRICK, KERRIE L Attending Unavailable DERRICK, KERRIE L Referring Unavailable DERRICK, KERRIE L Primary Care Unavailable EMILYSAMMIMIRIAM TAYLOR Attending Unavailable DERRICK, KERRIE L Referring Unavailable DERRICK, KERRIE L Primary Care Unavailable DERRICK, KERRIE L Attending Unavailable DERRICK, KERRIE L Referring Unavailable DERRICK, KERRIE L Primary Care Unavailable Unavailable Primary Care Provider Unavailabl e MARY HARVEY Attending Unavailable BEATRICE, MAYUR Attending Unavailable CANDICE, MARY Attending Unavailable BEATRICE, MAYUR Attending Unavailable CANDICE, MARY Attending Unavailable BEATRICE, MAYUR Attending Unavailable CANDICE, MARY Attending Unavailable BEATRICE, MAYUR Attending Unavailable CANDICE, MARY Attending Unavailable Medications Current Medications Medication Drug [...] the morning. 28 tablet 11 11/28/2023 Active fluticasone propionate 0.05 mg/actuat metered dose nasal spray (6 sources) Corticosteroid Start: 06-16-2024 take 2 spray(s) nasal route in the morning fluticasone (Flonase) 50 MCG/ACT nasal spray Administer 2 sprays into affected nostril(s) in the morning. 06/16/2024 Active magnesium oxide 400 mg oral tablet (6 sources) Start: 06-23-2024 End: 06-23-2025 take 1 tablet by mouth once daily magnesium oxide (Mag-Ox) 400 MG tablet Indications: headache in second trimester Take 1 tablet (400 mg) by mouth Daily 30 tablet 11 06/23/2024 06/23/2025 Active metroNIDAZOLE 500 mg oral tablet (9 sources) Nitroimidazole Antimicrobial Start: 08-24-2024 End: 09-07-2024 take 1 tablet by mouth in the morning metroNIDAZOLE (Flagyl) 500 MG tablet Indications: BV (bacterial vaginosis) Take 1 tablet (500 mg) by mouth in the morning and 1 tablet (500 mg) before bedtime. Do all this for 7 days. Do not drink alcohol while taking this medication. 14 tablet 08/31/2024 09/07/2024 Active Start: 12-15-2023 End: 12-20-2023 metroNIDAZOLE (METROGEL) 0.7 5 % (37.5mg/5 gram) vaginal gel Insert 1 [...] 12 hrs for 5 days Feb, Active Vit-Fe Fumarate-FA ( Plus/Iron) 27-1 MG tablet (6 sources) Start: 06-23-2024 End: 06-23-2025 take 1 tablet by mouth once daily Vit-Fe Fumarate-FA ( Plus/Iron) 27-1 MG tablet Indications: 28 weeks gestation of , headache in second trimester Take 1 tablet by mouth Daily 30 tablet 06/23/2024 06/23/2025 Active vortioxetine 5 mg oral tablet (2 [...] 11-28-2023 Episodic Other and delivery including normal (10 sources) Encounter for supervision of normal , [...] heterosexual behavior] 11-28-2023 Episodic Residual codes; unclassified (2 sources) Gestation period, 37 weeks; Translations: [37 weeks gestation of ] 08-26-2024 Episodic Residual codes; unclassified (2 sources) Gestation period, 38 weeks; Translations: [38 weeks gestation of ] 09-02-2024 Episodic Unclassified (1 source) Z20.2 - Contact [...] Test Name Value Interpretation Reference Range Facility Urinalysis macro (dipstick) panel (U)on 09-02-2024 Bilirubin, UA Negative Negative - 4(70) +++ mg/dL [facility] Blood, UA Negative Negative - 50 Niles/mcL [facility] Clarity, UA Clear [facility] Color, UA Yellow [facility] Glucose, UA Negative Negative - 1999(110) ++++ mg/dL [facility] Interpretation and review of laboratory results Abnormal [facility] Ketones, UA Negative Negative - 160(16) ++++ mg/dL [facility] Leukocytes, UA Positive Negative - 500+++ Gabrielle/mcL [facility] Comment on above: small Nitrite, UA Negative Negative - Positive [facility] pH, UA 6.0 5 - 9 [facility] Protein, UA Negative Negative - 1999(20) ++++ mg/dL [facility] Spec Grav, UA 1.025 1 - 1.03 [facility] Urobilinogen, UA 0.2 0.2 - 12 mg/dL [facility] Urinalysis macro (dipstick) panel (U)on 08-26-2024 Bilirubin, UA Negative Negative - 4(70) +++ mg/dL [facility] Blood, UA Negative Negative - 50 Niles/mcL [facility] Clarity, UA [facility] re Color, UA Yellow [facility] e Glucose, UA Negative Negative - 1999(110) ++++ mg/dL [facility] Interpretation and review of laboratory results Abnormal [facility] re Ketones, UA Negative Negative - 160(16) ++++ mg/dL [facility] Leukocytes, UA Positive Negative - 500+++ Gabrielle/mcL [facility] Comment on above: small Nitrite, UA Negative Negative - Positive [facility] pH, UA 6.0 5 - 9 [facility] Protein, UA Negative Negative - 1999(20) ++++ mg/dL [facility] Spec Grav, UA 1.020 1 - 1.03 [facility] Urobilinogen, UA 0.2 0.2 - 12 mg/dL [facility] Vaginitis Panel PCRon 2023 Bacterial vaginosis DNA panel JORDON+probe (Vag fld) Detected Abnormal Not Detected^Not Detected [facility] Comment on above: Qualitative results are reported based on detection and quantitation of targeted organism markers which include: Lactobacillus spp. (L. crispatus and L. jensenii), Gardnerella vaginalis, Atopobium vaginae, Bacterial Vaginosis Associated Bacteria-2 (BVAB-2) and Megasphaera-1 C. glabrata DNA JORDON+probe Ql (Vag fld) Not detected Not Detected^Not Detected [facility] Comment on above: No Luis Manuel glabrata detected C. krusei DNA JORDON+probe Ql (Vag fld) Not detected Not Detected^Not Detected [facility] Comment on above: No Luis Manuel krusei de tected Luis Manuel sp 6 panel JORDON+probe (Vag fld) Not detected Not Detected^Not Detected [facility] Comment on above: Luis Manuel species not detected include: C. albicans, C. tropicalis, C. parapsilosis or C. dubliniensis Interpretation and review of laboratory results Abnormal [facility] T. vaginalis DNA JORDON+probe Ql (Vag fld) Not detected Not Detected^Not Detected [facility] Comment on above: No Trichomonas vagin rosemary detected NOTE [facility] MAX Vaginal Panel has not been evaluated for patients under 18 years old. Results for these patients should be reviewed and assessed in accordance with clinical presentation to determine patient diagnosis. [facility] VAGINITIS PANEL PCRon 2023 VAGINITIS PANEL PCR BACT. VAGINOSIS DNA Detected (qualifier value) Qualitative results are reported based on detection and quantitation of targeted organism markers which include: Lactobacillus spp. (L. crispatus and L. jensenii), Gardnerella vaginalis, Atopobium vaginae, Bacterial Vaginosis Associated Bacteria-2 (BVAB-2) and Megasphaera-1 LUIS MANUEL SPECIES DNA Not detected (qualifier value) Luis Manuel species not detected include: C. albicans, C. tropicalis, C. parapsilosis or C. dubliniensis LUIS MANUEL KRUSEI DNA Not detected (qualifier value) No Luis Manuel krusei detected LUIS MANUEL GLABRATA DNA Not detected (qualifier value) No Luis Manuel glabrata detected TRICHOMONAS VAG DNA Not detected (qualifier value) No Trichomonas vaginalis detected NOTE [facility] MAX Vaginal Panel has not been evaluated for patients under 18 years old. Results for these patients should be reviewed and assessed in accordance with clinical presentation to determine patient diagnosis. Normal [facility] Comment on above: Performed By: #### V PPCR #### [facility] ([id number]) [address] [place] [address], [address] [place] [address] CHLAMYDIA/GC PCR, Uon 2023 CHLAMYDIA/GC PCR, U [...] are dependent on adequate specimen collection. Normal [facility] Comment on above: Performed By: #### C #### [facility] ([id number]) [address], [address] [place] [address] POCT , urineon Beta HCG ( test) Ql (U) Negative [facility] VAGINITIS PANEL PCRon 2023 VAGINITIS PANEL PCR BACT. VAGINOSIS DNA Detected (qualifier value) Qualitative results are reported based on detection and quantitation of targeted organism markers which include: Lactobacillus spp. (L. crispatus and L. jensenii), Gardnerella vaginalis, Atopobium vaginae, Bacterial Vaginosis Associated Bacteria-2 (BVAB-2) and Megasphaera-1 LUIS MANUEL SPECIES DNA Not detected (qualifier value) Luis Manuel species not detected include: C. albicans, C. tropicalis, C. parapsilosis or C. dubliniensis LUIS MANUEL KRUSEI DNA Not detected (qualifier value) No Luis Manuel krusei detected LUIS MANUEL GLABRATA DNA Not detected (qualifier value) No Luis Manuel glabrata detected TRICHOMONAS VAG DNA Not detected (qualifier value) No Trichomonas vaginalis detected NOTE [facility] MAX Vaginal Panel has not been evaluated for patients under 18 years old. Results for these patients should be reviewed and assessed in accordance with clinical presentation to determine patient diagnosis. Normal [facility] Comment on above: Performed By: #### V PPCR #### [facility] ([id number]) [address], [address] [place] [id number] US PREG CERVICAL LENGTHon US PREG CERVICAL [...] ALEXIA REEVES Date: 2023-04-23 06:59 Normal [facility] INFLUENZA A AND B AGon 04-16 INFLUENZA A AG Negative Normal NEGATIVE SEE COMMENT [facility] Comment on above: Performed By: #### I NFLUAB #### [facility] [address] [place] [address] Dr. Ryan Martinez INFLUENZA B AG Negative Normal NEGATIVE SEE COMMENT [facility] Comment on above: Performed By: #### I NFLUAB #### [facility] [address] [place] [address] Dr. Ryan Martinez UA (CLEAN/CATCH) AQUATIC PERFORMER/MICRO I F IND.on 04-16-2023 Bilirubin Ql (U) Negative Normal NEGATIVE [facility] Comment on above: Performed By: #### U ACSIND #### [facility] [address] [place] [address] Dr. Ryan Martinez Clarity (U) CLEAR Normal CLEAR [facility] Comment on above: Performed By: #### U ACSIND #### [facility] [address] [place] [address] Dr. Ryan Martinez Color (U) LT. YELLOW Normal YELLOW [facility] Comment on above: Performed By: #### U ACSIND #### [facility] [address] [place] [address] Dr. Ryan Martinez Glucose Ql (U) Negative Normal NEGATIVE [facility] Comment on above: Performed By: #### U ACSIND #### [facility] [address] [address] [address] Ryan Martinez Hemoglobin Ql (U) Negative Normal NEGATIVE [facility] Comment on above: Performed By: #### U ACSIND #### [facility] [address] [address] [address] Ryan Martinez Ketones Ql (U) >=80 Abnormal NEGATIVE [facility] Comment on above: Performed By: #### U ACSIND #### [facility] [address] [address] [address] Ryan Martinez LEUKOCYTES Negative Normal NEGATIVE [facility] Comment on above: Performed By: #### U ACSIND #### [facility] [address] [address] [address] Ryan Martinez Nitrite Ql (U) Negative Normal NEGATIVE [facility] Comment on above: Performed By: #### U ACSIND #### [facility] [address] [address] [address] Ryan Martinez pH (U) 6.5 [pH] Normal 5-[address] [facility] Comment on above: Performed By: #### U ACSIND #### [facility] [address] [address] [address] Ryan Martinez SPEC GRAVITY 1.010 Normal 1.005-<=1.[address] [facility] Comment on above: Performed By: #### U ACSIND #### [facility] [address] [address] [address] Ryan Martinez UA PROTEIN Negative Normal NEGATIVE/ TRACE [facility] Comment on above: Performed By: #### U ACSIND #### [facility] [address] [address] [address] Ryan Martinez UR MICRO IND NOT INDICATED Normal [facility] Comment on above: Performed By: #### U ACSIND #### [facility] [address] [place] [address] Dr. Ryan Martinez Urobilinogen Qn (U) 0.2 {Hna'U}/dL Normal 0.2 - 1. [address] [facility] Comment on above: Performed By: #### U ACSIND #### [facility] [address] [place] [address] Dr. Ryan Martinez HEP B SURFACE ANTIGEN SCREEN on 03-16-2023 HBsAg Screen Negative Normal Negative [facility] Comment on above: Performed By: #### H BSANS #### [facility] [address] [place] [address] Dr. Ryan Martinez HEPATITIS C VIRUS AB W/ REFL EX QUANTon 03-16-2023 HCV AB Non-Reactive Normal Non Reactive [facility] Comment on above: Performed By: #### C BC #### [facility] [address] [place] [address] Dr. Ryan Martinez Interpretation: Comment Normal [facility] Comment on above: Result Comment: Not infected with HCV unless early or acute infection is suspected (which may be delayed in an immunocompromised individual), or other evidence exists to indicate HCV infection. Performed By: #### C BC #### [facility] [address] [place] [address] Dr. Ryan Martinez HIV 1 AND 2 WITH REFLEXon HIV Screen 4th Generation wRfx Non-Reactive Normal Non Reactive [facility] Comment on above: Result Comment: HIV Negative HIV-1/HIV-2 antibodies and HIV-1 p24 antigen were NOT detected. There is no laboratory evidence of HIV infection. Performed By: #### H IV12 #### [facility] [address] [place] [address] Dr. Ryan Martinez RPR QUANTon 03-16-2023 Rapid Plasma Reagin, Quant Non-Reactive Normal NonRea<1:1 [facility] Comment on above: Result Comment: Plea se Note: This test does not meet current guidelines for screening and diagnosis of syphilis. This test is intended for following treatment response in patients being treated for syphilis infection. To screen for syphilis infection, a reflex cascade that includes both RPR and a treponema-specific assay should be utilized, such as Treponema pallidum (Syphilis) Screening [place] ([id number]) or Rapid Plasma Reagin (RPR) Test With Reflex to Quantitative RPR and Confirmatory Treponema pallidum Antibodies (580104). Performed By: #### R PRQ #### [facility] [address] [place] [address] Dr. Ryan Martinez RUBELLA AB IGGon 03-16-2023 Rubella Antibodies, IgG 4.40 index Normal Immune >0.[address] [facility] Comment on above: Result Comment: Non- immune <0.90 Equivocal 0.90 - 0.99 Immune >0.99 Performed By: #### R UBIGG #### [facility] [address] [place] [address] Dr. Ryan Martinez BOX TEST SENT OUTon 03-15-20 23 SENT TO REF LAB 03/15/2023 Normal [facility] Comment on above: Performed By: #### C BC #### [facility] [address] [place] [address] Dr. Ryan Martinez CBC AUTO DIFFon 03-15-2023 BASO # 0.1 103/ul Normal 0.0-0.[address] [facility] Comment on above: Performed By: #### C BC #### [facility] [address] [place] [address] Dr. Ryan Martinez Basophils/100 WBC (Bld) 0.5 % Normal 0.2-2.[address] [facility] Comment on above: Performed By: #### C BC #### [facility] [address] [place] [address] Dr. Ryan Martinez EO # 0.2 103/ul Normal 0.0-0.[address] [facility] Comment on above: Performed By: #### C BC #### [facility] [address] [place] [address] Dr. Ryan Martinez Eosinophils/100 WBC (Bld) 1.9 % Normal 0.9-7.[address] [facility] Comment on above: Performed By: #### C BC #### [facility] [address] [place] [address] Dr. Ryan Martinez Erythrocyte distribution width (RBC) [Ratio] 13.2 % Normal 11.0-15.[address] [facility] Comment on above: Performed By: #### C BC #### [facility] [address] [place] [address] Dr. Ryan Martinez Hematocrit (Bld) [Volume fraction] 35.7 % Critically low 36.0-48.[address] [facility] Comment on above: Performed By: #### C BC #### [facility] [address] [place] [address] Dr. Ryan Martinez Hemoglobin (Bld) [Mass/Vol] 12.2 g/dL Normal 12.0-16.[address] [facility] Comment on above: Performed By: #### C BC #### [facility] [address] [place] [address] Dr. Ryan Martinez IG # 0.05 10e3/ul Critically high 0.00-0.03 [facility] Comment on above: Performed By: #### C BC #### [facility] [address] [place] [address] Dr. Ryan Martinez IG % 0.5 % Normal 0.0-0.[address] [facility] Comment on above: Performed By: #### C BC #### [facility] [address] [place] [address] Dr. Ryan Martinez LYMPH # 1.9 103/ul Normal 1.2-3.[address] [facility] Comment on above: Performed By: #### C BC #### [facility] [address] [place] [address] Dr. Ryan Martinez Lymphocytes/100 WBC (Bld) 20.1 % Critically low 20.5-60.[address] [facility] Comment on above: Performed By: #### C BC #### [facility] [address] [place] [address] Dr. Ryan Martinez MANUAL DIFF REQ NO Normal [facility] Comment on above: Performed By: #### C BC #### [facility] [address] [place] [address] Dr. Ryan Martinez MCH (RBC) [Entitic mass] 30.9 pg Normal 26.7-34.[address] [facility] Comment on above: Performed By: #### C BC #### [facility] [address] [place] [address] Dr. Ryan Maritnez MCHC (RBC) [Mass/Vol] 34.2 g/dL Normal 29.9-35.[address] [facility] Comment on above: Performed By: #### C BC #### [facility] [address] [place] [address] Dr. Ryan Martinez MCV (RBC) [Entitic vol] 90.4 fL Normal 81.0-99.[address] [facility] Comment on above: Performed By: #### C BC #### [facility] [address] [place] [address] Dr. Ryan Martinez MONO # 0.8 103/ul Normal 0.3-0.[address] [facility] Comment on above: Performed By: #### C BC #### [facility] [address] [place] [address] Dr. Ryan Martinez Monocytes/100 WBC (Bld) 8.0 % Normal 1.7-12.[address] [facility] Comment on above: Performed By: #### C BC #### [facility] [address] [place] [address] Dr. Ryan Martinez NEUT # 6.5 103/ul Normal 1.4-6.[address] [facility] Comment on above: Performed By: #### C BC #### [facility] [address] [place] [address] Dr. Ryan Martinez Neutrophils/100 WBC (Bld) 69.0 % Normal 43.0-75.[address] [facility] Comment on above: Performed By: #### C BC #### [facility] [address] [place] [address] Dr. Ryan Martinez Platelet mean volume (Bld) [Entitic vol] 9.4 fL Critically low 9.5-13.[address] [facility] Comment on above: Performed By: #### C BC #### [facility] [address] [place] [address] Dr. Ryan Martinez PLT 238 103/ul Normal 150-450 [facility] Comment on above: Performed By: #### C BC #### [facility] [address] [place] [address] Dr. Ryan Martinez RBC 3.95 106/ul Critically low 4.20-5.40 [facility] Comment on above: Performed By: #### C BC #### [facility] [address] [place] [address] Dr. Ryan Martinez WBC 9.5 103/ul Normal 4.0-11.[address] [facility] Comment on above: Performed By: #### C BC #### [facility] [address] [place] [address] Dr. Ryan Martinez CULTURE URINEon 03-15-2023 CULTURE URINE Culture Observations : NO GROWTH. Normal [facility] Comment on above: Performed By: #### C BC #### [facility] [address] [place] [address] Dr. Ryan Martinez GLYCOHEMOGLOBIN A1Con 2022 ADA RECOMMENDATION SEE BELOW Normal [facility] Comment on above: Result Comment: ADA RECOMMENDED LIMIT 4.0 - 6.0 ADA THERAPEUTIC TARGET < 7.0 ACTION SUGGESTED > 7.0 Performed By: #### A 1C #### [facility] [address] [place] [address] Dr. Ryan Martinez Glucose [Mass/Vol] 88 mg/dL Normal [facility] Comment on above: Performed By: #### A 1C #### [facility] [address] [place] [address] Dr. Ryan Martinez HbA1c (Bld) [Mass fraction] 4.7 % Normal 4.5-6.[address] [facility] Comment on above: Performed By: #### A 1C #### [facility] [address] [place] [address] Dr. Ryan Martinez URon 03-15-2023 , QUAL Positive Abnormal NEGATIVE [facility] Comment on above: Performed By: #### C BC #### [facility] [address] [place] [address] Dr. Ryan Martinez TSHon 03-15-2023 TSH 1.649 uIU/mL Normal 0.516-4.130 [facility] Comment on above: Performed By: #### T SH #### [facility] [address] [place] [address] Dr. Ryan Martinez TYPE AND SCREENon 03-15-2023 TYPE AND SCREEN Negative Normal [facility] Comment on above: Performed By: #### C BC #### [facility] [address] [place] [address] Dr. Ryan Martinez UA RANDOMon 03-15-2023 Bilirubin Ql (U) Negative Normal NEGATIVE [facility] Comment on above: Performed By: #### U A, PREGU #### [facility] [address] [place] [address] Dr. Ryan Martinez Clarity (U) CLEAR Normal CLEAR [facility] Comment on above: Performed By: #### U A, PREGU #### [facility] [address] [place] [address] Dr. Ryan Martinez Color (U) LT. YELLOW Normal YELLOW [facility] Comment on above: Performed By: #### U A, PREGU #### [facility] [address] [place] [address] Dr. Ryan Martinez Glucose Ql (U) Negative Normal NEGATIVE [facility] Comment on above: Performed By: #### U A, PREGU #### [facility] [address] [place] [address] Dr. Ryan Martinez Hemoglobin Ql (U) Negative Normal NEGATIVE [facility] Comment on above: Performed By: #### U A, PREGU #### [facility] [address] [place] [address] Dr. Ryan Martinez Ketones Ql (U) Negative Normal NEGATIVE [facility] Comment on above: Performed By: #### U A, PREGU #### [facility] [address] [place] [address] Dr. Ryan Martinez LEUKOCYTES Negative Normal NEGATIVE [facility] Comment on above: Performed By: #### U A, PREGU #### [facility] [address] [place] [address] Dr. Ryan Martinez Nitrite Ql (U) Negative Normal NEGATIVE [facility] Comment on above: Performed By: #### U A, PREGU #### [facility] [address] [place] [address] Dr. Ryan Martinez pH (U) 7.0 [pH] Normal 5-9 [facility] Comment on above: Performed By: #### U A, PREGU #### [facility] [address] [place] [address] Dr. Ryan Martinez SPEC GRAVITY 1.010 Normal 1.005-<=1.[address] [facility] Comment on above: Performed By: #### U A, PREGU #### [facility] [address] [place] [address] Dr. Ryan Martinez UA PROTEIN Negative Normal NEGATIVE/ TRACE [facility] Comment on above: Performed By: #### U A, PREGU #### [facility] [address] [place] [address] Dr. Ryan Martinez Urobilinogen Qn (U) 0.2 {Han'U}/dL Normal 0.2 - 1. [address] [facility] Comment on above: Performed By: #### U A, PREGU #### [facility] [address] [place] [address] Dr. Ryan Martinez US PREG TVon 02-21-2023 [...] ALEXIA REEVES Date: 2023-02-21 15:09 Normal [facility] Chlamydia/GC/Trich NAAon Chlamydia/GC/Trich JORDON Negative Negative [facility] Other Chlamydia/GC/Trich JORDON Positive Critically abnormal Negative [facility] Other Chlamydia Trachomotis, JORDON Negative Normal Negative [facility] Comment on above: Order Comment: Reaso n for Exam Sexually transmitted disease exposure Performed By: #### G CCHLAMTRI #### [facility] , Neisseria Gonorrhoeae, JORDON Positive Critically abnormal Negative [facility] Comment on above: Order Comment: Reaso n for Exam Sexually transmitted disease exposure Performed By: #### G CCHLAMTRI #### [facility] , Trichomonas JORDON Negative Normal Negative [facility] Comment on above: Order Comment: Reaso n for Exam Sexually transmitted disease exposure Result Comment: Perf ormed at: =G - [facility] [address] [id number] [place]: Norma Manuel MD, Phone: [phone] PERFORMED BY: [facility] [address] [place] [address] PATHOLOGIST MAIL OPENER STEPHANE MILES M.D. Performed By: #### G CCHLAMTRI #### [facility] , Urine Cultureon 02-22-2022 Bacteria identified Cx Nom (U) ORGANISM: Escherichia coli (O:ESCCOL) [place] Count >100,000 Aerobic STEVEN Charge (NUC86) ---- [...] RESISTANT TO ALL B-LACTAM DRUGS. PERFORMED BY: [place] [id number] PATHOLOGIST MAIL OPENER STEPHANE MILES M.D. Normal [facility] Comment on above: Performed By: #### C UU #### [place] [address] [place] Vaginitis Plus (VG+)on 02-22 Atopobium Vaginae Moderate - 1 Normal . [facility] Comment on above: Performed By: #### V AGINITIS+ #### [facility] , BVAB2 High - 2 Critically abnormal . [facility] Comment on above: Performed By: #### V AGINITIS+ #### [facility] , Luis Manuel Albicans, JORDON Negative Normal Negative [facility] Comment on above: Result Comment: This test was developed and its performance characteristics determined by [facility]. It has not been cleared or approved by the Food and Drug Administration. Performed By: #### V AGINITIS+ #### [facility] , Luis Manuel Glabrata, JORDON Negative Normal Negative [facility] Comment on above: Result Comment: This test was developed and its performance characteristics determined by [facility]. It has not been cleared or approved by the Food and Drug Administration. PERFORMED BY: [address] [address] PATHOLOGIST MAIL OPENER STEPHANE MILES M.D. Performed By: #### V AGINITIS+ #### [facility] , Chlamydia Trachomotis, JORDON Positive Critically abnormal Negative [facility] Comment on above: Performed By: #### V AGINITIS+ #### [facility] , Megasphaera High - 2 Critically abnormal . [facility] Comment on above: Result Comment: [...] , Neisseria Gonorrhoeae, JORDON Negative Normal Negative [facility] Comment on above: Result Comment: Perf ormed at: =G - [facility] [address] [id number] [place]: Norma Manuel MD, Phone: [phone] Performed By: #### V AGINITIS+ #### [facility] , Tric Vag JORDON Negative Normal Negative [facility] Comment on above: Performed By: #### V AGINITIS+ #### [facility] , ECG 12 lead ECGon 01-02-2022 ECG 12 lead ECG [facility] [place] [address] Electrocardiograph Report Signed Patient: Carmelina Rizo LM MR#: [id number] 15 : 2005 Acct:[id number] Age/Sex: 16 / F ADM Date: 01/01/22 Loc: Room: [address] [place] [address] Type: DIS IN Attending Dr: Bernardino De [...] previous ECGs available Confirmed by RO[facility]ANN [id number] on 01/02/2022 12:21:02 PM Referred By: Electronically Signed By:TOMMY CIFUENTES MD [facility] Transcribed By: MUS Signed By Tommy Cifuentes MD, [facility] 01/02/22 1221 Normal [facility] Lipid Panelon 01-02-2022 Cholesterol [Mass/Vol] 138 mg/dL Low 140-200 [facility] Comment on above: Result Comment: Chol less than 200 mg/dl low risk Chol 201-239 mg/dl borderline risk Chol 240 mg/dl and greater high risk Performed By: #### L IPID, TSH3 wRFLX, [id number] #### [facility] [address] [place] [address] [facility] Cholesterol in HDL [Mass/Vol] 45 mg/dL Normal 35-85 [facility] Comment on above: Result Comment: HDL CHOL ATP-III CLASSIFICATION Cardiovascular Risk HDL > or equal to 60 mg/dL LOW HDL < 40 mg/dL HIGH Performed By: #### L IPID, TSH3 wRFLX, [id number] #### [facility] [address] [place] [address] [facility] Cholesterol.total/C holesterol in HDL [Mass ratio] 3.1 {ratio} Normal <5.0 [facility] Comment on above: Performed By: #### L IPID, TSH3 wRFLX, [id number] #### [facility] [address] [place], [place] [id number] [facility] LDL Cholesterol,Calcula jade 82 mg/dL Normal 0-100 [facility] Comment on above: Result Comment: LDL ATP III CLASSIFICATION LDL less than 100 mg/dL Optimal LDL 100-129 mg/dL Near or above optimal LDL 130-159 mg/dL Borderline high LDL 160-189 mg/dL High LDL greater than 189 mg/dL Very high Performed By: #### L IPID, TSH3 wRFLX, [id number] #### [facility] [address] [place] [address] [place] Triglyceride w/Reflex 54 mg/dL Normal 35-149 [facility] Comment on above: Result Comment: TRIG ATP III CLASSIFICATION TRIG less than 150 mg/dL Normal TRIG 150-199 mg/dL Borderline high TRIG 200-500 mg/dL High TRIG greater than 500 mg/dL Very high Standard traceable to the Center for Disease Conrtrol and Prevention (CDC) test method. Performed By: #### L IPID, TSH3 wRFLX, [id number] #### [address] VLDL CHOLESTEROL 10 mg/dL Normal [facility] Comment on above: Performed By: #### L IPID, TSH3 wRFLX, [id number] #### [address] Thyroid Stim Hormone w/Rflxo n 01-02-2022 Thyroid Stim Hormone w/Rflx 1.38 u[iU]/mL Normal 0.45-5.33 [facility] Comment on above: Performed By: #### L IPID, TSH3 wRFLX, [id number] #### [address] Vitamin D 25 Hydroxy Totalon 01-02-2022 Vitamin D 25 Hydroxy Total 27.6 ng/mL Low 30-100 [facility] Comment on above: Result Comment: JENN MIN D STATUS 25(OH)VITAMIN D RANGE (ng/mL) Deficient <20 Insufficient 20 to <30 Sufficient 30 to 100 Reference: Hector MF,Marques NC, Brittny VILLALTA, et al. Evaluation,treatment, and prevention of vitamin D deficiency; an Endocrine Society clinical practice guideline. JCEM. 2010; 96(7):1911-30. PERFORMED BY: [place] [address] PATHOLOGIST MAIL OPENER STEPHANE MILES M.D. Performed By: #### L IPID, TSH3 wRFLX, [id number] #### [address] Vital Signs Date Time Vital Sign Value Performing Clinician Facility 09-02-2024 13:28-040 Body mass index (BMI) [Ratio] 30.03 kg/m2 Mary CASTELLON Work Phone: [facility] 09-02-2024 13:28-040 Body weight 78.13 kg Mary CASTELLON Work Phone: [facility] 09-02-2024 13:28-0400 Diastolic blood pressure 68 mm[Hg] Mary CASTELLON Work Phone: [facility] 09-02-2024 13:28-0400 Systolic blood pressure 106 mm[Hg] Mary CASTELLON Work Phone: [facility] 08-26-2024 14:52-0400 Body mass index (BMI) [Ratio] 29.73 kg/m2 Mayur Beatrice DO Work Phone: [facility] 08-26-2024 14:52-0400 Body weight 77.34 kg Mayur Beatrice DO Work Phone: [facility] 08-26-2024 14:52-0400 Diastolic blood pressure 64 mm[Hg] Mayur Beatrice DO Work Phone: [facility] 08-26-2024 14:52-0400 Systolic blood pressure 116 mm[Hg] Mayur Beatrice DO Work Phone: [facility] 12-12-2023 16:29-0500 Body height 162.6 cm Kerrie Derrick MERCHANDISE PLANNING MANAGER-MINIATURE SET DESIGNER Work Phone: [facility] 12-12-2023 16:29-0500 Body mass index (BMI) [Ratio] 22.76 kg/m2 Kerrie Derrick MERCHANDISE PLANNING MANAGER-MINIATURE SET DESIGNER Work Phone: [facility] 12-12-2023 16:29-0500 Body temperature 99 [degF] Kerrie Derrick MERCHANDISE PLANNING MANAGER-MINIATURE SET DESIGNER Work Phone: [facility] 12-12-2023 16:29-0500 Body weight 60.15 kg Kerrie Derrick MERCHANDISE PLANNING MANAGER-MINIATURE SET DESIGNER Work Phone: [facility] 12-12-2023 16:29-0500 Diastolic blood pressure 60 mm[Hg] Kerrie Derrick MERCHANDISE PLANNING MANAGER-MINIATURE SET DESIGNER Work Phone: [facility] 12-12-2023 16:29-0500 Heart rate 76 /min Kerrie Derrick MERCHANDISE PLANNING MANAGER-MINIATURE SET DESIGNER Work Phone: [facility] [employer] 12-12-2023 16:29-0500 SaO2% (BldA) [Mass fraction] 96 % Kerrie Meza MERCHANDISE PLANNING MANAGER-MINIATURE SET DESIGNER Work Phone: [facility] [employer] 12-12-2023 16:29-0500 Systolic blood pressure 98 mm[Hg] Kerrie Meza MERCHANDISE PLANNING MANAGER-MINIATURE SET DESIGNER Work Phone: [facility] 11-28-2023 15:17-0500 Body mass index (BMI) [Ratio] 23.1 kg/m2 Kerrieedward Meza MERCHANDISE PLANNING MANAGER-MINIATURE SET DESIGNER Work Phone: [facility] 11-28-2023 15:17-0500 Body temperature 99.39 [degF] Kerrie Meza MERCHANDISE PLANNING MANAGER-MINIATURE SET DESIGNER Work Phone: [facility] 11-28-2023 15:17-0500 Body weight 61.05 kg Kerrie Meza MERCHANDISE PLANNING MANAGER-MINIATURE SET DESIGNER Work Phone: [facility] [employer] 11-28-2023 15:17-0500 Diastolic blood pressure 50 mm[Hg] Kerrie Meza MERCHANDISE PLANNING MANAGER-MINIATURE SET DESIGNER Work Phone: [facility] [employer] 11-28-2023 15:17-0500 Heart rate 61 /min Kerrie Meza MERCHANDISE PLANNING MANAGER-MINIATURE SET DESIGNER Work Phone: [facility] 11-28-2023 15:17-0500 SaO2% (BldA) [Mass fraction] 92 % Kerrie Meza MERCHANDISE PLANNING MANAGER-MINIATURE SET DESIGNER Work Phone: [facility] 11-28-2023 15:17-0500 Systolic blood pressure 90 mm[Hg] Kerrie Meza MERCHANDISE PLANNING MANAGER-MINIATURE SET DESIGNER Work Phone: [facility] 05-18-2022 11:50-0400 Body height 161.29 cm Gina Stallworth Other [facility] Other 05-18-2022 11:50-0400 Body mass index (BMI) [Ratio] 27.55 kg/m2 Gina Stallworth Other [facility] Other 05-18-2022 11:50-0400 Body temperature 97.8 [degF] Gina Stallworth Other [facility] Other 05-18-2022 11:50-0400 Body weight 71.67 kg Gina Stallworth Other [facility] Other 05-18-2022 11:50-0400 Diastolic blood pressure 67 mm[Hg] Gina Stallworth Other [facility] Other 05-18-2022 11:50-0400 Respiratory rate 16 /min Gina Stallworth Other [facility] Other 05-18-2022 11:50-0400 SaO2% (BldA) [Mass fraction] 100 % Gina Stallworth Other [facility] Other 05-18-2022 11:50-0400 Systolic blood pressure 113 mm[Hg] Gina Stallworth Other [facility] Other Encounters Encounter Date Encounter Type Care Provider Facility Start: 09-02-2024 End: 09-02-2024 Bamboo flowsheet Mary CASTELLON Work Phone: [facility] Start: 09-02-2024 End: 09-02-2024 Bamboo flowsheet Mary CASTELLON Work Phone: [facility] Start: 09-02-2024 End: 09-02-2024 Office outpatient visit 15 minutes aMry CASTELLON Work Phone: [facility] Comment on above: Third trimester preg lance; 38 weeks gestation of Start: 09-02-2024 End: 09-02-2024 ambulatory MARY CANDICE Not Available Start: 08-26-2024 End: 08-26-2024 Office outpatient visit 15 minutes Mayur Beatrice DO Work Phone: [facility] Comment on above: Third trimester preg lance; 37 weeks gestation of Start: 08-26-2024 End: 08-26-2024 ambulatory MAYUR BEATRICE Not Available Start: 08-26-2024 End: 08-26-2024 Bamboo flowsheet Mayur Beatrice DO Work Phone: [facility] Start: 08-26-2024 End: 08-26-2024 Bamboo flowsheet Mayur Beatrice DO Work Phone: [facility] Start: 08-20-2024 End: 08-20-2024 ambulatory MARY CANDICE Not Available Start: 08-05-2024 End: 08-05-2024 ambulatory MAYUR BEATRICE Not Available Start: 07-22-2024 End: 07-22-2024 ambulatory MARY CANDICE Not Available Start: 07-08-2024 End: 07-08-2024 ambulatory MAYUR BEATRICE Not Available Start: 06-23-2024 End: 06-23-2024 ambulatory MARY CANDICE Not Available Start: 06-16-2024 End: 06-16-2024 ambulatory [facility] Start: 05-26-2024 End: 05-26-2024 ambulatory MAYUR BEATRICE Not Available Start: 05-14-2024 End: 05-14-2024 ambulatory MARY CANDICE Not Available Start: 12-15-2023 Orders Only Kerrie Meza MERCHANDISE PLANNING MANAGER-MINIATURE SET DESIGNER Work Phone: [facility] Start: 12-13-2023 End: 12-13-2023 ambulatory [facility] Start: 12-12-2023 End: 12-12-2023 Office outpatient visit 15 minutes Kerrie Nicole Derrick MERCHANDISE PLANNING MANAGER-MINIATURE SET DESIGNER Work Phone: [facility] Comment on above: Anxiety (Primary Dx) ; Moderate episode of recurrent major depressive disorder (CMS-HCC); Vaginal discharge Start: 12-12-2023 End: 12-12-[address] [facility] Start: 11-29-2023 Orders Only Kerrie Nicole Meza MERCHANDISE PLANNING MANAGER-MINIATURE SET DESIGNER [facility] Start: 11-29-2023 End: 11-29-2023 ambulatory [facility] Start: 11-28-2023 End: 11-28-2023 Office outpatient visit 15 minutes Kerrie Meza MERCHANDISE PLANNING MANAGER-MINIATURE SET DESIGNER Work Phone: [facility] Comment on above: Vaginal discharge (P rimary Dx); High risk heterosexual behavior; Anxiety Start: 11-28-2023 End: 11-28-[address] [facility] Start: 10-15-2023 End: 10-15-2023 ambulatory MARY HARVEY Not Available Start: 04-20-2023 End: 04-21-[address] MAYUR BARRON . Facility:[facility] Start: 04-16-2023 End: 04-16-[address] MAYUR BARRON . Facility:[facility] Start: 04-06-2023 End: 04-07-[address] MAYUR BARRON . Facility:[facility] Start: 03-15-2023 End: 03-16-[address] MAYUR BARRON . Facility:[facility] Start: 02-21-2023 End: 02-22-[address] MAYUR BARRON . Facility:[facility] Start: 07-17-2022 ambulatory [place] Start: 05-18-2022 Office outpatient vi sit 15 minutes Gina Stallworth [facility] Start: 05-18-2022 End: 05-18-2022 ambulatory Jose Elias Singh [facility] Other Start: 02-27-2022 End: 02-27-2022 ambulatory Lynn Bonilla Other [facility] Other Start: 02-27-2022 Telephone encounter Lynn Bonilla [facility] [address] Start: 02-26-2022 End: 02-26-2022 ambulatory Lynn Bonilla Other [facility] Other Start: 02-26-2022 Telephone encounter Lynn Khaliller [facility] [address] Start: 02-22-2022 End: 02-22-2022 ambulatory Lynn Bonilla Facility:[facility] Start: 01-01-2022 End: 01-08-2022 Evaluation and management of inpatient Bernardino Wil Facility:[facility] Procedures Date Procedure Procedure Detail Performing Clinician Start: 09-02-2024 Urnls dip stick/tabl et rgnt non-auto w/o micrscp Mary CASETLLON Work Phone: Start: 08-26-2024 Urnls dip stick/tabl et rgnt non-auto w/o micrscp Mayur Beatricejoann GARG Work Phone: Start: 12-12-2023 Adult depression screening assessment Kerrie Meza MERCHANDISE PLANNING MANAGER-MINIATURE SET DESIGNER Work Phone: Start: 11-28-2023 Urine test visual color cmprsn meths Kerrie Meza MERCHANDISE PLANNING MANAGER-MINIATURE SET DESIGNER Work Phone: Start: 11-28-2023 Adult depression screening assessment Kerrie Meza MERCHANDISE PLANNING MANAGER-MINIATURE SET DESIGNER Work Phone: Plan of Treatment Date Care Activity Detail Author Start: 12-12-2024 Adult BMI Screening Adult BMI Screen ing [facility] Start: 12-12-2024 Depression Screening Depression Scre ening [facility] Start: 12-12-2024 Tobacco Screening Tobacco Screening [facility] Start: 11-28-2024 Adult BMI Screening Adult BMI Screen ing [facility] Start: 11-28-2024 Depression Screening Depression Scre ening [facility] Start: 11-28-2024 Screening for Chlamy katt trachomatis Chlamydia Screening [facility] Start: 11-28-2024 Tobacco Screening Tobacco Screening [facility] Start: 09-02-2024 End: 09-02-2024 Patient encounter procedure [facility] Comment on above: Arrived Start: 08-26-2024 End: 08-26-2024 Patient encounter procedure 08/26/2024 2:30 PM EDT Routine [facility] [address] [place] [id number] Mayur Barron DO [address] [place] [address] Arrived [facility] Comment on above: Arrived Start: 12-12-2023 End: 12-12-2023 Patient encounter procedure 12/12/2023 4:30 PM EST Office Visit [facility] [address] [place] [address] Kerrie Meza, MERCHANDISE PLANNING MANAGER-MINIATURE SET DESIGNER [address] [place] [address] [facility] Start: 07-26-2023 Influenza vaccination Influenza Vacc ine [facility] Start: 2022 DTaP,Tdap and Td Vaccines (1 - Tdap) DTaP,Tdap and Td Vaccines (1 - Tdap) [facility] Start: 2003 Screening for Chlamy katt trachomatis Chlamydia Screening [facility] End: 11-27-2024 Chlamydia/GC by PCR urine Chlamydia/GC by PCR urine Microbiology Routine Vaginal discharge 1 Occurrences starting 11/28/2023 until 11/27/[address] [facility] Comment on above: 1 Occurrences starti ng 11/28/2023 until 11/27/2024 Chlamydia/GC by PCR urine Chlamydia/GC by PCR urine Microbiology Routine Vaginal discharge 11/28/2023 10:[address] [facility] End: 11-28-2024 Vaginitis Panel PCR Vaginitis Panel PCR Microbiology Routine Vaginal discharge 1 Occurrences starting 11/28/2023 until 11/28/2024 [facility] Work Phone: Comment on above: 1 Occurrences starti ng 11/28/2023 until 11/28/2024 Vaginitis Panel PCR Vaginitis Pa jerry PCR Microbiology Routine Vaginal discharge 11/28/2023 10:[address] [facility] Payers Date Payer Category Payer Medicaid [id number] 2022 Unknown 2022 Unknown [id number] 2.1 [id number] 2022 Self-pay 2003 Unknown [id number] 2.16.84 0.1.821184.3.579.2.593 2003 Unknown [id number] 2.16.84 0.1.482807.3.579.2.593 2003 Unknown [id number] 2.16.84 0.1.358049.3.579.2.593 2003 Unknown [id number] 2.16.84 0.1.578053.3.579.2.593 2003 Unknown [id number] 2.16.84 0.1.593426.3.579.2.593 2003 Unknown [id number] 2.16.84 0.1.961485.3.579.2.593 2003 Unknown [id number] 2.16.84 0.1.647646.3.579.2.1286 2003 Unknown [id number] 2.16.84 0.1.079754.3.579.2.1286 2003 Unknown [id number] 2.16.8 40.1.541067.3.579.2.1286 2003 Unknown [id number] 2.16.84 0.1.065185.3.579.2.1286 2003 Unknown [id number] 2.16.84 0.1.409757.3.579.2.1286 2003 Unknown [id number] 2.16.84 0.1.457656.3.579.2.1259 2003 Unknown [id number] 2.16.84 0.1.279665.3.579.2.1259 2003 Unknown [id number] 2.16.84 0.1.617075.3.579.2.1259 2003 Unknown [id number] 2.16.84 0.1.508212.3.579.2.1259 2003 Unknown [id number] 2.16.84 0.1.512597.3.579.2.1259 2003 Unknown [id number] 2.16.84 0.1.612829.3.579.2.1259 2003 Unknown [id number] 2.16.84 0.1.867641.3.579.2.1259 2003 Unknown [id number] 2.16.84 0.1.175062.3.579.2.1259 2003 Unknown [id number] 2.16.84 0.1.063775.3.579.2.9 2003 Unknown [id number] 2.16.840 .1.622287.3.579.2.1259 1959 Unknown [id number] Unknown [id number] 2.16.8 40.1.076705.3.579.2.531 Unknown [id number] 2.16.8 40.1.751126.3.579.2.531 Unknown [id number] 2.16.8 40.1.364254.3.579.2.531 Unknown [id number] 2.16.8 40.1.056295.3.579.2.531 Social History Date Type Detail Facility Start: 2023 End: 11-28-[address] [facility] [employer] Other Start: 08-14-2023 Tobacco smoking stat [facility] Ex-smoker [facility] of tobacco use [facility] Start: 01-04-2020 History of tobacco use [facility] Start: 08-14-2023 End: 07-08-2024 Tobacco use and exposure Smokeless [facility] Start: 11-28-2023 End: 12-12-2023 Alcohol intake Ex-drinker (finding) [facility] Start: 2023 End: 11-28-2023 History of Social function [facility] Adolescent depressio n screening assessment [address] [facility] Start: 2003 Sex Assigned At Not on file P [facility] Start: 01-04-2020 [facility] Start: 08-20-2024 End: 09-02-2024 Alcoholic beverage intake Lifetime non-drinker (finding) [facility] Start: 12-22-2023 [facility] Start: 2005 Sex assigned at Female [facility] Start: 04-17-2023 Gender identity Identifies as female gender (finding) [facility] Clinical Notes 12-26-2021 to 09-02-2024 CANDE Medina - 09/02/2024 1:30 PM Misael Mcdonough ITEM PROCESSOR - 08/26/2024 2:30 PM Natasha Meza [facility] - 12/12/2023 4:30 PM Yue Meza, [facility] - 11/28/2023 3:00 PM EST Note Date & Type Note Facility 09-02-2024 History of Presen t illness Narrative Reason for Appointment: Patient ID: Carmelina Rizo is a 18 y.o. female who presents for Routine Visit Patient presents today for Return OB appointment. MEDICATIONS Current Outpatient Medications Medication Instructions fluticasone (Flonase) 50 MCG/ACT nasal spray 2 sprays, Nasal, Daily RT magnesium oxide (MAG-OX) 400 mg, Oral, Daily metroNIDAZOLE (FLAGYL) 500 mg, Oral, 2 times daily, Do not drink alcohol while taking this medication Vit-Fe Fumarate-FA ( Plus/Iron) 27-1 MG tablet 1 tablet, Oral, Daily ALLERGIES No Known Allergies PROBLEMS Active Ambulatory Problems Diagnosis Date Noted No Active Ambulatory Problems Resolved Ambulatory Problems Diagnosis Date Noted No Resolved Ambulatory Problems Past Medical History: Diagnosis Date Urinary tract infection HISTORY PAST MEDICAL HISTORY SOCIAL HISTORY Past Medical History: Diagnosis Date Urinary tract infection Social History Tobacco Use Smoking status: Every Day Types: Cigarettes Start date: 01/04/2020 Smokeless tobacco: Never Substance Use Topics Alcohol use: Never Drug use: Never Comment: occasional substance abuse FAMILY HISTORY Family History Problem Relation Name Age of Onset Hypertension Mother Cancer Father Andre Rizo SURGICAL HISTORY History reviewed. No pertinent surgical history. REVIEW OF SYSTEMS Review of Systems: Review of Systems OBJECTIVE Objective: OBGyn Exam Vitals: Estimated body mass index is 30.03 kg/m as calculated from the following: Height as of 02/21/23: 5' 3.5 . Weight as of this encounter: 172 lb 4 oz. BP: 106/68 Patient's last menstrual period was 11/26/2022. ASSESSMENT & PLAN ICD-10-CM 1. Third trimester Z34.93 POCT urinalysis dipstick manually resulted 2. 38 weeks gestation of Z3A.38 POCT urinalysis dipstick manually resulted Return OB: Patient presents today for a routine obstetrics appointment. Patient is currently 38w3d . Patient states she is doing well but has complaints of being tired due to current . Patient has verbalizes frequent movement. labor precautions was discussed/given and patient was instructed to perform kick counts three times a day. Orders Placed This Encounter Procedures POCT urinalysis dipstick manually resulted Follow Up: Patient is to return to office in 1 week for routine OB appointment. Documented by Dori Linda on behalf of: CANDE Medina documented in this encounter [facility] 08-26-2024 History of Presen t illness Narrative Reason for Appointment: Patient ID: Carmelina Rizo is a 18 y.o. female who presents for No chief complaint on file. Patient presents today for Return OB appointment. MEDICATIONS Current Outpatient Medications Medication Instructions fluticasone (Flonase) 50 MCG/ACT nasal spray 2 sprays, Nasal, Daily RT magnesium oxide (MAG-OX) 400 mg, Oral, Daily metroNIDAZOLE (FLAGYL) 500 mg, Oral, 2 times daily, Do not drink alcohol while taking this medication Vit-Fe Fumarate-FA ( Plus/Iron) 27-1 MG tablet 1 tablet, Oral, Daily ALLERGIES No Known Allergies PROBLEMS Active Ambulatory Problems Diagnosis Date Noted No Active Ambulatory Problems Resolved Ambulatory Problems Diagnosis Date Noted No Resolved Ambulatory Problems Past Medical History: Diagnosis Date Urinary tract infection HISTORY PAST MEDICAL HISTORY SOCIAL HISTORY Past Medical History: Diagnosis Date Urinary tract infection Social History Tobacco Use Smoking status: Every Day Types: Cigarettes Start date: 01/04/2020 Smokeless tobacco: Never Substance Use Topics Alcohol use: Never Drug use: Never Comment: occasional substance abuse FAMILY HISTORY Family History Problem Relation Name Age of Onset Hypertension Mother Cancer Father Andre Rizo SURGICAL HISTORY History reviewed. No pertinent surgical history. REVIEW OF SYSTEMS Review of Systems: Review of Systems Constitutional: Negative. HENT: Negative. Eyes: Negative. Respiratory: Negative. Cardiovascular: Negative. Gastrointestinal: Negative. Genitourinary: Negative. Musculoskeletal: Negative. Skin: Negative. Neurological: Negative. All other systems reviewed and are negative. Hematological: Negative. Endocrine: Negative. Allergic/Immunologic: Negative. OBJECTIVE Objective: Physical Exam Constitutional: Appearance: Normal appearance. She is well-developed. Cardiovascular: Rate and Rhythm: Normal rate and regular rhythm. Pulmonary: Effort: Pulmonary effort is normal. Breath sounds: Normal breath sounds. Abdominal: General: Bowel sounds are normal. There is no distension. Palpations: Abdomen is soft. Tenderness: There is no abdominal tenderness. There is no guarding or rebound. Musculoskeletal: General: No swelling. Normal range of motion. Right lower leg: No edema. Left lower leg: No edema. Neurological: Mental Status: She is alert and oriented to person, place, and time. Skin: General: Skin is warm and dry. Psychiatric: Mood and Affect: Mood normal. Behavior: Behavior normal. Vitals and nursing note reviewed. Exam conducted with a sound truck operator present. Vitals: Estimated body mass index is 29.73 kg/m as calculated from the following: Height as of 02/21/23: 5' 3.5 . Weight as of this encounter: 170 lb 8 oz. BP: 116/64 Patient's last menstrual period was 11/26/2022. ASSESSMENT & PLAN ICD-10-CM 1. Third trimester Z34.93 POCT urinalysis dipstick manually resulted 2. 37 weeks gestation of Z3A.37 POCT urinalysis dipstick manually resulted Return OB: Patient presents today for a routine obstetrics appointment. Patient is currently 37w3d . Patient states she is doing well but has complaints of being tired due to current . Patient has verbalizes frequent movement. labor precautions was discussed/given and patient was instructed to perform kick counts three times a day. Orders Placed This Encounter Procedures POCT urinalysis dipstick manually resulted Follow Up: Patient is to return to office in 1 week for routine OB appointment. Documented by Tiara Mcdonough LPN on behalf of: Mayur Barron DO documented in this encounter [facility] 12-12-2023 History of Presen t illness Narrative [address] [place] [address] Patient: Carmelina Rizo Date of : 2005 Encounter Date: 12/12/2023 [...] Moderate episode of recurrent major depressive disorder ([facility]) Relevant Medications busPIRone (BUSPAR) 10 mg tablet [...] BMI 22.76 kg/m Physical Exam Vitals reviewed. Playground Aide present: Patient declined pelvic exam. Constitutional: Appearance: [...] VU APRN-CNP 12/15/232120 documented in this encounter [facility] 11-28-2023 History of Presen t illness Narrative [address] [place] [address] Patient: Carmelina Rizo Date of : 2005 Encounter Date: 11/28/2023 [...] SpO2 92% BMI 23.10 kg/m Physical Exam Playground Aide present: Patient declined pelvic exam. Psychiatric: Mood [...] was recommended that patient start plan B [id number] as she does not wish to have [...] her anxiety symptoms. SHASHI VU APRN-CNP 11/28/23 1747 documented in this encounter [facility] 11-28-2023 Miscellaneous Notes Addended by: KERRIE MEZA on: 11/28/2023 05:46 PM Modules accepted: Orders documented in this encounter [facility] [employer] 11-28-2023 Note Addended by: KERRIE MEZA on: 11/28/2023 05:46 PM Modules accepted: Orders [facility] shopp [facility] 05-18-2022 Evaluation note Encounter Date Diagnosis [...] your family physician for any further concerns [facility] Other 02-01-2022 History general Narrative - Reported* Type Description Date Medical History anxiety Hospitalization History mental health 12/2021 [facility] Other Evaluation noteNo InformationNort [employer] Other evaluation note* Diagnosis Vaginal discharge- Primary Leukorrhea, not specified as infective High risk heterosexual behavior Anxiety Anxiety state, unspecified documented in this encounter [facility] note* Diagnosis Anxiety- Primary Anxiety state, unspecified Moderate episode of recurrent major depressive disorder ([facility]) Vaginal discharge Leukorrhea, not specified as infective documented in this encounter [facility]Evaluation note* Diagnosis Third trimester state, incidental 37 weeks gestation of [facility] Diagnosis Third trimester state, incidental 38 weeks gestation of documented [facility]* Attachments The following attachments cannot be sent through Care Everywhere. * Buspirone, ADULT (Swedish) [facility] SystemInstructionsNot on file [facility] SystemInstructionsNot on file [facility] Attachments The following attachments cannot be sent through Care Everywhere. * Vortioxetine, ADULT (Swedish) [facility] for [facility] (narrative)* Consultation (Routine) - Pending Review Specialty Diagnoses / Procedures Referred By Dorothea felix Referred To Contact Psychiatry Diagnoses Anxiety Kerrie Meza, MERCHANDISE PLANNING MANAGER-[facility] [address] [place] [address] Aparna Arias MD [address] [place] [id number] Referral ID Status Reason Start Date Expiration Date Visits Requested Visits Authorized [id number] Pending Review Specialty Services Required 11/28/2023 11/27/2024 1 1 [facility] Summary Purpose Family History No Family [...] Referred By Dorothea felix Referred To Contact Kerrie Meza, MERCHANDISE PLANNING MANAGER-MINIATURE SET DESIGNER [address] [place] [address] Referral ID Status Reason Start Date Expiration Date V isits Requested Visits Authorized [id number] Pending Review 1 1 Additional Source Comments REASON FOR VISIT (unrecogniz ed section and content) Reason Comments Anxiety Reason Comments Routine Visit INFORMATION SOURCE (unrecogn ized section and content) DATE CREATED AUTHOR 08/28/2022 [place] DATE CREATED AUTHOR AUTHOR'S ORGANIZ ATION 12/29/2022 [facility] DATE CREATED AUTHOR AUTHOR'S ORGANIZ ATION 05/03/2023 [facility] DATE CREATED AUTHOR AUTHOR'S ORGANIZ ATION 12/15/2023 [facility] DATE CREATED AUTHOR AUTHOR'S ORGANIZ ATION 06/19/2024 [facility] DATE CREATED AUTHOR AUTHOR'S TATIANNA MOLINA 09/04/2024 [facility] Care Teams (unrecognized sec tion and content) Rn Discharge Relationship Specialty Start Date End Date Derrick Kerrie Rivera APRN-MINIATURE SET DESIGNER [address] [place] [address] PCP - General Internal Medicine 05/17/23 Rn Discharge Relationship Specialty Start Date End Date Derrick Kerrie Rivera MERCHANDISE PLANNING MANAGER-MINIATURE SET DESIGNER [address] [place] [address] PCP - General Internal Medicine 05/17/23 Rn Discharge Relationship Specialty Start Date End Date Derrick Kerrie Rivera APRN-MINIATURE SET DESIGNER [address] [place] [address] PCP - General Internal Medicine 05/17/23 FOR [...] BE BASED ON THE PRIMARY CLINICAL RECORDS. [employer] provides no warranty or guarantee of the accuracy or completeness of information in this document.
[2024-09-08] MEDS: 0.9 % SODIUM CHLORIDE 1,000 ML 125 ML IV (05:30)
[2024-09-08 05:55] LABS: Hemoglobin 9.1 g/dL (12.0-16.0); Mean Corpuscular HGB Conc 30.3 g/dL (29.9-35.2); Mean Corpuscular Hemoglobin 22.1 pg (26.7-34.0); Mean Platelet Volume 10.8 fL (9.5-13.5); Platelet Count 336 10^3/uL (150-450); Red Blood Count 4.11 10^6/uL (4.20-5.40); Red Cell Distribution Width 16.7 % (11.0-15.0); White Blood Count 10.2 10^3/uL (4.0-11.0)
[2024-09-08] MEDS: OXYTOCIN/0.9 % SODIUM CHLORIDE 10 UNITS/500 ML PLAST..BAG 6 UNIT IV (06:05)
[2024-09-08 06:16] LABS: Amphetamine Screen Urine NEGATIVE (NEGATIVE); Barbiturates Screen Urine NEGATIVE (NEGATIVE); Benzodiazepines Screen Urine NEGATIVE (NEGATIVE); Buprenorphine Screen Urine NEGATIVE (NEGATIVE); Cannabinoid Screen Urine POSITIVE (NEGATIVE); Cocaine Screen Urine NEGATIVE (NEGATIVE); Methadone Screen Urine NEGATIVE (NEGATIVE); Methamphetamines Screen Urine NEGATIVE (NEGATIVE); Opiate Screen Urine NEGATIVE (NEGATIVE); Oxycodone Screen Urine NEGATIVE (NEGATIVE); Phencyclidine Screen Urine NEGATIVE (NEGATIVE); Tricyclic Antidepressant Urine NEGATIVE (NEGATIVE)
[2024-09-08] MEDS: NALBUPHINE HCL 10 MG/ML AMPULE IV (08:24)
[2024-09-08] MEDS: 0.9 % SODIUM CHLORIDE 1,000 ML 1000 ML IV (08:27)
[2024-09-08] MEDS: ROPIVACAINE HCL/PF 400 MG/200 ML PREMIX 6 MG EPIDURAL (08:50)
[2024-09-08] MEDS: OXYTOCIN/0.9 % SODIUM CHLORIDE 20 UNITS/1,000 ML PLAST..BAG 125 UNIT IV (11:10)
--- NOTE | 2024-09-08 11:16 | PM.OBPRCVD ---
Procedure Intrapartal events: None Induction method: per pitocin protocol Delivery augmentation: rupture of membranes and pitocin Delivery monitor: external FHT and external uterine Route of delivery: Indication for instrumentation: nonreassuring FHR tracing Episiotomy Description: none L&D Laceration Description: perineal - 1st degree Delivery repair: Vicryl Estimated blood loss (mL): 300 Anesthesia type: Epidural Disposition: floor Delivery date: 09/08/24 Gender: male presentation: vertex Placental delivery description: Spontaneous cord description: 3 Vessels
[2024-09-08] MEDS: IBUPROFEN 600 MG TABLET PO ×2 (14:47→21:13)
[2024-09-09 06:56] LABS: Basophils Absolute Auto 0.1 10^3/uL (0.0-0.1); Basophils Percent Auto 0.8 % (0.2-2.0); Eosinophils Absolute Auto 0.2 10^3/uL (0.0-0.7); Eosinophils Percent Auto 1.7 % (0.9-7.0); Hematocrit 25.5 % (36.0-48.0); Hemoglobin 7.7 g/dL (12.0-16.0); Immature Granulocytes Abs Auto 0.09 10^3/uL (0.00-0.03); Immature Granulocytes Pct Auto 0.7 % (0.0-0.5); Lymphocytes Absolute Auto 2.6 10^3/uL (1.2-3.8); Lymphocytes Percent Auto 20.3 % (20.5-60.0); Mean Corpuscular HGB Conc 30.2 g/dL (29.9-35.2); Mean Corpuscular Hemoglobin 22.1 pg (26.7-34.0); Mean Corpuscular Volume 73.1 fL (81.0-99.0); Mean Platelet Volume 10.7 fL (9.5-13.5); Monocytes Absolute Auto 1.3 10^3/uL (0.3-0.8); Monocytes Percent Auto 10.6 % (1.7-12.0); Neutrophils Absolute Auto 8.4 10^3/uL (1.4-6.5); Neutrophils Percent Auto 65.9 % (43.0-75.0); Platelet Count 246 10^3/uL (150-450); Red Blood Count 3.49 10^6/uL (4.20-5.40); Red Cell Distribution Width 16.6 % (11.0-15.0); White Blood Count 12.7 10^3/uL (4.0-11.0)
[2024-09-09] MEDS: DOCUSATE SODIUM 100 MG CAPSULE PO (09:18)
[2024-09-09] MEDS: IBUPROFEN 600 MG TABLET PO ×2 (09:18→16:32)
[2024-09-09 09:20] VITALS: BP 116/59; PULSE 70; TEMP 35.9
--- NOTE | 2024-09-09 09:20 | P.OBPN_ITS ---
OB - PN: Subj Subjective Patient comments: no complaints and pain well controlled [place] status: doing well Exam Constitutional Vital Signs, click to edit/add: Last Vital Signs Temp 96.6 F L 09/09/24 09:20 Pulse 70 09/09/24 09:20 Resp 16 09/08/24 23:58 BP 116/59 09/09/24 09:20 O2 Del Method Room Air 09/08/24 23:58 Documenting provider has reviewed patient's vital signs: yes Common normals: no apparent distress Respiratory Common normals: normal respiratory effort and clear to auscultation bilaterally Cardio Common normals: regular rate and regular rhythm GI Common normals: Normal to inspection, nondistended, normoactive bowel sounds present Extremity Common normals: no calf tenderness Results Labs Labs: Short CBC 09/09/24 Range/Units 06:42 WBC 12.7 H (4.0-11.0) 10^3/uL Hgb 7.7 L (12.0-16.0) g/dL Hct 25.5 L (36.0-48.0) % Plt Count 246 (150-450) 10^3/uL OB - PN: A/P Plan - Vaginal Delivery day: 1 Plan: routine care Time Spent with Patient Time: Total time spent is greater than 50% in coordination of care (as documented) at patient's floor/unit and/or counseling patient: Total time spent with greater than 50% in coordination of care (as documented) at patient's floor/unit and/or counseling patient: less than 15 minutes
[2024-09-09 09:21] VITALS: TEMP 36.4
--- NOTE | 2024-09-09 14:08 | SWNOTE1 ---
Pt was tired yesterday and wanted SW to come in today. SW attempted to see pt today, pt was in shower. SW to check back later today.
--- NOTE | 2024-09-09 15:32 | SWNOTE1 ---
SW consulted due to positive THC drug screen on admission. SW spoke with nurse, no other concerns at this time. SW met with pt to discuss positive drug screen. Father of baby in room as well, sleeping on the couch. Pt voiced she had her daughter about a year ago here and she was aware that SW would be in. Pt admits to THC use during . She stated she smoked occasionally and it was the only thing she could do to help her eat. She could not keep anything down. Pt tried Zofran, but it did not help. Pt does not have medical marijuana card. Pt does not plan on continuing use at discharge. Pt and father of baby live together with there 1 year old daughter. They do have everything they need for baby at home. She voiced they have good support at home as well. Pt has to contact WIC now that baby is born and she will do this. SW advised pt that SW has to make a referral to CPS. Pt voiced understanding. No further concerns at this time. Referral made to [facility] CPS. HIPAA form filled out and sent to
[2024-09-09 16:27] VITALS: BP 117/64; PULSE 71
[2024-09-10 00:14] VITALS: BP 106/57; PULSE 63
[2024-09-10 07:19] VITALS: BP 100/61; PULSE 77; TEMP 36.6
--- NOTE | 2024-09-10 07:40 | P.OBPN_ITS ---
OB - PN: Subj Subjective Patient comments: no complaints and pain well controlled [place] status: doing well Exam Constitutional Vital Signs, click to edit/add: Last Vital Signs Temp 97.5 F L 09/09/24 09:21 Pulse 77 09/10/24 07:19 Resp 16 09/09/24 16:30 BP 100/61 09/10/24 07:19 O2 Del Method Room Air 09/10/24 00:15 Documenting provider has reviewed patient's vital signs: yes Common normals: no apparent distress Respiratory Common normals: clear to auscultation bilaterally Cardio Common normals: regular rate and regular rhythm GI Common normals: Normal to inspection, nondistended, normoactive bowel sounds present Extremity Common normals: no clubbing, cyanosis or edema OB - PN: A/P Plan - Vaginal Delivery day: 2 Plan: routine care, discharge home and follow up 6 weeks Time Spent with Patient Time: Total time spent is greater than 50% in coordination of care (as documented) at patient's floor/unit and/or counseling patient: Total time spent with greater than 50% in coordination of care (as documented) at patient's floor/unit and/or counseling patient: less than 15 minutes
[2024-09-10] MEDS: DOCUSATE SODIUM 100 MG CAPSULE PO (08:27)
[2024-09-10] MEDS: IBUPROFEN 600 MG TABLET PO (08:28)
[2024-09-10 15:36] VITALS: BP 101/59; PULSE 81
[2024-09-10 15:40] VITALS: TEMP 36.7
[2024-09-12 19:08] LABS: Cannabinoid Positive (.); Carboxy THC Conf, MS, UR >750 ng/mL (Cutoff=10)
== END 2024-09-10 15:55 | disposition home or self-care (01) | DRG 560 ==
PROVIDERS: Admitting Provider Obstetrics & Gynecology; PCP Family Medicine; Visit Provider Obstetrics & Gynecology
DX: O99.324 Drug use complicating childbirth (principal); F12.90 Cannabis use, unspecified, uncomplicated; O99.334 Smoking (tobacco) complicating childbirth; F17.290 Nicotine dependence, other tobacco product, uncomplicated; O70.0 First degree perineal laceration during delivery; Z3A.39 39 weeks gestation of pregnancy; Z37.0 Single live birth; Z87.440 Personal history of urinary (tract) infections
CPT/HCPCS: 36415; 51702; 59050; 59410; 80307; 80349; 85025; 85027; 86850; 86900; 86901; J2300; J2795

== ENCOUNTER 2024-12-29 20:12 | Outpatient (REF) | payer MEDICAID, SELFPAY ==
--- OUTSIDE RECORDS SUMMARY | 2024-12-29 20:17 | XMS_ITS | CCD ---
Author Organization [facility] Clini[facility]yd[facility] Care Team Providers Care Pastoral Assistant Name Role Phone Federica Gina Unavailable Lynn Bonilla Unavailable Jose Elias Singh Primary Care Unavailable Gina Stallworth Attending Unavailable Gina Stallworth Admitting Unavailable Bonilla, Lynn L Admitting Unavailable Bonilla, Lynn L Attending Unavailable Jose Elias Singh Primary Care Unavailable Chad Lynn L Attending Unavailable Chad, Lynn L Admitting Unavailable NadererJose Elias Primary Care Unavailable Wil, Bernardino Attending Unavailable WilKinjalBernardino Admitting Unavailable NadereJose Elias hamm Primary Care Unavailable BEATRICE ., DR CAMARGO [...] CAMARGO Attending Unavailable BEATRICE ., DR CAMARGO Admitting Unavailable LALA, DR ALEXIA Boyce Consulting Unavailable NADJON, DR JOSE ELIAS Hassan Primary Care Unavailable BEATRICE ., DR CAMARGO Consulting Unavailable NADERER, DR JOSE ELIAS Hassan Primary Care Unavailable LETA ., KRISTI Admitting Unavailable LETA ., KRISTI Attending Unavailable BEATRICE ., DR CAMARGO Admitting Unavailable NADERER, DR JOSE ELIAS Hassan Primary Care Unavailable BEATRICE ., DR CAMARGO Attending Unavailable BEATRICE ., DR CAMARGO Consulting Unavailable Derrick ATHLETIC AGENT-SUPPORT ARCHITECT, Kerrie L Primary Care Provider DERRICK, KERRIE L Referring Unavailable DERRICK, KERRIE L Primary Care Unavailable DERRICK, KERRIE L Referring Unavailable DERRICK, KERRIE L Primary Care Unavailable Unavailable Primary Care Provider Unavailabl e SCOTTY, MARY Attending Unavailable BEATRICE, MAYUR Attending Unavailable SCOTTY, MARY Attending Unavailable BEATRICE, MAYUR Attending Unavailable SCOTTY, MARY Attending Unavailable BEATRICE, MAYUR Attending Unavailable SCOTTY, MARY Attending Unavailable BEATRICE, MAYUR Attending Unavailable SCOTTY, MARY Attending Unavailable SCOTTY, MARY Attending Unavailable MIRIAM YUAN Attending Unavailable DERRICK, KERRIE L Referring Unavailable DERRICK, KERRIE L Primary Care Unavailable DERRICK, KERRIE L Attending Unavailable DERRICK, KERRIE L Referring Unavailable DERRICK, KERRIE L Primary Care Unavailable Medications Current Medications Medication Drug Class(es) Dates Sig (Normalized) Sig (Original) ARIPiprazole 5 mg oral tablet (3 sources) Atypical Antipsychotic Start: 10-01-2024 take 1 tablet by mouth once daily ARIPiprazole (Abilify) 5 MG tablet Take 5 mg by mouth Daily 10/01/2024 Active take 1 tablet by mouth every 30 days ARIPiprazole (ABILIFY) 5 mg tablet TAKE 1 TABLET BY MOUTH AT BED TIME RESTARTING 10/01/24. 30 DAYS Active azithromycin 500 mg oral tablet (3 sources) Macrolide Antimicrobial Start: 02-22-2022 take 2 tablets by mouth once Azithromycin 500 MG 2 tablet Orally once for 1 day Feb, Active busPIRone hydrochloride 15 mg oral tablet (8 sources) Start: 10-01-2024 take 1 tablet by mouth in the morning busPIRone (Buspar) 15 MG tablet Take 15 mg by mouth in the morning and 15 mg before bedtime. 10/01/2024 Active Start: 12-12-2023 take 1 tablet by delmy th three times daily busPIRone (BUSPAR) 10 mg [...] the morning. 28 tablet 11 11/28/2023 Active etonogestrel 68 mg drug implant (5 sources) Progestin Start: 09-24-2024 End: 09-24-2027 etonogestreL (NEXPLANON) 68 mg implant 1 each (68 mg total). 09/24/2024 09/24/2027 Active Start: 09-24-2024 End: 09-24-2027 etonogestrel-eluting 68 mg c ontraceptive implant 1 each fluticasone propionate 0.05 mg/actuat metered dose nasal spray (19 sources) Corticosteroid Start: 06-16-2024 take 2 spray(s) nasal route in the morning fluticasone propionate (FLONASE) 50 mcg/actuation nasal spray Administer 2 sprays into each nostril in the morning. 16 g 2 06/16/2024 Active Start: 06-16-2024 End: 10-28-2024 take 2 spray(s) nasal route in the morning fluticasone (Flonase) 50 MCG/ACT nasal spray Administer 2 sprays into affected nostril(s) in the morning. 06/16/2024 10/28/2024 Discontinued (Other) lamoTRIgine 100 mg oral tablet (3 sources) Mood Stabilizer, Anti-epileptic Agent Start: 11-01-2024 take 1 tablet by mouth once daily in the morning lamoTRIgine (LaMICtal) 100 mg tablet TAKE 1 TABLET BY MOUTH EVERY MORNING, SCHEDULE APPOINTMENT WITH PROVIDER WITHIN 30 DAYS. 11/01/2024 Active Start: 10-01-2024 take 1 tablet by delmy th in the morning lamoTRIgine (LaMICtal) 25 MG tablet Take 25 mg by mouth in the morning and 25 mg before bedtime. 10/01/2024 Active metroNIDAZOLE 500 mg oral tablet (9 [...] 12 hrs for 5 days Feb, Active sertraline 25 mg oral tablet (1 source) Serotonin Reuptake Inhibitor Start: 11-01-2024 take 1 tablet by mouth every 30 days in the morning sertraline (ZOLOFT) 25 mg tablet TAKE 1 TABLET BY MOUTH IN THE MORNING RESTARTING 10/01/24. 30 DAYS 11/01/2024 Active vortioxetine 5 mg oral tablet (2 [...] the morning. 0 11/28/2023 Discontinued (Therapy completed) magnesium oxide 400 mg oral tablet (20 sources) Start: 06-23-2024 End: 06-23-2025 take 1 tablet by mouth once daily magnesium oxide (Mag-Ox) 400 MG tablet Indications: headache in second trimester Take 1 tablet (400 mg) by mouth Daily 30 tablet 11 06/23/2024 10/28/2024 Discontinued (Other) Vit-Fe Fumarate-FA ( Plus/Iron) 27-1 MG tablet (20 sources) Start: 06-23-2024 End: 10-28-2024 take 1 tablet by mouth once daily Vit-Fe Fumarate-FA ( Plus/Iron) 27-1 MG tablet Indications: 28 weeks gestation of , headache in second trimester Take 1 tablet by mouth Daily 30 tablet 06/23/2024 10/28/2024 Discontinued (Other) Start: 06-23-2024 End: 06-23-2025 take 1 tablet by mouth once daily Vit-Fe Fumarate-FA ( Plus/Iron) 27-1 MG tablet Indications: 28 weeks gestation of , headache in second trimester Take 1 tablet by mouth Daily 30 tablet 06/23/2024 06/23/2025 Active Problems Active Problems Problem Classification Problem Date Documented Date Episodic/Chronic Anxiety disorders (4 sources) Anxiety; Translations: [Anxiety disorder, unspecified] Onset: 12-15-2023 11-28-2023 Chronic Attention-deficit, conduct, and disruptive behavior disorders (1 source) Attention-deficit hyperactivity disorder, predominantly inattentive type; Translations: [F90.0 - Attention-deficit hyperactivity disorder, predominantly inattentive type] Onset: 01-01-2022 Chronic Contraceptive and procreative management (1 source) Patient encounter status; Translations: [Encounter for initial prescription of implantable subdermal contraceptive] 09-24-2024 Episodic Immunizations and screening for infectious disease (4 sources) Contact with and (suspected) exposure to infections with a predominantly sexual mode of transmission; Translations: [Patient encounter status] Onset: 05-18-2022 Resolved: 05-18-2022 Episodic Menstrual disorders (4 sources) Irregular menstruation, unspecified; Translations: [IRREGULAR MENSTRUATION UNSPECIFIED] Onset: 03-15-2023 Chronic Other complications of (1 source) Anemia; Translations: [Anemia complicating , unspecified trimester] 12-24-2024 Chronic Other complications of (1 source) Anemia complicating , unspecified trimester; Translations: [Anemia complicating , unspecified trimester] Onset: 12-24-2024 Chronic Other complications of (4 sources) Vomiting of , unspecified; Translations: [VOMITING OF UNSPECIFIED] Onset: 04-16-2023 Episodic Other female genital disorders (6 sources) Vaginal discharge; Translations: [Other specified noninflammatory disorders of vagina] Onset: 10-28-2024 11-28-2023 Episodic Other female genital disorders (1 source) Other specified noninflammatory disorders of vagina; Translations: [Other specified noninflammatory disorders of vagina] Onset: 11-29-2023 Episodic Other and delivery including normal (20 sources) Encounter for supervision of normal , [...] [38 weeks gestation of ] 09-02-2024 Episodic Syncope (3 sources) Syncope and collapse; Translations: [Syncope and collapse] Onset: 12-24-2024 12-24-2024 Episodic Unclassified (1 source) Z20.2 - Contact [...] Problem Classification Problem Date Documented Date Episodic/Chronic Mood disorders (4 sources) Major depressive disorder, recurrent severe without psychotic features; Translations: [Recurrent major depressive episodes, moderate ] Onset: 01-01-2022 Resolved: 06-16-2024 12-12-2023 Chronic Mood disorders (5 sources) Mood disorders Onset: 11-28-2023 Resolved: 12-24-2024 11-28-2023 Other complications of (5 sources) Cyst of ovary in ; Translations: [Maternal care for other abnormalities of pelvic organs, third trimester] Onset: 08-14-2023 08-14-2023 Episodic Other complications of (2 sources) size does not accord with dates; Translations: [Uterine size-date discrepancy, unspecified trimester] 08-05-2024 Episodic Other screening for suspected conditions (not mental disorders or infectious disease) (8 sources) Encounter for observation for other suspected diseases and conditions ruled out; Translations: [Encounter for other screening for genetic and chromosomal anomalies] Onset: 07-17-2022 Episodic Otitis media and related conditions (1 source) Unspecified Eustachian tube disorder, bilateral; Translations: [Unspecified eustachian tube disorder, bilateral] Onset: 06-16-2024 Episodic Results Test Name Value Interpretation Reference Range Facility HCG ( test) Ql (U)o n 09-24-2024 Interpretation and review of laboratory results Normal [facility] re Preg Test, Ur Negative Negative [facility] ALL CBC WITH AUTO DIFFon BASOPHILS ABSOLUTE AUTO 0.[address] [facility] Basophils/100 WBC (Bld) 0.8 % 0.2 - 2.0 % [facility] Eosinophils/100 WBC (Bld) 1.7 % 0.9 - 7.0 % [facility] Erythrocyte distribution width (RBC) [Ratio] 16.6 % High 11.0 - 15.0 % [facility] Hematocrit (Bld) [Volume fraction] 25.5 % Low 36.0 - 48.0 % [facility] Hemoglobin (Bld) [Mass/Vol] 7.7 g/dL Low 12.0 - 16.0 g/dL [facility] IMMATURE GRANULOCYTES ABS AUTO 0.[address] [facility] Immature granulocytes/100 WBC (Bld) 0.7 % High 0.0 - 0.5 % [facility] Interpretation and review of laboratory results Abnormal [facility] re LYMPHOCYTES ABSOLUTE AUTO 2.[address] [facility] Lymphocytes/100 WBC (Bld) 20.3 % Low 20.5 - 60.0 % [facility] MCH (RBC) [Entitic mass] 22.1 pg Low 26.7 - 34.[address] [facility] MCHC (RBC) [Mass/Vol] 30.2 g/dL 29.9 - 35.2 g/dL [facility] MCV (RBC) [Entitic vol] 73.1 fL Low 81.0 - 99.[address] [facility] MONOCYTES ABSOLUTE AUTO 1.[address] [facility] Monocytes/100 WBC (Bld) 10.6 % 1.7 - 12.0 % [facility] NEUTROPHILS ABSOLUTE AUTO 8.[address] [facility] Neutrophils/100 WBC (Bld) 65.9 % 43.0 - 75.0 % [facility] Platelet mean volume (Bld) [Entitic vol] 10.7 fL 9.5 - 13.[address] [facility] TBH EO # 0.2 [facility] e TB PLT 246 [facility] RBC 3.49 Low [facility] Healthcar e [facility] WBC 12.7 High [facility] HP CBC WITH PLATELET NO DI FFERENTIALon 09-08-2024 Erythrocyte distribution width (RBC) [Ratio] 16.7 % High 11.0 - 15.0 % [facility] Hematocrit (Bld) [Volume fraction] 30 % Low 36.0 - 48.0 % [facility] Hemoglobin (Bld) [Mass/Vol] 9.1 g/dL Low 12.0 - 16.0 g/dL [facility] Interpretation and review of laboratory results Abnormal [facility] MCH (RBC) [Entitic mass] 22.1 pg Low 26.7 - 34.[address] [facility] MCHC (RBC) [Mass/Vol] 30.3 g/dL 29.9 - 35.2 g/dL [facility] MCV (RBC) [Entitic vol] 73 fL Low 81.0 - 99.[address] [facility] Platelet mean volume (Bld) [Entitic vol] 10.8 fL 9.5 - 13.[address] [facility] TB PLT 336 [facility] RBC 4.11 Low [facility] WBC 10.2 [facility] Urinalysis macro (dipstick) panel (U)on 09-02-2024 Bilirubin, UA Negative Negative - 4(70) +++ mg/dL [facility] Blood, UA Negative Negative - 50 Niles/mcL [facility] Clarity, UA Clear [facility] re Color, UA Yellow [facility] e Glucose, UA Negative Negative - 1999(110) ++++ mg/dL [facility] Interpretation and review of laboratory results Abnormal [facility] re Ketones, UA Negative Negative - 160(16) ++++ mg/dL [facility] Leukocytes, UA Positive Negative - 500+++ Gabrielle/mcL [facility] Comment on above: small Nitrite, UA Negative Negative - Positive [facility] pH, UA 6.0 5 - 9 [facility] e Protein, UA Negative Negative - 1999(20) ++++ mg/dL [facility] Spec Grav, UA 1.025 1 - 1.03 [facility] Urobilinogen, UA 0.2 0.2 - 12 mg/dL [facility] Urinalysis macro (dipstick) panel (U)on 08-26-2024 Bilirubin, UA Negative Negative - 4(70) +++ mg/dL [facility] Blood, UA Negative Negative - 50 Niles/mcL [facility] Clarity, UA Clear [facility], UA Yellow [facility] Healthcar e Glucose, UA Negative Negative - 1999(110) ++++ mg/dL [facility] Interpretation and review of laboratory results Abnormal [facility] re Ketones, UA Negative Negative - 160(16) ++++ mg/dL [facility] Leukocytes, UA Positive Negative - 500+++ Gabrielle/mcL [facility] Comment on above: small Nitrite, UA Negative Negative - Positive [facility] pH, UA 6.0 5 - 9 [facility] e Protein, UA Negative Negative - 1999(20) ++++ mg/dL [facility] Spec Grav, UA 1.020 1 - 1.03 [facility] Urobilinogen, UA 0.2 0.2 - 12 mg/dL [facility] Healthcar e URETHRITIS/DISCHARGE PLUS VA GINITIS (HTRX)on 08-22-2024 ATOPOBIUM VAGINAE 0.000 [facility] ATOPOBIUM VAGINAE Not detected [facility] BVAB 2,3 (BACTERIAL VAGINOSIS ASSOCIATED BACTERIA 2, 3); MOBILUNCUS SPP 0.[address] [facility] BVAB 2,3 (BACTERIAL VAGINOSIS ASSOCIATED BACTERIA 2, 3); MOBILUNCUS SPP Not detected [facility] LUIS MANUEL ALBICANS, PARAPSILOSIS, TROPICALIS 0.[address] [facility] LUIS MANUEL ALBICANS, PARAPSILOSIS, TROPICALIS Not detected [facility] LUIS MANUEL GLABRATA 0.000 [facility] LUIS MANUEL GLABRATA Not detected [facility] ealthcare LUIS MANUEL KRUSEI 0.000 [facility] LUIS MANUEL KRUSEI Not detected [facility] CHLAMYDIA TRACHOMATIS 0.[address] [facility] CHLAMYDIA TRACHOMATIS Not detected [facility] ERMB, C; MEFA 21.712 Abnormal [facility] ERMB, C; MEFA Detected Abnormal [facility] GARDNERELLA VAGINALIS 29.[address] [facility] GARDNERELLA VAGINALIS Detected Abnormal [facility] HERPES SIMPLEX VIRUS [address] [facility] HERPES SIMPLEX VIRUS 1 Not detected [facility] HERPES SIMPLEX VIRUS [address] [facility] HERPES SIMPLEX VIRUS 2 Not detected [facility] Interpretation and review of laboratory results Abnormal [facility] re MEGASPHAERA (TYPES 1, 2) 0.[address] [facility] MEGASPHAERA (TYPES 1, 2) Not detected [facility] MYCOPLASMA GENITALIUM 0.[address] [facility] MYCOPLASMA GENITALIUM Not detected [facility] MYCOPLASMA HOMINIS 0.000 [facility] H ealthcare MYCOPLASMA HOMINIS Not detected [facility] NEISSERIA GONORRHOEAE 0.[address] [facility] NEISSERIA GONORRHOEAE Not detected [facility] TET B, TET M 22.664 Abnormal [facility] Healthc are TET B, TET M Detected Abnormal [facility] TRICHOMONAS VAGINALIS 0.[address] [facility] TRICHOMONAS VAGINALIS Not detected [facility] UREAPLASMA PARVUM 17.786 Abnormal [facility] UREAPLASMA PARVUM Detected Abnormal [facility] UREAPLASMA UREALYTICUM 21.[address] [facility] UREAPLASMA UREALYTICUM Detected Abnormal [facility] Urinalysis macro (dipstick) panel (U)on 08-20-2024 Bilirubin, UA Negative Negative - 4(70) +++ mg/dL [facility] Blood, UA Negative Negative - 50 Niles/mcL [facility] Clarity, UA Clear [facility] re Color, UA Yellow [facility] Healthcar e Glucose, UA Negative Negative - 1999(110) ++++ mg/dL [facility] Interpretation and review of laboratory results Normal [facility] re Ketones, UA Negative Negative - 160(16) ++++ mg/dL [facility] Leukocytes, UA Negative Negative - 500+++ Gabrielle/mcL [facility] Nitrite, UA Negative Negative - Positive [facility] pH, UA 7.0 5 - 9 [facility] Healthcar e Protein, UA Negative Negative - 1999(20) ++++ mg/dL [facility] Spec Grav, UA 1.015 1 - 1.03 [facility] Urobilinogen, UA 0.2 0.2 - 12 mg/dL [facility] Urinalysis macro (dipstick) panel (U)on 08-05-2024 Bilirubin, UA Negative Negative - 4(70) +++ mg/dL [facility] Blood, UA Negative Negative - 50 Niles/mcL [facility] Healthcare Clarity, UA Clear [facility] re Color, UA Yellow [facility] Glucose, UA Negative Negative - 1999(110) ++++ mg/dL [facility] Interpretation and review of laboratory results Abnormal [facility] re Ketones, UA Negative Negative - 160(16) ++++ mg/dL [facility] Leukocytes, UA Positive Negative - 500+++ Gabrielle/mcL [facility] Comment on above: small Nitrite, UA Negative Negative - Positive [facility] pH, UA 6.0 5 - 9 [facility] Healthcar e Protein, UA Trace Negative - 1999(20) ++++ mg/dL [facility] Spec Grav, UA 1.025 1 - 1.03 [facility] Urobilinogen, UA 0.2 0.2 - 12 mg/dL [facility] Health[facility] e Urinalysis macro (dipstick) panel (U)on 07-22-2024 Bilirubin, UA Negative Negative - 4(70) +++ mg/dL [facility] Blood, UA Negative Negative - 50 Niles/mcL [facility] Clarity, UA Clear [facility] re Color, UA Yellow [facility] Healthcar e Glucose, UA Negative Negative - 1999(110) ++++ mg/dL [facility] Interpretation and review of laboratory results Normal [facility] Healthca re Ketones, UA Negative Negative - 160(16) ++++ mg/dL [facility] Leukocytes, UA Negative Negative - 500+++ Gabrielle/mcL [facility] Nitrite, UA Negative Negative - Positive [facility] pH, UA 7.0 5 - 9 [facility] Healthcar e Protein, UA Negative Negative - 1999(20) ++++ mg/dL [facility] Spec Grav, UA 1.020 1 - 1.03 [facility] Urobilinogen, UA 0.2 0.2 - 12 mg/dL [facility] Vaginitis Panel PCRon 2023 Bacterial vaginosis DNA panel JORDON+probe (Vag fld) Detected Abnormal Not Detected^Not Detected [facility] Comment on above: Qualitative results are reported based on detection and quantitation of targeted organism markers which include: Lactobacillus spp. (L. crispatus and L. jensenii), Gardnerella vaginalis, Atopobium vaginae, Bacterial Vaginosis Associated Bacteria-2 (BVAB-2) and Megasphaera-1 C. glabrata DNA JORDON+probe Ql (Vag fld) Not detected Not Detected^Not Detected [facility] Comment on above: No Luis Manuel glabrata detected C. krusei DNA JORDON+probe Ql (Vag fld) Not detected Not Detected^Not Detected [facility] Comment on above: No Luis Manuel krusei de tected Luis Manuel sp 6 panel JORDON+probe (Vag fld) Not detected Not Detected^Not Detected [facility] Comment on above: Luis Manuel species not detected include: C. albicans, C. tropicalis, C. parapsilosis or C. dubliniensis Interpretation and review of laboratory results Abnormal [facility] T. vaginalis DNA JORDON+probe Ql (Vag fld) Not detected Not Detected^Not Detected [facility] Comment on above: No Trichomonas vagin rosemary detected NOTE BD MAX Vaginal Panel has not been evaluated for patients under 18 years old. Results for these patients should be reviewed and assessed in accordance with clinical presentation to determine patient diagnosis. [facility] VAGINITIS PANEL PCRon 2023 VAGINITIS PANEL [...] determine patient diagnosis. Normal [facility] Comment on above: Performed By: #### V PPCR #### [facility] ([id number]) [address] [place] [address], [address] [place] [address] CHLAMYDIA/GC PCR, Uon 2023 CHLAMYDIA/GC PCR, U [...] adequate specimen collection. Normal [facility] Comment on above: Performed By: #### C #### [facility] ([id number]) [address] [place] [address], [address] [address] POCT , urineon Beta HCG ( test) [...] determine patient diagnosis. Normal [facility] Comment on above: Performed By: #### V PPCR #### [facility] ([id number]) [address] [place] [address], [address] [place] [address] US PREG CERVICAL LENGTHon US PREG CERVICAL [...] REEVES Date: 2023-04-23 06:59 Normal [facility] INFLUENZA A AND B AGon 04-16 INFLUENZA A AG Negative Normal NEGATIVE SEE COMMENT [facility] Comment on above: Performed By: #### I NFLUAB #### [facility] [address] [address] [address] Ryan Martinez INFLUENZA B AG Negative Normal NEGATIVE SEE COMMENT [facility] Comment on above: Performed By: #### I NFLUAB #### [facility] [address] [address] [address] Ryan Martinez UA (CLEAN/CATCH) SUPERVISOR VEGETABLE FARMING/MICRO I F IND.on 04-16-2023 Bilirubin Ql (U) Negative Normal NEGATIVE [facility] Comment on above: Performed By: #### U ACSIND #### [facility] [address] [address] [address] Ryan Martinez Clarity (U) CLEAR Normal CLEAR [facility] Comment on above: Performed By: #### U ACSIND #### [facility] [address] [place] [address] Dr. Ryan Martinez Color (U) LT. YELLOW Normal YELLOW [facility] Comment on above: Performed By: #### U ACSIND #### [facility] [address] [address] [address] Ryan Martinez Glucose Ql (U) Negative Normal NEGATIVE [facility] Comment on above: Performed By: #### U ACSIND #### [facility] [address] [place] [address] Dr. Ryan Martinez Hemoglobin Ql (U) Negative Normal NEGATIVE [facility] Comment on above: Performed By: #### U ACSIND #### [facility] [address] [place] [address] Dr. Ryan Martinez Ketones Ql (U) >=80 Abnormal NEGATIVE [facility] Comment on above: Performed By: #### U ACSIND #### [facility] [address] [address] [address] Ryan Martinez LEUKOCYTES Negative Normal NEGATIVE [facility] Comment on above: Performed By: #### U ACSIND #### [facility] [address] [place] [address] Dr. Ryan Martinez Nitrite Ql (U) Negative Normal NEGATIVE [facility] Comment on above: Performed By: #### U ACSIND #### [facility] [address] [place] [address] Dr. Ryan Martinez pH (U) 6.5 [pH] Normal 5-9 [facility] Comment on above: Performed By: #### U ACSIND #### [facility] [address] [place] [address] Dr. Ryan Martinez SPEC GRAVITY 1.010 Normal 1.005-<=1.02 5 [facility] Comment on above: Performed By: #### U ACSIND #### [facility] [address] [place], [place] [id number] Dr. Ryan Martinez UA PROTEIN Negative Normal NEGATIVE/ TRACE [facility] Comment on above: Performed By: #### U ACSIND #### [facility] [address] [place] [address] Dr. Ryan Martinez UR MICRO IND NOT INDICATED Normal [facility] Comment on above: Performed By: #### U ACSIND #### [facility] [address] [place] [address] Dr. Ryan Martinez Urobilinogen Qn (U) 0.2 {Han'U}/dL Normal 0.2 - 1. 0 [facility] Comment on above: Performed By: #### U ACSIND #### [facility] [address] [place] [address] Dr. Ryan Martinez HEP B SURFACE ANTIGEN SCREEN on 03-16-2023 HBsAg Screen Negative Normal Negative [facility] Comment on above: Performed By: #### H BSANS #### [facility] [address] [place] [address] Dr. Ryan Martinez HEPATITIS C VIRUS AB W/ REFL EX QUANTon 03-16-2023 HCV AB Non-Reactive Normal Non Reactive [facility] Comment on above: Performed By: #### C BC #### [facility] [address] [place] [address] Dr. Ryan Martinez Interpretation: Comment Normal [facility] Comment on above: Result Comment: Not infected with HCV unless early or acute infection is suspected (which may be delayed in an immunocompromised individual), or other evidence exists to indicate HCV infection. Performed By: #### C BC #### [facility] [address] [place] [address] Dr. Ryan Martinez HIV 1 AND 2 WITH REFLEXon HIV Screen 4th Generation wRfx Non-Reactive Normal Non Reactive [facility] Comment on above: Result Comment: HIV Negative HIV-1/HIV-2 antibodies and HIV-1 p24 antigen were NOT detected. There is no laboratory evidence of HIV infection. Performed By: #### H IV12 #### [facility] [address] [place] [address] Dr. Ryan Martinez RPR QUANTon 03-16-2023 Rapid Plasma Reagin, Quant Non-Reactive Normal NonRea<1:1 [facility] Comment on above: Result Comment: Eloisa thompson Note: This test does not meet current guidelines for screening and diagnosis of syphilis. This test is intended for following treatment response in patients being treated for syphilis infection. To screen for syphilis infection, a reflex cascade that includes both RPR and a treponema-specific assay should be utilized, such as Treponema pallidum (Syphilis) Screening Humphreys (539450) or Rapid Plasma Reagin (RPR) Test With Reflex to Quantitative RPR and Confirmatory Treponema pallidum Antibodies (698115). Performed By: #### R PRQ #### [facility] [address] [place] [address] Dr. Ryan Martinez RUBELLA AB IGGon 03-16-2023 Rubella Antibodies, IgG 4.40 index Normal Immune >0.99 [facility] Comment on above: Result Comment: Non- immune <0.90 Equivocal 0.90 - 0.99 Immune >0.99 Performed By: #### R UBIGG #### [facility] [address] [place] [address] Dr. Ryan Martinez BOX TEST SENT OUTon 03-15-20 23 SENT TO REF LAB 03/15/2023 Normal [facility] Comment on above: Performed By: #### C BC #### [facility] [address] [place] [address] Dr. Ryan Martinez CBC AUTO DIFFon 03-15-2023 BASO # 0.1 103/ul Normal 0.0-0.1 [facility] Comment on above: Performed By: #### C BC #### [facility] [address] [place] [address] Dr. Ryan Martinez Basophils/100 WBC (Bld) 0.5 % Normal 0.2-2.0 [facility] Comment on above: Performed By: #### C BC #### [facility] [address] [place] [address] Dr. Ryan Martinez EO # 0.2 103/ul Normal 0.0-0.7 [facility] Comment on above: Performed By: #### C BC #### [facility] [address] [place] [address] Dr. Ryan Martinez Eosinophils/100 WBC (Bld) 1.9 % Normal 0.9-7.0 [facility] Comment on above: Performed By: #### C BC #### [facility] [address] [place] [address] Dr. Ryan Martinez Erythrocyte distribution width (RBC) [Ratio] 13.2 % Normal 11.0-15.0 [facility] Comment on above: Performed By: #### C BC #### [facility] [address] [place] [address] Dr. Ryan Martinez Hematocrit (Bld) [Volume fraction] 35.7 % Critically low 36.0-48.0 [facility] Comment on above: Performed By: #### C BC #### [facility] [address] [place] [address] Dr. Ryan Martinez Hemoglobin (Bld) [Mass/Vol] 12.2 g/dL Normal 12.0-16.0 [facility] Comment on above: Performed By: #### C BC #### [facility] [address] [place] [address] Dr. Ryan Martinez IG # 0.05 10e3/ul Critically high 0.00-0.03 [facility] Comment on above: Performed By: #### C BC #### [facility] [address] [place] [address] Dr. Ryan Martinez IG % 0.5 % Normal 0.0-0.5 [facility] Comment on above: Performed By: #### C BC #### [facility] [address] [place] [address] Dr. Ryan Martinez LYMPH # 1.9 103/ul Normal 1.2-3.8 [facility] Comment on above: Performed By: #### C BC #### [facility] [address] [place] [address] Dr. Ryan Martinez Lymphocytes/100 WBC (Bld) 20.1 % Critically low 20.5-60.0 [facility] Comment on above: Performed By: #### C BC #### [facility] [address] [place] [address] Dr. Ryan Martinez MANUAL DIFF REQ NO Normal [facility] Comment on above: Performed By: #### C BC #### [facility] [address] [place] [address] Dr. Ryan Martinez MCH (RBC) [Entitic mass] 30.9 pg Normal 26.7-34.0 [facility] Comment on above: Performed By: #### C BC #### [facility] [address] [place] [address] Dr. Ryan Martinez MCHC (RBC) [Mass/Vol] 34.2 g/dL Normal 29.9-35.2 [facility] Comment on above: Performed By: #### C BC #### [facility] [address] [place] [address] Dr. Ryan Martinez MCV (RBC) [Entitic vol] 90.4 fL Normal 81.0-99.0 [facility] Comment on above: Performed By: #### C BC #### [facility] [address] [place] [address] Dr. Ryan Martinez MONO # 0.8 103/ul Normal 0.3-0.8 [facility] Comment on above: Performed By: #### C BC #### [facility] [address] [place] [address] Dr. Ryan Martinez Monocytes/100 WBC (Bld) 8.0 % Normal 1.7-12.0 [facility] Comment on above: Performed By: #### C BC #### [facility] [address] [place] [address] Dr. Ryan Martinez NEUT # 6.5 103/ul Normal 1.4-6.5 [facility] Comment on above: Performed By: #### C BC #### [facility] [address] [place] [address] Dr. Ryan Martinez Neutrophils/100 WBC (Bld) 69.0 % Normal 43.0-75.0 [facility] Comment on above: Performed By: #### C BC #### [facility] [address] [address] [address] Rayn Martinez Platelet mean volume (Bld) [Entitic vol] 9.4 fL Critically low 9.5-13.5 [facility] Comment on above: Performed By: #### C BC #### [facility] [address] [address] [address] Ryan Martinez PLT 238 103/ul Normal 150-450 [facility] Comment on above: Performed By: #### C BC #### [facility] [address] [address] [address] Ryan Martinez RBC 3.95 106/ul Critically low 4.20-5.40 [facility] Comment on above: Performed By: #### C BC #### [facility] [address] [place] [address] Dr. Ryan Martinez WBC 9.5 103/ul Normal 4.0-11.0 [facility] Comment on above: Performed By: #### C BC #### [facility] [address] [place] [address] Dr. Ryan Martinez CULTURE URINEon 03-15-2023 CULTURE URINE Culture Observations : NO GROWTH. Normal [facility] Comment on above: Performed By: #### C BC #### [facility] [address] [place] [address] Dr. Ryan Martinez GLYCOHEMOGLOBIN A1Con 2022 ADA RECOMMENDATION SEE BELOW Normal [facility] Comment on above: Result Comment: ADA RECOMMENDED LIMIT 4.0 - 6.0 ADA THERAPEUTIC TARGET < 7.0 ACTION SUGGESTED > 7.0 Performed By: #### A 1C #### [facility] [address] [place] [address] Dr. Ryan Martinez Glucose [Mass/Vol] 88 mg/dL Normal [facility] Comment on above: Performed By: #### A 1C #### [facility] [address] [place] [address] Dr. Ryan Martinez HbA1c (Bld) [Mass fraction] 4.7 % Normal 4.5-6.2 [facility] Comment on above: Performed By: #### A 1C #### [facility] [address] [place] [address] Dr. Ryan Martinez URon 03-15-2023 , QUAL Positive Abnormal NEGATIVE [facility] Comment on above: Performed By: #### C BC #### [facility] [address] [place] [address] Dr. Ryan Martinez TSHon 03-15-2023 TSH 1.649 uIU/mL Normal 0.516-4.130 [facility] Comment on above: Performed By: #### T SH #### [facility] [address] [place] [address] Dr. Ryan Martinez TYPE AND SCREENon 03-15-2023 TYPE AND SCREEN Negative Normal [facility] Comment on above: Performed By: #### C BC #### [facility] [address] [place] [address] Dr. Ryan Martinez UA RANDOMon 03-15-2023 Bilirubin Ql (U) Negative Normal NEGATIVE [facility] Comment on above: Performed By: #### U A, PREGU #### [facility] [address] [place] [address] Dr. Ryan Martinez Clarity (U) CLEAR Normal CLEAR [facility] Comment on above: Performed By: #### U A, PREGU #### [facility] [address] [place] [address] Dr. Ryan Martinez Color (U) LT. YELLOW Normal YELLOW [facility] Comment on above: Performed By: #### U A, PREGU #### [facility] [address] [place] [address] Dr. Ryan Martinez Glucose Ql (U) Negative Normal NEGATIVE [facility] Comment on above: Performed By: #### U A, PREGU #### [facility] [address] [place] [address] Dr. Ryan Martinez Hemoglobin Ql (U) Negative Normal NEGATIVE [facility] Comment on above: Performed By: #### U A, PREGU #### [facility] [address] [place] [address] Dr. Ryan Martinez Ketones Ql (U) Negative Normal NEGATIVE [facility] Comment on above: Performed By: #### U A, PREGU #### [facility] [address] [address] [address] Ryan Martinez LEUKOCYTES Negative Normal NEGATIVE [facility] Comment on above: Performed By: #### U A, PREGU #### [facility] [address] [place] [address] Dr. Ryan Martinez Nitrite Ql (U) Negative Normal NEGATIVE [facility] Comment on above: Performed By: #### U A, PREGU #### [facility] [address] [address] [address] Ryan Martinez pH (U) 7.0 [pH] Normal 5-9 [facility] Comment on above: Performed By: #### U A, PREGU #### [facility] [address] [place] [address] Dr. Ryan Martinez SPEC GRAVITY 1.010 Normal 1.005-<=1.02 5 [facility] Comment on above: Performed By: #### U A, PREGU #### [facility] [address] [place] [address] Dr. Ryan Martinez UA PROTEIN Negative Normal NEGATIVE/ TRACE [facility] Comment on above: Performed By: #### U A, PREGU #### [facility] [address] [place] [address] Dr. Ryan Martinez Urobilinogen Qn (U) 0.2 {Han'U}/dL Normal 0.2 - 1. 0 [facility] Comment on above: Performed By: #### U A, PREGU #### [facility] [address] [place] [address] Dr. Ryan Martinez US PREG TVon 02-21-2023 [...] by: ALEXIA REEVES Date: 2023-02-21 15:09 Normal [facility] Chlamydia/GC/Trich NAAon Chlamydia/GC/Trich JORDON Negative Negative [employer] [facility] [address] Other Chlamydia/GC/Trich JORDON Positive Critically abnormal Negative [employer] [facility] [employer] Other Chlamydia Trachomotis, JORDON Negative Normal Negative [facility] Comment on above: Order Comment: Reaso n for Exam Sexually transmitted disease exposure Performed By: #### G CCHLAMTRI #### [facility] , Neisseria Gonorrhoeae, JORDON Positive Critically abnormal Negative [facility] Comment on above: Order Comment: Reaso n for Exam Sexually transmitted disease exposure Performed By: #### G CCHLAMTRI #### [facility] , Trichomonas JORDON Negative Normal Negative [facility] Comment on above: Order Comment: Reaso n for Exam Sexually transmitted disease exposure Result Comment: Perf ormed at: =G - [facility] [address] [id number] Account Contact Associate: Norma Manuel MD, Phone: [phone] PERFORMED BY: [place] [id number] PATHOLOGIST AIRSET CASTER STEPHANE MILES M.D. Performed By: #### G CCHLAMTRI #### [facility] , Urine Cultureon 02-22-2022 Bacteria identified Cx Nom (U) ORGANISM: Escherichia coli (O:ESCCOL) [place] Count >100,000 Aerobic STEVEN Charge (NUC86) ---- [...] RESISTANT TO ALL B-LACTAM DRUGS. PERFORMED BY: [place] [address] PATHOLOGIST AIRSET CASTER STEPHANE MILES M.D. Normal [facility] Comment on above: Performed By: #### C UU #### [facility] [address] [place] [address] [place] Vaginitis Plus (VG+)on 02-22 Atopobium Vaginae Moderate - [address] [facility] Comment on above: Performed By: #### V AGINITIS+ #### [facility] , BVAB2 High - 2 Critically abnormal . [facility] Comment on above: Performed By: #### V AGINITIS+ #### [facility] , Luis Manuel Albicans, JORDON Negative Normal Negative [facility] Comment on above: Result Comment: This test was developed and its performance characteristics determined by [employer]. It has not been cleared or approved by the Food and Drug Administration. Performed By: #### V AGINITIS+ #### [facility] , Luis Manuel Glabrata, JORDON Negative Normal Negative [facility] Comment on above: Result Comment: This test was developed and its performance characteristics determined by [facility]. It has not been cleared or approved by the Food and Drug Administration. PERFORMED BY: [place] [address] PATHOLOGIST AIRSET CASTER STEPHANE MILES M.D. Performed By: #### V AGINITIS+ #### [facility] , Chlamydia Trachomotis, JORDON Positive Critically abnormal Negative [facility] Comment on above: Performed By: #### V AGINITIS+ #### [facility] , Megasphaera High - 2 Critically abnormal . [facility] Comment on above: Result Comment: Calc ulate [...] developed and its performance characteristics determined by [employer]. It has not been cleared or approved by the Food and Drug Administration. Performed By: #### V AGINITIS+ #### [facility] , Neisseria Gonorrhoeae, JORDON Negative Normal Negative [facility] Comment on above: Result Comment: Perf ormed at: =G - [facility] [address] [id number] Account Contact Associate: Norma Manuel MD, Phone: [phone] Performed By: #### V AGINITIS+ #### [facility] , Tric Vag JORDON Negative Normal Negative [facility] Comment on above: Performed By: #### V AGINITIS+ #### [facility] , ECG 12 lead ECGon 01-02-2022 ECG 12 lead ECG [facility] [address] Electrocardiograph Report Signed Patient: Carmelina Rizo LM MR#: [id number] 15 : 2005 Acct:[id number] Age/Sex: 16 / F ADM Date: 01/01/22 Loc: Room: [address] [place] [address] Type: DIS IN Attending Dr: Bernardino De [...] ROSEANN SOUSA [facility], TOMMY ([id number]) on 01/02/2022 12:21:02 PM Referred By: Electronically Signed By:TOMMY CIFUENTES MD [facility] Transcribed By: MUS Signed By Tommy Cifuentes MD, FACC 01/02/22 1221 Normal [facility] Lipid Panelon 01-02-2022 Cholesterol [Mass/Vol] 138 mg/dL Low 140-200 [facility] Comment on above: Result Comment: Chol less than 200 mg/dl low risk Chol 201-239 mg/dl borderline risk Chol 240 mg/dl and greater high risk Performed By: #### L IPID, TSH3 wRFLX, [id number] #### [facility] [address] [id number] [place] Cholesterol in HDL [Mass/Vol] 45 mg/dL Normal 35-85 [facility] Comment on above: Result Comment: HDL CHOL ATP-III CLASSIFICATION Cardiovascular Risk HDL > or equal to 60 mg/dL LOW HDL < 40 mg/dL HIGH Performed By: #### L IPID, TSH3 wRFLX, [id number] #### [facility] [address] [place] [address] [place] Cholesterol.total/C holesterol in HDL [Mass ratio] 3.1 {ratio} Normal <5.0 [facility] Comment on above: Performed By: #### L IPID, TSH3 wRFLX, [id number] #### [facility] [address] [place] [address] [place] LDL Cholesterol,Calcula jade 82 mg/dL Normal 0-100 [facility] Comment on above: Result Comment: LDL ATP III CLASSIFICATION LDL less than 100 mg/dL Optimal LDL 100-129 mg/dL Near or above optimal LDL 130-159 mg/dL Borderline high LDL 160-189 mg/dL High LDL greater than 189 mg/dL Very high Performed By: #### L IPID, TSH3 wRFLX, [id number] #### [facility] [address] Triglyceride w/Reflex 54 mg/dL Normal 35-149 [facility] Comment on above: Result Comment: TRIG ATP III CLASSIFICATION TRIG less than 150 mg/dL Normal TRIG 150-199 mg/dL Borderline high TRIG 200-500 mg/dL High TRIG greater than 500 mg/dL Very high Standard traceable to the Center for Disease Conrtrol and Prevention (CDC) test method. Performed By: #### L IPID, TSH3 wRFLX, [id number] #### [address] VLDL CHOLESTEROL 10 mg/dL Normal [facility] Comment on above: Performed By: #### L IPID, TSH3 wRFLX, [id number] #### [facility] [address] [place] [address] [place] Thyroid Stim Hormone w/Rflxo n 01-02-2022 Thyroid Stim Hormone w/Rflx 1.38 u[iU]/mL Normal 0.45-5.33 [facility] Comment on above: Performed By: #### L IPID, TSH3 wRFLX, [id number] #### [facility] [address] [place] [address] Vitamin D 25 Hydroxy Totalon 01-02-2022 Vitamin D 25 Hydroxy Total 27.6 ng/mL Low 30-100 [facility] Comment on above: Result Comment: JENN MIN D STATUS 25(OH)VITAMIN D RANGE (ng/mL) Deficient <20 Insufficient 20 to <30 Sufficient 30 to 100 Reference: Hector MF,Marques ABRAHAM, Brittny VILLALTA, et al. Evaluation,treatment, and prevention of vitamin D deficiency; an Endocrine Society clinical practice guideline. JCEM. 2010; 96(7):1911-30. PERFORMED BY: [place] [address] PATHOLOGIST AIRSET CASTER STEPHANE MILES M.D. Performed By: #### L IPID, TSH3 wRFLX, [id number] #### [address] Vital Signs Date Time Vital Sign Value Performing Clinician Facility 12-24-2024 15:42-0500 Diastolic blood pressure 58 mm[Hg] Kerrie Meza ATHLETIC AGENT-SUPPORT ARCHITECT Work Phone: [facility] 12-24-2024 15:42-0500 Heart rate 72 /min Kerrie Meza ATHLETIC AGENT-SUPPORT ARCHITECT Work Phone: [facility] [employer] [facility] 12-24-2024 15:42-0500 Systolic blood pressure 94 mm[Hg] Kerrie Meza ATHLETIC AGENT-SUPPORT ARCHITECT Work Phone: [facility] [employer] [facility] 12-24-2024 15:04-0500 Body height 162.6 cm Kerrie Meza ATHLETIC AGENT-SUPPORT ARCHITECT Work Phone: [facility] 12-24-2024 15:04-0500 Body mass index (BMI) [Ratio] 23.21 kg/m2 Kerrie Meza ATHLETIC AGENT-SUPPORT ARCHITECT Work Phone: [facility] [employer] [facility] 12-24-2024 15:04-0500 Body temperature 99.19 [degF] Kerrie Meza ATHLETIC AGENT-SUPPORT ARCHITECT Work Phone: [facility] [employer] [facility] 12-24-2024 15:04-0500 Body weight 61.33 kg Kerrie Meza ATHLETIC AGENT-SUPPORT ARCHITECT Work Phone: [facility] [employer] [facility] 12-24-2024 15:04-0500 SaO2% (BldA) [Mass fraction] 98 % Kerrie Meza ATHLETIC AGENT-SUPPORT ARCHITECT Work Phone: [facility] [employer] [facility] 10-28-2024 14:27-0500 Body mass index (BMI) [Ratio] 24.76 kg/m2 Mary CASTELLON Work Phone: [facility] 10-28-2024 14:27-0500 Body weight 64.41 kg Mary Wilton PA Work Phone: [facility] 10-28-2024 14:27-0500 Diastolic blood pressure 58 mm[Hg] Mary Scotty PA Work Phone: [facility] 10-28-2024 14:27-0500 Systolic blood pressure 92 mm[Hg] Mary Scotty PA Work Phone: [facility] 09-24-2024 13:12-0400 Body mass index (BMI) [Ratio] 25.35 kg/m2 Mary Scotty PA Work Phone: [facility] 09-24-2024 13:12-0400 Body weight 65.95 kg Mary Scotty PA Work Phone: [facility] 09-24-2024 13:12-0400 Diastolic blood pressure 68 mm[Hg] Mary Scotty PA Work Phone: [facility] 09-24-2024 13:12-0400 Systolic blood pressure 102 mm[Hg] Mary Wilton PA Work Phone: [facility] 09-02-2024 13:28-0400 Body mass index (BMI) [Ratio] 30.03 kg/m2 Mary Scotty PA Work Phone: [facility] 09-02-2024 13:28-0400 Body weight 78.13 kg Mary Scotty PA Work Phone: [facility] 09-02-2024 13:28-0400 Diastolic blood pressure 68 mm[Hg] Mary Scotty PA Work Phone: [facility] 09-02-2024 13:28-0400 Systolic blood pressure 106 mm[Hg] Mary Wilton PA Work Phone: [facility] 08-26-2024 14:52-0400 Body mass index (BMI) [Ratio] 29.73 kg/m2 Mayur Beatrice DO Work Phone: [facility] 08-26-2024 14:52-0400 Body weight 77.34 kg Mayur Beatrice DO Work Phone: [facility] 08-26-2024 14:52-0400 Diastolic blood pressure 64 mm[Hg] Mayur Beatrice DO Work Phone: [facility] 08-26-2024 14:52-0400 Systolic blood pressure 116 mm[Hg] Mayur Beatrice DO Work Phone: [facility] 08-20-2024 15:51-0400 Body mass index (BMI) [Ratio] 29.82 kg/m2 Mary Scotty PA Work Phone: [facility] 08-20-2024 15:51-0400 Body weight 77.56 kg Mary Scotty PA Work Phone: [facility] 08-20-2024 15:51-0400 Diastolic blood pressure 64 mm[Hg] Mary Scotty PA Work Phone: [facility] 08-20-2024 15:51-0400 Systolic blood pressure 102 mm[Hg] Mary Scotty PA Work Phone: [facility] 08-05-2024 11:19-0400 Body mass index (BMI) [Ratio] 28.94 kg/m2 Mayur Beatrice DO Work Phone: [facility] 08-05-2024 11:19-0400 Body weight 75.3 kg Mayur Beatrice DO Work Phone: [facility] 08-05-2024 11:19-0400 Diastolic blood pressure 62 mm[Hg] Mayur Beatrice DO Work Phone: [facility] 08-05-2024 11:19-0400 Systolic blood pressure 102 mm[Hg] Mayur Beatrice DO Work Phone: [facility] 07-22-2024 10:48-0400 Body mass index (BMI) [Ratio] 28.42 kg/m2 Mary Wilton PA Work Phone: [facility] 07-22-2024 10:48-0400 Body weight 73.94 kg Mary Scotty PA Work Phone: [facility] 07-22-2024 10:48-0400 Diastolic blood pressure 62 mm[Hg] Mary CASTELLON Work Phone: [facility] 07-22-2024 10:48-0400 Systolic blood pressure 104 mm[Hg] Mary CASTELLON Work Phone: [facility] 12-12-2023 16:29-0500 Body height 162.6 cm Kerrie Meza ATHLETIC AGENT-SUPPORT ARCHITECT Work Phone: [facility] [employer] 12-12-2023 16:29-0500 Body mass index (BMI) [Ratio] 22.76 kg/m2 Kerrieedward Meza ATHLETIC AGENT-SUPPORT ARCHITECT [facility] Phone[facility] 12-12-2023 16:29-0500 Body temperature 99 [degF] Kerrie Derrick ATHLETIC AGENT-SUPPORT ARCHITECT Work Phone: [facility] [employer] 12-12-2023 16:29-0500 Body weight 60.15 kg Kerrie Meza ATHLETIC AGENT-SUPPORT ARCHITECT Work Phone: [facility] [employer] 12-12-2023 16:29-0500 Diastolic blood pressure 60 mm[Hg] Kerrieedward Meza ATHLETIC AGENT-SUPPORT ARCHITECT Work Phone: [facility] 12-12-2023 16:29-0500 Heart rate 76 /min Kerrie Meza ATHLETIC AGENT-SUPPORT ARCHITECT Work Phone: [facility] 12-12-2023 16:29-0500 SaO2% (BldA) [Mass fraction] 96 % Kerrie Meza ATHLETIC AGENT-SUPPORT ARCHITECT Work Phone: [facility] [employer] 12-12-2023 16:29-0500 Systolic blood pressure 98 mm[Hg] Kerrie Derrick ATHLETIC AGENT-SUPPORT ARCHITECT Work Phone: [facility] 11-28-2023 15:17-0500 Body mass index (BMI) [Ratio] 23.1 kg/m2 Kerrie Derrick ATHLETIC AGENT-SUPPORT ARCHITECT Work Phone: [facility] 11-28-2023 15:17-0500 Body temperature 99.39 [degF] Kerrie Derrick ATHLETIC AGENT-SUPPORT ARCHITECT Work Phone: [employer] 11-28-2023 15:17-0500 Body weight 61.05 kg Kerrie Meza APRN-SUPPORT ARCHITECT Work Phone: [employer] 11-28-2023 15:17-0500 Diastolic blood pressure 50 mm[Hg] Kerrie Meza ATHLETIC AGENT-SUPPORT ARCHITECT Work Phone: [employer] 11-28-2023 15:17-0500 Heart rate 61 /min Kerrie Meza APRN-SUPPORT ARCHITECT Work Phone: [employer] 11-28-2023 15:17-0500 SaO2% (BldA) [Mass fraction] 92 % Kerrie Meza APRN-SUPPORT ARCHITECT Work Phone: [employer] 11-28-2023 15:17-0500 Systolic blood pressure 90 mm[Hg] Kerrie Meza APRN-SUPPORT ARCHITECT Work Phone: [employer] 05-18-2022 11:50-0400 Body height 161.29 cm Gina Federica Other [employer] Other 05-18-2022 11:50-0400 Body mass index (BMI) [Ratio] 27.55 kg/m2 Gina Stallworth Other [employer] Other 05-18-2022 11:50-0400 Body temperature 97.8 [degF] Gina Federica Other [employer] Other 05-18-2022 11:50-0400 Body weight 71.67 kg Gina Stallworth Other [employer] Other 05-18-2022 11:50-0400 Diastolic blood pressure 67 mm[Hg] Gina Stallworth Other [employer] Other 05-18-2022 11:50-0400 Respiratory rate 16 /min Gina Stallworth Other [employer] Other 05-18-2022 11:50-0400 SaO2% (BldA) [Mass fraction] 100 % Gina Stallworth Other [employer] Other 05-18-2022 11:50-0400 Systolic blood pressure 113 mm[Hg] Gina Stallworth Other [employer] Other Encounters Encounter Date Encounter Type Care Provider Facility Start: 12-24-2024 End: 12-24-2024 Office outpatient visit 15 minutes [facility] ATHLETIC AGENT-SUPPORT ARCHITECT Work Phone: [facility] Internal Medicine - Family Medicine Comment on above: Anemia during pregna ncy (Primary Dx); Syncope and collapse Start: 12-24-2024 End: 12-24-2024 ambulatory [facility] Start: 10-28-2024 End: 10-28-2024 care visit Mary CASTELLON Work Phone: [facility] Comment on above: 6 weeks f ollow-up; Vaginal discharge Start: 10-28-2024 End: 10-28-2024 Bamboo flowsheet Mary CASTELLON Work Phone: [facility] Start: 10-28-2024 End: 10-28-2024 Bamboo flowsheet Mary CASTELLON Work Phone: [facility] Start: 09-24-2024 End: 09-24-2024 Patient encounter procedure Mary CASTELLON Work Phone: [facility] Comment on above: Insertion of Nexplan on Start: 09-24-2024 End: 09-24-2024 ambulatory MARY HARVEY Not Available Start: 09-09-2024 End: 09-09-2024 Clinisync Result Encounter Mayur Barron DO Work Phone: [facility] Unsolicited Start: 09-09-2024 End: 09-09-2024 Clinisync Result Encounter Mayur Beatrice DO Work Phone: [facility] Unsolicited Start: 09-08-2024 End: 09-08-2024 Clinisync Result Encounter Mayur Beatrice DO Work Phone: [facility] Unsolicited Start: 09-08-2024 End: 09-08-2024 Clinisync Result Encounter Mayur Beatrice DO Work Phone: [facility] Unsolicited Start: 09-02-2024 End: 09-02-2024 Bamboo flowsheet Mary CASTELLON Work Phone: [facility] Start: 09-02-2024 End: 09-02-2024 Bamboo flowsheet Mary CASTELLON Work Phone: [facility] Start: 09-02-2024 End: 09-02-2024 Office outpatient visit 15 minutes Mary CASTELLON Work Phone: [facility] Comment on above: Third trimester preg lance; 38 weeks gestation of Start: 09-02-2024 End: 09-02-2024 ambulatory MARY HARVEY Not Available Start: 08-26-2024 End: 08-26-2024 Office outpatient visit 15 minutes Mayur Beatrice DO Work Phone: [facility] Comment on above: Third trimester preg lance; 37 weeks gestation of Start: 08-26-2024 End: 08-26-2024 ambulatory MAYUR BEATRICE Not Available Start: 08-26-2024 End: 08-26-2024 Bamboo flowsheet Mayur Beatrice DO Work Phone: [facility] Start: 08-26-2024 End: 08-26-2024 Bamboo flowsheet Mayur Beatrice DO Work Phone: [facility] Start: 08-20-2024 End: 08-20-2024 ambulatory MARY HARVEY Not Available Start: 08-20-2024 End: 08-20-2024 Office outpatient visit 15 minutes Mary CASTELLON Work Phone: [facility] Comment on above: Third trimester preg lance; Screen for STD (sexually transmitted disease) Start: 08-20-2024 End: 08-20-2024 Bamboo flowsheet Mary CASTELLON Work Phone: [facility] Start: 08-20-2024 End: 08-22-2024 External Result Encounter Mary CASTELLON Work Phone: [facility] External Department Unsolicited Start: 08-20-2024 End: 08-22-2024 External Result Encounter Mary CASTELLON Work Phone: [facility] External Department Unsolicited Start: 08-05-2024 End: 08-05-2024 Bamboo flowsheet Mayur Beatrice DO Work Phone: [facility] Start: 08-05-2024 End: 08-05-2024 Bamboo flowsheet Mayur Beatrice DO Work Phone: [facility] Start: 08-05-2024 End: 08-05-2024 Office outpatient visit 15 minutes Mayur Beatrice DO Work Phone: [facility] Comment on above: Third trimester preg lance; size inconsistent with dates Start: 08-05-2024 End: 08-05-2024 ambulatory MAYUR BEATRICE Not Available Start: 07-22-2024 End: 07-22-2024 Bamboo flowsheet Mary CASTELLON Work Phone: [facility] Start: 07-22-2024 End: 07-22-2024 Bamboo flowsheet Mary CASTELLON Work Phone: [facility] Start: 07-22-2024 End: 07-22-2024 Office outpatient visit 15 minutes Mary CASTELLON Work Phone: [facility] Comment on above: Third trimester preg lance Start: 07-22-2024 End: 07-22-2024 ambulatory MARY HARVEY Not Available Start: 07-08-2024 End: 07-08-2024 ambulatory MAYUR BEATRICE Not Available Start: 06-23-2024 End: 06-23-2024 ambulatory MARY CAMARILLOEY Not Available Start: 06-16-2024 End: 06-16-[address] [facility] Start: 05-26-2024 End: 05-26-2024 ambulatory MAYUR BARRON Not Available Start: 05-14-2024 End: 05-14-2024 ambulatory MARY CAMARILLOEY Not Available Start: 12-15-2023 Orders Only Kerrie Meza ATHLETIC AGENT-SUPPORT ARCHITECT Work Phone: [facility] Phys[facility] Internal [facility] Start: 12-13-2023 End: 12-13-2023 ambulatory [facility] Start: 12-12-2023 End: 12-12-2023 Office outpatient visit 15 minutes Kerrie Nicole Meza ATHLETIC AGENT-SUPPORT ARCHITECT Work Phone: [facility] Internal [facility] Comment on above: Anxiety (Primary Dx) ; Moderate episode of recurrent major depressive disorder ([facility]); Vaginal discharge Start: 11-29-2023 Orders Only Kerrie Rivera Rauch ATHLETIC AGENT-SUPPORT ARCHITECT Work Phone: [facility] Start: 11-29-2023 End: 11-29-2023 ambulatory [facility] Start: 11-28-2023 End: 11-28-2023 Office outpatient visit 15 minutes Kerrie Rivera [facility] ATHLETIC AGENT-SUPPORT ARCHITECT Work Phone: [facility] Internal Medicine - Family Medicine Comment on above: Vaginal discharge (P rimary Dx); High risk heterosexual behavior; Anxiety Start: 10-15-2023 End: 10-15-2023 ambulatory MARY HARVEY Not Available Start: 04-20-2023 End: 04-21-[address] MAYUR BARRON . Facility:[facility] Start: 04-16-2023 End: 04-16-[address] MAYUR BARRON . Facility:[facility] Start: 04-06-2023 End: 04-07-[address] MAYUR BARRON . Facility:[facility] Start: 03-15-2023 End: 03-16-[address] MAYUR BARRON . Facility:[facility] Start: 02-21-2023 End: 02-22-[address] MAYUR BARRON . Facility:[facility] Start: 07-17-2022 ambulatory Joice Start: 05-18-2022 Office outpatient vi sit 15 minutes Gina Federica [facility] Start: 05-18-2022 End: 05-18-2022 ambulatory Jose Elias Singh [employer] Other Start: 02-27-2022 End: 02-27-2022 ambulatory Lynn Bonilla Other [employer] Other Start: 02-27-2022 Telephone encounter Lynn Bonilla [facility] [address] Start: 02-26-2022 End: 02-26-2022 ambulatory Lynn Bonilla Other [employer] Other Start: 02-26-2022 Telephone encounter Lynn Bonilla [facility] [address] Start: 02-22-2022 End: 02-22-2022 ambulatory Lynn Bonilla Facility:[facility] Start: 01-01-2022 End: 01-08-2022 Evaluation and management of inpatient Bernardino Wil Facility:[facility] Procedures Date Procedure Procedure Detail Performing Clinician Start: 12-24-2024 Adult depression scr eening assessment Kerrie Meza ATHLETIC AGENT-SUPPORT ARCHITECT Work Phone: Start: 09-24-2024 Urine test visual color cmprsn meths Mayur Beatrice DO Work Phone: Start: 09-09-2024 ALL CBC WITH AUTO DIFF Mayur Beatrice DO Work Phone: Start: 09-08-2024 [facility] CBC WITH PLATEL ET NO DIFFERENTIAL Mayur Beatrice DO Work Phone: Start: 09-02-2024 Urnls dip stick/tabl et rgnt non-auto w/o micrscp Mary CASTELLON Work Phone: Start: 08-26-2024 Urnls dip stick/tabl et rgnt non-auto w/o micrscp Mayur Beatrice DO Work Phone: Start: 08-20-2024 Urnls dip stick/tabl et rgnt non-auto w/o micrscp Mary CASTELLON Work Phone: Start: 08-20-2024 URETHRITIS/DISCHARGE PLUS VAGINITIS (HTRX) Mary CASTELLON Work Phone: Start: 08-05-2024 Urnls dip stick/tabl et rgnt non-auto w/o micrscp Mayur Beatrice DO Work Phone: Start: 07-22-2024 Urnls dip stick/tabl et rgnt non-auto w/o micrscp Mary CASTELLON Work Phone: Start: 12-12-2023 Adult depression scr eening assessment Kerrie Meza ATHLETIC AGENT-SUPPORT ARCHITECT Work Phone: Start: 11-28-2023 Urine test visual color cmprsn meths Kerrie Meza ATHLETIC AGENT-SUPPORT ARCHITECT Work Phone: Start: 11-28-2023 Adult depression scr eening assessment Kerrie Meza ATHLETIC AGENT-SUPPORT ARCHITECT Work Phone: Plan of Treatment Date Care Activity Detail Author Start: 12-24-2025 Adult BMI Screening Adult BMI Screen ing [facility] Start: 12-24-2025 Depression Screening Depression Scre ening [facility] Start: 12-24-2025 Tobacco Screening Tobacco Screening [facility] Start: 09-20-2025 DTaP,Tdap and Td Vaccines (7 - Td or Tdap) DTaP,Tdap and Td Vaccines (7 - Td or Tdap) [facility] Start: 02-18-2025 End: 02-18-2025 Patient encounter procedure 02/18/2025 1:40 PM EDT Office Visit [facility] - [facility] [address] [place] [address] Kerrie Meza, ATHLETIC AGENT-SUPPORT ARCHITECT [address] [place] [address] [facility] Internal Medicine - Family Medicine Start: 12-24-2024 End: 12-24-2025 Event monitor Event monitor Cardiac Services Routine Syncope and collapse Expected: 12/24/2024, Expires: 12/24/2025 [facility] Comment on above: Expected: 12/24/2024 , Expires: 12/24/2025 Start: 12-12-2024 Adult BMI Screening Adult BMI Screen ing [facility] Start: 12-12-2024 Depression Screening Depression Scre ening [facility] Start: 12-12-2024 Tobacco Screening Tobacco Screening [facility] Start: 11-28-2024 Adult BMI Screening Adult BMI Screen ing [facility] Start: 11-28-2024 Depression Screening Depression Scre ening [facility] Start: 11-28-2024 Screening for Chlamy katt trachomatis Chlamydia Screening [facility] Start: 11-28-2024 Tobacco Screening Tobacco Screening [facility] Start: 10-28-2024 End: 10-28-2024 Patient encounter procedure 10/28/2024 2:10 PM EST [facility] Visit [facility] [address] [facility] [place] [id number] Mary Harvey, PA [address] [place], [place] [id number] Arrived [facility] Comment on above: Arrived Start: 10-26-2024 End: 10-26-2024 Patient encounter procedure 10/26/2024 1:30 PM EST Office Visit [facility] [address] [place] [address] Mary Harvey, PA [address] [place], [place] [id number] [facility] Start: 2024 Screening for malign ant neoplasm of cervix Pap Smear [facility] Start: 10-06-2024 End: 10-06-2024 ambulatory 10/06/2024 1:20 PM EST Visit [facility] [address] [place] [phone] Mary Harvey PA [address] [place] [address] [facility] Start: 09-02-2024 End: 09-02-2024 Patient encounter procedure [facility] Comment on above: Arrived Start: 08-26-2024 End: 08-26-2024 Patient encounter procedure [facility] Comment on above: Arrived Start: 08-20-2024 End: 08-20-2025 Strep B DNA probe, amplification Strep B DNA probe, amplification Lab Routine Third trimester Expected: 08/20/2024 (Approximate), Expires: 08/20/2025 [facility] Work Phone: Comment on above: Expected: 08/20/2024 (Approximate), Expires: 08/20/2025 Start: 08-19-2024 End: 08-19-2024 Patient encounter procedure 08/19/2024 10:30 AM EDT Routine [facility] [address] [place] [phone] Mary Harvey PA [address] [place] [address] [facility] Start: 08-19-2024 End: 08-19-2024 Professional / ancillary services management 08/19/2024 10:00 AM EDT Ancillary Procedure [facility] [address] [place] [phone] [facility] Start: 08-05-2024 End: 08-05-2025 US for US OB SCAN FOR GROWTH Imaging Routine size inconsistent with dates Expected: 08/05/2024 (Approximate), Expires: 08/05/2025 [facility] Work Phone: Comment on above: Expected: 08/05/2024 (Approximate), Expires: 08/05/2025 Start: 08-05-2024 End: 08-05-2024 Patient encounter procedure [facility] Comment on above: Arrived Start: 07-26-2024 Influenza vaccination Influenza Vacc ine [facility] Start: 07-22-2024 End: 07-22-2024 Patient encounter procedure 07/22/2024 11:20 AM EDT Routine [facility] [address] [place] [phone] Mary Harvey PA [address] [place] [address] Arrived [facility] Comment on above: Arrived Start: 12-12-2023 End: 12-12-2023 Patient encounter procedure 12/12/2023 4:30 PM EST [facility] [address] [place] [address] Kerrie Meza, ATHLETIC AGENT-SUPPORT ARCHITECT [address] [place] [address] [facility] Start: 07-26-2023 Influenza vaccination Influenza Vacc ine [facility] Start: 2022 DTaP,Tdap and Td Vaccines (1 - Tdap) DTaP,Tdap and Td Vaccines (1 - Tdap) [facility] Start: 2003 Screening for Chlamy katt trachomatis Chlamydia Screening [facility] End: 12-24-2025 CBC W Auto Differential panel - Blood CBC auto differential Lab Routine Anemia during 1 Occurrences starting 12/24/2024 until 12/24/2025 [facility] Work Phone: Comment on above: 1 Occurrences starti ng 12/24/2024 until 12/24/2025 CHLAMYDIA TRACHOMATI S (GENITO/STI) CHLAMYDIA TRACHOMATIS (GENITO/STI) Lab Routine 6 weeks follow-up Vaginal discharge Ordered: 10/28/2024 [facility] Comment on above: Ordered: 10/28/2024 CHLAMYDIA TRACHOMATI S (GENITO/STI) CHLAMYDIA TRACHOMATIS (GENITO/STI) Lab Routine Screen for STD (sexually transmitted disease) Ordered: 08/20/[address] [facility] Comment on above: Ordered: 08/20/2024 End: 11-27-2024 Chlamydia/GC by PCR urine Chlamydia/GC by PCR urine Microbiology Routine Vaginal discharge 1 Occurrences starting 11/28/2023 until 11/27/2024 [facility] Comment on above: 1 Occurrences starti ng 11/28/2023 until 11/27/2024 Chlamydia/GC by PCR urine Chlamydia/GC by PCR urine Microbiology Routine Vaginal discharge 11/28/2023 10:11 PM EST [facility] End: 12-24-2025 Ferritin [Mass/volume] in Serum or Plasma Ferritin Lab Routine Anemia during 1 Occurrences starting 12/24/2024 until 12/24/2025 [facility] Comment on above: 1 Occurrences starti ng 12/24/2024 until 12/24/2025 End: 12-24-2025 Iron and TIBC Iron and TIBC Lab Routine Anemia during 1 Occurrences starting 12/24/2024 until 12/24/2025 [facility] Comment on above: 1 Occurrences starti ng 12/24/2024 until 12/24/2025 Neisseria gonorrhoea e DNA [Presence] in Unspecified specimen by JORDON with probe detection Neisseria gonorrhea DNA probe, direct Lab Routine 6 weeks follow-up Vaginal discharge Ordered: 10/28/[address] [facility] Comment on above: Ordered: 10/28/2024 Neisseria gonorrhoea e DNA [Presence] in Unspecified specimen by JORDON with probe detection Neisseria gonorrhea DNA probe, direct Lab Routine Screen for STD (sexually transmitted disease) Ordered: 08/20/[address] [facility] Comment on above: Ordered: 08/20/2024 SURESWAB(R) ADVANCED VAGINITIS PLUS, TMA SURESWAB(R) ADVANCED VAGINITIS PLUS, TMA Pathology and Cytology Routine 6 weeks follow-up Vaginal discharge Ordered: 10/28/[address] [facility] Work Phone: Comment on above: Ordered: 10/28/2024 SURESWAB(R) ADVANCED VAGINITIS PLUS, TMA SURESWAB(R) ADVANCED VAGINITIS PLUS, TMA Pathology and Cytology Routine Screen for STD (sexually transmitted disease) Ordered: 08/20/[address] [facility] Comment on above: Ordered: 08/20/2024 End: 12-24-2025 TSH with Reflex TSH with Reflex Lab Routine Syncope and collapse 1 Occurrences starting 12/24/2024 until 12/24/2025 [employer] Comment on above: 1 Occurrences starti ng 12/24/2024 until 12/24/2025 End: 11-28-2024 Vaginitis Panel PCR Vaginitis Panel PCR Microbiology Routine Vaginal discharge 1 Occurrences starting 11/28/2023 until 11/28/2024 [facility] Work Phone: Comment on above: 1 Occurrences starti ng 11/28/2023 until 11/28/2024 Vaginitis Panel PCR Vaginitis Pa jerry PCR Microbiology Routine Vaginal discharge 11/28/2023 10:12 PM EST [facility] Payers Date Payer Category Payer Medicaid [id number] 2022 Unknown 2022 Unknown [id number] 2.1 [id number] 2022 Self-pay 2003 Unknown [id number] 2.16.84 0.1.327492.3.579.2.593 2003 Unknown [id number] 2.16.84 0.1.969657.3.579.2.593 2003 Unknown [id number] 2.16.84 0.1.950971.3.579.2.593 2003 Unknown [id number] 2.16.84 0.1.114851.3.579.2.593 2003 Unknown [id number] 2.16.84 0.1.571938.3.579.2.593 2003 Unknown [id number] 2.16.84 0.1.529175.3.579.2.593 2003 Unknown [id number] 2.16.84 0.1.623753.3.579.2.1286 2003 Unknown [id number] 2.16.84 0.1.530623.3.579.2.1286 2003 Unknown [id number] 2.16.84 0.1.376357.3.579.2.1259 2003 Unknown [id number] 2.16.84 0.1.178609.3.579.2.9 2003 Unknown [id number] 2.16.84 0.1.254338.3.579.2.1258 2003 Unknown [id number] 2.16.84 0.1.147225.3.579.2.1258 2003 Unknown [id number] 2.16.84 0.1.677695.3.579.2.1258 2003 Unknown [id number] 2.16.84 0.1.430983.3.579.2.1258 2003 Unknown [id number] 2.16.84 0.1.027309.3.579.2.1258 2003 Unknown [id number] 2.16.84 0.1.038041.3.579.2.1258 2003 Unknown [id number] 2.16.84 0.1.016835.3.579.2.1258 2003 Unknown [id number] 2.16.84 0.1.307200.3.579.2.1258 2003 Unknown [id number] 2.16.840 .1.768488.3.579.2.125 2003 Unknown [id number] 2.16. 840.1.402271.3.579.2.1286 2003 Unknown [id number] 2.16.8 40.1.043537.3.579.2.1286 1959 Unknown [id number] Unknown [id number] 2.16.8 40.1.194559.3.579.2.531 Unknown [id number] 2.16.8 40.1.588708.3.579.2.531 Unknown [id number] 2.16.8 40.1.600560.3.579.2.531 Unknown [id number] 2.16.8 40.1.782942.3.579.2.531 Social History Date Type Detail Facility Start: 11-28-2023 End: 12-24-2024 Sex Assigned At [facility] [employer] Other Start: 08-14-2023 [facility] History of tobacco use Current smoker [facility] Start: 01-04-2020 History of tobacco use Cigarette Smo ker [facility] Start: 08-14-2023 End: 07-08-2024 Tobacco use and exposure Smokeless tobacco non-user [facility] Start: 11-28-2023 End: 12-24-2024 Alcohol intake Ex-drinker (finding) [facility] Start: 11-28-2023 End: 12-24-2024 History of Social function [facility] Adolescent depressio n screening assessment 1 [facility] Start: 2003 Sex Assigned At Not on file P [facility] Start: 01-04-2020 [facility] Start: 08-05-2024 End: 08-20-2024 Alcoholic beverage intake Lifetime non-drinker (finding) [facility] Start: 12-22-2023 [facility] Start: 2003 Sex assigned at Female [facility] Start: 04-17-2023 Gender identity Identifies as female gender (finding) [facility] Start: 05-17-2023 Sex Female (finding) [facility] Clinical Notes 12-26-2021 to 12-24-2024 Kerrie Meza, BILLY-SUPPORT ARCHITECT - 12/24/2024 3:00 PM CANDE Isaac - 10/28/2024 2:10 PM CANDE Isaac - 09/24/2024 1:00 PM CANDE Nielsen - 09/02/2024 1:30 PM EDT Note Date & Type Note Facility 12-24-2024 History of Presen t illness Narrative [address] [place] [address] Patient: Carmelina Rizo Date of : 2005 Encounter Date: 12/24/2024 History of Present Illness: The patient is a 19 y.o. female, an established patient, and is here for Chief Complaint Patient presents with Loss of Consciousness . HPI Two days ago patient fainted. She went to put her son down in bed and her vision went black in the corners and she woke up a few seconds later on the floor. This was witnessed by her boyfriend but he did not know she had fainted. This is the 1st time this has happened and she did have a headache afterwards but no loss of bowel or bladder control or significant fatigue. Patient states she has been dizzy when changing positions for the last several months. She was started on Abilify and Lamictal by her psychiatrist but she has been taking these for several months and the dizziness started before she started taking these. She had a vaginal with her son on September 08 and she was anemic with her but she had a vaginal with minimal loss of blood. The dizziness that she has is daily or 1 to 2 times a day and she feels her vision is like looking through a tunnel and so was her hearing and she feels like she is spinning. She uses caffeine rarely drinks a pop 1-2 times per week and drinks water throughout the day. She has been bleeding since and her bleeding is heavy and she is going through a super plus tampon every 2 hours since August. She had a Nexplanon implant and her OBGYN said to expect some bleeding for awhile afterwards. Patient denies chest pain or palpitations. Problem List Items Addressed This Visit None Visit Diagnoses Anemia during - Primary Relevant Orders CBC auto differential Iron and TIBC Ferritin Syncope and collapse Relevant Orders TSH with Reflex Event monitor Past Medical, Family, and Social History Update: The following portions of the patient's history were reviewed and updated as appropriate: allergies, current medications, past family history, past medical history, past social history, past surgical history and problem list. Past Medical History: Diagnosis Date Anxiety No past surgical history on file. Current Outpatient Medications Medication Sig Dispense Refill etonogestreL (NEXPLANON) 68 mg implant 1 each (68 mg total). lamoTRIgine (LaMICtal) 100 mg tablet TAKE 1 TABLET BY MOUTH EVERY MORNING, SCHEDULE APPOINTMENT WITH PROVIDER WITHIN 30 DAYS. sertraline (ZOLOFT) 25 mg tablet TAKE 1 TABLET BY MOUTH IN THE MORNING RESTARTING 10/01/24. 30 DAYS ARIPiprazole (ABILIFY) 5 mg tablet TAKE 1 TABLET BY MOUTH AT BED TIME RESTARTING 10/01/24. 30 DAYS busPIRone (BUSPAR) 15 mg tablet TAKE 1 TABLET BY MOUTH TWICE A DAY 10/01/24 RESTARTING 30 DAYS fluticasone propionate (FLONASE) 50 mcg/actuation nasal spray Administer 2 sprays into each nostril in the morning. (Patient not taking: Reported on 12/24/2024) 16 g 2 No current facility-administered medications for this visit. [...] Currently Review of Systems: Review of Systems Constitutional: Negative. Respiratory: Negative. Cardiovascular: Negative for chest pain, palpitations and leg swelling. Genitourinary: Positive for menstrual problem and vaginal bleeding. Neurological: Positive for dizziness, syncope, light-headedness and headaches. Negative for tremors, seizures, speech difficulty, weakness and numbness. Psychiatric/Behavioral: Negative. Physical Exam: BP 94/58 (BP Site: Left Arm, BP Postition: Standing) Pulse 72 Temp 37.3 C (99.2 F) (Tympanic) Ht 162.6 cm (5' 4 ) Wt 61.3 kg (135 lb 3.2 oz) SpO2 98% BMI 23.21 kg/m Physical Exam Vitals reviewed. Tube Blower present: sister and infant daughter present. Constitutional: Appearance: Normal appearance. HENT: Head: Normocephalic and atraumatic. Right Ear: Tympanic membrane, ear canal and external ear normal. Left Ear: Tympanic membrane, ear canal and external ear normal. Nose: Nose normal. Mouth/Throat: Mouth: Mucous membranes are moist. Eyes: Pupils: Pupils are equal, round, and reactive to light. Neck: Thyroid: No thyroid mass, thyromegaly or thyroid tenderness. Cardiovascular: Rate and Rhythm: Normal rate and regular rhythm. Heart sounds: Normal heart sounds. Pulmonary: Effort: Pulmonary effort is normal. Breath sounds: Normal breath sounds. Abdominal: General: Bowel sounds are normal. Palpations: Abdomen is soft. Tenderness: There is no abdominal tenderness. Musculoskeletal: Right lower leg: No edema. Left lower leg: No edema. Lymphadenopathy: Cervical: No cervical adenopathy. Skin: General: Skin is warm. Capillary Refill: Capillary refill takes less than 2 seconds. Neurological: General: No focal deficit present. Mental Status: She is alert and oriented to person, place, and time. Gait: Gait normal. Comments: Negative bilateral [place]-Hallpike Psychiatric: Mood and Affect: Mood normal. Behavior: Behavior normal. Assessment and Plan: Carmelina was seen today for loss of consciousness. Diagnoses and all orders for this visit: Anemia during - CBC auto differential; Future - Iron and TIBC; Future - Ferritin; Future Syncope and collapse - TSH with Reflex; Future - Event monitor; Future Follow-up: Her syncope may be due to anemia as she is losing excessive blood from vaginal bleeding since having her child. We will obtain studies above and if abnormal, may need to mitigate blood loss by asking her OBGYN for estrogen Rx with the nexplanon to help with bleeding or switch BCMs. Also check TFTs. Obtain event monitor to rule out arrhythmias as cause of syncope. Orthostatic blood pressures in office were unremarkable but her heart rate did have a significant response upon standing. Her Max[place]-Hallpike in office was negative. If above testing is negative may need event monitor rule out congenital anomalies/structural heart disease. Follow-up after event monitor in about 8 weeks. It was recommended that she go to ER if she has another syncopal episode. SHASHI VU APRN-CNP 12/24/24 1553 documented in this encounter [facility] [employer] 10-28-2024 History of Presen t illness Narrative Reason for Appointment: Patient ID: Carmelina Rizo is a 19 y.o. female who presents for Care and follow up Nexplanon Patient presents today for Post Follow Up appointment. and Consult appointment. MEDICATIONS Current Outpatient Medications Medication Instructions fluticasone (Flonase) 50 MCG/ACT nasal spray 2 sprays, Nasal, Daily RT magnesium oxide (MAG-OX) 400 mg, Oral, Daily Vit-Fe Fumarate-FA ( Plus/Iron) 27-1 MG tablet [...] Mother Cancer Father Andre Rizo SURGICAL HISTORY No past surgical history on file. REVIEW OF SYSTEMS Review of Systems: Review of Systems Constitutional: Negative. HENT: Negative. Eyes: Negative. Respiratory: Negative. Cardiovascular: Negative. Gastrointestinal: Negative. Genitourinary: Positive for vaginal discharge. Musculoskeletal: Negative. Skin: Negative. Neurological: Negative. All other systems reviewed and are negative. Hematological: Negative. Endocrine: Negative. Allergic/Immunologic: Negative. OBJECTIVE Objective: Physical Exam Constitutional: Appearance: Normal appearance. She is well-developed and normal weight. Genitourinary: Vulva normal. HENT: Head: Normocephalic. Cardiovascular: Rate and Rhythm: Normal rate and regular rhythm. Pulses: Normal pulses. Pulmonary: Effort: Pulmonary effort is normal. Breath sounds: Normal breath sounds. Abdominal: General: Bowel sounds are normal. There is no distension. Palpations: Abdomen is soft. Tenderness: There is no abdominal tenderness. There is no guarding or rebound. Musculoskeletal: General: No swelling. Normal range of motion. Right lower leg: No edema. Left lower leg: No edema. Comments: Left upper extremity, nexplnon palpated Neurological: General: No focal deficit present. Mental Status: She is alert and oriented to person, place, and time. Skin: General: Skin is warm and dry. Psychiatric: Mood and Affect: Mood normal. Behavior: Behavior normal. Thought Content: Thought content normal. Judgment: Judgment normal. Vitals and nursing note reviewed. Exam conducted with a piping drafter present. Vitals: Estimated body mass index is 25.35 kg/m as calculated from the following: Height as of 02/21/23: 5' 3.5 . Weight as of 09/24/24: 145 lb 6.4 oz. BP: No LMP recorded. ASSESSMENT & PLAN Post Follow Up: Patient is doing well. Patient presents today for 6 week visit. Patient is s/p Vaginal delivery. Patient states denies depression but has irritability. Patient had Nexplanon inserted 09/24/24. Vaginal cultures obtained due to discharge. Vaginal cultures obtained without difficulty. Patient has resumed intercourse with no vaginal concerns. Follow Up: Patient is to return for annual unless needed otherwise. Documented by Lucinda Guerin LPN on behalf of: CANDE Medina documented in this encounter [facility] 09-24-2024 History of Presen t illness Narrative Reason for Appointment: Patient ID: Carmelina Rizo is a 18 y.o. female who presents for nexplanon insertion Patient presents today for a Nexplanon Insertion appointment. MEDICATIONS Current Outpatient Medications Medication Instructions fluticasone (Flonase) 50 MCG/ACT nasal spray 2 sprays, Nasal, Daily RT magnesium oxide (MAG-OX) 400 mg, Oral, Daily Vit-Fe Fumarate-FA ( Plus/Iron) 27-1 MG tablet 1 tablet, Oral, Daily ALLERGIES No Known Allergies SURGICAL HISTORY History reviewed. No pertinent surgical history. REVIEW OF SYSTEMS Review of Systems: Review of Systems Constitutional: Negative. HENT: Negative. Eyes: Negative. Respiratory: Negative. Cardiovascular: Negative. Gastrointestinal: Negative. Genitourinary: Negative. Musculoskeletal: Negative. Skin: Negative. Neurological: Negative. All other systems reviewed and are negative. Hematological: Negative. Endocrine: Negative. Allergic/Immunologic: Negative. OBJECTIVE Objective: Physical Exam Constitutional: Appearance: Normal appearance. She is normal weight. HENT: Head: Normocephalic. Cardiovascular: Rate and Rhythm: Normal rate. Pulses: Normal pulses. Pulmonary: Effort: Pulmonary effort is normal. Breath sounds: Normal breath sounds. Abdominal: Palpations: Abdomen is soft. Musculoskeletal: General: Normal range of motion. Neurological: General: No focal deficit present. Mental Status: She is alert and oriented to person, place, and time. Psychiatric: Mood and Affect: Mood normal. Behavior: Behavior normal. Thought Content: Thought content normal. Judgment: Judgment normal. Vitals and nursing note reviewed. Vitals: Estimated body mass index is 30.03 kg/m as calculated from the following: Height as of 02/21/23: 5' 3.5 . Weight as of 09/02/24: 172 lb 4 oz. BP: Patient's last menstrual period was 11/26/2022. ASSESSMENT & PLAN Assessment/Plan Encounter Diagnosis: ICD-10-CM 1. Insertion of Nexplanon Z30.017 etonogestrel-eluting 68 mg contraceptive implant 1 each POCT , urine manually resulted Procedures Nexplanon Insertion: Patient presents today for a Nexplanon Insertion. I have reviewed/educated patient on form of contraception and patient has been made aware that Nexplanon does not prevent the contraction of STD/STI's. Patient desires to move forward with Nexplanon insertion and written consent was obtained. Patient was placed in supine position with left elbow flexed by head. Skin was marked with pen indicating insertion site. Skin was then cleansed with betadine and 3cc of lidocaine without epinephrine was injected under the skin. While allowing sufficient numbing time to take effect, the Nexplanon device was removed from it's sterile packaging and found to be in good working order. Nexplanon implant was visualized in the sheath. The skin was held taut while the Nexplanon needle device was gently inserted underneath. After Nexplanon was deployed, the insertion device was discarded in the sharps container. The Nexplanon was palpated by both provider and patient. The insertion site was covered with sterile gauze. Good hemostasis was noted. Post-procedure instructions were given. Follow Up: Patient is to return to the office as needed for any routine appointments/concerns with Nexplanon Documented by Damaris Lou LPN on behalf of: CANDE Medina documented in this encounter [facility] 09-02-2024 History of Presen t illness Narrative [...] of: CANDE Medina documented in this encounter [facility] 08-26-2024 History of Presen t illness Narrative [...] nursing note reviewed. Exam conducted with a piping drafter present. Vitals: Estimated body mass index is [...] Mayur Barron DO documented in this encounter [facility] 08-20-2024 History of Presen t illness Narrative Reason for Appointment: Patient ID: Carmelina Rizo is a 18 y.o. female who presents for Routine Visit Patient presents today for Return OB appointment. MEDICATIONS Current Outpatient Medications Medication Instructions fluticasone (Flonase) 50 MCG/ACT nasal spray 2 sprays, Nasal, Daily RT magnesium oxide (MAG-OX) 400 mg, Oral, Daily Vit-Fe Fumarate-FA ( Plus/Iron) 27-1 MG tablet [...] Exam Constitutional: Appearance: Normal appearance. She is normal weight. HENT: Head: Normocephalic. Cardiovascular: Rate and Rhythm: Normal rate. Pulses: Normal pulses. Pulmonary: Effort: Pulmonary effort is normal. Breath sounds: Normal breath sounds. Abdominal: Palpations: Abdomen is soft. Musculoskeletal: General: Normal range of motion. Neurological: General: No focal deficit present. Mental Status: She is alert and oriented to person, place, and time. Psychiatric: Mood and Affect: Mood normal. Behavior: Behavior normal. Thought Content: Thought content normal. Judgment: Judgment normal. Vitals and nursing note reviewed. Vitals: Estimated body mass index is 29.82 kg/m as calculated from the following: Height as of 02/21/23: 5' 3.5 . Weight as of this encounter: 171 lb. BP: 102/64 Patient's last menstrual period was 11/26/2022. ASSESSMENT & PLAN ICD-10-CM 1. Third trimester Z34.93 POCT urinalysis dipstick manually resulted Strep B DNA probe, amplification 2. Screen for STD (sexually transmitted disease) Z11.3 SURESWAB(R) ADVANCED VAGINITIS PLUS, TMA CHLAMYDIA TRACHOMATIS (GENITO/STI) Neisseria gonorrhea DNA probe, direct Patient is doing well but has complaints of being tired and having maternal discomfort due to . Patient verbalized frequent movement and was instructed to perform kick counts three times per day. labor precautions were given, LARC consent was signed/declined, and GBS was obtained. Cervical check was performed and patient is 0cm dilated. Orders Placed This Encounter Procedures Strep B DNA probe, amplification CHLAMYDIA TRACHOMATIS (GENITO/STI) Neisseria gonorrhea DNA probe, direct POCT urinalysis dipstick manually resulted Follow Up: Patient is to return to office in 1 week for routine OB appointment Documented by CANDE Medina on behalf of: CANDE Medina documented in this encounter [facility] 08-05-2024 History of Presen t illness Narrative Reason for Appointment: Patient ID: Carmelina Rizo is a 18 y.o. female who presents for Routine Visit Patient presents today for Return OB appointment. MEDICATIONS Current Outpatient Medications Medication Instructions fluticasone (Flonase) 50 MCG/ACT nasal spray 2 sprays, Nasal, Daily RT magnesium oxide (MAG-OX) 400 mg, Oral, Daily Vit-Fe Fumarate-FA ( Plus/Iron) 27-1 MG tablet [...] nursing note reviewed. Exam conducted with a piping drafter present. Vitals: Estimated body mass index is 28.94 kg/m as calculated from the following: Height as of 02/21/23: 5' 3.5 . Weight as of this encounter: 166 lb. BP: 102/62 Patient's last menstrual period was 11/26/2022. ASSESSMENT & PLAN ICD-10-CM 1. Third trimester Z34.93 POCT urinalysis dipstick manually resulted 2. size inconsistent with dates O26.849 US OB SCAN FOR GROWTH Return OB: Patient presents today for a routine obstetrics appointment. Patient is currently 34w3d . Patient states she is doing well but has complaints of being tired due to current . Patient has verbalizes frequent movement. labor precautions was discussed/given and patient was instructed to perform kick counts three times a day. Orders Placed This Encounter Procedures US OB SCAN FOR GROWTH POCT urinalysis dipstick manually resulted Follow Up: Patient is to return to office in 2 week for routine OB appointment. Documented by Tiara Mcdonough LPN on behalf of: Mayur Barron DO documented in this encounter [facility] 07-22-2024 History of Presen t illness Narrative Reason for Appointment: Patient ID: Carmelina Rizo is a 18 y.o. female who presents for Routine Visit Patient presents today for Return OB appointment. MEDICATIONS Current Outpatient Medications Medication Instructions magnesium oxide (MAG-OX) 400 mg, Oral, Daily Vit-Fe Fumarate-FA ( Plus/Iron) 27-1 MG tablet [...] nursing note reviewed. Exam conducted with a piping drafter present. Vitals: Estimated body mass index is 28.42 kg/m as calculated from the following: Height as of 02/21/23: 5' 3.5 . Weight as of this encounter: 163 lb. BP: 104/62 Patient's last menstrual period was 11/26/2022. ASSESSMENT & PLAN ICD-10-CM 1. Third trimester Z34.93 POCT urinalysis dipstick manually resulted Return OB: Patient presents today for a routine obstetrics appointment. Patient is currently 32w3d . Patient states she is doing well but has complaints of being tired due to current . Pt having inconsistent contractions. Patient has verbalizes frequent movement. labor precautions was discussed/given and patient was instructed to perform kick counts three times a day. Orders Placed This Encounter Procedures POCT urinalysis dipstick manually resulted Follow Up: Patient is to return to office in 2 week for routine OB appointment. Documented by Tiara Mcdonough LPN on behalf of: CANDE Medina documented in this encounter [facility] 12-12-2023 History of Presen t illness Narrative [address] [place] [address] Patient: Carmelina Rizo Date of : 2005 [...] Moderate episode of recurrent major depressive disorder ([facility]) Relevant Medications busPIRone (BUSPAR) 10 [...] BMI 22.76 kg/m Physical Exam Vitals reviewed. Tube Blower present: Patient declined pelvic exam. Constitutional: Appearance: [...] VU APRN-CNP 12/15/232120 [facility] History of Presen t illness Narrative [address] [place] [address] Patient: Carmelina Rizo Date of : 2005 [...] SpO2 92% BMI 23.10 kg/m Physical Exam Tube Blower present: Patient declined pelvic exam. Psychiatric: Mood [...] was recommended that patient start plan B [id number] as she does not wish to have [...] APRN-CNP 11/28/23 174 documented in this encounter [facility] 11-28-2023 Miscellaneous Notes Addended by: KERRIE MEZA on: 11/28/2023 05:46 PM Modules accepted: Orders documented in this encounter [facility] 11-28-2023 Note Addended by: KERRIE MEZA on: 11/28/2023 05:46 PM Modules accepted: Orders [facility] 05-18-2022 Evaluation note Encounter Date Diagnosis [...] your family physician for any further concerns [facility] Other 02-01-2022 History general Narrative - Reported* Type Description Date Medical History anxiety Hospitalization History mental health 12/2021 [facility] Other [facility] noteNo InformationNort [employer] Other evaluation note* Diagnosis Vaginal discharge- Primary Leukorrhea, not specified as infective High risk heterosexual behavior Anxiety Anxiety state, unspecified documented in this encounter [facility] [employer] [facility]* Diagnosis Anxiety- Primary Anxiety state, unspecified Moderate episode of recurrent major depressive disorder ([facility]) Vaginal discharge Leukorrhea, not specified as infective [facility] [employer] [facility]* Diagnosis Third trimester state, incidental 37 weeks gestation of [facility] Diagnosis Third trimester state, incidental 38 weeks gestation of [facility]* Diagnosis Insertion of Nexplanon [facility]* Diagnosis 6 weeks follow-up Vaginal discharge Leukorrhea, not specified as infective [facility] Diagnosis Third trimester state, incidental [facility] Diagnosis Third trimester state, incidental size inconsistent with dates [facility] Diagnosis Third trimester state, incidental Screen for STD (sexually transmitted disease) Screening examination for venereal disease [facility]* Diagnosis Anemia during - Primary Anemia, antepartum Syncope and collapse documented in this encounter [facility] [employer] [facility]* Attachments The following attachments cannot be sent through Care Everywhere. * Buspirone, ADULT (Maltese) documented in this encounterPro[facility] SystemInstructionsNot on file documented in this encounterProMedica Health SystemInstructionsNot on file documented in this encounterProC[facility] HospitalInstructions* Attachments The following attachments cannot be sent through Care Everywhere. * Vortioxetine, ADULT (Maltese) documented in this encounterProC[facility] HospitalInstructionsNot on file documented in [facility] encounterOhio[facility] HospitalReason for referral (narrative)* Consultation (Routine) - Pending Review Specialty Diagnoses / Procedures Referred By [facility] Referred To Contact Psychiatry Diagnoses Anxiety Kerrie Meza APRN-CNP [address] [place] [address] Aparna Arias MD [address] [place] [id number] Referral ID Status Reason Start Date Expiration Date Visits Requested Visits Authorized [id number] Pending Review Specialty Services Required 11/28/2023 11/27/2024 1 1 [facility] Summary Purpose Family History No Family [...] By Dorothea felix Referred To Contact Kerrie Meza APRN-CNP [address] [place] [address] Referral ID Status Reason Start Date Expiration Date V isits Requested Visits Authorized [id number] Pending Review 1 1 Additional Source Comments REASON FOR VISIT (unrecogniz ed section and content) Reason Comments Anxiety Reason Comments Routine Visit Reason Comments nexplanon insertion Reason Comments Care follow up Nexplanon Reason Comments Loss of Consciousness INFORMATION SOURCE (unrecogn ized section and content) DATE CREATED AUTHOR 08/28/2022 Joice DATE CREATED AUTHOR AUTHOR'S ORGANIZ ATION 12/29/2022 [facility] DATE CREATED AUTHOR AUTHOR'S ORGANIZ ATION 05/03/2023 [facility] DATE CREATED AUTHOR AUTHOR'S ORGANIZ ATION 12/15/2023 [facility] DATE CREATED AUTHOR AUTHOR'S ORGANIZ ATION 09/26/2024 [facility] DATE CREATED AUTHOR AUTHOR'S ORGANIZ ATION 12/27/2024 [facility] Care Teams (unrecognized sec tion and content) Pastoral Assistant Relationship Specialty Start Date End Date Derrick Kerrie Rivera ATHLETIC AGENT-SUPPORT ARCHITECT [address] [place] [address] PCP - General Internal Medicine 05/17/23 Pastoral Assistant Relationship Specialty Start Date End Date DerrickBlazeKerrieedward Rivera ATHLETIC AGENT-SUPPORT ARCHITECT [address] [place] [address] PCP - General Internal Medicine 05/17/23 Pastoral Assistant Relationship Specialty Start Date End Date Blaze Mezaedward Rivera ATHLETIC AGENT-SUPPORT ARCHITECT [address] [place] [address] PCP - General Internal Medicine 05/17/23 Pastoral Assistant Relationship Specialty Start Date End Date Blaze Mezaiana Nicole ATHLETIC AGENT-SUPPORT ARCHITECT [address] [place] [id number] PCP - General Internal Medicine 05/17/23 FOR [...] BE BASED ON THE PRIMARY CLINICAL RECORDS. [employer] [employer] [facility] provides no warranty or guarantee of the accuracy or completeness of information in this document.
[2025-01-02 14:09] LABS: Age Gdln ACOG Testing Note (.); IGP, rfx Aptima HPV ASCU Note (.)
== END 2024-12-29 20:13 | disposition home or self-care (01) ==
LOC: LAB 20:12
PROVIDERS: PCP Family Medicine; Visit Provider Physician Assistant
DX: Z01.419 Encounter for gynecological examination (general) (routine) without abnormal findings (principal)
CPT/HCPCS: 88175